=== PATIENT | female | born 1970 | race Caucasian/White ===

== ENCOUNTER 2024-05-11 09:44 | Emergency (ER) | payer MEDICAID, SELFPAY ==
[2024-05-11 09:46] VITALS: BP 104/74; PULSE 107; RESP 22; TEMP 36.6; O2SAT 100
[2024-05-11 09:51] VITALS: PULSE 112; RESP 22; O2SAT 93; BMI 28.1
--- NOTE | 2024-05-11 10:31 | EKG_ITS ---
[facility] Test Date: 2024-05-11 Pat Name: TIFFANY FREY Department: Room: - Gender: Female Straightener And Aligner: : 1970 Requested By: Harsh Robb Order Number: [id number] Reading MD: Harsh Robb Measurements Intervals [place] Rate: 101 P: 33 MT: 101 QRS: 54 QRSD: 73 T: 70 QT: 315 QTc: 408 Interpretive Statements SINUS TACHYCARDIA WITH SHORT MT INTERVAL NONSPECIFIC ST & T-WAVE ABNORMALITY ABNORMAL RHYTHM ECG Compared to ECG 03/30/2024 19:43:34 T-wave abnormality now present Sinus rhythm no longer present ST (T wave) deviation no longer present /store/S0/[id number].pdf
--- NOTE | 2024-05-11 10:34 | XR_ITS ---
Examination: AP chest single view TECHNIQUE: AP portable supine chest single view Exam date and time: May 11, 2024 1158 hours INDICATIONS: Shortness of breath today. FINDINGS: Reduced inspiration Normal heart size No lobar pneumonia or pulmonary edema IMPRESSION: No lobar pneumonia or pulmonary edema Severe thoracolumbar dextroscoliosis
--- NOTE | 2024-05-11 11:11 | EDNOTE_ITS ---
ED General RME/HPI General Chief complaint: Shortness of Breath/Dyspnea Stated complaint: SOB Time Seen by Provider: 05/11/24 11:05 Arrival date/time: 05/11/24 09:44 CC: Reported shortness of breath HPI unknown onset time patient is nonverbal secondary to compulsive order epilepsy seizure disorder scoliosis osteoporosis and contractures. With profound mental mental retardation. Report is thirdhand Interview of the intake nurse states that the patient was presented here for perceived shortness of breath as someone else in the household was recently diagnosed with pneumonia. Related Data Home Medications ?Medication ?Instructions ?Recorded ?Confirmed calcium carbonate 500 mg/5 mL (as 625 mg feeding tube BID 07/29/23 03/18/24 calcium carb 1,250 mg/5 mL) oral suspension erythromycin 2 % topical solution 1 ml topical BID 07/29/23 03/18/24 gabapentin 300 mg capsule 900 mg feeding tube BID 07/29/23 03/18/24 glycopyrrolate 2 mg tablet 2 mg feeding tube BID 07/29/23 03/18/24 levothyroxine 75 mcg tablet 75 mcg feeding tube USEASDIRECTD 07/29/23 03/18/24 metoclopramide HCl 5 mg/5 mL oral 10 mg feeding tube BID 07/29/23 03/18/24 solution multivit and minerals-ferrous 5 ml feeding tube BID 07/29/23 03/18/24 gluconate 9 mg iron/15 mL oral liquid (Multi-Jg) simethicone 80 mg chewable tablet 80 mg feeding tube TID 07/29/23 03/18/24 valproic acid (as sodium salt) 250 400 mg feeding tube BID 07/29/23 03/18/24 mg/5 mL oral solution acetaminophen 325 mg tablet 650 mg feeding tube QID PRN Pain 03/18/24 03/18/24 (Tylenol) dextromethorphan-guaifenesin 10 10 ml PO Q6H PRN Cough 03/18/24 03/18/24 mg-200 mg/5 mL oral liquid erythromycin 2 % topical solution 1 ml topical BID 03/18/24 03/18/24 famotidine 20 mg tablet 20 mg feeding tube QDAY 03/18/24 03/18/24 ipratropium 0.5 mg-albuterol 3 mg 3 ml inhalation Q4H PRN Shortness 03/18/24 03/18/24 (2.5 mg base)/3 mL nebulization Of Breath Or Wheezing soln lactulose 10 gram/15 mL oral 30 g feeding tube DAILY 03/18/24 03/18/24 solution loratadine 10 mg tablet 10 mg feeding tube QDAY 03/18/24 03/18/24 pseudoephedrine HCl 60 mg tablet 60 mg feeding tube Q6H PRN 03/18/24 03/18/24 (Sudogest) Congestion Previous Rx's ?Medication ?Instructions ?Recorded doxycycline hyclate 100 mg tablet 100 mg PO QDAY #10 tabs 03/30/24 Allergies Allergy/AdvReac Type Severity Reaction Status Date / Time bacitracin Allergy Verified 05/11/24 09:58 [From Neosporin ([id number])] cephalexin Allergy Verified 05/11/24 09:58 neomycin Allergy Verified 05/11/24 09:58 [From Neosporin ([id number])] Penicillins Allergy Verified 05/11/24 09:58 polymyxin B Allergy Verified 05/11/24 09:58 [From Neosporin ([id number])] Review of Systems Review of Systems ROS Unobtainable: unobtainable due to mental status ED Exam Narrative Physical exam: [General: Appears not in any acute distress Head normocephalic HEENT: Eyes pupils are PERRLA tracking nose: No rhinorrhea mouth pink moist membranes uvula is midline. Neck is supple no edema no LAD Chest equal chest rise nontender to palpation Respiratory: Clear to auscultation no wheezes crackles or rubs CV: Rate rhythm is regular, tachycardic, no murmurs rubs or clicks Abdomen is soft no masses positive bowel sounds all 4 quadrants Skin: Intact no petechiae rash induration ulceration or crepitus Extremities: Upper and lower contractures, passive range of motion of no active range of motion Neuro: Awake, nonverbal Course Quality Measures none Orders Category Date Time Status Continuous Pulse Oximetry NOW Care 05/11/24 10:32 Completed In and Out Catheter X1 Care 05/11/24 11:14 Active Insert IV NOW Care 05/11/24 10:32 Active EKG (ED Only) Stat Exams 05/11/24 10:31 Draft XR chest 1V portable Stat Exams 05/11/24 10:34 Completed CBC Stat Lab 05/11/24 11:03 Completed Comprehensive Metabolic Panel Stat Lab 05/11/24 11:03 Completed Urinalysis, C/S if Indicated Stat Lab 05/11/24 13:15 Completed Oxygen Delivery NEEDED RT 05/11/24 10:32 Active Vital Signs Vital signs: Vital Signs Temperature 97.9 F 05/11/24 09:46 Pulse Rate 107 H 05/11/24 09:46 Respiratory Rate 22 H 05/11/24 09:46 Blood Pressure 104/74 05/11/24 09:46 Pulse Oximetry (%) 100 05/11/24 09:46 Oxygen Delivery Method Oxy Mask 05/11/24 09:46 Oxygen Flow Rate 6 05/11/24 09:46 MDM Patient data External records reviewed:: [facility] previous records and EMS form Clinical information provided by:: patient and EMS Social determinants that could affect healthcare access:: none Patient has the following chronic illnesses:: Profound mental retardation, epilepsy history of seizures scoliosis osteoporosis contractures compulsive disorder. How is presenting disease/condition affected by chronic disease/condition?: e xacerbated by Evaluation data The following diagnostics were reviewed and interpreted by me:: lab results and radiology exam(s) Lab and/or radiology exams considered but not ordered:: EKG performed at 1210 shows ventricular rate of 101 CA interval 101 QRS of 73 QTc of [address] segment changes CBC shows leukocytosis of 14.6 no significant anemia thrombocytopenia. CMP shows no acute electrolyte imbalances renal impairment transaminitis or T. bili elevation Chest x-ray as interpreted by me read by radiology shows no significant infiltrate or effusion, there is significant dextroscoliosis Urine is negative for UTI Interpretation Summary: There is no acute finding the patient has stable vital signs at this time patient be discharged back home again Medications Medications considered but not ordered:: None Medication administrations:: None Consultations Consultation(s) initiated? (list below): No Diagnosis Differential Diagnosis ED Complaint MDM: Pneumonia UTI electrolyte imbalance Most likely diagnosis given after review of the tests above:: No acute finding Admission Indicated Admission indicated?: not indicated Explain why admission is indicated or not indicated:: Stable for follow-up Admission Request Was there a request for admission?: No Disposition Plan Disposition Plan: Discharge Discharge Attestation Discharge Attestation: The patient and all family members were given an opportunity to ask questions and understood the discharge instructions. Discharge instructions specifically effects, indications for sooner follow up or return to the emergency department, and the expected course of current diagnosis. Patient condition: Stable Medical Decision Making Differential Diagnosis Differential Diagnosis: Pneumonia UTI electrolyte imbalance Lab Data 05/11/24 11:03 05/11/24 11:03 Labs: Lab Results 05/11/24 05/11/24 Range/Units 11:03 13:15 WBC 14.8 H (3.6-11.0) Thou/mm3 RBC 4.63 (4.00-5.20) Miln/mm3 Hgb 15.9 (12.0-16.0) g/dL Hct 47.2 H (36.0-46.0) % MCV 102 H (80-100) fL MCH 34.3 (25.0-35.0) pg MCHC 33.7 (31.0-37.0) g/dl RDW Std Deviation 48.8 H (36.4-46.3) fL Plt Count 143 D (140-440) Thou/mm3 Neut % (Auto) 51 (37-80) % Lymph % (Auto) 33 (10-50) % [place] % (Auto) 16 H (0-12) % Eos % (Auto) 0 (0-10) % Baso % (Auto) 0 (0-2.5) % Neut # (Auto) 7.5 (1.8-7.7) Thou/mm3 Lymph # (Auto) 4.8 (1.0-4.8) Thou/mm3 [place] # (Auto) 2.3 H (0.0-0.8) Thou/mm3 Eos # (Auto) 0.0 (0.0-0.5) Thou/mm3 Baso # (Auto) 0.0 (0.0-0.2) Thou/mm3 Immature Gran # (Auto) 0.09 H (0.00-0.00) Thou/mm3 Absolute Nucleated RBC 0.00 (0.00-0.00) Thou/mm3 Immature Gran % 1 H (0-0) % Nucleated RBC % 0 (0) /100 WBC Sodium 136 (136-145) mMol/L Potassium 4.3 (3.4-5.1) mMol/L Chloride 98 (98-107) mMol/L Carbon Dioxide 27.4 (20.0-31.0) mMol/L Anion Gap 11 (7-16) BUN 15 (9-23) mg/dL Creatinine 0.6 (0.6-1.3) mg/dL Estim Creat Clear Calc 67.6 (>60) mL/min eGFR > 60 (60 - ) See Note BUN/Creatinine Ratio 25 H (12-20) Ratio Glucose 102 (74-106) mg/dL Calculated Osmolality 272 L (275-295) Calcium 9.6 (8.3-10.6) mg/dL Corrected Calcium 9.8 (8.5-10.1) mg/dL Total Bilirubin 0.5 (0.3-1.2) mg/dL AST 41 H (0-34) U/L ALT 24 (10-49) U/L Alkaline Phosphatase 91 (46-116) U/L Total Protein 6.6 (5.7-8.2) gm/dL Albumin 3.8 (3.5-5.0) gm/dL Globulin 2.8 (2.3-3.5) gm/dL Albumin/Globulin Ratio 1.4 (1.2-2.2) Ur Collection Type Catheter Urine Color Yellow (Lt Yel-Yel) Urine Clarity Clear (Clear/Hazy) Urine pH 6.0 (5.0-7.0) Ur Specific [place] 1.039 H (1.001-1.035) Urine Protein 1+ A (Neg - Trace) Urine Glucose (UA) Trace (Negative) Urine Ketones 2+ A (Negative) Urine Blood Negative (Negative) Urine Nitrite Negative (Negative) Urine Bilirubin Negative (Negative) Urine Urobilinogen (Auto) Negative (0.0-1.0) mg/dL Ur Leukocyte Esterase Negative (Negative) Urine RBC 3 (0-3) /hpf Urine WBC 3 (0-5) /hpf Ur Squamous Epith Cells < 1 (0-5) /hpf Urine Bacteria None (None) Hyaline Casts < 1 (0-1) /hpf Ur Culture Indicated? Not Indicated Discharge Plan Plan Patient Disposition: HOME (Self Care) Prescriptions/Referrals Prescriptions/Med Rec: No Action metoclopramide HCl 5 mg/5 mL Solution 10 mg feeding tube BID levothyroxine 75 mcg tablet 75 mcg feeding tube USEASDIRECTD Rx Instructions: GIVE ON SATURDAY, SATURDAY, SATURDAY erythromycin 2 % Solution 1 ml TOPICAL BID Rx Instructions: TO FACE valproic acid (as sodium salt) 250 mg/5 mL Solution 400 mg feeding tube BID gabapentin 300 mg capsule 900 mg feeding tube BID glycopyrrolate 2 mg tablet 2 mg feeding tube BID simethicone 80 mg Tablet,Chewable 80 mg feeding tube TID calcium carbonate 500 mg/5 mL (1,250 mg/5 mL) suspension 625 mg feeding tube BID Multi-Jg 9 mg iron/15 mL liquid 5 ml feeding tube BID famotidine 20 mg Tablet 20 mg feeding tube QDAY erythromycin 2 % Solution 1 ml TOPICAL BID loratadine 10 mg Tablet 10 mg feeding tube QDAY lactulose 10 gram/15 mL Solution 30 g feeding tube DAILY ipratropium-albuterol 0.5 mg-3 mg(2.5 mg base)/3 mL Solution For Nebulization 3 ml INHALATION Q4H PRN (Reason: Shortness Of Breath Or Wheezing) pseudoephedrine HCl [Sudogest] 60 mg Tablet 60 mg feeding tube Q6H PRN (Reason: Congestion) acetaminophen [Tylenol] 325 mg Tablet 650 mg feeding tube QID PRN (Reason: Pain) Robitussin DM Max 10-200 mg/5 mL Liquid 10 ml PO Q6H PRN (Reason: Cough) doxycycline hyclate 100 mg tablet 100 mg PO QDAY Qty: 10 0RF Referrals: Jewel Cleaning MD [Primary Care Provider] - In 1 week Problem List Clinical Impression: Shortness of breath Patient/Caregiver Discharge Instructions Other Activity Instructions:: Although the initial complaint was shortness of breath or perceived shortness of breath with a someone in the family having pneumonia the patient has no acute findings requires emergent or immediate intervention. Education Materials: Shortness of Breath Coping Print Language: Occitan Stand Alone Forms: [facility]ena Award Info., Patient Portal Info Letter PA/BLASTING MACHINE OPERATOR Supervising Physician PA/BLASTING MACHINE OPERATOR Supervising Physician: Wes Johnson ENP
[2024-05-11 11:13] LABS: Basophils % (Auto) 0 % (0-2.5); Eosinophils % (Auto) 0 % (0-10); Hematocrit 47.2 % (36.0-46.0); Hemoglobin 15.9 g/dL (12.0-16.0); Immature Granulocytes % (Auto) 1 % (0-0); Immature Granulocytes Auto 0.09 Thou/mm3 (0.00-0.00); Lymphocytes # (Auto) 4.8 Thou/mm3 (1.0-4.8); Lymphocytes % (Auto) 33 % (10-50); Mean Corpuscular HGB Conc 33.7 g/dl (31.0-37.0); Mean Corpuscular Hemoglobin 34.3 pg (25.0-35.0); Mean Corpuscular Volume 102 fL (80-100); Monocytes # (Auto) 2.3 Thou/mm3 (0.0-0.8); Monocytes % (Auto) 16 % (0-12); Neutrophils # (Auto) 7.5 Thou/mm3 (1.8-7.7); Neutrophils % (Auto) 51 % (37-80); Nucleated Red Blood Cell % 0 /100 WBC (0); Platelet Count 143 Thou/mm3 (140-440); RDW Standard Deviation 48.8 fL (36.4-46.3); Red Blood Count 4.63 Miln/mm3 (4.00-5.20); White Blood Count 14.8 Thou/mm3 (3.6-11.0)
[2024-05-11 11:40] VITALS: TEMP 37.4
[2024-05-11 11:41] LABS: Alanine Aminotransferase 24 U/L (10-49); Albumin, Serum 3.8 gm/dL (3.5-5.0); Albumin/Globulin Ratio 1.4 (1.2-2.2); Alkaline Phosphatase 91 U/L (46-116); Anion Gap 11 (7-16); Aspartate Amino Transferase 41 U/L (0-34); BUN/Creatinine Ratio 25 Ratio (12-20); Bilirubin,Total 0.5 mg/dL (0.3-1.2); Blood Urea Nitrogen 15 mg/dL (9-23); Calcium 9.6 mg/dL (8.3-10.6); Calcium (Corrected) 9.8 mg/dL (8.5-10.1); Carbon Dioxide 27.4 mMol/L (20.0-31.0); Chloride 98 mMol/L (98-107); Creatinine (Component) 0.6 mg/dL (0.6-1.3); Estimated Creatinine Clearance 67.6 mL/min (>60); Globulin 2.8 gm/dL (2.3-3.5); Glucose 102 mg/dL (74-106); Osmolality,Calculated 272 (275-295); Potassium 4.3 mMol/L (3.4-5.1); Sodium 136 mMol/L (136-145); Total Protein 6.6 gm/dL (5.7-8.2); eGFR > 60 See Note
[2024-05-11 12:21] VITALS: BP 112/71; PULSE 104; RESP 21; O2SAT 94
[2024-05-11 13:24] LABS: Collection Type, Urine Catheter
[2024-05-11 13:56] LABS: Bilirubin,Urine Negative (Negative); Blood,Urine Negative (Negative); Clarity,Urine Clear (Clear/Hazy); Color,Urine Yellow (Lt Yel-Yel); Culture Indicated,Urine Not Indicated; Glucose, Urine Trace (Negative); Hyaline Casts,Urine < 1 /hpf (0-1); Ketones,Urine 2+ (Negative); Leukocyte Esterase,Urine Negative (Negative); Nitrite,Urine Negative (Negative); Protein,Urine 1+ (Neg - Trace); RBC,Urine 3 /hpf (0-3); Specific Gravity,Urine 1.039 (1.001-1.035); Squamous Epithelial Cell,Urine < 1 /hpf (0-5); Urobilinogen,Urine Negative mg/dL (0.0-1.0); WBC,Urine 3 /hpf (0-5)
[2024-05-11 14:00] VITALS: BP 110/68; PULSE 98; RESP 20; O2SAT 96
[2024-05-11 16:00] VITALS: BP 108/69; PULSE 99; RESP 20; TEMP 36.7; O2SAT 95
--- NOTE | 2024-05-11 16:11 | PC.CC ---
Pt Deyanira Pérez is a 53 yr old female to ED for SOB. Pt a resident at [facility]. EMPLOYMENT LAW SPECIALIST CC engaged by deputy county attorney Claire to arrange transport for pt. 1523-EMPLOYMENT LAW SPECIALIST CC spoke with Kaelyn Pérez [phone], facility counselor aid. EMPLOYMENT LAW SPECIALIST CC inquired if residential facility will be able to transport pt. Per Kaelyn she will talk to health information managers to arrange for pts transport.
== END 2024-05-11 16:22 | disposition home or self-care (01) ==
PROVIDERS: Registered Nurse General Practice; Emergency Provider Emergency Medicine; PCP Family Medicine
DX: R06.02 Shortness of breath (principal); R00.0 Tachycardia, unspecified; M41.9 Scoliosis, unspecified
CPT/HCPCS: 51701; 36415; 71045; 80053; 81001; 85025; 93005; 99283

== ENCOUNTER 2024-05-13 15:04 | Observation (INO) | payer MEDICAID, SELFPAY ==
[2024-05-13 15:20] VITALS: BP 102/6; PULSE 92; RESP 18; TEMP 37.1; O2SAT 95
--- NOTE | 2024-05-13 15:31 | XR_ITS ---
Examination: CT abdomen and pelvis without contrast. Coronal 3-D reconstructions. Sagittal 2-D reconstructions. Date and time of exam:May 13, 2024 1721 hrs. Comparison December 31, 2023 Indications: Onset generalized abdominal pain today CTDI: vol (mGy): 8.09 DLP: (mGycm): 432 Technique: Axial images of the abdomen have been obtained, 3 mm slice thickness Intravenous contrast material has not been administered. Low dose protocols were performed. One or more of the following dose reduction techniques were used; automated exposure control, adjustment of the mA and/or KV according to patient size, use of iterative reconstruction technique. Findings: No focal liver or splenic lesion Multiple gallstones No pancreatic mass No renal or ureteral calculi, no hydronephrosis No pericecal inflammatory change Moderate colonic ileus No diverticulitis There is mild diffuse wall thickening of the colon Contracted urinary bladder Atrophic anteverted uterus Severe thoracolumbar dextroscoliosis Impression: Cholelithiasis, recommend hepatobiliary sonography to better assess the gallbladder wall Mild to moderate colonic ileus Mild diffuse nonspecific colitis pattern
--- NOTE | 2024-05-13 15:32 | PD.EDRME ---
Rapid Medical Screening Exam RME Arrival date/time: 05/13/24 15:04 53-year-old female with G-tube presents with caregiver who reports the patient is having leakage from her G-tube and vomiting Chief Complaint: Medical Clearance Time Seen by Provider: 05/13/24 15:26 Vital signs: Vital Signs Temperature 98.7 F 05/13/24 15:20 Pulse Rate 92 05/13/24 15:20 Respiratory Rate 18 05/13/24 15:20 Blood Pressure 102/6 L 05/13/24 15:20 Pulse Oximetry (%) 95 05/13/24 15:20 Oxygen Delivery Method Room Air 05/13/24 15:20
[2024-05-13 16:14] LABS: Basophils % (Auto) 0 % (0-2.5); Eosinophils % (Auto) 0 % (0-10); Hematocrit 43.7 % (36.0-46.0); Hemoglobin 14.7 g/dL (12.0-16.0); Immature Granulocytes % (Auto) 1 % (0-0); Immature Granulocytes Auto 0.12 Thou/mm3 (0.00-0.00); Lymphocytes # (Auto) 6.8 Thou/mm3 (1.0-4.8); Lymphocytes % (Auto) 52 % (10-50); Mean Corpuscular HGB Conc 33.6 g/dl (31.0-37.0); Mean Corpuscular Hemoglobin 33.5 pg (25.0-35.0); Mean Corpuscular Volume 100 fL (80-100); Monocytes # (Auto) 1.2 Thou/mm3 (0.0-0.8); Monocytes % (Auto) 9 % (0-12); Neutrophils # (Auto) 4.9 Thou/mm3 (1.8-7.7); Neutrophils % (Auto) 38 % (37-80); Nucleated Red Blood Cell % 0 /100 WBC (0); Platelet Count 185 Thou/mm3 (140-440); RDW Standard Deviation 46.8 fL (36.4-46.3); Red Blood Count 4.39 Miln/mm3 (4.00-5.20); White Blood Count 13.1 Thou/mm3 (3.6-11.0)
[2024-05-13 16:29] LABS: HCG,Qualitative Serum Negative
[2024-05-13 16:34] LABS: Alanine Aminotransferase 29 U/L (10-49); Albumin, Serum 3.9 gm/dL (3.5-5.0); Albumin/Globulin Ratio 1.7 (1.2-2.2); Alkaline Phosphatase 86 U/L (46-116); Anion Gap 6 (7-16); Aspartate Amino Transferase 49 U/L (0-34); BUN/Creatinine Ratio 27 Ratio (12-20); Bilirubin,Total 0.4 mg/dL (0.3-1.2); Blood Urea Nitrogen 16 mg/dL (9-23); Calcium 9.2 mg/dL (8.3-10.6); Calcium (Corrected) 9.3 mg/dL (8.5-10.1); Carbon Dioxide 33.7 mMol/L (20.0-31.0); Chloride 94 mMol/L (98-107); Creatinine (Component) 0.6 mg/dL (0.6-1.3); Globulin 2.3 gm/dL (2.3-3.5); Glucose 87 mg/dL (74-106); Lipase 34 U/L (12-53); Osmolality,Calculated 268 (275-295); Potassium 4.1 mMol/L (3.4-5.1); Sodium 134 mMol/L (136-145); Total Protein 6.2 gm/dL (5.7-8.2); eGFR > 60 See Note
[2024-05-13 17:47] LABS: Path Review Blood Smear Sent to Pathologist
[2024-05-13 18:01] VITALS: BP 108/70; PULSE 96; RESP 20; TEMP 36.9; O2SAT 95
[2024-05-13 18:41] LABS: Collection Type, Urine Clean Catch; Squamous Epithelial Cell,Urine 0 /hpf (0-5)
--- NOTE | 2024-05-13 18:46 | PD.EDADULT ---
ED General RME/HPI General Chief complaint: Abdominal Pain Stated complaint: possible Illeus, per primary Time Seen by Provider: 05/13/24 15:26 Arrival date/time: 05/13/24 15:04 Limitations: no limitations RME / HPI RME / HPI narrative: 05/13/24 15:04 53-year-old female with G-tube presents with caregiver who reports the patient is having leakage from her G-tube and vomiting. DR. TILLMAN MAIN ED EVALUATION: 53 year old female with past medical history significant for profound mental retardation, epilepsy history of seizures, scoliosis, osteoporosis, contractures, compulsive disorder, G-tube presents to the Emergency Department with complaints of abdominal pain onset 24 hours with associated vomiting. Pain is described as aching and rated mild to moderate in severity. Related Data Home Medications ?Medication ?Instructions ?Recorded ?Confirmed calcium carbonate 500 mg/5 mL (as 625 mg feeding tube BID 07/29/23 03/18/24 calcium carb 1,250 mg/5 mL) oral suspension erythromycin 2 % topical solution 1 ml topical BID 07/29/23 03/18/24 gabapentin 300 mg capsule 900 mg feeding tube BID 07/29/23 03/18/24 glycopyrrolate 2 mg tablet 2 mg feeding tube BID 07/29/23 03/18/24 levothyroxine 75 mcg tablet 75 mcg feeding tube USEASDIRECTD 07/29/23 03/18/24 metoclopramide HCl 5 mg/5 mL oral 10 mg feeding tube BID 07/29/23 03/18/24 solution multivit and minerals-ferrous 5 ml feeding tube BID 07/29/23 03/18/24 gluconate 9 mg iron/15 mL oral liquid (Multi-Jg) simethicone 80 mg chewable tablet 80 mg feeding tube TID 07/29/23 03/18/24 valproic acid (as sodium salt) 250 400 mg feeding tube BID 07/29/23 03/18/24 mg/5 mL oral solution acetaminophen 325 mg tablet 650 mg feeding tube QID PRN Pain 03/18/24 03/18/24 (Tylenol) dextromethorphan-guaifenesin 10 10 ml PO Q6H PRN Cough 03/18/24 03/18/24 mg-200 mg/5 mL oral liquid erythromycin 2 % topical solution 1 ml topical BID 03/18/24 03/18/24 famotidine 20 mg tablet 20 mg feeding tube QDAY 03/18/24 03/18/24 ipratropium 0.5 mg-albuterol 3 mg 3 ml inhalation Q4H PRN Shortness 03/18/24 03/18/24 (2.5 mg base)/3 mL nebulization Of Breath Or Wheezing soln lactulose 10 gram/15 mL oral 30 g feeding tube DAILY 03/18/24 03/18/24 solution loratadine 10 mg tablet 10 mg feeding tube QDAY 03/18/24 03/18/24 pseudoephedrine HCl 60 mg tablet 60 mg feeding tube Q6H PRN 03/18/24 03/18/24 (Sudogest) Congestion Previous Rx's ?Medication ?Instructions ?Recorded doxycycline hyclate 100 mg tablet 100 mg PO QDAY #10 tabs 03/30/24 Allergies Allergy/AdvReac Type Severity Reaction Status Date / Time bacitracin Allergy Verified 05/11/24 09:58 [From Neosporin ([id number])] cephalexin Allergy Verified 05/11/24 09:58 neomycin Allergy Verified 05/11/24 09:58 [From Neosporin ([id number])] Penicillins Allergy Verified 05/11/24 09:58 polymyxin B Allergy Verified 05/11/24 09:58 [From Neosporin ([id number])] Review of Systems Review of Systems ROS Unobtainable: unobtainable due to medical condition Past Medical History Past Medical History NEUROLOGIC: Positive Neurological Disorders, Seizures and Cerebral Palsy CARDIAC: Negative Cardiac Disorders or Congestive Heart Failure RESPIRATORY: Positive Pneumonia; Negative Chronic Obstructive Pulmonary Disease (COPD) GASTROINTESTINAL: Positive Gastrointestinal Disorders, Gall Bladder Disease and Gastroesophageal Reflux Disease GENITOURINARY: Negative Genitourinary Disorders or Renal Disease MUSCULOSKELETAL: Positive Musculoskeletal Disorders ENT: Positive Blind ENDOCRINE: Positive Endocrine Disorders and Hypothyroidism; Negative Diabetes Mellitus Type 1 or Diabetes Mellitus Type 2 HEMATOLOGIC: Negative Blood Disorders PSYCHO/SOCIAL: Negative Behavior Problems OTHER HISTORY: Positive Hospitalization and Developmental Delay; Negative Autoimmune Disease, Shingles, Blood Transfusions, Blood Transfusion Reaction, Anesthesia Reactions or Cancer Family History FAMILY HISTORY: Negative Family Psychiatric Problems, Family Respiratory Disorders, Family Cardiac Disorders, Family Gastrointestinal Problems, Family Cancer, Family Surgery or Family Anesthesia Reaction Surgical History SURGICAL: Positive Gastrostomy Social History SMOKING STATUS: Never smoker SUBSTANCE USE: does not use ALCOHOL: Never ED Exam General Limitations: Present no limitations General appearance: Present alert and in no apparent distress Head Head exam: Present atraumatic, normocephalic and normal inspection Eye Eye exam: Present normal appearance, PERRL and EOMI ENT ENT exam: Present normal exam, normal oropharynx and mucous membranes moist Neck Neck exam: Present normal inspection, full ROM and trachea midline Chest Chest inspection: Present normal inspection and symmetric chest wall rise Respiratory Respiratory exam: Present normal lung sounds bilaterally Cardiovascular Cardiovascular exam: Present regular rate, normal rhythm and normal heart sounds Abdominal Exam Abdominal exam: Present soft and normal bowel sounds Extremities Exam Extremities exam: Present normal inspection and full ROM Back Exam Back exam: Present normal inspection and full ROM Neurological Exam Neurological exam: Present alert, oriented X3 and CN II-XII intact Psychiatric Psychiatric exam: Present normal affect and normal mood Skin Skin exam: Present warm, dry, intact and normal color Course Quality Measures none Orders Category Date Time Status In and Out Catheter X1 Care 05/13/24 15:31 Completed Insert IV NOW Care 05/13/24 21:20 Active Miscellaneous Nursing Order X1 Care 05/13/24 21:[address] abdomen pelvis wo con Stat Exams 05/13/24 15:31 Completed US gall bladder Stat Exams 05/13/24 19:47 Completed CBC Stat Lab 05/13/24 15:58 Completed Comprehensive Metabolic Panel Stat Lab 05/13/24 15:58 Completed HCG,Qualitative Serum Stat Lab 05/13/24 15:58 Completed Lipase Stat Lab 05/13/24 15:58 Completed Path Review Blood Smear Stat Lab 05/13/24 15:58 Completed UA, C/S IF [Urinalysis, C/S if Indicated] Stat Lab 05/13/24 18:30 Completed Ondansetron Inj [Zofran Inj] Med 05/13/24 21:34 Discontinued 4 mg IV X1 ONE Sodium Chloride 0.9% 1000 ml [Ns] 1,000 ml Med 05/13/24 21:21 Discontinued IV 999 mls/hr Sodium Chloride 0.9% 1000 ml [Ns] 1,000 ml Med 05/13/24 21:27 Discontinued IV 999 mls/hr Vital Signs Vital signs: Vital Signs Temperature 98.7 F 05/13/24 15:20 Pulse Rate 92 05/13/24 15:20 Respiratory Rate 18 05/13/24 15:20 Blood Pressure 102/6 L 05/13/24 15:20 Pulse Oximetry (%) 95 05/13/24 15:20 Oxygen Delivery Method Room Air 05/13/24 15:20 [facility] Patient data External records reviewed:: [facility] previous records (Reviewed last ED visit dated 05/11/24, discharged with the following: Shortness of breath.) Clinical information provided by:: patient Social determinants that could affect healthcare access:: none Patient has the following chronic illnesses:: Profound mental retardation, epilepsy history of seizures, scoliosis, osteoporosis, contractures, compulsive disorder. How is presenting disease/condition affected by chronic disease/condition?: exacerbated by Evaluation data The following diagnostics were reviewed and interpreted by me:: lab results and radiology exam(s) Lab and/or radiology exams considered but not ordered:: none Interpretation Summary: Procedure(s): US gall bladder Accession Number(s): [id number] cc: Jewel Cleaning MD; Ricky Pisano MD; Becka Tillman MD~ Examination: Abdomen sonogram, Limited Date and time of exam: May 13, 2024 1933 hrs. Indications: Upper abdominal pain this week Technique: Real-time fletcher scale transabdominal sonographic images of the upper abdomen obtained. Findings: Multiple gallstones Gallbladder wall 0.2 cm no edema Common bile duct 0.5 cm no stones Pancreas obscured by bowel gas Liver normal size fatty liver Normal hepatopedal portal venous oh Patent IVC Impression: Cholelithiasis, negative for cholecystitis Dictated By: Ricky Pisano MD Procedure(s): CT abdomen pelvis wo con Accession Number(s): [id number] cc: Alexandra (PASSENGER AGENT),Harsh JACKSON; Jewel Cleaning MD; Ricky Pisano MD~ Examination: CT abdomen and pelvis without contrast. Coronal 3-D reconstructions. Sagittal 2-D reconstructions. Date and time of exam:May 13, 2024 1721 hrs. Comparison December 31, 2023 Indications: Onset generalized abdominal pain today CTDI: vol (mGy): 8.09 DLP: (mGycm): 432 Technique: Axial images of the abdomen have been obtained, 3 mm slice thickness Intravenous contrast material has not been administered. Low dose protocols were performed. One or more of the following dose reduction techniques were used; automated exposure control, adjustment of the mA and/or KV according to patient size, use of iterative reconstruction technique. Findings: No focal liver or splenic lesion Multiple gallstones No pancreatic mass No renal or ureteral calculi, no hydronephrosis No pericecal inflammatory change Moderate colonic ileus No diverticulitis There is mild diffuse wall thickening of the colon Contracted urinary bladder Atrophic anteverted uterus Severe thoracolumbar dextroscoliosis Impression: Cholelithiasis, recommend hepatobiliary sonography to better assess the gallbladder wall Mild to moderate colonic ileus Mild diffuse nonspecific colitis pattern Dictated By: Ricky Pisano MD Medications Medications considered but not ordered:: none Medication administrations:: Medication Administration History Discontinued Medications Sodium Chloride (Ns) 1,000 mls @ 999 mls/hr IV .Q1H1M ONE Stop: 05/13/24 22:21 Last Infusion: 05/13/24 22:30 Dose: Infused Documented By: Admin: 05/13/24 21:22 Dose: 999 mls/hr Documented By: CVClaudia Sodium Chloride (Ns) 1,000 mls @ 999 mls/hr IV .Q1H1M ONE Stop: 05/13/24 22:27 Last Admin: 05/13/24 22:33 Dose: Not Given Documented By: EE Non-Admin Reason: Discontinued Ondansetron HCl (Ondansetron Inj 2 Mg/Ml Inj 2 Ml) 4 mg IV X1 ONE; Protocol Stop: 05/13/24 21:35 Last Admin: 05/13/24 22:33 Dose: 4 mg Documented By: RE see above if any Consultations Consultation(s) initiated? (list below): Yes Consultation #1 (Physician, Specialty, Details): Discussed test HPI, PMHx, lab, radiology results and/or management with Dr. Coe. He states he can follow up with patient at his office as an outpatient. Time: 21:00 Diagnosis Differential Diagnosis ED Complaint MDM: vomiting, sbo, uti dehydration, electrolyte abn Most likely diagnosis given after review of the tests above:: see below Admission Indicated Admission indicated?: not indicated Explain why admission is indicated or not indicated:: Admission criteria not met. Admission Request Was there a request for admission?: No Disposition Plan Disposition Plan: Discharge Discharge Attestation Discharge Attestation: The patient and all family members were given an opportunity to ask questions and understood the discharge instructions. Discharge instructions specifically effects, indications for sooner follow up or return to the emergency department, and the expected course of current diagnosis. Patient condition: Stable Medical Decision Making MDM Narrative MDM Narrative: I, Carmen Lyons, am scribing for and in the presence of Dr. Tillman. This patient was brought in for possible dry heaving with her feeds. The emergency department the patient is been able to tolerate feeds here with Pedialyte. She has no dry heaving and otherwise does not appear to be in pain. There is no vomiting. I tried to call the callback number at [phone] to speak to the doctor. They have no idea who that number is and how I get in touch with a physician. A number and call was made to Kimberlyn the nurse and pending callback. But the patient is safe for discharge. I spoke to Dr. Coe who at this time does not feel this patient needs admission to the hospital. He will talk to her care providers tomorrow or next week if needed but at this time the patient is safe for discharge. Differential Diagnosis Differential Diagnosis: vomiting, sbo, uti dehydration, electrolyte abn Lab Data 05/13/24 15:58 05/13/24 15:58 Labs: Lab Results 05/13/24 05/13/24 Range/Units 15:58 18:30 WBC 13.1 H (3.6-11.0) Thou/mm3 RBC 4.39 (4.00-5.20) Miln/mm3 Hgb 14.7 (12.0-16.0) g/dL Hct 43.7 (36.0-46.0) % MCV 100 (80-100) fL MCH 33.5 (25.0-35.0) pg MCHC 33.6 (31.0-37.0) g/dl RDW Std Deviation 46.8 H (36.4-46.3) fL Plt Count 185 D (140-440) Thou/mm3 Neut % (Auto) 38 (37-80) % Lymph % (Auto) 52 H (10-50) % [place] % (Auto) 9 (0-12) % Eos % (Auto) 0 (0-10) % Baso % (Auto) 0 (0-2.5) % Neut # (Auto) 4.9 (1.8-7.7) Thou/mm3 Lymph # (Auto) 6.8 H (1.0-4.8) Thou/mm3 [place]lier # (Auto) 1.2 H (0.0-0.8) Thou/mm3 Eos # (Auto) 0.0 (0.0-0.5) Thou/mm3 Baso # (Auto) 0.0 (0.0-0.2) Thou/mm3 Immature Gran # (Auto) 0.12 H (0.00-0.00) Thou/mm3 Absolute Nucleated RBC 0.00 (0.00-0.00) Thou/mm3 Immature Gran % 1 H (0-0) % Nucleated RBC % 0 (0) /100 WBC Smear Path Review Sent to Pathologist Sodium 134 L (136-145) mMol/L Potassium 4.1 (3.4-5.1) mMol/L Chloride 94 L (98-107) mMol/L Carbon Dioxide 33.7 H (20.0-31.0) mMol/L Anion Gap 6 L (7-16) BUN 16 (9-23) mg/dL Creatinine 0.6 (0.6-1.3) mg/dL Estim Creat Clear Calc Not Performed. eGFR > 60 (60 - ) See Note BUN/Creatinine Ratio 27 H (12-20) Ratio Glucose 87 (74-106) mg/dL Calculated Osmolality 268 L (275-295) Calcium 9.2 (8.3-10.6) mg/dL Corrected Calcium 9.3 (8.5-10.1) mg/dL Total Bilirubin 0.4 (0.3-1.2) mg/dL AST 49 H (0-34) U/L ALT 29 (10-49) U/L Alkaline Phosphatase 86 (46-116) U/L Total Protein 6.2 (5.7-8.2) gm/dL Albumin 3.9 (3.5-5.0) gm/dL Globulin 2.3 (2.3-3.5) gm/dL Albumin/Globulin Ratio 1.7 (1.2-2.2) Lipase 34 (12-53) U/L HCG, Qual Negative Ur Collection Type Clean Catch Urine Color Yellow (Lt Yel-Yel) Urine Clarity Clear (Clear/Hazy) Urine pH 8.0 H (5.0-7.0) Ur Specific [place] 1.036 H (1.001-1.035) Urine Protein 1+ A (Neg - Trace) Urine Glucose (UA) 1+ A (Negative) Urine Ketones 2+ A (Negative) Urine Blood Negative (Negative) Urine Nitrite Negative (Negative) Urine Bilirubin Negative (Negative) Urine Urobilinogen (Auto) Negative (0.0-1.0) mg/dL Ur Leukocyte Esterase Negative (Negative) Urine RBC 1 (0-3) /hpf Urine WBC 1 (0-5) /hpf Ur Squamous Epith Cells 0 (0-5) /hpf Urine Bacteria None (None) Ur Culture Indicated? Not Indicated Discharge Plan Plan Patient Disposition: HOME (Self Care) Patient condition on transfer: Stable Prescriptions/Referrals Prescriptions/Med Rec: No Action metoclopramide HCl 5 mg/5 mL Solution 10 mg feeding tube BID levothyroxine 75 mcg tablet 75 mcg feeding tube USEASDIRECTD Rx Instructions: GIVE ON SATURDAY, SATURDAY, SATURDAY erythromycin 2 % Solution 1 ml TOPICAL BID Rx Instructions: TO FACE valproic acid (as sodium salt) 250 mg/5 mL Solution 400 mg feeding tube BID gabapentin 300 mg capsule 900 mg feeding tube BID glycopyrrolate 2 mg tablet 2 mg feeding tube BID simethicone 80 mg Tablet,Chewable 80 mg feeding tube TID calcium carbonate 500 mg/5 mL (1,250 mg/5 mL) suspension 625 mg feeding tube BID Multi-Jg 9 mg iron/15 mL liquid 5 ml feeding tube BID famotidine 20 mg Tablet 20 mg feeding tube QDAY erythromycin 2 % Solution 1 ml TOPICAL BID loratadine 10 mg Tablet 10 mg feeding tube QDAY lactulose 10 gram/15 mL Solution 30 g feeding tube DAILY ipratropium-albuterol 0.5 mg-3 mg(2.5 mg base)/3 mL Solution For Nebulization 3 ml INHALATION Q4H PRN (Reason: Shortness Of Breath Or Wheezing) pseudoephedrine HCl [Sudogest] 60 mg Tablet 60 mg feeding tube Q6H PRN (Reason: Congestion) acetaminophen [Tylenol] 325 mg Tablet 650 mg feeding tube QID PRN (Reason: Pain) Robitussin DM Max 10-200 mg/5 mL Liquid 10 ml PO Q6H PRN (Reason: Cough) doxycycline hyclate 100 mg tablet 100 mg PO QDAY Qty: 10 0RF Referrals: Jewel Cleaning MD [Primary Care Provider] - In 1 week Abbi Ojeda MD [Physician] - 05/14/24 12:08 am (You can call tomorrow Dr. Coe's office so that you can get an outpatient appointment.) Problem List Clinical Impression: Nausea Patient/Caregiver Discharge Instructions Additional Instructions: Stay hydrated Pedialyte and/or Gatorade. We spoke to Dr. Coe the surgeon who at this time does not feel the patient needs to be hospitalized and does not need her gallbladder taken out at this time. Please call his office as above so that you can get an appointment, if needed. Return to emergency department fever, vomiting, or any other concerns. Print Language: Burmese Stand Alone Forms: [employer]ena Award Info., Patient Portal Info Letter
[2024-05-13 18:53] LABS: Bilirubin,Urine Negative (Negative); Blood,Urine Negative (Negative); Clarity,Urine Clear (Clear/Hazy); Color,Urine Yellow (Lt Yel-Yel); Culture Indicated,Urine Not Indicated; Glucose, Urine 1+ (Negative); Ketones,Urine 2+ (Negative); Leukocyte Esterase,Urine Negative (Negative); Nitrite,Urine Negative (Negative); Protein,Urine 1+ (Neg - Trace); RBC,Urine 1 /hpf (0-3); Specific Gravity,Urine 1.036 (1.001-1.035); Urobilinogen,Urine Negative mg/dL (0.0-1.0); WBC,Urine 1 /hpf (0-5)
[2024-05-13 19:14] VITALS: BP 133/98; PULSE 92; RESP 22; TEMP 37.1; O2SAT 97
--- NOTE | 2024-05-13 19:47 | XR_ITS ---
Examination: Abdomen sonogram, Limited Date and time of exam: May 13, 2024 1933 hrs. Indications: Upper abdominal pain this week Technique: Real-time fletcher scale transabdominal sonographic images of the upper abdomen obtained. Findings: Multiple gallstones Gallbladder wall 0.2 cm no edema Common bile duct 0.5 cm no stones Pancreas obscured by bowel gas Liver normal size fatty liver Normal hepatopedal portal venous oh Patent IVC Impression: Cholelithiasis, negative for cholecystitis
[2024-05-13 20:00] VITALS: BP 123/74; PULSE 88; RESP 18; TEMP 37; O2SAT 98
[2024-05-13] MEDS: SODIUM CHLORIDE 0.9% 1000 ML 1,000 ML 999 ML IV (21:22)
[2024-05-13 22:00] VITALS: BP 131/80; PULSE 90; RESP 18; O2SAT 98
[2024-05-13] MEDS: ONDANSETRON INJ 2 MG/ML INJ 2 ML 4 MG IV (22:33)
[2024-05-14] VITALS (11 sets, daily range): BP systolic 108–152; BP diastolic 72–95; PULSE 81–103; RESP 15–20; TEMP 36.6–36.8; O2SAT 96–100; BMI 20.2
--- NOTE | 2024-05-14 07:12 | PC.NURSE ---
PT RESTING W/EYES CLOSED DOES NOT APPEAR TO BE IN ANY PAIN OR DISTRESS AT THIS TIME. VSS ON TELE.
--- NOTE | 2024-05-14 08:35 | PC.CC ---
ASWCesia was consulted by log chain worker Claire regarding making contact with [facility] so the patient can return home. ASW made contact with with [facility] Loco Marie who is patients worker at [facility] he reports that the home is hesitant to take the patient back as the [facility] consulting physician, Dr. Marie has to be consulted. ASW made contact with [facility], Dr. Marie who was requesting to speak to Dr. Maradiaga as there are concerns the patient could have a bowel obstruction. Dr. Marie's information was provided to Dr. Maradiaga. ASW made contact with [facility] who reports that is the plan is still to discharge the patient upon Dr. Maradiaga consulting with Dr. Marie then Kaelyn Pérez will be able to lemon picker the patient from the hospital.
--- NOTE | 2024-05-14 09:30 | EDNOTE_ITS ---
ED Abdominal Pain RME/HPI General Chief Complaint: Abdominal Pain Stated complaint: possible Illeus, per primary Time seen by provider: 05/13/24 15:26 Arrival date/time: 05/13/24 15:04 Limitations: no limitations RME / HPI RME / HPI narrative: 05/13/24 15:04 53-year-old female with G-tube presents with caregiver who reports the patient is having leakage from her G-tube and vomiting. DR. TILLMAN MAIN ED EVALUATION: 53 year old female with past medical history significant for profound mental retardation, epilepsy history of seizures, scoliosis, osteoporosis, contractures, compulsive disorder, G-tube presents to the Emergency Department with complaints of abdominal pain onset 24 hours with associated vomiting. Pain is described as aching and rated mild to moderate in severity. Related Data Home Medications ?Medication ?Instructions ?Recorded ?Confirmed calcium carbonate 500 mg/5 mL (as 625 mg feeding tube BID 07/29/23 03/18/24 calcium carb 1,250 mg/5 mL) oral suspension erythromycin 2 % topical solution 1 ml topical BID 07/29/23 03/18/24 gabapentin 300 mg capsule 900 mg feeding tube BID 07/29/23 03/18/24 glycopyrrolate 2 mg tablet 2 mg feeding tube BID 07/29/23 03/18/24 levothyroxine 75 mcg tablet 75 mcg feeding tube USEASDIRECTD 07/29/23 03/18/24 metoclopramide HCl 5 mg/5 mL oral 10 mg feeding tube BID 07/29/23 03/18/24 solution multivit and minerals-ferrous 5 ml feeding tube BID 07/29/23 03/18/24 gluconate 9 mg iron/15 mL oral liquid (Multi-Jg) simethicone 80 mg chewable tablet 80 mg feeding tube TID 07/29/23 03/18/24 valproic acid (as sodium salt) 250 400 mg feeding tube BID 07/29/23 03/18/24 mg/5 mL oral solution acetaminophen 325 mg tablet 650 mg feeding tube QID PRN Pain 03/18/24 03/18/24 (Tylenol) dextromethorphan-guaifenesin 10 10 ml PO Q6H PRN Cough 03/18/24 03/18/24 mg-200 mg/5 mL oral liquid erythromycin 2 % topical solution 1 ml topical BID 03/18/24 03/18/24 famotidine 20 mg tablet 20 mg feeding tube QDAY 03/18/24 03/18/24 ipratropium 0.5 mg-albuterol 3 mg 3 ml inhalation Q4H PRN Shortness 03/18/24 03/18/24 (2.5 mg base)/3 mL nebulization Of Breath Or Wheezing soln lactulose 10 gram/15 mL oral 30 g feeding tube DAILY 03/18/24 03/18/24 solution loratadine 10 mg tablet 10 mg feeding tube QDAY 03/18/24 03/18/24 pseudoephedrine HCl 60 mg tablet 60 mg feeding tube Q6H PRN 03/18/24 03/18/24 (Sudogest) Congestion Previous Rx's ?Medication ?Instructions ?Recorded doxycycline hyclate 100 mg tablet 100 mg PO QDAY #10 tabs 03/30/24 Allergies Allergy/AdvReac Type Severity Reaction Status Date / Time bacitracin Allergy Verified 05/11/24 09:58 [From Neosporin ([id number])] cephalexin Allergy Verified 05/11/24 09:58 neomycin Allergy Verified 05/11/24 09:58 [From Neosporin ([id number])] Penicillins Allergy Verified 05/11/24 09:58 polymyxin B Allergy Verified 05/11/24 09:58 [From Neosporin ([id number])] Review of Systems Review of Systems ROS Unobtainable: unobtainable due to medical condition Past Medical History Past Medical History NEUROLOGIC: Positive Neurological Disorders, Seizures and Cerebral Palsy RESPIRATORY: Positive Pneumonia GASTROINTESTINAL: Positive Gastrointestinal Disorders, Gall Bladder Disease and Gastroesophageal Reflux Disease MUSCULOSKELETAL: Positive Musculoskeletal Disorders ENT: Positive Blind ENDOCRINE: Positive Endocrine Disorders and Hypothyroidism OTHER HISTORY: Positive Hospitalization and Developmental Delay Family History FAMILY HISTORY: Negative Family Psychiatric Problems, Family Respiratory Disorders, Family Cardiac Disorders, Family Gastrointestinal Problems, Family Cancer, Family Surgery or Family Anesthesia Reaction Surgical History SURGICAL: Positive Gastrostomy Social History SMOKING STATUS: Never smoker SUBSTANCE USE: does not use ED Exam Narrative Physical exam: Physical Exam: General: The vital signs were reviewed. Patient is contracted nonverbal development delayed caregivers in the room answering questions Head & Scalp: Normocephalic, atraumatic. Face: Appears normal and is without lesions, deformity. Usual facies Ears: Left external pinna appears normal. Right external pinna appears normal. Eyes: The sclera is anicteric. No obvious photophobia. The Left and Right Orbit/Lid/Conjunctiva appears normal without swelling, discoloration or injection. Nose: The nose is without deformity, discharge or tenderness; Throat: Appears normal. Patient's hard to visualize the throat and startles when you turn on light or try to examine her. But evident this is her baseline per the caregiver Neck: The neck is supple and no apparent mass or adenopathy. Chest: The chest wall is normal in size and symmetry and has no chest wall tenderness or crepitus. The patient displays normal ventilator effort without retractions, accessory muscle use and has adequate air movement bilaterally with no wheezes and no rales. Cardiovascular: Regular rate and rhythm; No murmurs, rubs, or gallops; Gastrointestinal: The the abdomen has a G-tube in place. The belly is somewhat distended there is some hyperactive bowel sounds present. She appears to have discomfort when you palpate the abdomen. Genitourinary: External genitalia seem to be within normal limits. Back/Spine: Spine has no obvious pain normal to inspection Extremities/Musculoskeletal/lymphatic: The bilateral upper and lower extremities are contracted no obvious bedsores skin is clean and dry atrophy atrophic extremities. Skin: The skin is warm, dry and intact. No rashes. No petechia. No purpura. No abnormal bruising. The color is appropriate with no cyanosis. Mental status/Psychiatric: Mental status i baseline for this patient which is nonverbal give some eye contact makes squeals or noises when scared Neurological: The patient is curled up on the bed will open eyes temporarily have some movement of her extremities but nonpurposeful and with contractures. No further examination is possible. The pupils are reactive to light open General Limitations: Present no limitations General appearance: Present alert and in no apparent distress Course Quality Measures none Orders Category Date Time Status In and Out Catheter X1 Care 05/13/24 15:31 Completed Insert IV NOW Care 05/13/24 21:20 Active Miscellaneous Nursing Order X1 Care 05/13/24 21:35 Active NG / OG Tube to LIS NOW Care 05/14/24 10:[address] abdomen pelvis wo con Stat Exams 05/13/24 15:31 Completed US gall bladder Stat Exams 05/13/24 19:47 Completed XR small bowel single contrast Stat Exams 05/14/24 09:48 Completed CBC Stat Lab 05/13/24 15:58 Completed CBC Stat Lab 05/14/24 16:00 Completed CMP [Comprehensive Metabolic Panel] Stat Lab 05/14/24 13:11 Completed Comprehensive Metabolic Panel Stat Lab 05/13/24 15:58 Completed HCG,Qualitative Serum Stat Lab 05/13/24 15:58 Completed Lipase Stat Lab 05/13/24 15:58 Completed Path Review Blood Smear Stat Lab 05/13/24 15:58 Completed UA, C/S IF [Urinalysis, C/S if Indicated] Stat Lab 05/13/24 18:30 Completed Ondansetron Inj [Zofran Inj] Med 05/13/24 21:34 Discontinued 4 mg IV X1 ONE Sodium Chloride 0.9% 1000 ml [Ns] 1,000 ml Med 05/14/24 10:26 Discontinued IV 150 mls/hr Sodium Chloride 0.9% 1000 ml [Ns] 1,000 ml Med 05/13/24 21:21 Discontinued IV 999 mls/hr Sodium Chloride 0.9% 1000 ml [Ns] 1,000 ml Med 05/13/24 21:27 Discontinued IV 999 mls/hr Vital Signs Vital signs: Vital Signs Temperature 98.7 F 05/13/24 15:20 Pulse Rate 92 05/13/24 15:20 Respiratory Rate 18 05/13/24 15:20 Blood Pressure 102/6 L 05/13/24 15:20 Pulse Oximetry (%) 95 05/13/24 15:20 Oxygen Delivery Method Room Air 05/13/24 15:20 Pulse ox is 95% on room air which is adequate. Abdominal Pain MDM MDM Narrative MDM Narrative:: I was asked to see this patient by medical social worker and the charge nurse as caregivers and even Dr. Marie who knows this patient was concerned that they were sending the patient home when they were with a possible bowel obstruction. I I went into the room despite the patient being discharged started will complete new chart and I was informed by Kimberlyn Norwood who is an RN at the facility whose phone number is [phone] and states she was a charge nurse at this ER back in 2011. Ms. Norwood informing that the patient came to the ER earlier in the week was having vomiting and diarrhea and known gallstones and they discharged the patient back home. She has been having multiple episodes of vomiting back with yellow-green substance making her quite concern for a bowel obstruction. Because the patient was not doing well she was sent back for a second reevaluation which occurred yesterday . Extensive workup was done prior to my being invited to see this patient. Will evaluate those labs and a moment Mrs. Norwood informing that the G-tube again was leaking when the patient was sent back and she has had increased volumes of G-tube retention. Bowel sounds were diminished according to her evaluation they were concerned for a bowel obstruction again. Ms. Norwood the RN also reported that evidently the clinical PA who is a black lady was yelling and reported that they should get out of the ER note I asked her to make a formal report and submit that to administration of the [facility]. I completed a full physical examination reviewed the CT scan that was already done which revealed multiple dilated loops of bowel mostly colon and I spoke with the radiologist Dr. Barraza and he felt this could be a bowel obstruction certainly has an ileus and recommended a Gastrografin small bowel series. Laboratory studies done today showed a white count of 9.8 hemoglobin of 15.3 sodium 133 potassium 5.1 chloride 97 CO2 29.6 BUN 11 creatinine 0.6 AST slightly elevated 92 ALT 34 total bilirubin was normal urinalysis was done which revealed no white cells that urine cells. Chest x-ray was done which is a poor inspiratory effort and patient is unable to cooperate due to her cognitive delays but no obvious pneumonia was reported. Gallbladder ultrasound reveals gallstones without cholecystitis. Hospitalist was called and they came down saw the patient again admit the patient for intractable vomiting concerns for bowel obstruction though it looks more like it is large bowel involvement on the CT and the in the upper GI series revealed no small bowel obstruction and the contrast made to the colon within an hour. Patient data External records reviewed:: [facility] [place] previous records (I reviewed ED visit on 05/11/2024) and Jail records (long-term ) Clinical information provided by:: shipping and receiving Social determinants that could affect healthcare access:: housing (nursing home resident) Patient has the following chronic illnesses:: significant for profound mental retardation, epilepsy history of seizures, scoliosis, osteoporosis, contractures, compulsive disorder, G-tube How is presenting disease/condition affected by chronic disease/condition?: exacerbated by Evaluation data The following diagnostics were reviewed and interpreted by me:: lab results and radiology exam(s) Lab and/or radiology exams considered but not ordered:: None Interpretation Summary: Ordering Physician: Alexandra PALAFOX)Harsh NP Date of Service: 05/13/24 Procedure(s): CT abdomen pelvis wo con Accession Number(s): [id number] cc: Alexandra PALAFOX)Harsh NP; Jewel Cleaning MD; Ricky Pisano MD~ Examination: CT abdomen and pelvis without contrast. Coronal 3-D reconstructions. Sagittal 2-D reconstructions. Date and time of exam:May 13, 2024 1721 hrs. Comparison December 31, 2023 Indications: Onset generalized abdominal pain today CTDI: vol (mGy): 8.09 DLP: (mGycm): 432 Technique: Axial images of the abdomen have been obtained, 3 mm slice thickness Intravenous contrast material has not been administered. Low dose protocols were performed. One or more of the following dose reduction techniques were used; automated exposure control, adjustment of the mA and/or KV according to patient size, use of iterative reconstruction technique. Findings: No focal liver or splenic lesion Multiple gallstones No pancreatic mass No renal or ureteral calculi, no hydronephrosis No pericecal inflammatory change Moderate colonic ileus No diverticulitis There is mild diffuse wall thickening of the colon Contracted urinary bladder Atrophic anteverted uterus Severe thoracolumbar dextroscoliosis Impression: Cholelithiasis, recommend hepatobiliary sonography to better assess the gallbladder wall Mild to moderate colonic ileus Mild diffuse nonspecific colitis pattern Dictated By: Ricky Pisano MD Signed By: <Electronically signed by Ricky Pisano MD in OV> 05/13/241814 Ordering Physician: Becka Tillman MD Date of Service: 05/13/24 Procedure(s): US gall bladder Accession Number(s): [id number] cc: Jewel Cleaning MD; Ricky Pisano MD; Becka Tillman MD~ Examination: Abdomen sonogram, Limited Date and time of exam: May 13, 2024 1933 hrs. Indications: Upper abdominal pain this week Technique: Real-time fletcher scale transabdominal sonographic images of the upper abdomen obtained. Findings: Multiple gallstones Gallbladder wall 0.2 cm no edema Common bile duct 0.5 cm no stones Pancreas obscured by bowel gas Liver normal size fatty liver Normal hepatopedal portal venous oh Patent IVC Impression: Cholelithiasis, negative for cholecystitis Dictated By: Ricky Pisano MD Signed By: <Electronically signed by Ricky Pisano MD in OV> 05/13/24 2110 Medications / Prescriptions Medications or Prescriptions considered but not ordered:: None Medication administrations:: Medication Administration History Acetaminophen (Acetaminophen 325 Mg Tablet) 650 mg PO Q6H PRN PRN Reason: Mild Pain 1-3 or Fever>100.4 Stop: 06/13/24 13:44 Gabapentin (Gabapentin 300 Mg Capsule) 300 mg GT BID [facility] Stop: 06/13/24 20:59 Heparin Sodium (Porcine) (Heparin Sod Inj 5000 Unit/Ml Vial) 5,000 unit SC Q12HR [facility] Stop: 05/28/24 20:59 Levothyroxine Sodium (Levothyroxine Sodium 25 Mcg Tablet) 75 mcg PO MoWeSa@0600 [facility] Stop: 06/15/24 05:59 Levothyroxine Sodium (Levothyroxine Sodium 25 Mcg Tablet) 50 mcg PO TuThFr@0600 [facility] Stop: 06/14/24 05:59 Lorazepam (Lorazepam 0.5 Mg Tablet) 1 mg GT Q8HR PRN PRN Reason: anxiety Stop: 05/19/24 15:08 Metoclopramide HCl (Metoclopramide 5 Mg Tablet) 10 mg PO Q6H PRN PRN Reason: NAUSEA OR VOMITING Stop: 06/13/24 13:44 Pantoprazole Sodium (Pantoprazole Inj 40 Mg Vial) 40 mg IV BID [facility] Stop: 06/13/24 20:59 Valproic Acid (Valproic Acid Syrup 250 Mg/5 Ml Udc) 250 mg GT BID [facility] Stop: 06/13/24 20:59 Discontinued Medications Acetaminophen (Acetaminophen 325 Mg Tablet) 650 mg PO Q6H PRN PRN Reason: Mild Pain 1-3 or Fever>100.4 Stop: 06/13/24 13:44 Gabapentin (Gabapentin 300 Mg Capsule) 300 mg PO BID [facility] Stop: 06/13/24 20:59 Sodium Chloride (Ns) 1,000 mls @ 999 mls/hr IV .Q1H1M ONE Stop: 05/13/24 22:21 Last Infusion: 05/13/24 22:30 Dose: Infused Documented By: Admin: 05/13/24 21:22 Dose: 999 mls/hr Documented By: CVL Sodium Chloride (Ns) 1,000 mls @ 999 mls/hr IV .Q1H1M ONE Stop: 05/13/24 22:27 Last Admin: 05/13/24 22:33 Dose: Not Given Documented By: EE Non-Admin Reason: Discontinued Sodium Chloride (Ns) 1,000 mls @ 150 mls/hr IV .Q6H40M ONE Stop: 05/14/24 17:05 Last Admin: 05/14/24 13:14 Dose: 150 mls/hr Documented By: KARRI Lorazepam (Lorazepam 2 Mg/Ml Vial) 0.5 mg IVP X1 ONE Stop: 05/14/24 15:10 Ondansetron HCl (Ondansetron Inj 2 Mg/Ml Inj 2 Ml) 4 mg IV X1 ONE; Protocol Stop: 05/13/24 21:35 Last Admin: 05/13/24 22:33 Dose: 4 mg Documented By: EE Ondansetron HCl (Ondansetron Inj 2 Mg/Ml Inj 2 Ml) 4 mg IV Q6HR [facility]; Protocol Stop: 06/13/24 17:59 Valproic Acid (Valproic Acid Syrup 250 Mg/5 Ml Udc) 250 mg PO BID [facility] Stop: 06/13/24 20:59 See above Consultations Consultation(s) initiated? (list below): Yes Consultation #1 (Physician, Specialty, Details): I consulted with radiologist Dr. Pisano regarding images Time: 09:48 Consultation #2 (Physician, Specialty, Details): I spoke with patients PCP Dr. Marie. Discussed patients PMHx, HPI, ED course, exam findings, labs, and radiology results as noted above. Time: 09:55 Consultation #3 (Physician, Specialty, Details): I spoke with resident Dr. Valle working with Dr. Smith. Discussed patients PMHx, HPI, ED course, exam findings, labs, and radiology results. The hospitalist agree to accept the patient for admission. Time: 10:00 Diagnosis Differential diagnosis abdominal pain: abdominal pain, constipation, diverticulitis, gastroenteritis and small bowel obstruction Most likely diagnosis given after review of the tests above:: Nausea Admission Indicated Admission indicated?: indicated Admission Request Was there a request for admission?: Yes Admission Attestation Admission request attestation: Discussed case with [] from Hospitalist service regarding admission. Discussed patients ED course, exam findings, labs, and radiology results. The Hospitalist [agrees,declines] to accept the patient for admission. Disposition Plan Disposition Plan: Admit Discharge Plan Plan Patient Disposition: Admit Acute Care w/in Hospital Disposition Comment: Hospitalist admit Patient condition on transfer: Stable Problem List Clinical Impression: Intractable vomiting, Nausea, Developmental delay, severe, Paralytic ileus of large intestine, Gastrostomy tube dependent
--- NOTE | 2024-05-14 09:48 | XR_ITS ---
Examination: Small bowel series with 6 AP supine abdomen films Fluoroscopy 8 spot fluoroscopic films of the stomach Exam date and time: May 14, 2024 at 10:42 AM INDICATIONS: Abdominal pain and distention this week TECHNIQUE AND FINDINGS: 120 cc Gastrografin administered through the patient's feeding tube under fluoroscopic guidance Fluoroscopy 0.5 minutes radiation dose 34.24 milligray 14 x-ray images of the abdomen Minimal dilatation of jejunal and ileal loops Contrast in the colon at 1 hour IMPRESSION: Negative for small bowel obstruction
--- NOTE | 2024-05-14 10:06 | PC.CC ---
Loco Marie, [facility] worker for the patient made contact with ASW requesting a discharge plan. ASW made him aware that the plan is no longer to discharge patient and patient is being admitted. ASW informed Loco that Dr. Maradiaga had made contact with Dr. Marie to provide him with update regarding patient.
[2024-05-14] MEDS: SODIUM CHLORIDE 0.9% 1000 ML 1,000 ML 150 ML IV (13:14)
--- NOTE | 2024-05-14 13:44 | XR_ITS ---
Examination: AP chest single view Technique one AP portable semiupright chest single view Exam date and time: May 14, 2024 1404 hours Comparison May 11, 2024 INDICATIONS: Coughing congestion today. FINDINGS: Poor inspiratory effort Normal heart size No aspiration pneumonia IMPRESSION: Poor inspiratory effort chest x-ray
[2024-05-14 14:22] LABS: Alanine Aminotransferase 34 U/L (10-49); Albumin, Serum 4.1 gm/dL (3.5-5.0); Albumin/Globulin Ratio 1.6 (1.2-2.2); Alkaline Phosphatase 88 U/L (46-116); Anion Gap 6 (7-16); Aspartate Amino Transferase 92 U/L (0-34); BUN/Creatinine Ratio 18 Ratio (12-20); Bilirubin,Total 0.5 mg/dL (0.3-1.2); Blood Urea Nitrogen 11 mg/dL (9-23); Calcium 9.3 mg/dL (8.3-10.6); Calcium (Corrected) 9.3 mg/dL (8.5-10.1); Carbon Dioxide 29.6 mMol/L (20.0-31.0); Chloride 97 mMol/L (98-107); Creatinine (Component) 0.6 mg/dL (0.6-1.3); Globulin 2.5 gm/dL (2.3-3.5); Glucose 105 mg/dL (74-106); Osmolality,Calculated 265 (275-295); Potassium 5.1 mMol/L (3.4-5.1); Sodium 133 mMol/L (136-145); Total Protein 6.6 gm/dL (5.7-8.2); eGFR > 60 See Note
[2024-05-14] MEDS: LORazepam 2 MG/ML VIAL 0.5 MG IVP (15:15)
[2024-05-14 16:09] LABS: Basophils % (Auto) 0 % (0-2.5); Eosinophils % (Auto) 0 % (0-10); Hematocrit 43.5 % (36.0-46.0); Hemoglobin 15.3 g/dL (12.0-16.0); Immature Granulocytes % (Auto) 1 % (0-0); Immature Granulocytes Auto 0.09 Thou/mm3 (0.00-0.00); Lymphocytes # (Auto) 2.7 Thou/mm3 (1.0-4.8); Lymphocytes % (Auto) 28 % (10-50); Mean Corpuscular HGB Conc 35.2 g/dl (31.0-37.0); Mean Corpuscular Hemoglobin 34.5 pg (25.0-35.0); Mean Corpuscular Volume 98 fL (80-100); Monocytes # (Auto) 1.2 Thou/mm3 (0.0-0.8); Monocytes % (Auto) 12 % (0-12); Neutrophils # (Auto) 5.8 Thou/mm3 (1.8-7.7); Neutrophils % (Auto) 59 % (37-80); Nucleated Red Blood Cell % 0 /100 WBC (0); Platelet Count 149 Thou/mm3 (140-440); RDW Standard Deviation 45.2 fL (36.4-46.3); Red Blood Count 4.44 Miln/mm3 (4.00-5.20); White Blood Count 9.8 Thou/mm3 (3.6-11.0)
--- NOTE | 2024-05-14 16:35 | ESHP_ITS ---
<Statement entered by Shant Clark MD - 05/14/24 17:12> This patient is a 53-year-old female with developmental delay coming from a critical access hospital home presented with nausea vomiting and diarrhea from last 6 7 days. Patient has a G-tube placed which did not look infected but she grimaced on abdominal palpation. Will admit the patient for possible microbial infection and treat conservatively with IV fluids pain management. Her home medications were reconciled. Patient is in observation status. Electrolytes were repleted. Patient received her home medications gabapentin 300 mg GT twice daily, levothyroxine, Ativan 1 mg Q8 hourly as needed for anxiety, Reglan, Protonix and valproic acid. We will likely follow-up tomorrow morning. Dietitian was consulted for tube feedings. All labs and orders were reviewed. I saw and examined the patient, and I agree with current management stated by Dr Niecy MD,PGY1. Plan of care was discussed with the attending physician and resident physician. Disclaimer: Despite multiple revisions, due to the dictation software being used, the document bellow may not be free of grammatical errors including phonetic/typographic errors. However, this does not deter from our commitment to providing health care in the patient's best interest in mind. Dr. Amber MD, PGY 2 Documentation for date of: 05/14/24 HPI History of Present Illness History of present illness: CC: abdominal pain Patient 53-year-old female with a past medical history of cerebral palsy, nonverbal, history of seizures with scoliosis osteoporosis, contracture, cholelithiasis (not a surgical candidate), hypothyroidism, GERD, and PEG tube on Jevity. Lizbet presented to the emergency with increasing abdominal pain and regurgitation from the PEG tube. 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 Caregiver denied hemoptysis or hematemesis. Caregiver also stated increasing diarrhea with 10 loose stools happening over the last 5 days No melena or hematochezia. Caregiver also noticed wheezing on 05/11/2024. Patient did finish a course of antibiotics Z-Bola this past 05/08/2024. Caregiver noticed increased tachycardia and increasing tachypnea with episodes of emesis. Denied pyrexia or fevers. Admitted on 05/14/2024 for intractable abdominal pain. PMH: Cerberal Palsy Non verbal Seizures Cholithiaisis Hypothyroidism GERD PEG tube Home Medication: Valproic Acid 400 BID Loratadine Jevity Metoclopramide 10 mg Simethicone 80 mg TID Mulit-Jg Social History: From Nursing Home Allergies: Bacitracin Cephalexin Neomycin Peniciliins Polymyxin B Code Status: Full Code Exam Vital Signs Temp Pulse Resp BP Pulse Ox O2 Del Method O2 Flow Rate 98.2 F 95 15 130/95 H 100 Nasal Cannula 2 05/14/24 16:06 05/14/24 16:06 05/14/24 16:06 05/14/24 16:06 05/14/24 16:06 05/14/24 16:06 05/14/24 16:06 Results: Labs 05/15/24 05:22 05/15/24 06:45 Labs: Short CBC 05/14/24 Range/Units 16:00 WBC 9.8 (3.6-11.0) Thou/mm3 Hgb 15.3 (12.0-16.0) g/dL Hct 43.5 (36.0-46.0) % Plt Count 149 D (140-440) Thou/mm3 BMP 05/14/24 13:11 Sodium 133 L Potassium 5.1 D Chloride 97 L Carbon Dioxide 29.6 BUN 11 Creatinine 0.6 Glucose 105 Calcium 9.3 Liver Function 05/14/24 Range/Units 13:11 Total Bilirubin 0.5 (0.3-1.2) mg/dL AST 92 H (0-34) U/L ALT 34 (10-49) U/L Alkaline Phosphatase 88 (46-116) U/L Albumin 4.1 (3.5-5.0) gm/dL Urine 05/13/24 Range/Units 18:30 Urine Color Yellow (Lt Yel-Yel) Urine Clarity Clear (Clear/Hazy) Urine pH 8.0 H (5.0-7.0) Ur Specific [place] 1.036 H (1.001-1.035) Urine Protein 1+ A (Neg - Trace) Urine Glucose (UA) 1+ A (Negative) Quality Measures Quality Measures none Medications Home Medications and Allergies Home Medications ?Medication ?Instructions ?Recorded ?Confirmed ?Type calcium carbonate 500 mg/5 mL (as 625 mg feeding tube BID 07/29/23 03/18/24 History calcium carb 1,250 mg/5 mL) oral suspension erythromycin 2 % topical solution 1 ml topical BID 07/29/23 03/18/24 History gabapentin 300 mg capsule 900 mg feeding tube BID 07/29/23 03/18/24 History glycopyrrolate 2 mg tablet 2 mg feeding tube BID 07/29/23 03/18/24 History levothyroxine 75 mcg tablet 75 mcg feeding tube USEASDIRECTD 07/29/23 03/18/24 History metoclopramide HCl 5 mg/5 mL oral 10 mg feeding tube BID 07/29/23 03/18/24 History solution multivit and minerals-ferrous 5 ml feeding tube BID 07/29/23 03/18/24 History gluconate 9 mg iron/15 mL oral liquid (Multi-Jg) simethicone 80 mg chewable tablet 80 mg feeding tube TID 07/29/23 03/18/24 History valproic acid (as sodium salt) 250 400 mg feeding tube BID 07/29/23 03/18/24 History mg/5 mL oral solution acetaminophen 325 mg tablet 650 mg feeding tube QID PRN Pain 03/18/24 03/18/24 History (Tylenol) dextromethorphan-guaifenesin 10 10 ml PO Q6H PRN Cough 03/18/24 03/18/24 History mg-200 mg/5 mL oral liquid erythromycin 2 % topical solution 1 ml topical BID 03/18/24 03/18/24 History famotidine 20 mg tablet 20 mg feeding tube QDAY 03/18/24 03/18/24 History ipratropium 0.5 mg-albuterol 3 mg 3 ml inhalation Q4H PRN Shortness 03/18/24 03/18/24 History (2.5 mg base)/3 mL nebulization Of Breath Or Wheezing soln lactulose 10 gram/15 mL oral 30 g feeding tube DAILY 03/18/24 03/18/24 History solution loratadine 10 mg tablet 10 mg feeding tube QDAY 03/18/24 03/18/24 History pseudoephedrine HCl 60 mg tablet 60 mg feeding tube Q6H PRN 03/18/24 03/18/24 History (Sudogest) Congestion Allergies Allergy/AdvReac Type Severity Reaction Status Date / Time bacitracin Allergy Verified 05/11/24 09:58 [From Neosporin ([id number])] cephalexin Allergy Verified 05/11/24 09:58 neomycin Allergy Verified 05/11/24 09:58 [From Neosporin ([id number])] Penicillins Allergy Verified 05/11/24 09:58 polymyxin B Allergy Verified 05/11/24 09:58 [From Neosporin ([id number])] Visit Medications Acetaminophen (Acetaminophen 325 Mg Tablet) 650 mg PO Q6H PRN PRN Reason: Mild Pain 1-3 or Fever>100.4 Stop: 06/13/24 13:44 Gabapentin (Gabapentin 300 Mg Capsule) 300 mg PO BID [facility] Stop: 06/13/24 20:59 Heparin Sodium (Porcine) (Heparin Sod Inj 5000 Unit/Ml Vial) 5,000 unit SC Q12HR [facility] Stop: 05/28/24 20:59 Levothyroxine Sodium (Levothyroxine Sodium 25 Mcg Tablet) 75 mcg PO MoWeSa@0600 [facility] Stop: 06/15/24 05:59 Levothyroxine Sodium (Levothyroxine Sodium 25 Mcg Tablet) 50 mcg PO TuThFr@0600 [facility] Stop: 06/14/24 05:59 Lorazepam (Lorazepam 0.5 Mg Tablet) 1 mg GT Q8HR PRN PRN Reason: anxiety Stop: 05/19/24 15:08 Metoclopramide HCl (Metoclopramide 5 Mg Tablet) 10 mg PO Q6H PRN PRN Reason: NAUSEA OR VOMITING Stop: 06/13/24 13:44 Pantoprazole Sodium (Pantoprazole Inj 40 Mg Vial) 40 mg IV BID [facility] Stop: 06/13/24 20:59 Valproic Acid (Valproic Acid Syrup 250 Mg/5 Ml Udc) 250 mg PO BID [facility] Stop: 06/13/24 20:59 Discontinued Medications Sodium Chloride (Ns) 1,000 mls @ 999 mls/hr IV .Q1H1M ONE Stop: 05/13/24 22:21 Last Infusion: 05/13/24 22:30 Dose: Infused Sodium Chloride (Ns) 1,000 mls @ 999 mls/hr IV .Q1H1M ONE Stop: 05/13/24 22:27 Last Admin: 05/13/24 22:33 Dose: Not Given Sodium Chloride (Ns) 1,000 mls @ 150 mls/hr IV .Q6H40M ONE Stop: 05/14/24 17:05 Last Admin: 05/14/24 13:14 Dose: 150 mls/hr Lorazepam (Lorazepam 2 Mg/Ml Vial) 0.5 mg IVP X1 ONE Stop: 05/14/24 15:10 Ondansetron HCl (Ondansetron Inj 2 Mg/Ml Inj 2 Ml) 4 mg IV X1 ONE; Protocol Stop: 05/13/24 21:35 Last Admin: 05/13/24 22:33 Dose: 4 mg Ondansetron HCl (Ondansetron Inj 2 Mg/Ml Inj 2 Ml) 4 mg IV Q6HR CAMILA; Protocol Stop: 06/13/24 17:59 Assessment & Plan Plan Patient 53-year-old female with a past medical history of cerebral palsy, nonverbal, history of seizures with scoliosis osteoporosis, contracture, cholelithiasis (not a surgical candidate), hypothyroidism, GERD, and PEG tube who was admitted for intractable abdominal pain. #Abdominal Pain #Metabolic Alkalosis #PEG Tube dependent Etiology: Patient presented with abdominal pain, increasing emesis, and, new onset of diarrhea, likely secondary to colitis. Given patient's repeated presentation of colitis, including previous admission on 12/2023, irritable syndrome can not be ruled as possible source persistent inflammatory changes since on imagining and history of diarrhea. DDx; given recent use of antibiotics, C diff can not be ruled out and elevated WBC in ER vs Small bowel obstruction less likley as patient is passing gas and has had several bowel movements with worsening diarrhea. Diagnostic: Abdomen/Pelvis CT (05/13/2024): Cholelithiasis, recommend hepatobiliary sonography to better assess the gallbladder wall. Mild to moderate colonic ileus. Mild diffuse nonspecific colitis pattern US Gallbladder (05/14/2024): Cholelithiasis, negative for cholecystitis Small Bowel X-Ray (05/14/2024): Negative for small bowel obstruction Plan: -Restart Jevity, PEG tube feedings -Protonix 40 mg IV BID -Reglan PRN -C. Diff -CBC, CMP, Mg, Phosphorous -Banatrol Plus Packet -Reeferral Registered Dietitian #Leukocytosis Etiology:Likely reactive secondary to poor oral intake and emesis. DDx: infectious colitis can not be ruled out vs. aspiration pneumonia, less likely given unremarkbale Cxr Cxr (05/14/2024): Poor inspiratory effort chest x-ray Plan -CBC AM -Tylenol 650 mg PRN -C.diff stool #Cerebral Palsy #non Verbral #contracture Patient has a past medical history of cerebral pasly who is non-verbal. Plan: -Ativan 1 mg GT Q8HR PRN #Seizures Patient has a past medical history of seizures on valproic acid Plan -restart home medication of valproic acid 400 mg BID #Hypothyroidism Patient has past medical history of hypothyroidism on levothyroxine Plan -TSH -Levothyroxine 75 mcg MWS -Levothyroxine 50 T, , Saturday Health Maintenance: Disp: Pt is currently admitted to floors for further management of of abdominal pain, awaiting small series results. FEN: Jevity, PEG feedings DVT: on subQ heparin Code: Full code - The patient's plan was discussed with attending Dr. Smith and senior residents Dr. Amber Pemberton MD PGY1 Internal Medicine Attending Provider Attestation/Addendum I, Patience Smith DO, attest that I was physically present for the soto portions of the service and evaluated the patient with the resident and I reviewed and discussed the case with the resident and agree with the resident's findings and plans of care as documented above Patient is a 53-year-old female with past medical history of cerebral palsy, failure to thrive requiring PEG tube, chronically Bedbound, seizures, hypothyroid who was brought to the ED due to worsening emesis. Patient is nonverbal at baseline. History was obtained from chief nurse at bedside who stated patient was recently drainage PEG tube site. Diaper and gown appears to have some remnants of bilious output from PEG tube site. There is thickening and erythema of peg tube site likely due to irritation, but does not appear to be infected. Due to concern for possible SBO, patient underwent gastrograffin follow through which is negative for SBO. CT abdomen/ pelvis reveals mild to moderate ileus and mild nonspecific colitis. Will start patient on protonix due to concern for her acid reflux. Will observe overnight due to persistent symptoms. Reglan PRN for ileus. Patient is otherwise afebrile.
--- NOTE | 2024-05-14 17:22 | PC.DIETICIAN ---
1. Jevity 1.5 at 3 cartons/day via PEG tube and syringe. If no IV fluids, water flushes of 3oz after each feed (or per MD). Provides: 1065 kcal, 45 g prot, 540 ml free water, 711 ml total volume.
[2024-05-14] MEDS: ALBUTEROL/IPRATROPIUM (Duoneb) RT SOL 3 ML NEBU INH ×2 (18:03→22:52)
--- NOTE | 2024-05-14 18:25 | PC.NURSE ---
ativan administered by fellow rn
[2024-05-14] MEDS: PANTOPRAZOLE INJ 40 MG VIAL IV (22:26)
[2024-05-14] MEDS: HEPARIN SOD INJ 5000 UNIT/ML VIAL SC (22:28)
[2024-05-14] MEDS: GABAPENTIN 300 MG CAPSULE GT (22:29)
[2024-05-14] MEDS: VALPROIC ACID SYRUP 250 MG/5 ML UDC GT (22:43)
--- NOTE | 2024-05-14 23:00 | PC.NURSE ---
Call made to [facility] provider, updated. Will make a follow up call in am for med reconcilation.
[2024-05-15] VITALS (7 sets, daily range): BP systolic 119–132; BP diastolic 76–89; PULSE 76–94; RESP 16–18; TEMP 36.2–36.7; O2SAT 96–100
[2024-05-15] MEDS: ALBUTEROL/IPRATROPIUM (Duoneb) RT SOL 3 ML NEBU INH ×3 (02:54→11:17)
[2024-05-15] MEDS: LEVOTHYROXINE SODIUM 25 MCG TABLET 50 MCG PO (05:19)
[2024-05-15 06:09] LABS: Basophils % (Auto) 0 % (0-2.5); Eosinophils % (Auto) 0 % (0-10); Hematocrit 41.4 % (36.0-46.0); Hemoglobin 14.4 g/dL (12.0-16.0); Immature Granulocytes % (Auto) 1 % (0-0); Immature Granulocytes Auto 0.06 Thou/mm3 (0.00-0.00); Lymphocytes # (Auto) 3.7 Thou/mm3 (1.0-4.8); Lymphocytes % (Auto) 38 % (10-50); Mean Corpuscular HGB Conc 34.8 g/dl (31.0-37.0); Mean Corpuscular Hemoglobin 34.7 pg (25.0-35.0); Mean Corpuscular Volume 100 fL (80-100); Monocytes # (Auto) 1.3 Thou/mm3 (0.0-0.8); Monocytes % (Auto) 14 % (0-12); Neutrophils # (Auto) 4.6 Thou/mm3 (1.8-7.7); Neutrophils % (Auto) 48 % (37-80); Nucleated Red Blood Cell % 0 /100 WBC (0); Platelet Count 156 Thou/mm3 (140-440); RDW Standard Deviation 47.4 fL (36.4-46.3); Red Blood Count 4.15 Miln/mm3 (4.00-5.20); White Blood Count 9.7 Thou/mm3 (3.6-11.0)
[2024-05-15 07:48] LABS: Alanine Aminotransferase 36 U/L (10-49); Albumin, Serum 3.8 gm/dL (3.5-5.0); Albumin/Globulin Ratio 1.6 (1.2-2.2); Alkaline Phosphatase 90 U/L (46-116); Anion Gap 8 (7-16); Aspartate Amino Transferase 102 U/L (0-34); BUN/Creatinine Ratio 12 Ratio (12-20); Bilirubin,Total 0.5 mg/dL (0.3-1.2); Blood Urea Nitrogen 7 mg/dL (9-23); Calcium 9.1 mg/dL (8.3-10.6); Calcium (Corrected) 9.3 mg/dL (8.5-10.1); Carbon Dioxide 30.3 mMol/L (20.0-31.0); Chloride 97 mMol/L (98-107); Creatinine (Component) 0.6 mg/dL (0.6-1.3); Estimated Creatinine Clearance 67.6 mL/min (>60); Globulin 2.4 gm/dL (2.3-3.5); Glucose 116 mg/dL (74-106); Magnesium 2.3 mg/dL (1.6-2.6); Osmolality,Calculated 269 (275-295); Phosphorous 3.3 mg/dL (2.4-5.1); Potassium 4.6 mMol/L (3.4-5.1); Sodium 135 mMol/L (136-145); Thyroid Stimulating Hormone 29.41 uIU/mL (0.55-4.78); Total Protein 6.2 gm/dL (5.7-8.2); eGFR > 60 See Note
[2024-05-15 09:45] LABS: Free T4 (Free Thyroxine) 1.43 ng/dL (0.89-1.76)
[2024-05-15] MEDS: HEPARIN SOD INJ 5000 UNIT/ML VIAL SC (10:53)
[2024-05-15] MEDS: GABAPENTIN 300 MG CAPSULE GT (10:54)
[2024-05-15] MEDS: VALPROIC ACID SYRUP 250 MG/5 ML UDC GT (12:11)
--- NOTE | 2024-05-15 12:57 | PC.SS ---
SS set up transportation for patient to discharge back to [facility] with [facility], Reference # [id number].
--- NOTE | 2024-05-15 13:45 | PC.SS ---
Transportation was set up with [facility] for 1430. notified [facility] home staff. as well as patient's nurse Joe.
--- NOTE | 2024-05-15 17:00 | ESDS_ITS ---
<Statement entered by Patience Smith DO - 05/16/24 08:25> I, Patience Smith DO, attest that I was physically present for the soto portions of the service and evaluated the patient with the resident and I reviewed and discussed the case with the resident and agree with the resident's findings and plans of care as documented above Planned Discharge Date 05/15/24 DS: Providers Provider Date of admission: 05/14/24 13:13 Primary care physician: Jewel Cleaning MD Admitting Provider: Patience Smith DO Attending Provider on Admission: Patience Smith DO Consults: 05/14/24 13:50 Referral Registered Dietitian Urgent Comment: patient on Jevity at home, been having GERD 05/14/24 23:12 Referral Registered Dietitian Routine Comment: Attending Provider on DC: Gini Pemberton MD Discharging Provider: Gini Pemberton MD DS: Diagnosis Problem List Completed Was Problem List Reviewed/Reconciled?: Yes Hospital Course Hospital Course Hospital course: Patient 53-year-old female with a past medical history of cerebral palsy, nonverbal, history of seizures with scoliosis osteoporosis, contracture, cholelithiasis (not a surgical candidate), hypothyroidism, GERD, and [facility] for intractable abdominal pain on 05/14/2024. ER Course: Vitals T 98.0, HR 85, RR 15, BP 119/83 WBC (05/14/2024): WBC 9.8, Hgb 15.3, Hct 43.5 CMP 133, K 5.1, Chloride 97, HCO 29.6, glucose 105, AST 92, ALT 34 UA negative Hospital Course: Patient was re-started on all medically necessary medication. TSH was noted to be elevated on morning CMP with a TSH level of 29.41. Free T4 ordered and noted to 1.43, thus no need for additional changes to levothyroxine. Tractor Trailer Driver consulted to confirm patients nutritional needs, patient was not noted to have GERD with NG tube feeding. Small bowel study was negative any obstructions. Abdominal pain likely secondary to ileus. No pyrexia noted. Additionally, chest x-ray showed no evidence aspiration pneumonia. Instructions: -Please continue all home medication as prescribed -Stop doxcycline, until your follow up with your primary care provider -Please follow up with primary care provider within one week from discharge -If your symptoms worsen, please seek immediate medical attention and return to the emergency room -If you do not have a primary care provider, you may follow up with the [facility] at [facility] [address], [place] [address] Disposition: SNF #Abdominal Pain #Ileus #PEG tube dependent #Metabolic Alkalosis #Leukocytosis #Cerebral Pasly #Non-Verbal #contracture #Seizures #Hypothyrodism - The patient's plan was discussed with attending Dr. Smith and senior residents Tori Pemberton MD PGY1 Internal Medicine Time Spent with Patient Time attestation: Total time spent providing and/or coordinating discharge services: at least 35 minutes Exam Vital Signs Temp Pulse Resp BP Pulse Ox O2 Del Method O2 Flow Rate 97.1 F 83 16 119/76 97 Nasal Cannula 1 05/15/24 12:00 05/15/24 12:00 05/15/24 12:00 05/15/24 12:00 05/15/24 12:00 05/15/24 12:00 05/15/24 12:00 Narrative Exam General Appearance: Alert & Oriented X3, well-nourished female who is lying in bed in no acute distress HEENT: Skull symmetrical and atraumatic. Conjunctivae pin and moist. Pupils equal, round, reactive to light and accommodation (PERRL). External ear without lesion or discharge. Straight, nares patient, mucosa pink, no discharge. No thyroid nodule appreciated. No cervical lymphadenopathy. Cardio: Normal Rate and Rhythm with S1 and S2 heart sounds. No murmurs or extra heart sounds auscultated. No bruits on carotid auscultation. No peripheral edema or cyanosis. Lungs: Symmetric with good expansion. Chest and back non-tender. Breath sounds vesicular without crackles, wheezing or rhonchi Abdomen: Non-tender, Non-distended, Normal Reactive Bowel Sounds Neuro: Alert, cooperative, oriented to person, place, and time. Speech clear. CN grossly intact. Upper motor strength 5/5 and Lower motor strength 5/5. Sensation intact. Discharge Plan Problem List Was Problem List Reviewed/Reconciled?: Yes Plan Patient Disposition: Xfer Other Disposition Comment: Hospitalist admit Patient condition on transfer: Stable Care Plan Goals: -Please continue all home medication as prescribed -Stop doxcycline, until your follow up with your primary care provider -Please follow up with primary care provider within one week from discharge -If your symptoms worsen, please seek immediate medical attention and return to the emergency room -If you do not have a primary care provider, you may follow up with the [facility] at [address] [place] [address] [address], [place] [address] Prescriptions/Referrals Prescriptions/Med Rec: Continued metoclopramide HCl 5 mg/5 mL Solution 10 mg feeding tube BID levothyroxine 75 mcg tablet 75 mcg feeding tube USEASDIRECTD Rx Instructions: GIVE ON SATURDAY, SATURDAY, SATURDAY erythromycin 2 % Solution 1 ml TOPICAL BID Rx Instructions: TO FACE valproic acid (as sodium salt) 250 mg/5 mL Solution 400 mg feeding tube BID gabapentin 300 mg capsule 900 mg feeding tube BID glycopyrrolate 2 mg tablet 2 mg feeding tube BID simethicone 80 mg Tablet,Chewable 80 mg feeding tube TID calcium carbonate 500 mg/5 mL (1,250 mg/5 mL) suspension 625 mg feeding tube BID Multi-Jg 9 mg iron/15 mL liquid 5 ml feeding tube BID famotidine 20 mg Tablet 20 mg feeding tube QDAY erythromycin 2 % Solution 1 ml TOPICAL BID loratadine 10 mg Tablet 10 mg feeding tube QDAY lactulose 10 gram/15 mL Solution 30 g feeding tube DAILY ipratropium-albuterol 0.5 mg-3 mg(2.5 mg base)/3 mL Solution For Nebulization 3 ml INHALATION Q4H PRN (Reason: Shortness Of Breath Or Wheezing) pseudoephedrine HCl [Sudogest] 60 mg Tablet 60 mg feeding tube Q6H PRN (Reason: Congestion) acetaminophen [Tylenol] 325 mg Tablet 650 mg feeding tube QID PRN (Reason: Pain) dextromethorphan-guaifenesin 10-200 mg/5 mL Liquid 10 ml PO Q6H PRN (Reason: Cough) Discontinued doxycycline hyclate 100 mg tablet 100 mg PO QDAY Qty: 10 0RF Referrals: Jewel Cleaning MD [Primary Care Provider] - Patient/Caregiver Discharge Instructions Other Discharge Activity Instructions:: -Please continue all home medication as prescribed -Stop doxcycline, until your follow up with your primary care provider -Please follow up with primary care provider within one week from discharge -If your symptoms worsen, please seek immediate medical attention and return to the emergency room -If you do not have a primary care provider, you may follow up with the [facility] at [address], [place] [address] Print Language: Kinyarwanda Stand Alone Forms: Ameena Award Info., Patient Portal Info Letter Discharge Order Discharge Orders: Discharge (Routine); Ordered 05/15/24 Ordered By: Chelita Valle Quality Discharge Quality Measures VTE prophylaxis
== END 2024-05-15 14:36 | disposition other institution (70) ==
LOC: SERX 05-14 11:27 → S3NX 05-15 06:52 → SERHOLD 05-15 10:25 → S3NX 05-15 10:25
PROVIDERS: Nurse Practitioner Primary Care; Admitting Provider Internal Medicine; Emergency Provider Emergency Medicine; PCP Family Medicine; Visit Provider Internal Medicine
DX: R10.9 Unspecified abdominal pain (principal); K52.9 Noninfective gastroenteritis and colitis, unspecified; K21.9 Gastro-esophageal reflux disease without esophagitis; K56.0 Paralytic ileus; K80.20 Calculus of gallbladder without cholecystitis without obstruction; M81.0 Age-related osteoporosis without current pathological fracture; M41.9 Scoliosis, unspecified; K94.23 Gastrostomy malfunction; G80.9 Cerebral palsy, unspecified; G40.909 Epilepsy, unspecified, not intractable, without status epilepticus; F88 Other disorders of psychological development; F73 Profound intellectual disabilities; E87.3 Alkalosis; E03.9 Hypothyroidism, unspecified
CPT/HCPCS: 51701; 36415; 71045; 74176; 74250; 76705; 80053; 81001; 83690; 83735; 84100; 84439; 84443; 84703; 85025; 87040; 87081; 87493; 94640; 94664; 96361; 96372; 96374; 96375; 99285; A9270; G0378; J1643; J2060; J2405; J2470; J7030; Q9963; J1644

== ENCOUNTER 2024-07-15 09:04 | Inpatient (IN) | payer MEDICAID, SELFPAY ==
[2024-07-15] VITALS (79 sets, daily range): BP systolic 62–195; BP diastolic 30–123; PULSE 64–140; RESP 14–27; TEMP 36.6–38.9; O2SAT 88–100; BMI 18.1
--- NOTE | 2024-07-15 10:18 | XR_ITS ---
Examination: AP chest single view Technique one AP portable semiupright chest single view Exam date and time: July 15, 2024 1055 hours INDICATIONS: Shortness of breath today FINDINGS: Extensive opacity right mid and lower lung zone Opacity left base obscuring detail hemidiaphragm Mild vascular congestion The cardiac contour is obscured Gastrostomy tube IMPRESSION: Extensive bilateral pneumonia, lateral chest film follow-up would be helpful
--- NOTE | 2024-07-15 10:22 | PD.EDADULT ---
ED General RME/HPI General Chief complaint: Shortness of Breath/Dyspnea Stated complaint: SOB Time Seen by Provider: 07/15/24 09:48 Arrival date/time: 07/15/24 09:04 RME / HPI RME / HPI narrative: DR. YU MAIN ED EVALUATION: 54-year-old female, history of developmentally delayed, nonverbal, PEG tube feeding, who presents with approximately weeks worth of persistent fevers and now 1 day of worsening shortness of breath. Patient has been on her third day of Levaquin for a dark dirty urine . He has several sick contacts who have all tested positive for the flu. When started on Levaquin in the clinic she was tested for flu which was negative. Related Data Home Medications ?Medication ?Instructions ?Recorded ?Confirmed calcium carbonate 500 mg/5 mL (as 625 mg feeding tube BID 07/29/23 03/18/24 calcium carb 1,250 mg/5 mL) oral suspension erythromycin 2 % topical solution 1 ml topical BID 07/29/23 03/18/24 gabapentin 300 mg capsule 900 mg feeding tube BID 07/29/23 03/18/24 glycopyrrolate 2 mg tablet 2 mg feeding tube BID 07/29/23 03/18/24 levothyroxine 75 mcg tablet 75 mcg feeding tube USEASDIRECTD 07/29/23 03/18/24 metoclopramide HCl 5 mg/5 mL oral 10 mg feeding tube BID 07/29/23 03/18/24 solution multivit and minerals-ferrous 5 ml feeding tube BID 07/29/23 03/18/24 gluconate 9 mg iron/15 mL oral liquid (Multi-Jg) simethicone 80 mg chewable tablet 80 mg feeding tube TID 07/29/23 03/18/24 valproic acid (as sodium salt) 250 400 mg feeding tube BID 07/29/23 03/18/24 mg/5 mL oral solution acetaminophen 325 mg tablet 650 mg feeding tube QID PRN Pain 03/18/24 03/18/24 (Tylenol) dextromethorphan-guaifenesin 10 10 ml PO Q6H PRN Cough 03/18/24 03/18/24 mg-200 mg/5 mL oral liquid erythromycin 2 % topical solution 1 ml topical BID 03/18/24 03/18/24 famotidine 20 mg tablet 20 mg feeding tube QDAY 03/18/24 03/18/24 ipratropium 0.5 mg-albuterol 3 mg 3 ml inhalation Q4H PRN Shortness 03/18/24 03/18/24 (2.5 mg base)/3 mL nebulization Of Breath Or Wheezing soln lactulose 10 gram/15 mL oral 30 g feeding tube DAILY 03/18/24 03/18/24 solution loratadine 10 mg tablet 10 mg feeding tube QDAY 03/18/24 03/18/24 pseudoephedrine HCl 60 mg tablet 60 mg feeding tube Q6H PRN 03/18/24 03/18/24 (Sudogest) Congestion Allergies Allergy/AdvReac Type Severity Reaction Status Date / Time bacitracin (From Neosporin Allergy Verified 07/15/24 09:36 ([id number])) cephalexin Allergy Verified 07/15/24 09:36 neomycin (From Neosporin Allergy Verified 07/15/24 09:36 ([id number])) Penicillins Allergy Verified 07/15/24 09:36 polymyxin B (From Neosporin Allergy Verified 07/15/24 09:36 ([id number])) Review of Systems Review of Systems Systems Reviewed: All systems reviewed, normal except as documented Narrative Review of Systems: GEN: + persistent fevers, no chills, no weight loss EYES: No discharge, no visual changes, no pain HEENT: No ear pain, no congestion, no sore throat PULM: + shortness of breath, no cough, no congestion CV: No chest pain, no dyspnea on exertion, no palpitations GI: No nausea, no vomiting, no diarrhea, no pain, no constipation : + dark dirty urine MUSC/SKEL: No joint pain, no back pain SKIN: No rash PSYCH: No hallucinations, no depression HEME/LYMPH: No easy bleeding or bruising tendencies NEURO: No weakness, no headache Past Medical History Past Medical History NEUROLOGIC: Positive Neurological Disorders, Seizures and Cerebral Palsy CARDIAC: Negative Cardiac Disorders or Congestive Heart Failure RESPIRATORY: Positive Pneumonia; Negative Chronic Obstructive Pulmonary Disease (COPD) GASTROINTESTINAL: Positive Gastrointestinal Disorders, Gall Bladder Disease and Gastroesophageal Reflux Disease GENITOURINARY: Negative Genitourinary Disorders or Renal Disease MUSCULOSKELETAL: Positive Musculoskeletal Disorders and Scoliosis ENT: Positive Blind ENDOCRINE: Positive Endocrine Disorders and Hypothyroidism; Negative Diabetes Mellitus Type 1 or Diabetes Mellitus Type 2 HEMATOLOGIC: Negative Blood Disorders PSYCHO/SOCIAL: Negative Behavior Problems OTHER HISTORY: Positive Hospitalization and Developmental Delay; Negative Autoimmune Disease, Shingles, Falls, Blood Transfusions, Blood Transfusion Reaction, Anesthesia Reactions or Cancer Family History FAMILY HISTORY: Negative Family Psychiatric Problems, Family Respiratory Disorders, Family Cardiac Disorders, Family Gastrointestinal Problems, Family Cancer, Family Surgery or Family Anesthesia Reaction Surgical History SURGICAL: Positive Gastrostomy Social History SMOKING STATUS: Never smoker SUBSTANCE USE: does not use ALCOHOL: Never ED Exam Narrative Physical exam: GENERAL APPEARANCE: awake, alert, at baseline, generally well-appearing HEENT: NC, AT. MMM. EOMI, clear conjunctiva, oropharynx clear. NECK: Supple without lymphadenopathy. No stiffness or restricted ROM. HEART: Normal rate and regular rhythm, normal S1/S1, no m/r/g LUNGS: mild accessory use with expiratory wheezing. No crackles. ABDOMEN: Soft, nontender, nondistended with good bowel sounds heard. BACK: No midline C/T/L spine pain or deformity, No CVAT, no obvious deformity. EXTREMITIES: Without cyanosis, clubbing or edema. MUSCULOSKELETAL: FROM of all major joints, no chest tenderness NEUROLOGICAL: Grossly nonfocal. Alert, at baseline. Skin: Warm and dry without any rash. Course Quality Measures Current suspected stage: sepsis Possible source: pulmonary Blood cultures ordered: yes Antibiotic ordered: Yes Pertinent labs: 07/15/24 11:15 Lactic Acid 4.0 H mMol/L (0.4-2.0) Procalcitonin 6.80 H ng/ml (0.0-0.49) sepsis Orders Category Date Time Status Bedside COVID-19 Antigen Test NOW Care 07/15/24 10:24 Active Bedside Influenza A&B Antigen Test NOW Care 07/15/24 10:24 Completed In and Out Catheter X1 Care 07/15/24 10:18 Completed XR chest 1V portable Stat Exams 07/15/24 10:18 Completed Blood Culture (Lab) Stat Lab 07/15/24 11:15 Results CBC Stat Lab 07/15/24 11:15 Completed CMP [Comprehensive Metabolic Panel] Stat Lab 07/15/24 11:15 Completed Lactate (Lactic Acid) Stat Lab 07/15/24 11:15 Completed Lactic Acid, 3 HR Stat Lab 07/15/24 14:55 Completed Procalcitonin Stat Lab 07/15/24 11:15 Completed Urinalysis Stat Lab 07/15/24 11:44 Completed Urine Culture Stat Lab 07/15/24 11:44 Received ALBUTEROL RT 0.5ml [Proventil Rt 0.5ml] Med 07/15/24 10:18 Discontinued 10 mg INH X1 ONE Acetaminophen Ginger [Tylenol Ginger] Med 07/15/24 11:36 Discontinued 612 mg GT X1 ONE Meropenem Inj [Merrem Inj] 1,000 mg Med 07/15/24 11:38 Discontinued SODIUM CHLORIDE 0.9% (Popper) [NS 0.9% (Popper)] 50 ml IV X1 MethylPREDNISolone.* [SoluMEDROL Inj] Med 07/15/24 10:18 Discontinued 125 mg IVP X1 ONE Sodium Chloride 0.9% 1000 ml [Ns] 1,000 ml Med 07/15/24 10:22 Discontinued IV 999 mls/hr Sodium Chloride 0.9% 500 ml [Ns] 500 ml Med 07/15/24 11:37 Discontinued IV 999 mls/hr Sodium Chloride 0.9% 500 ml [Ns] 500 ml Med 07/15/24 14:32 Discontinued IV 999 mls/hr Sodium Chloride Rt Ginger 0.9% [NS Rt Ginger 0.9%] Med 07/15/24 10:18 Active 3 ml INH PRN PRN Vital Signs Vital signs: Vital Signs Temperature 102.1 F H 07/15/24 09:41 Respiratory Rate 26 H 07/15/24 09:41 Blood Pressure 147/87 H 07/15/24 09:41 Pulse Oximetry (%) 98 07/15/24 09:41 Oxygen Delivery Method Oxy Mask 07/15/24 09:41 Oxygen Flow Rate 6 07/15/24 09:41 [facility] Patient data External records reviewed:: [facility] previous records (Reviewed last admission discharge dated 05/15/24, patient admitted for the following: Developmental delay, severe) Clinical information provided by:: patient Social determinants that could affect healthcare access:: none Patient has the following chronic illnesses:: Developmentally delayed, nonverbal, PEG tube feeding How is presenting disease/condition affected by chronic disease/condition?: exacerbated by Evaluation data The following diagnostics were reviewed and interpreted by me:: lab results and radiology exam(s) Lab and/or radiology exams considered but not ordered:: none Interpretation Summary: Procedure(s): XR chest 1V portable Accession Number(s): [id number] cc: Brad Yu MD; Ricky Pisano MD; NO PRIMARY/FAMILY,PHYSICIAN~ Examination: AP chest single view Technique one AP portable semiupright chest single view Exam date and time: July 15, 2024 1055 hours INDICATIONS: Shortness of breath today FINDINGS: Extensive opacity right mid and lower lung zone Opacity left base obscuring detail hemidiaphragm Mild vascular congestion The cardiac contour is obscured Gastrostomy tube IMPRESSION: Extensive bilateral pneumonia, lateral chest film follow-up would be helpful Dictated By: Ricky Pisano MD Medications Medications considered but not ordered:: none Medication administrations:: Medication Administration History Albuterol/Ipratropium (Albuterol/Ipratropium (Duoneb) Rt Ginger 3 Ml Nebu) 3 ml INH Q4HRRT [facility] Stop: 08/14/24 16:14 Last Admin: 07/16/24 14:12 Dose: 3 ml Documented By: Admin: 07/16/24 10:12 Dose: 3 ml Documented By: Admin: 07/16/24 06:28 Dose: 3 ml Documented By: Admin: 07/16/24 05:44 Dose: Not Given Documented By: LISA Non-Admin Reason: [id number] shift Admin: 07/16/24 04:18 Dose: Not Given Documented By: YESENIA Non-Admin Reason: Admin: 07/16/24 04:18 Dose: Not Given Documented By: YESENIA Non-Admin Reason: Admin: 07/15/24 18:35 Dose: Not Given Documented By: YESENIA Non-Admin Reason: Held for Procedure Famotidine (Famotidine Inj 10 Mg/Ml Vial 2 Ml) 20 mg IVP QDAY [facility] Stop: 08/14/24 15:44 Last Admin: 07/16/24 08:18 Dose: 20 mg Documented By: Admin: 07/15/24 16:15 Dose: 20 mg Documented By: DB Heparin Sodium (Porcine) (Heparin Sod Inj 5000 Unit/Ml Vial) 5,000 unit SC BID [facility] Stop: 07/30/24 10:29 Last Admin: 07/16/24 10:37 Dose: 5,000 unit Documented By: KATHERINE Co-signed By: AG Hydrocortisone Sodium Succinate (Hydrocortisone Sod Succ Inj 100 Mg Vial) 50 mg IV BID [facility] Stop: 07/23/24 20:59 Meropenem 500 mg/ Sodium (Chloride) 50 mls @ 100 mls/hr IV Q8HR [facility] Stop: 07/22/24 21:59 Last Admin: 07/16/24 13:32 Dose: 100 mls/hr Documented By: Infusion: 07/16/24 08:17 Dose: Infused Documented By: Admin: 07/16/24 05:43 Dose: 100 mls/hr Documented By: Infusion: 07/15/24 22:40 Dose: Infused Documented By: Admin: 07/15/24 22:10 Dose: 100 mls/hr Documented By: LISA Vancomycin/Sodium Chloride (Vancomycin/Ns 1 Gm Ivpb) 200 mls @ 120 mls/hr IV Q12H [facility]; Protocol Stop: 07/23/24 09:59 Last Admin: 07/16/24 10:04 Dose: 120 mls/hr Documented By: KATHERINE Lactulose (Lactulose Syrup 20 Gm/30 Ml Udc) 20 gm PO DAILY [facility]; Protocol Stop: 08/15/24 10:29 Levothyroxine Sodium (Levothyroxine Inj 100 Mcg Vial) 38 mcg IV MOWESA [facility] Stop: 08/15/24 05:59 Last Admin: 07/16/24 05:41 Dose: Not Given Documented By: LISA Non-Admin Reason: Wrong Time Levothyroxine Sodium (Levothyroxine Inj 100 Mcg Vial) 25 mcg IV TUTHFR [facility] Stop: 08/15/24 05:59 Last Admin: 07/16/24 05:44 Dose: 25 mcg Documented By: LISA Magnesium Hydroxide (Milk Of Magnesia Susp 30 Ml Udc) 30 ml PO QDAY [facility]; Protocol Stop: 08/15/24 10:44 Last Admin: 07/16/24 10:43 Dose: 30 ml Documented By: KATHERINE Metoclopramide HCl (Metoclopramide Liqd 10 Mg/10 Ml Udc) 10 mg GT BID [facility] Stop: 08/15/24 20:59 Pharmacy Consult (Pharmacy Renal Dose Adjustment 1 Ea) 1 each XX QDAY [facility] Stop: 08/14/24 14:59 Last Admin: 07/16/24 08:16 Dose: Not Given Documented By: DAVID Non-Admin Reason: NOT A MED RENAL DOSE Admin: 07/15/24 18:46 Dose: Not Given Documented By: DIONNE Non-Admin Reason: pharmacy Pharmacy Consult (Vancomycin Pharmacy To Dose 1 Each Each) 1 each IV QDAY [facility] Stop: 08/14/24 14:59 Last Admin: 07/16/24 08:17 Dose: Not Given Documented By: DAVID Non-Admin Reason: NOT A MED RENAL DOSE Admin: 07/15/24 18:46 Dose: Not Given Documented By: DIONNE Non-Admin Reason: pharmacy Simethicone (Simethicone 40 Mg/0.6 Ml Oral Syringe) 80 mg PO DAILY [facility] Stop: 08/15/24 10:44 Last Admin: 07/16/24 11:09 Dose: 80 mg Documented By: ZP Sodium Chloride (Sodium Chloride Rt Ginger 0.9% 3 Ml Nebu) 3 ml INH PRN PRN PRN Reason: SOLN Stop: 08/14/24 10:17 Last Admin: 07/15/24 10:30 Dose: 3 ml Documented By: MR Valproic Acid (Valproic Acid Syrup 250 Mg/5 Ml Udc) 400 mg PO BID [facility] Stop: 08/16/24 08:59 Discontinued Medications Acetaminophen (Acetaminophen Ginger 325 Mg/10 Ml Udc) 612 mg 15 mg/kg (612 mg) GT X1 ONE Stop: 07/15/24 11:37 Last Admin: 07/15/24 12:22 Dose: 612 mg Documented By: VIRGILIO(2) Albuterol (Albuterol Rt 2.5 Mg/0.5 Ml Nebu) 10 mg INH X1 ONE Stop: 07/15/24 10:19 Last Admin: 07/15/24 10:29 Dose: 10 mg Documented By: MR Albuterol/Ipratropium (Albuterol/Ipratropium (Duoneb) Rt Ginger 3 Ml Nebu) 3 ml INH Q4H [facility] Stop: 08/14/24 15:14 Last Admin: 07/15/24 16:21 Dose: Not Given Documented By: FRANCOIS Non-Admin Reason: Cancelled by Provider Heparin Sodium (Porcine) (Heparin Sod Inj 5000 Unit/Ml Vial) 5,000 unit SC X1 ONE Stop: 07/15/24 20:14 Last Admin: 07/15/24 20:25 Dose: 5,000 unit Documented By: LISA Co-signed By: HAY Heparin Sodium (Porcine) (Heparin Sod Inj 5000 Unit/Ml Vial) 5,000 unit SC BID [facility] Stop: 07/30/24 10:29 Hydrocortisone Sodium Succinate (Hydrocortisone Sod Succ Inj 100 Mg Vial) 50 mg IV Q6HR [facility] Stop: 08/14/24 19:24 Last Admin: 07/16/24 05:43 Dose: 50 mg Documented By: Admin: 07/16/24 00:20 Dose: 50 mg Documented By: Admin: 07/15/24 20:25 Dose: 50 mg Documented By: LISA Sodium Chloride (Ns) 1,000 mls @ 999 mls/hr IV .Q1H1M ONE Stop: 07/15/24 11:22 Last Infusion: 07/15/24 12:48 Dose: Infused Documented By: VIRGILIO(2) Admin: 07/15/24 11:26 Dose: 999 mls/hr Documented By: AA(2) Sodium Chloride (Ns) 500 mls @ 999 mls/hr IV .Q31M ONE Stop: 07/15/24 12:07 Last Infusion: 07/15/24 14:05 Dose: Infused Documented By: AA(2) Admin: 07/15/24 12:22 Dose: 999 mls/hr Documented By: AA(2) Meropenem 1,000 mg/ Sodium (Chloride) 50 mls @ 100 mls/hr IV X1 ONE Stop: 07/15/24 11:39 Last Infusion: 07/15/24 12:48 Dose: Infused Documented By: AA(2) Admin: 07/15/24 12:20 Dose: 100 mls/hr Documented By: AA(2) Sodium Chloride (Ns) 500 mls @ 999 mls/hr IV .Q31M ONE Stop: 07/15/24 15:02 Last Admin: 07/15/24 14:59 Dose: Not Given Documented By: FRANCOIS Non-Admin Reason: Cancelled by Provider Norepinephrine Bitartrate (Levophed In Ns 16mg/250ml) 16 mg in 250 mls @ 1.914 mls/hr IV .Q24H PRN; Protocol PRN Reason: PER PROTOCOL Stop: 08/14/24 14:52 Last Titration: 07/15/24 20:05 Dose: 0 mcg/kg/min, 0 mls/hr Documented By: Titration: 07/15/24 20:00 Dose: 0.02 mcg/kg/min, 0.765 mls/hr Documented By: Titration: 07/15/24 19:46 Dose: 0.04 mcg/kg/min, 1.531 mls/hr Documented By: Titration: 07/15/24 19:41 Dose: 0.06 mcg/kg/min, 2.296 mls/hr Documented By: Titration: 07/15/24 19:36 Dose: 0.08 mcg/kg/min, 3.062 mls/hr Documented By: Titration: 07/15/24 19:31 Dose: 0.1 mcg/kg/min, 3.827 mls/hr Documented By: Titration: 07/15/24 19:18 Dose: 0.12 mcg/kg/min, 4.593 mls/hr Documented By: Titration: 07/15/24 19:12 Dose: 0.14 mcg/kg/min, 5.358 mls/hr Documented By: Titration: 07/15/24 18:44 Dose: 0.16 mcg/kg/min, 6.123 mls/hr Documented By: Titration: 07/15/24 18:15 Dose: 0.18 mcg/kg/min, 6.889 mls/hr Documented By: Titration: 07/15/24 18:00 Dose: 0.2 mcg/kg/min, 7.654 mls/hr Documented By: Titration: 07/15/24 17:38 Dose: 0.2 mcg/kg/min, 7.654 mls/hr Documented By: Titration: 07/15/24 17:25 Dose: 0.13 mcg/kg/min, 4.975 mls/hr Documented By: Titration: 07/15/24 17:10 Dose: 0.13 mcg/kg/min, 4.975 mls/hr Documented By: Titration: 07/15/24 17:05 Dose: 0.13 mcg/kg/min, 4.975 mls/hr Documented By: Titration: 07/15/24 17:00 Dose: 0.13 mcg/kg/min, 4.975 mls/hr Documented By: Titration: 07/15/24 16:45 Dose: 0.11 mcg/kg/min, 4.21 mls/hr Documented By: Titration: 07/15/24 16:31 Dose: 0.11 mcg/kg/min, 4.21 mls/hr Documented By: Titration: 07/15/24 16:25 Dose: 0.11 mcg/kg/min, 4.21 mls/hr Documented By: Titration: 07/15/24 16:20 Dose: 0.11 mcg/kg/min, 4.21 mls/hr Documented By: Titration: 07/15/24 16:16 Dose: 0.11 mcg/kg/min, 4.21 mls/hr Documented By: Titration: 07/15/24 16:10 Dose: 0.11 mcg/kg/min, 4.21 mls/hr Documented By: Titration: 07/15/24 16:06 Dose: 0.13 mcg/kg/min, 4.975 mls/hr Documented By: Titration: 07/15/24 15:55 Dose: 0.13 mcg/kg/min, 4.975 mls/hr Documented By: Titration: 07/15/24 15:45 Dose: 0.13 mcg/kg/min, 4.975 mls/hr Documented By: Titration: 07/15/24 15:40 Dose: 0.13 mcg/kg/min, 4.975 mls/hr Documented By: Titration: 07/15/24 15:36 Dose: 0.13 mcg/kg/min, 4.975 mls/hr Documented By: Titration: 07/15/24 15:30 Dose: 0.13 mcg/kg/min, 4.975 mls/hr Documented By: Titration: 07/15/24 15:25 Dose: 0.13 mcg/kg/min, 4.975 mls/hr Documented By: Titration: 07/15/24 15:20 Dose: 0.11 mcg/kg/min, 4.21 mls/hr Documented By: Titration: 07/15/24 15:15 Dose: 0.09 mcg/kg/min, 3.444 mls/hr Documented By: Titration: 07/15/24 15:10 Dose: 0.07 mcg/kg/min, 2.679 mls/hr Documented By: Admin: 07/15/24 15:05 Dose: 0.05 mcg/kg/min, 1.914 mls/hr Documented By: FRANCOIS Vancomycin/Sodium Chloride (Vancomycin/Ns 1 Gm Ivpb) 200 mls @ 120 mls/hr IV X1 ONE Stop: 07/15/24 16:54 Last Infusion: 07/15/24 18:44 Dose: Infused Documented By: Admin: 07/15/24 16:19 Dose: 120 mls/hr Documented By: FRANCOIS Valproic Acid 200 mg/ Sodium (Chloride) 52 mls @ 104 mls/hr IV Q6HR [facility] Stop: 08/14/24 17:59 Last Admin: 07/15/24 20:21 Dose: Not Given Documented By: LISA Non-Admin Reason: med put on hold Dexmedetomidine/Sodium Chloride (Precedex Ivpb) 200 mcg in 50 mls @ 2.041 mls/hr IV .Q24H PRN; Protocol PRN Reason: Per PROTOCOL Stop: 08/14/24 17:04 Last Titration: 07/16/24 07:30 Dose: 0 mcg/kg/hr, 0 mls/hr Documented By: Titration: 07/16/24 07:00 Dose: 0.2 mcg/kg/hr, 2.041 mls/hr Documented By: Titration: 07/16/24 06:30 Dose: 0.4 mcg/kg/hr, 4.082 mls/hr Documented By: Titration: 07/16/24 06:00 Dose: 0.6 mcg/kg/hr, 6.123 mls/hr Documented By: Titration: 07/16/24 05:00 Dose: 0.8 mcg/kg/hr, 8.165 mls/hr Documented By: Titration: 07/16/24 04:00 Dose: 1 mcg/kg/hr, 10.206 mls/hr Documented By: Admin: 07/16/24 03:45 Dose: 1.2 mcg/kg/hr, 12.247 mls/hr Documented By: LISA Co-signed By: HAY Titration: 07/16/24 03:45 Dose: Infused Documented By: LISA Co-signed By: RIKKIN Titration: 07/16/24 03:00 Dose: 1.2 mcg/kg/hr, 12.247 mls/hr Documented By: LISA Co-signed By: CMN Titration: 07/16/24 02:00 Dose: 1.2 mcg/kg/hr, 12.247 mls/hr Documented By: BB Co-signed By: CMN Titration: 07/16/24 01:00 Dose: 1.2 mcg/kg/hr, 12.247 mls/hr Documented By: BB Co-signed By: CMN Admin: 07/16/24 00:29 Dose: 1.2 mcg/kg/hr, 12.247 mls/hr Documented By: BB Co-signed By: CMN Titration: 07/16/24 00:29 Dose: Infused Documented By: BB Co-signed By: CMN Titration: 07/16/24 00:00 Dose: 1.2 mcg/kg/hr, 12.247 mls/hr Documented By: BB Co-signed By: CMN Titration: 07/15/24 23:00 Dose: 1.2 mcg/kg/hr, 12.247 mls/hr Documented By: BB Co-signed By: CMN Titration: 07/15/24 22:00 Dose: 1.2 mcg/kg/hr, 12.247 mls/hr Documented By: BB Co-signed By: CMN Titration: 07/15/24 21:00 Dose: 1.2 mcg/kg/hr, 12.247 mls/hr Documented By: BB Co-signed By: CMN Admin: 07/15/24 20:24 Dose: 1.2 mcg/kg/hr, 12.247 mls/hr Documented By: BB Co-signed By: CMN Titration: 07/15/24 20:24 Dose: Infused Documented By: BB Co-signed By: CMN Titration: 07/15/24 20:00 Dose: 1.2 mcg/kg/hr, 12.247 mls/hr Documented By: Titration: 07/15/24 19:00 Dose: 1.2 mcg/kg/hr, 12.247 mls/hr Documented By: Titration: 07/15/24 18:44 Dose: 1.2 mcg/kg/hr, 12.247 mls/hr Documented By: Titration: 07/15/24 18:10 Dose: 1.4 mcg/kg/hr, 14.288 mls/hr Documented By: Titration: 07/15/24 18:01 Dose: 1 mcg/kg/hr, 10.206 mls/hr Documented By: Titration: 07/15/24 18:00 Dose: 0.6 mcg/kg/hr, 6.123 mls/hr Documented By: Titration: 07/15/24 17:55 Dose: 0.6 mcg/kg/hr, 6.123 mls/hr Documented By: Admin: 07/15/24 17:50 Dose: 0.2 mcg/kg/hr, 2.041 mls/hr Documented By: DIONNE Co-signed By: MR(2) Lactated Ringer's (Lactated Ringers) 500 mls @ 999 mls/hr IV .Q31M ONE Stop: 07/15/24 19:28 Last Admin: 07/15/24 20:20 Dose: 999 mls/hr Documented By: LISA Lactulose (Lactulose Syrup 20 Gm/30 Ml Udc) 20 gm PO DAILY [facility]; Protocol Stop: 08/15/24 10:29 Last Admin: 07/16/24 10:38 Dose: 20 gm Documented By: ZP Lorazepam (Lorazepam 2 Mg/Ml Vial) 2 mg IVP Q10M PRN PRN Reason: Seizure Activity Methylprednisolone Sodium Succinate (Methylprednisolone Sod Succ 62.5 Mg/Ml 2ml Vial) 125 mg IVP X1 ONE Stop: 07/15/24 10:19 Last Admin: 07/15/24 11:25 Dose: 125 mg Documented By: VIRGILIO(2) see above Consultations Consultation(s) initiated? (list below): Yes Consultation #1 (Physician, Specialty, Details): Discussed test HPI, PMHx, lab, radiology results and/or management with hospitalist Dr. Benitez. Time: 12:34 Consultation #2 (Physician, Specialty, Details): Discussed test HPI, PMHx, lab, radiology results and/or management with hospital secretary. Will admit for further evaluation and management. Accepts patient for admission to ICU. Time: 14:42 Diagnosis Differential Diagnosis ED Complaint MDM: viral pneumonia, reactive airway, sepsis, influenza, UTI Most likely diagnosis given after review of the tests above:: Sepsis Pneumonia Admission Indicated Admission indicated?: indicated Explain why admission is indicated or not indicated:: Diagnoses meet admission criteria. Admission Request Was there a request for admission?: Yes Admission Attestation Admission request attestation: Discussed case with [] from Hospitalist service regarding admission. Discussed patients ED course, exam findings, labs, and radiology results. The Hospitalist [agrees,declines] to accept the patient for admission. Disposition Plan Disposition Plan: Admit Medical Decision Making Differential Diagnosis Differential Diagnosis: viral pneumonia, reactive airway, sepsis, influenza, UTI Lab Data 07/16/24 04:28 07/16/24 04:28 Labs: Lab Results 07/15/24 07/15/24 Range/Units 11:15 11:44 WBC 7.6 (3.6-11.0) Thou/mm3 RBC 4.69 (4.00-5.20) Miln/mm3 Hgb 15.7 (12.0-16.0) g/dL Hct 44.9 (36.0-46.0) % MCV 96 (80-100) fL MCH 33.5 (25.0-35.0) pg MCHC 35.0 (31.0-37.0) g/dl RDW Std Deviation 45.1 (36.4-46.3) fL Plt Count 77 L (140-440) Thou/mm3 Neut % (Auto) 62 (37-80) % Lymph % (Auto) 17 (10-50) % Menard % (Auto) 20 H (0-12) % Eos % (Auto) 0 (0-10) % Baso % (Auto) 0 (0-2.5) % Neut # (Auto) 4.8 (1.8-7.7) Thou/mm3 Lymph # (Auto) 1.3 (1.0-4.8) Thou/mm3 Menard # (Auto) 1.5 H (0.0-0.8) Thou/mm3 Eos # (Auto) 0.0 (0.0-0.5) Thou/mm3 Baso # (Auto) 0.0 (0.0-0.2) Thou/mm3 Immature Gran # (Auto) 0.06 H (0.00-0.00) Thou/mm3 Absolute Nucleated RBC 0.00 (0.00-0.00) Thou/mm3 Immature Gran % 1 H (0-0) % Nucleated RBC % 0 (0) /100 WBC Sodium 128 L (136-145) mMol/L Potassium 3.9 (3.4-5.1) mMol/L Chloride 87 L (98-107) mMol/L Carbon Dioxide 30.8 (20.0-31.0) mMol/L Anion Gap 10 (7-16) BUN 10 (9-23) mg/dL Creatinine 0.6 (0.6-1.3) mg/dL Estim Creat Clear Calc 70.7 (>60) mL/min eGFR > 60 (60 - ) See Note BUN/Creatinine Ratio 17 (12-20) Ratio Glucose 104 (74-106) mg/dL Calculated Osmolality 256 L (275-295) Lactic Acid 4.0 H (0.4-2.0) mMol/L Calcium 10.8 H (8.3-10.6) mg/dL Corrected Calcium 10.8 H (8.5-10.1) mg/dL Total Bilirubin 0.6 (0.3-1.2) mg/dL AST 147 H (0-34) U/L ALT 87 H (10-49) U/L Alkaline Phosphatase 208 H (46-116) U/L Total Protein 7.3 (5.7-8.2) gm/dL Albumin 4.0 (3.5-5.0) gm/dL Globulin 3.3 (2.3-3.5) gm/dL Albumin/Globulin Ratio 1.2 (1.2-2.2) Procalcitonin 6.80 H (0.0-0.49) ng/ml Ur Collection Type Catheter Urine Color Lt-Yellow (Lt Yel-Yel) Urine Clarity Clear (Clear/Hazy) Urine pH 7.0 (5.0-7.0) Ur Specific Sylvia 1.009 (1.001-1.035) Urine Protein Negative (Neg - Trace) Urine Glucose (UA) Negative (Negative) Urine Ketones Negative (Negative) Urine Blood Negative (Negative) Urine Nitrite Negative (Negative) Urine Bilirubin Negative (Negative) Urine Urobilinogen (Auto) Negative (0.0-1.0) mg/dL Ur Leukocyte Esterase Negative (Negative) Urine RBC < 1 (0-3) /hpf Urine WBC < 1 (0-5) /hpf Ur Squamous Epith Cells 0 (0-5) /hpf Urine Bacteria None (None) Hyaline Casts < 1 (0-1) /hpf Misc Test Result Platelets confirmed Critical Care Time Critical Care Time Critical Care Time: Yes Total Critical Care Time (min.): 30 Attestation: The high probability of sudden, clinically significant deterioration in the patient?s condition required the highest level of my preparedness to intervene urgently. The services I provided to this patient were to treat and/or prevent clinically significant deterioration. Services included the following: chart data review, reviewing nursing notes and/or old charts, documentation time, data migration consultant collaboration regarding findings and treatment options, medication orders and management, direct patient care, vital sign assessments and ordering, interpreting and reviewing diagnostic studies and lab tests. Aggregate critical care time includes only time during which I was engaged in work directly related to the patient?s care, as described above, whether at bedside or elsewhere in the Emergency Department. It did not include time spent performing other reported procedures or the services of residents, students, nurses or physician assistants. Discharge Plan Plan Patient Disposition: Admit Acute Care w/in Hospital Problem List Clinical Impression: Sepsis, Pneumonia
[2024-07-15] MEDS: ALBUTEROL RT 2.5 MG/0.5 ML NEBU 10 MG INH (10:29)
[2024-07-15] MEDS: SODIUM CHLORIDE RT SOL 0.9% 3 ML NEBU INH (10:30)
[2024-07-15] MEDS: MethylPREDNISolone SOD SUCC 62.5 MG/ML 2ML VIAL 125 MG IVP (11:25)
[2024-07-15] MEDS: SODIUM CHLORIDE 0.9% 1000 ML 1,000 ML 999 ML IV (11:26)
[2024-07-15 11:31] LABS: Basophils % (Auto) 0 % (0-2.5); Eosinophils % (Auto) 0 % (0-10); Hematocrit 44.9 % (36.0-46.0); Hemoglobin 15.7 g/dL (12.0-16.0); Immature Granulocytes % (Auto) 1 % (0-0); Immature Granulocytes Auto 0.06 Thou/mm3 (0.00-0.00); Lymphocytes # (Auto) 1.3 Thou/mm3 (1.0-4.8); Lymphocytes % (Auto) 17 % (10-50); Mean Corpuscular Hemoglobin 33.5 pg (25.0-35.0); Mean Corpuscular Volume 96 fL (80-100); Monocytes # (Auto) 1.5 Thou/mm3 (0.0-0.8); Monocytes % (Auto) 20 % (0-12); Neutrophils # (Auto) 4.8 Thou/mm3 (1.8-7.7); Neutrophils % (Auto) 62 % (37-80); Nucleated Red Blood Cell % 0 /100 WBC (0); RDW Standard Deviation 45.1 fL (36.4-46.3); Red Blood Count 4.69 Miln/mm3 (4.00-5.20); White Blood Count 7.6 Thou/mm3 (3.6-11.0)
[2024-07-15 11:36] LABS: Platelet Count 77 Thou/mm3 (140-440)
[2024-07-15 12:01] LABS: Alanine Aminotransferase 87 U/L (10-49); Albumin/Globulin Ratio 1.2 (1.2-2.2); Alkaline Phosphatase 208 U/L (46-116); Anion Gap 10 (7-16); Aspartate Amino Transferase 147 U/L (0-34); BUN/Creatinine Ratio 17 Ratio (12-20); Bilirubin,Total 0.6 mg/dL (0.3-1.2); Blood Urea Nitrogen 10 mg/dL (9-23); Calcium 10.8 mg/dL (8.3-10.6); Calcium (Corrected) 10.8 mg/dL (8.5-10.1); Carbon Dioxide 30.8 mMol/L (20.0-31.0); Chloride 87 mMol/L (98-107); Creatinine (Component) 0.6 mg/dL (0.6-1.3); Estimated Creatinine Clearance 70.7 mL/min (>60); Globulin 3.3 gm/dL (2.3-3.5); Glucose 104 mg/dL (74-106); Osmolality,Calculated 256 (275-295); Potassium 3.9 mMol/L (3.4-5.1); Sodium 128 mMol/L (136-145); Total Protein 7.3 gm/dL (5.7-8.2); eGFR > 60 See Note
[2024-07-15] MEDS: MEROPENEM INJ 1,000 MG in SODIUM CHLORIDE 0.9% (Popper) 50 ML 100 MG IV (12:20)
[2024-07-15] MEDS: SODIUM CHLORIDE 0.9% 500 ML 500 ML 999 ML IV (12:22)
[2024-07-15] MEDS: ACETAMINOPHEN SOL 325 MG/10 ML UDC 612 MG GT (12:22)
[2024-07-15 12:48] LABS: Collection Type, Urine Catheter; Squamous Epithelial Cell,Urine 0 /hpf (0-5)
[2024-07-15 12:49] LABS: Slide Review Platelets confirmed
[2024-07-15 13:05] LABS: Bilirubin,Urine Negative (Negative); Blood,Urine Negative (Negative); Clarity,Urine Clear (Clear/Hazy); Color,Urine Lt-Yellow (Lt Yel-Yel); Glucose, Urine Negative (Negative); Hyaline Casts,Urine < 1 /hpf (0-1); Ketones,Urine Negative (Negative); Leukocyte Esterase,Urine Negative (Negative); Nitrite,Urine Negative (Negative); Protein,Urine Negative (Neg - Trace); RBC,Urine < 1 /hpf (0-3); Specific Gravity,Urine 1.009 (1.001-1.035); Urobilinogen,Urine Negative mg/dL (0.0-1.0); WBC,Urine < 1 /hpf (0-5)
--- NOTE | 2024-07-15 14:20 | PC.CC ---
Patient is a 54 year-old female who presents to the hospital for SOB. Patient lives at a [facility] home named [facility]. Cesia IVY introduced self, role, and reason for visit. Patient is not alert and oriented. At bedside was long term RN Kimberlyn Norwood who provided information for this initial assessment to be completed. Kimberlyn reports that patient is a client of [facility] and Dr. Jennings makes patient's medical decision. Patient is not ambulatory and uses a special wheelchair that staff maneuver as patient does not have mobility in her hands and feet. The staff at the long term help patient complete her ADLs. Patient's primary care provider is [facility] and for prescription medication the patient uses [facility] in [place]. Upon discharge the patient plans to return home to [facility]. services tech to follow up with any discharge needs.
[2024-07-15 14:21] LABS: Reflex Lactate? Y
--- NOTE | 2024-07-15 14:52 | ECHO_ITS ---
Transthoracic Echo Report Ht (in): 59 Wt (lb): 98 Exam Location: Echo Lab Status: Emergency Operations Intelligence: Mendy Chacon Indications: Procedure Performed: BP: 148 / 88 HR: 102 Technical Quality: Very technically difficult study FINDINGS Left Ventricle The left ventricle is not well visualized. Right Ventricle The right ventricle not well visualized. Left Atrium Left atrium not well visualized. Right Atrium Right atrium is not well visualized. Atrial Septum The interatrial septum not well visualized. Aorta The aortic root and proximal ascending aorta are not well visualized. Mitral Valve The mitral valve is not well visualized. Aortic Valve The aortic valve is not well visualized. Tricuspid Valve The tricuspid valve is not well visualized. Pulmonic Valve The pulmonic valve is not well visualized. Vessels Normal inferior vena cava (IVC). Pericardium The pericardium is normal to two-dimensional and color flow Doppler interrogation. CONCLUSIONS indication: sepsis Very technically difficult study with uncooperative patient Matthew Eugene (Electronically Signed) Final Date: 16 July 2024 09:50
--- NOTE | 2024-07-15 14:54 | XR_ITS ---
Examination: CT abdomen, without intravenous contrast. CT abdomen, with intravenous contrast. Sagittal and coronal 2-D reconstructions. Time of exam:July 15, 2024 1545 hours Comparison May 13, 2024 INDICATIONS: Onset acute abdominal pain today history cholelithiasis CTDI: vol (mGy) 20.8 DLP: (mGycm) 701 Technique: Multiple 3.0 mm axial noncontrast images of the abdomen have been obtained. Multiple 3.0 mm axial images post administration 60 cc Isovue-370 intravenous contrast have been obtained. Sagittal and coronal 3-D reconstructions have been obtained. Low dose protocols were performed. One or more of the following dose reduction techniques were used; automated exposure control, adjustment of the mA and/or KV according to patient size, use of iterative reconstruction technique. Findings: Significant elevation right hemidiaphragm Subsegmental atelectasis right base No focal liver or splenic lesions Multiple gallstones, gallbladder wall appears mildly thickened No pancreatic or adrenal mass No renal or ureteral calculi, no hydronephrosis Gastrostomy tube satisfactory position Mucosa in the stomach appears thickened Abundant stool and fluid throughout the colon No bowel obstruction Normal appendix No diverticulitis IMPRESSION: Recommend hepatobiliary sonography follow-up to exclude calculus cholecystitis Gastritis pattern Abundant stool and fluid throughout the colon
[2024-07-15] MEDS: Norepinephrine/NS 16mg/250ml 16 MG/250 ML BAG 1.914 MG IV (15:05)
[2024-07-15 15:12] LABS: Lactic Acid, 3 HR 5.2 mMol/L (0.4-2.0)
--- NOTE | 2024-07-15 15:12 | ESHP_ITS ---
<Statement entered by Dana Shannon MD - 07/15/24 19:34> TOTAL CC TIME: 90 MIN I saw and evaluated the patient. I reviewed the resident?s note and agree with findings and plan as documented in the resident?s note. Upon my evaluation, this patient had a high probability of imminent or life- threatening deterioration due to septic shock, which required my direct attention, intervention, and personal management. This time is exclusive of time spent on procedures, which are documented separately if performed. pt is admitted to ICU for septic shock of unclear etiology She has hx of cognitive impairment and can not provide a hx exam is unable to identify specific source of sepsis abd is tense but confounded by abd muscles used for forced expiration rash surrounding PEG tube site - does not appear acute- small excoriations noted CT abd/pelv w/ contrast covers most of chest as well chronic right sided hemidiaphgram confounding full pulm view -there is chronic right base atelectasis no severe pneumonia Radiologist review of CT does not ID a definite source I personally reviewed the ct anad compared it to the apr 2024 ct and I am unable to identify acute changes. however, LA continues to rise unfortunately despite receiving appropriate IVFs. around 3pm IVC was wnl w/o significant variation on informal POCUS performed by myself in ED #7 later ICU resident called and stated repeat US identifies flat IVC - therefore additional IVFs ordered We will call surgery for their opinion of the CT abd/pelv Will also stop VA given this could be related to toxicity (f/thrombocytopenia/LA...) PCL is elevated more concerning for infx etiology covering w/ broad spectrum abx stress dose steroids ordered Documentation for date of: 07/15/24 HPI History of Present Illness History of present illness: Deyanira Pérez is a 54-year-old female with developmental delay, who is nonverbal, and comes from a conservators[facility] home and has a past medical history of cerebral palsy, epilepsy on valproic acid, scoliosis, cholelithiasis, hypothyroidism, GERD, and chronic PEG tube who presented to the ED on 07/15 for desaturation into the 80s at her care facility. On 07/13, patient noted to have fever 101- 102 ?F with associated dark-colored urine so she was brought to urgent care where she received Rx of Levaquin that she received on Saturday, Saturday, and Saturday. However, she continued to feel unwell and so was brought to the ED after she was noted to desaturate as noted above. In ED, initial vitals showed BP 147/87, HR 123, RR 26, temp 102.1 ?F, saturating 98% on 6 L OxyMask. BP noted to drop at 70/30 a few hours after presentation and was given a total of 1.5 L of NS and BP continued to remain low. At this point, ICU team was consulted and upon evaluation at bedside, ultrasound showed a fluid resuscitated IVC. Decision was made to admit patient to ICU and spoke to Dr. Marie who gave consent for central line, arterial line, and intubation if needed. Plan to get ABG to obtain baseline and retest RSV, COVID, flu given that patient comes from home with multiple sick contacts positive for influenza. Given allergies to penicillins and cephalexin, will start patient on meropenem and vancomycin. Will also obtain CT A/P to assess for possible/additional sources of sepsis and started on levophed. Review of Systems Review of Systems ROS Unobtainable: unobtainable due to medical condition Exam Vital Signs Temp Pulse Resp BP Pulse Ox O2 Del Method O2 Flow Rate 98.8 F 102 H 22 H 66/35 L 100 Oxy Mask 5 07/15/24 15:00 07/15/24 15:07/15/24 15:07/15/24 15:07/15/24 15:07/15/24 15:07/15/24 15:00 Narrative Exam General: alert, in moderate distress secondary to pain HEENT: NC/AT, mucous membranes moist, bilateral sclera anicteric Cardiovascular: tachycardic, regular rhythm, S1/S2 present, no murmurs appreciated Pulmonary: coarse lung sounds in upper airways, decreased lung sounds in RLL Abdominal: grimacing during bedside ultrasound, soft, non-distended, Musculoskeletal: bilateral lower extremity contractures, dorsalis pedis pulses 3+ Skin: warm and dry, intact, no rashes Results: Labs 07/16/24 04:28 07/16/24 04:28 Labs: Short CBC 07/15/24 Range/Units 11:15 WBC 7.6 (3.6-11.0) Thou/mm3 Hgb 15.7 (12.0-16.0) g/dL Hct 44.9 (36.0-46.0) % Plt Count 77 L (140-440) Thou/mm3 BMP 07/15/24 11:15 Sodium 128 L Potassium 3.9 Chloride 87 L Carbon Dioxide 30.8 BUN 10 Creatinine 0.6 Glucose 104 Calcium 10.8 H Liver Function 07/15/24 Range/Units 11:15 Total Bilirubin 0.6 (0.3-1.2) mg/dL AST 147 H (0-34) U/L ALT 87 H (10-49) U/L Alkaline Phosphatase 208 H (46-116) U/L Albumin 4.0 (3.5-5.0) gm/dL Urine 07/15/24 Range/Units 11:44 Urine Color Lt-Yellow (Lt Yel-Yel) Urine Clarity Clear (Clear/Hazy) Urine pH 7.0 (5.0-7.0) Ur Specific [place] 1.009 (1.001-1.035) Urine Protein Negative (Neg - Trace) Urine Glucose (UA) Negative (Negative) Quality Measures Quality Measures sepsis Current suspected stage: sepsis Possible source: pulmonary Blood cultures ordered: yes Antibiotic ordered: Yes Medications Home Medications and Allergies Home Medications ?Medication ?Instructions ?Recorded ?Confirmed ?Type calcium carbonate 500 mg/5 mL (as 625 mg feeding tube BID 07/29/23 03/18/24 History calcium carb 1,250 mg/5 mL) oral suspension erythromycin 2 % topical solution 1 ml topical BID 09/1703/18/24 History gabapentin 300 mg capsule 900 mg feeding tube BID 09/1703/18/24 History glycopyrrolate 2 mg tablet 2 mg feeding tube BID 07/2803/18/24 History levothyroxine 75 mcg tablet 75 mcg feeding tube USEASD IRECTD 07/29/23 03/18/24 History metoclopramide HCl 5 mg/5 mL oral 10 mg feeding tube B ID 07/29/23 03/18/24 History solution multivit and minerals-ferrous 5 ml feeding tube BID 03/18/24 History gluconate 9 mg iron/15 mL oral liquid (Multi-Jg) simethicone 80 mg chewable tablet 80 mg feeding tube T ID 07/29/23 03/18/24 History valproic acid (as sodium salt) 250 400 mg feeding tube BID 07/29/23 03/18/24 History mg/5 mL oral solution acetaminophen 325 mg tablet 650 mg feeding tube QID CT N Pain 03/18/24 03/18/24 History (Tylenol) dextromethorphan-guaifenesin 10 10 ml PO Q6H PRN Cough 03/18/24 03/18/24 History mg-200 mg/5 mL oral liquid erythromycin 2 % topical solution 1 ml topical BID 03/18/24 History famotidine 20 mg tablet 20 mg feeding tube QDAY 02/2503/18/24 History ipratropium 0.5 mg-albuterol 3 mg 3 ml inhalation Q4H PRN Shortness 03/18/24 03/18/24 History (2.5 mg base)/3 mL nebulization Of Breath Or Wheezing soln lactulose 10 gram/15 mL oral 30 g feeding tube DAILY 1 03/18/24 History solution loratadine 10 mg tablet 10 mg feeding tube QDAY 02/2503/18/24 History pseudoephedrine HCl 60 mg tablet 60 mg feeding tube Q6 H PRN 03/18/24 03/18/24 History (Sudogest) Congestion Allergies Allergy/AdvReac Type Severity Reaction Status Date / Time bacitracin (From Neosporin Allergy Verified 07/15/24 09:36 ([id number])) cephalexin Allergy Verified 07/15/24 09:36 neomycin (From Neosporin Allergy Verified 07/15/24 09:36 ([id number])) Penicillins Allergy Verified 07/15/24 09:36 polymyxin B (From Neosporin Allergy Verified 07/15/24 09:36 ([id number])) Visit Medications Norepinephrine Bitartrate (Levophed In Ns 16mg/250ml) 16 mg in 250 mls @ 1.914 mls/hr IV .Q24H PRN; Protocol PRN Reason: PER PROTOCOL Stop: 08/14/24 14:52 Pharmacy Consult (Pharmacy Renal Dose Adjustment 1 Ea) 1 each XX QDAY CAMILA Stop: 08/14/24 14:59 Pharmacy Consult (Vancomycin Pharmacy To Dose 1 Each Each) 1 each IV QDAY CAMILA Stop: 08/14/24 14:59 Sodium Chloride (Sodium Chloride Rt Ginger 0.9% 3 Ml Nebu) 3 ml INH PRN PRN PRN Reason: SOLN Stop: 08/14/24 10:17 Last Admin: 07/15/24 10:30 Dose: 3 ml Discontinued Medications Acetaminophen (Acetaminophen Ginger 325 Mg/10 Ml Udc) 612 mg 15 mg/kg (612 mg) GT X1 ONE Stop: 07/15/24 11:37 Last Admin: 07/15/24 12:22 Dose: 612 mg Albuterol (Albuterol Rt 2.5 Mg/0.5 Ml Nebu) 10 mg INH X1 ONE Stop: 07/15/24 10:19 Last Admin: 07/15/24 10:29 Dose: 10 mg Sodium Chloride (Ns) 1,000 mls @ 999 mls/hr IV .Q1H1M ONE Stop: 07/15/24 11:22 Last Infusion: 07/15/24 12:48 Dose: Infused Sodium Chloride (Ns) 500 mls @ 999 mls/hr IV .Q31M ONE Stop: 07/15/24 12:07 Last Infusion: 07/15/24 14:05 Dose: Infused Meropenem 1,000 mg/ Sodium (Chloride) 50 mls @ 100 mls/hr IV X1 ONE Stop: 07/15/24 11:39 Last Infusion: 07/15/24 12:48 Dose: Infused Sodium Chloride (Ns) 500 mls @ 999 mls/hr IV .Q31M ONE Stop: 07/15/24 15:02 Last Admin: 07/15/24 14:59 Dose: Not Given Methylprednisolone Sodium Succinate (Methylprednisolone Sod Succ 62.5 Mg/Ml 2ml Vial) 125 mg IVP X1 ONE Stop: 07/15/24 10:19 Last Admin: 07/15/24 11:25 Dose: 125 mg Assessment & Plan Plan Deyanira Pérez is a 54-year-old female with developmental delay, who is nonverbal, and [facility] and has a past medical history of cerebral palsy, epilepsy on valproic acid, scoliosis, cholelithiasis, hypothyroidism, GERD, and chronic PEG tube who presented to the ED on 07/15 and admitted to the ICU for management of distributive shock. Neurological #Epilepsy ? Valproic acid 200 mg IV every 6 hours -> HELD Cardiovascular #Shock, likely distributive secondary to pneumonia versus UTI Most likely pneumonia in setting of CXR findings suggesting bilateral pneumonia, elevated procal, and elevated lactate. UA clean but patient already received 3 days of levofloxacin. Received 1.5 L IVF in ED and bedside ultrasound showed fluid resuscitated IVC so we will hold on fluids for now. Given imaging and lab findings, unlikely due to cholangitis as CBD not dilatated and t bili wnl. No signs of pancreatitis, colitis, diverticulitis, perforation, abscesses, renal/ureteral calculi or signs of hydronephrosis seen on CT A/P. ? Levophed drip ? Hydrocortisone 50 mg IV q6hr ? Follow-up AM cortisol levels ? Meropenem (penicillin and cephalexin allergy) ? Vancomycin ? Follow-up blood culture (07/15) ? Follow-up urine culture (07/15) ? Surgery consulted, appreciate recommendations Pulmonary #Pneumonia, community-acquired versus aspiration Noted desaturation from care facility in 80s, currently saturating 99%% on 5 L oxy mask. Also comes from [facility] with known sick contacts, so will retest for RSV, COVID, and flu. CXR shows extensive bilateral pneumonia with possible atelectatic right lower lobe given sharp margins, possible aspiration. ? Meropenem and vancomycin as above ? Follow-up blood culture ? Follow-up urine culture ? Retest RSV, COVID, and flu Gastrointestinal #GERD ? Famotidine 20 mg IV daily #Transaminitis In setting of recent antibiotic use for previous UTI AST 147, ALT 87, alk phos 208 ? Continue to monitor #Chronic PEG tube Rash/erythema noted around PEG tube insertion site ? Site demarcated and follow closely Renal #Hypoosmolar hyponatremia Initial sodium of 128 and noted to have long-standing history of hyponatremia that could be secondary to PEG tube feedings ? Follow-up urine electrolytes Heme/onc #Thrombocytopenia, DIC vs drug-induced vs TTP/HUS vs ITP Platelets 77, with no previous history of low platelets. No signs of petechiae or bleeding gums. DIC on differential, will follow-up on coag panel, protein C, and AT III D-dimer noted to be elevated and will order fibrinogen levels tomorrow. Less likely TTP/HUS as t bili wnl (no signs of hemolysis) May be drug-induced (recent levofloxacin use, valproate) ? Follow-up coag panel, protein C, and ATIII ? Order fibrinogen Endocine #Hypothyroidism ? Levothyroxine 25 mcg IV T// Infectious disease #Shock, distributive secondary to sepsis ? See cardiovascular above #Pneumonia, community acquired vs aspiration ? See pulmonary above Hospital management: Disposition: septic shock requiring levophed Fluids: none Drips: levophed Diet: NPO Lines: peripheral IV GI prophylaxis: famotidine CODE STATUS: full code ----- Plan discussed with attending physician Dr. Mirtha Dahl MD PGY-1 Internal Medicine
[2024-07-15 15:44] LABS: Base Excess -2 (-3-3); HCO3 24 mEq/L (20-26); Inspired O2, VO2 Liters 5 L/min; Inspired Oxygen, FIO2 21 %; O2 Saturation 100 % (91-98); PCO2 43 mmHg (32.0-48.0); PO2 168 mmHg (83-108); pH, Arterial 7.35 (7.35-7.45)
[2024-07-15 15:46] LABS: Allen Test Performed/OK; Puncture Site Left Radial
[2024-07-15] MEDS: FAMOTIDINE INJ 10 MG/ML VIAL 2 ML 20 MG IVP (16:15)
[2024-07-15] MEDS: VANCOMYCIN/NS 1 GM IVPB 200 ML IV (16:19)
[2024-07-15 17:13] LABS: Lactate (Lactic Acid) 6.3 mMol/L (0.4-2.0)
[2024-07-15 17:21] LABS: Base Excess -3 (-3-3); HCO3 23 mEq/L (20-26); Inspired O2, VO2 Liters 3 L/min; O2 Saturation 100 % (91-98); PCO2 44 mmHg (32.0-48.0); PO2 205 mmHg (83-108); pH, Arterial 7.32 (7.35-7.45)
[2024-07-15 17:22] LABS: Allen Test Not Performed; Puncture Site Left Radial
[2024-07-15 17:31] LABS: Alanine Aminotransferase 77 U/L (10-49); Albumin, Serum 3.5 gm/dL (3.5-5.0); Albumin/Globulin Ratio 1.2 (1.2-2.2); Alkaline Phosphatase 178 U/L (46-116); Anion Gap 17 (7-16); Aspartate Amino Transferase 110 U/L (0-34); BUN/Creatinine Ratio 13 Ratio (12-20); Bilirubin,Total 0.5 mg/dL (0.3-1.2); Blood Urea Nitrogen 8 mg/dL (9-23); Calcium 8.9 mg/dL (8.3-10.6); Calcium (Corrected) 9.3 mg/dL (8.5-10.1); Carbon Dioxide 21.4 mMol/L (20.0-31.0); Chloride 94 mMol/L (98-107); Creatinine (Component) 0.6 mg/dL (0.6-1.3); Estimated Creatinine Clearance 70.7 mL/min (>60); Globulin 2.9 gm/dL (2.3-3.5); Glucose 192 mg/dL (74-106); Osmolality,Calculated 267 (275-295); Potassium 3.7 mMol/L (3.4-5.1); Sodium 132 mMol/L (136-145); Total Protein 6.4 gm/dL (5.7-8.2); eGFR > 60 See Note
[2024-07-15 17:43] LABS: Influenza A Ag Negative; Influenza B Ag Negative; Respiratory Syncytial Virus Ag Negative (Negative)
[2024-07-15] MEDS: DEXMEDETOMIDINE 200 MCG IVPB 200 MCG/50 ML BOTTLE IV (17:50)
--- NOTE | 2024-07-15 18:43 | XR_ITS ---
Examination: AP chest single view Technique one AP portable semiupright chest single view Exam date and time: July 15, 2024 1855 hrs. Comparison July 15, 2024 10:55 AM Indications: Sepsis, attempted central line placement today. Findings: No pneumothorax Apparent elevation right hemidiaphragm Mild vascular congestion Moderate osteopenia Impression: No pneumothorax Consider ultrasound right hemithorax follow-up to exclude right subpulmonic effusion
--- NOTE | 2024-07-15 18:44 | EVENTNT_ITS ---
Documentation for date of: 07/15/24 Event Note Event Note: Attempted right IJ central venous line placement via ultrasound. Patient was maxed out on precedex 1.4 mcg/kg/min gtt. Time-out was done. Lidocaine 1% was infilitrated at the site. SVC was dramatically collapsing with inspiration. Dark blood was drawn back in the syringe but quickly clotted off in the syringe. Procedure was aborted. Post-procedure CXR was performed. Procedure was attempted by Enriqueta Roblero, PGY4 vice president of business development. Indirectly supervised by ICU attending Dr. Shannon who was immediately available throughout the procedure.
[2024-07-15 19:57] LABS: Reflex Lactate? Y
[2024-07-15] MEDS: RINGERS LACTATED 500 ML 500 ML 999 ML IV (20:20)
[2024-07-15] MEDS: DEXMEDETOMIDINE 200 MCG IVPB 200 MCG/50 ML BOTTLE 12.247 MCG IV (20:24)
[2024-07-15] MEDS: HEPARIN SOD INJ 5000 UNIT/ML VIAL SC (20:25)
[2024-07-15] MEDS: HYDROCORTISONE SOD SUCC INJ 100 MG VIAL 50 MG IV (20:25)
[2024-07-15 20:27] LABS: Lactic Acid, 3 HR 4.5 mMol/L (0.4-2.0)
[2024-07-15 20:48] LABS: D-Dimer 1790 ng/mL (<600)
[2024-07-15 20:59] LABS: INR 1.1 (0.9-1.3); Prothrombin Time 11.5 Seconds (9.0-12.2)
[2024-07-15] MEDS: MEROPENEM INJ 500 MG in SODIUM CHLORIDE 0.9% (Popper) 50 ML 100 MG IV (22:10)
[2024-07-16] VITALS (68 sets, daily range): BP systolic 82–161; BP diastolic 49–108; PULSE 59–122; RESP 15–28; TEMP 35.8–37.5; O2SAT 92–100; BMI 18.1
[2024-07-16] MEDS: HYDROCORTISONE SOD SUCC INJ 100 MG VIAL 50 MG IV ×3 (00:20→20:24)
[2024-07-16] MEDS: DEXMEDETOMIDINE 200 MCG IVPB 200 MCG/50 ML BOTTLE 12.247 MCG IV ×2 (00:29→03:45)
[2024-07-16 02:22] LABS: Lactate (Lactic Acid) 2.8 mMol/L (0.4-2.0)
[2024-07-16 05:21] LABS: Reflex Lactate? Y
[2024-07-16 05:26] LABS: Basophils % (Auto) 0 % (0-2.5); Eosinophils % (Auto) 0 % (0-10); Hematocrit 44.1 % (36.0-46.0); Hemoglobin 15.3 g/dL (12.0-16.0); Immature Granulocytes % (Auto) 1 % (0-0); Immature Granulocytes Auto 0.07 Thou/mm3 (0.00-0.00); Lymphocytes # (Auto) 1.3 Thou/mm3 (1.0-4.8); Lymphocytes % (Auto) 17 % (10-50); Mean Corpuscular HGB Conc 34.7 g/dl (31.0-37.0); Mean Corpuscular Hemoglobin 33.6 pg (25.0-35.0); Mean Corpuscular Volume 97 fL (80-100); Monocytes % (Auto) 13 % (0-12); Neutrophils # (Auto) 5.3 Thou/mm3 (1.8-7.7); Neutrophils % (Auto) 69 % (37-80); Nucleated Red Blood Cell % 0 /100 WBC (0); RDW Standard Deviation 46.5 fL (36.4-46.3); Red Blood Count 4.56 Miln/mm3 (4.00-5.20); White Blood Count 7.7 Thou/mm3 (3.6-11.0)
[2024-07-16 05:38] LABS: Platelet Count 69 Thou/mm3 (140-440)
[2024-07-16 05:39] LABS: Slide Review Platelets confirmed
[2024-07-16 05:42] LABS: Fibrinogen 427 mg/dL (175-375)
[2024-07-16] MEDS: MEROPENEM INJ 500 MG in SODIUM CHLORIDE 0.9% (Popper) 50 ML 100 MG IV ×3 (05:43→21:00)
[2024-07-16] MEDS: LEVOTHYROXINE INJ 100 mCg VIAL 25 MCG IV (05:44)
[2024-07-16] MEDS: ALBUTEROL/IPRATROPIUM (Duoneb) RT SOL 3 ML NEBU INH ×5 (06:28→22:30)
[2024-07-16 06:44] LABS: T4 (Thyroxine) 9.5 mcg/dL (4.5-10.9)
[2024-07-16 06:52] LABS: Alanine Aminotransferase 68 U/L (10-49); Albumin, Serum 3.5 gm/dL (3.5-5.0); Albumin/Globulin Ratio 1.4 (1.2-2.2); Alkaline Phosphatase 163 U/L (46-116); Anion Gap 13 (7-16); Aspartate Amino Transferase 79 U/L (0-34); BUN/Creatinine Ratio 23 Ratio (12-20); Bilirubin,Total 0.4 mg/dL (0.3-1.2); Blood Urea Nitrogen 9 mg/dL (9-23); Calcium 8.4 mg/dL (8.3-10.6); Calcium (Corrected) 8.8 mg/dL (8.5-10.1); Carbon Dioxide 29.3 mMol/L (20.0-31.0); Chloride 96 mMol/L (98-107); Creatinine (Component) 0.4 mg/dL (0.6-1.3); Globulin 2.5 gm/dL (2.3-3.5); Glucose 163 mg/dL (74-106); Osmolality,Calculated 278 (275-295); Potassium 3.7 mMol/L (3.4-5.1); Procalcitonin 2.91 ng/ml (0.0-0.49); Sodium 138 mMol/L (136-145); Thyroid Stimulating Hormone 1.65 uIU/mL (0.55-4.78); eGFR > 60 See Note
--- NOTE | 2024-07-16 06:58 | XR_ITS ---
Examination: AP chest single view Technique: AP portable semiupright chest single view Exam date and time: July 16, 2024 0717 hrs. Comparison July 15, 2024 Indications: Shortness of breath today. Findings: Worsening opacity in the right lung consistent with pneumonia Enlarged cardiac contour with prominent vascular congestion Prominent osteopenia Impression: Worsening opacity in the right lung consistent with pneumonia Mild heart failure
[2024-07-16 07:10] LABS: Lactic Acid, 3 HR 2.1 mMol/L (0.4-2.0)
[2024-07-16] MEDS: FAMOTIDINE INJ 10 MG/ML VIAL 2 ML 20 MG IVP (08:18)
[2024-07-16] MEDS: VANCOMYCIN/NS 1 GM IVPB 200 ML IV ×2 (10:04→21:35)
--- NOTE | 2024-07-16 10:29 | ESPR_ITS ---
<Statement entered by Dana Shannon MD - 07/16/24 13:26> TOTAL TIME: 45MINUTES ON DIRECT MEDICAL CARE, MANAGEMENT - COORDINATION AND COUNSELING > 50% OF TOTAL TIME I saw and evaluated the patient. I reviewed the resident?s note and agree with findings and plan as documented in the resident?s note. Septic shock has improved; off of Levophed, wean hydrocortisone. 2-2 gram- positive cocci in blood cultures. We will call lab to see if they can identify staph versus strep. Continue current antibiotics. Chest x-ray worse but some of this may be related to edema versus progressive pneumonia although clinically she is certainly improved with significant improvement in work of breathing Documentation for date of: 07/16/24 Subjective Subjective Interval history: Deyanira Pérez is a 54-year-old female with developmental delay, who is nonverbal, and [facility] and has a past medical history of cerebral palsy, epilepsy on valproic acid, scoliosis, cholelithiasis, hypothyroidism, GERD, and chronic PEG tube who presented to the ED on 07/15 for desaturation into the 80s at her care facility. On 07/13, patient noted to have fever 101- 102 ?F with associated dark-colored urine so she was brought to urgent care where she received Rx of Levaquin that she received on Saturday, Saturday, and Saturday. However, she continued to feel unwell and so was brought to the ED after she was noted to desaturate as noted above. In ED, initial vitals showed BP 147/87, HR 123, RR 26, temp 102.1 ?F, saturating 98% on 6 L OxyMask. BP noted to drop at 70/30 a few hours after presentation and was given a total of 1.5 L of NS and BP continued to remain low. At this point, ICU team was consulted and upon evaluation at bedside, ultrasound showed a fluid resuscitated IVC. Decision was made to admit patient to ICU and spoke to Dr. Marie who gave consent for central line, arterial line, and intubation if needed. Plan to get ABG to obtain baseline and retest RSV, COVID, flu given that patient comes from home with multiple sick contacts positive for influenza. Given allergies to penicillins and cephalexin, will start patient on meropenem and vancomycin. Will also obtain CT A/P to assess for possible/additional sources of sepsis and started on levophed. 07/16: Seen and examined in ICU. No acute overnight events reported. Was able to turn off levophed in evening prior and precedex drip was stopped at 0730 this morning. Blood cultures came back positive 2/2 bottles for GPC and will obtain repeats today. Will taper down on steroids, start tube feeds with free water, and start bowel regimen from facility. Patient's RN from care facility, [facility]. Exam Vital Signs Temp Pulse Resp BP Pulse Ox O2 Del Method O2 Flow Rate 96.5 F L 77 19 86/58 L 99 Oxy Mask 2 07/16/24 07:00 07/16/24 10:13 07/16/24 10:13 07/16/24 10:00 07/16/24 10:13 07/15/24 17:24 07/16/24 10:13 Narrative Exam General: alert though mildly lethargic after tapering off precedex drip HEENT: NC/AT, mucous membranes moist, bilateral sclera anicteric Cardiovascular: regular rate and rhythm, S1/S2 present, no murmurs appreciated Pulmonary: coarse lung sounds in upper airways Abdominal: soft, non-distended Musculoskeletal: bilateral lower extremity contractures, dorsalis pedis pulses 3+ Skin: warm and dry, intact, no rashes Objective Labs 07/16/24 04:28 07/16/24 04:28 Labs: Laboratory Results - last 24 hr 07/15/24 07/15/24 07/15/24 11:15 11:44 14:55 WBC 7.6 RBC 4.69 Hgb 15.7 Hct 44.9 MCV 96 MCH 33.5 MCHC 35.0 RDW Std Deviation 45.1 Plt Count 77 L Neut % (Auto) 62 Lymph % (Auto) 17 [place] % (Auto) 20 H Eos % (Auto) 0 Baso % (Auto) 0 Neut # (Auto) 4.8 Lymph # (Auto) 1.3 [place] # (Auto) 1.5 H Eos # (Auto) 0.0 Baso # (Auto) 0.0 Immature Gran # (Auto) 0.06 H Absolute Nucleated RBC 0.00 Immature Gran % 1 H Nucleated RBC % 0 PT INR Fibrinogen D-Dimer Puncture Site ABG pH ABG pCO2 ABG pO2 ABG HCO3 ABG O2 Saturation ABG Base Excess Oxygen Liter Flow FiO2 Sodium 128 L Potassium 3.9 Chloride 87 L Carbon Dioxide 30.8 Anion Gap 10 BUN 10 Creatinine 0.6 Estim Creat Clear Calc 70.7 eGFR > 60 BUN/Creatinine Ratio 17 Glucose 104 Calculated Osmolality 256 L Lactic Acid 4.0 H 5.2 H* Calcium 10.8 H Corrected Calcium 10.8 H Total Bilirubin 0.6 AST 147 H ALT 87 H Alkaline Phosphatase 208 H Total Protein 7.3 Albumin 4.0 Globulin 3.3 Albumin/Globulin Ratio 1.2 Procalcitonin 6.80 H TSH Thyroxine (T4) Ur Collection Type Catheter Urine Color Lt-Yellow Urine Clarity Clear Urine pH 7.0 Ur Specific Daniels 1.009 Urine Protein Negative Urine Glucose (UA) Negative Urine Ketones Negative Urine Blood Negative Urine Nitrite Negative Urine Bilirubin Negative Urine Urobilinogen (Auto) Negative Ur Leukocyte Esterase Negative Urine RBC < 1 Urine WBC < 1 Ur Squamous Epith Cells 0 Urine Bacteria None Hyaline Casts < 1 Influenza A (Rapid) Influenza B (Rapid) RSV Rapid Misc Test Result Platelets confirmed 07/15/24 07/15/24 07/15/24 15:41 16:52 17:15 WBC RBC Hgb Hct MCV MCH MCHC RDW Std Deviation Plt Count Neut % (Auto) Lymph % (Auto) [place] % (Auto) Eos % (Auto) Baso % (Auto) Neut # (Auto) Lymph # (Auto) [place] # (Auto) Eos # (Auto) Baso # (Auto) Immature Gran # (Auto) Absolute Nucleated RBC Immature Gran % Nucleated RBC % PT INR Fibrinogen D-Dimer Puncture Site Left Radial Left Radial ABG pH 7.35 7.32 L ABG pCO2 43 44 ABG pO2 168 H 205 H D ABG HCO3 24 23 ABG O2 Saturation 100 H 100 H ABG Base Excess -2 -3 Oxygen Liter Flow 5 3 FiO2 21 Sodium 132 L Potassium 3.7 Chloride 94 L Carbon Dioxide 21.4 Anion Gap 17 H BUN 8 L Creatinine 0.6 Estim Creat Clear Calc 70.7 eGFR > 60 BUN/Creatinine Ratio 13 Glucose 192 H D Calculated Osmolality 267 L Lactic Acid 6.3 H* Calcium 8.9 D Corrected Calcium 9.3 D Total Bilirubin 0.5 AST 110 H ALT 77 H Alkaline Phosphatase 178 H D Total Protein 6.4 Albumin 3.5 D Globulin 2.9 Albumin/Globulin Ratio 1.2 Procalcitonin TSH Thyroxine (T4) Ur Collection Type Urine Color Urine Clarity Urine pH Ur Specific Daniels Urine Protein Urine Glucose (UA) Urine Ketones Urine Blood Urine Nitrite Urine Bilirubin Urine Urobilinogen (Auto) Ur Leukocyte Esterase Urine RBC Urine WBC Ur Squamous Epith Cells Urine Bacteria Hyaline Casts Influenza A (Rapid) Negative Influenza B (Rapid) Negative RSV Rapid Negative Misc Test Result 07/15/24 07/15/24 07/16/24 20:04 20:12 02:15 WBC RBC Hgb Hct MCV MCH MCHC RDW Std Deviation Plt Count Neut % (Auto) Lymph % (Auto) [place] % (Auto) Eos % (Auto) Baso % (Auto) Neut # (Auto) Lymph # (Auto) [place] # (Auto) Eos # (Auto) Baso # (Auto) Immature Gran # (Auto) Absolute Nucleated RBC Immature Gran % Nucleated RBC % PT 11.5 INR 1.1 Fibrinogen D-Dimer 1790 H Puncture Site ABG pH ABG pCO2 ABG pO2 ABG HCO3 ABG O2 Saturation ABG Base Excess Oxygen Liter Flow FiO2 Sodium Potassium Chloride Carbon Dioxide Anion Gap BUN Creatinine Estim Creat Clear Calc eGFR BUN/Creatinine Ratio Glucose Calculated Osmolality Lactic Acid 4.5 H* 2.8 H Calcium Corrected Calcium Total Bilirubin AST ALT Alkaline Phosphatase Total Protein Albumin Globulin Albumin/Globulin Ratio Procalcitonin TSH Thyroxine (T4) Ur Collection Type Urine Color Urine Clarity Urine pH Ur Specific Daniels Urine Protein Urine Glucose (UA) Urine Ketones Urine Blood Urine Nitrite Urine Bilirubin Urine Urobilinogen (Auto) Ur Leukocyte Esterase Urine RBC Urine WBC Ur Squamous Epith Cells Urine Bacteria Hyaline Casts Influenza A (Rapid) Influenza B (Rapid) RSV Rapid Misc Test Result 07/16/24 07/16/24 04:28 07:00 WBC 7.7 RBC 4.56 Hgb 15.3 Hct 44.1 MCV 97 MCH 33.6 MCHC 34.7 RDW Std Deviation 46.5 H Plt Count 69 L Neut % (Auto) 69 Lymph % (Auto) 17 [place] % (Auto) 13 H Eos % (Auto) 0 Baso % (Auto) 0 Neut # (Auto) 5.3 Lymph # (Auto) 1.3 [place] # (Auto) 1.0 H Eos # (Auto) 0.0 Baso # (Auto) 0.0 Immature Gran # (Auto) 0.07 H Absolute Nucleated RBC 0.00 Immature Gran % 1 H Nucleated RBC % 0 PT INR Fibrinogen 427 H D-Dimer Puncture Site ABG pH ABG pCO2 ABG pO2 ABG HCO3 ABG O2 Saturation ABG Base Excess Oxygen Liter Flow FiO2 Sodium 138 Potassium 3.7 Chloride 96 L Carbon Dioxide 29.3 Anion Gap 13 BUN 9 Creatinine 0.4 L Estim Creat Clear Calc 106.0 eGFR > 60 BUN/Creatinine Ratio 23 H Glucose 163 H Calculated Osmolality 278 Lactic Acid 2.1 H Calcium 8.4 Corrected Calcium 8.8 Total Bilirubin 0.4 AST 79 H ALT 68 H Alkaline Phosphatase 163 H Total Protein 6.0 Albumin 3.5 Globulin 2.5 Albumin/Globulin Ratio 1.4 Procalcitonin 2.91 H TSH 1.65 Thyroxine (T4) 9.5 Ur Collection Type Urine Color Urine Clarity Urine pH Ur Specific Daniels Urine Protein Urine Glucose (UA) Urine Ketones Urine Blood Urine Nitrite Urine Bilirubin Urine Urobilinogen (Auto) Ur Leukocyte Esterase Urine RBC Urine WBC Ur Squamous Epith Cells Urine Bacteria Hyaline Casts Influenza A (Rapid) Influenza B (Rapid) RSV Rapid Misc Test Result Platelets confirmed ABG Interpretation ABG results: 07/15/24 07/15/24 15:41 17:15 ABG pH 7.35 7.32 L ABG pCO2 43 44 ABG pO2 168 H 205 H D ABG HCO3 24 23 ABG O2 Saturation 100 H 100 H ABG Base Excess -2 -3 Quality Measures Quality Measures sepsis Current suspected stage: ruled out Possible source: pulmonary Blood cultures ordered: yes Antibiotic ordered: Yes Assessment & Plan Assessment Current Active Medications: Generic Name Dose Route Start Last Admin Trade Name Freq PRN Reason Stop Dose Admin Albuterol/Ipratropium 3 ml 07/15/24 16:15 07/16/24 10:12 Albuterol/Ipratropium (Duoneb) Rt Ginger 3 Ml Nebu INH 08/14/24 16:14 3 ml Q4HRRT CAMILA Administration Famotidine 20 mg 07/15/24 15:45 07/16/24 08:18 Famotidine Inj 10 Mg/Ml Vial 2 Ml IVP 08/14/24 15:44 20 mg QDAY CAMILA Administration Heparin Sodium (Porcine) 5,000 unit 07/16/24 10:30 Heparin Sod Inj 5000 Unit/Ml Vial 10 Ml IV 07/30/24 10:29 BID CAMILA Hydrocortisone Sodium Succinate 50 mg 07/16/24 21:00 Hydrocortisone Sod Succ Inj 100 Mg Vial IV 08/15/24 20:59 BID CAMILA Norepinephrine Bitartrate 16 mg in 250 mls @ 1.914 mls/hr 07/15/24 14:53 07/15/24 20:05 Levophed In Ns 16mg/250ml IV 08/14/24 14:52 0 mcg/kg/min .Q24H PRN 0 mls/hr PER PROTOCOL Titration Protocol 0.05 MCG/KG/MIN Meropenem 500 mg/ Sodium 50 mls @ 100 mls/hr 07/15/24 22:00 07/16/24 08:17 Chloride IV 07/22/24 21:59 Infused Q8HR CAMILA Infusion Valproic Acid 200 mg/ Sodium 52 mls @ 104 mls/hr 07/15/24 18:00 07/15/24 20:21 Chloride IV 08/14/24 17:59 Not Given Q6HR CAMILA Dexmedetomidine/Sodium Chloride 200 mcg in 50 mls @ 2.041 mls/hr 07/15/24 17:05 07/16/24 07:30 Precedex Ivpb IV 08/14/24 17:04 0 mcg/kg/hr .Q24H PRN 0 mls/hr Per PROTOCOL Titration Protocol 0.2 MCG/KG/HR Vancomycin/Sodium Chloride 200 mls @ 120 mls/hr 07/16/24 10:00 07/16/24 10:04 Vancomycin/Ns 1 Gm Ivpb IV 07/23/24 09:59 120 mls/hr Q12H CAMILA Administration Protocol Lactulose 20 gm 07/16/24 10:30 Lactulose Syrup 20 Gm/30 Ml Udc PO 08/15/24 10:29 DAILY CAMILA Protocol Levothyroxine Sodium 38 mcg 07/16/24 06:00 07/16/24 05:41 Levothyroxine Inj 100 Mcg Vial IV 08/15/24 05:59 Not Given MOWESA CAMILA Levothyroxine Sodium 25 mcg 07/16/24 06:00 07/16/24 05:44 Levothyroxine Inj 100 Mcg Vial IV 08/15/24 05:59 25 mcg TUTHFR CAMILA Administration Lorazepam 2 mg 07/15/24 19:29 Lorazepam 2 Mg/Ml Vial IVP Q10M PRN Seizure Activity Pharmacy Consult 1 each 07/15/24 15:00 07/16/24 08:16 Pharmacy Renal Dose Adjustment 1 Ea XX 08/14/24 14:59 Not Given QDAY CAMILA Pharmacy Consult 1 each 07/15/24 15:00 07/16/24 08:17 Vancomycin Pharmacy To Dose 1 Each Each IV 08/14/24 14:59 Not Given QDAY CAMILA Sodium Chloride 3 ml 07/15/24 10:18 07/15/24 10:30 Sodium Chloride Rt Ginger 0.9% 3 Ml Nebu INH 08/14/24 10:17 3 ml PRN PRN Administration SOLN Plan Deyanira Pérez is a 54-year-old female with developmental delay, who is nonverbal, and [facility] and has a past medical history of cerebral palsy, epilepsy on valproic acid, scoliosis, cholelithiasis, hypothyroidism, GERD, and chronic PEG tube who presented to the ED on 07/15 and admitted to the ICU for management of distributive shock. Neurological #Epilepsy ? Valproic acid 200 mg IV every 6 hours -> HELD; resume 07/17 Cardiovascular #Shock, likely distributive secondary to pneumonia versus UTI CXR findings suggesting bilateral pneumonia, elevated procal, and elevated lactate. UA clean but previously received 3 days of levofloxacin. Received 1.5 L IVF in ED and 500 cc LR in ICU. Given imaging and lab findings, unlikely due to cholangitis as CBD not dilatated and t bili wnl. No signs of pancreatitis, colitis, diverticulitis, perforation, abscesses, renal/ureteral calculi or signs of hydronephrosis seen on CT A/P. Echo on 07/15 was technically difficult study due to patient motion ? Hydrocortisone 50 mg IV from q6hr to BID ? AM cortisol levels pending ? Meropenem (penicillin and cephalexin allergy) and vancomycin ? Blood culture (07/15): GPC in 2/2 bottles ? Repeat blood culture (07/16): pending ? Urine culture (07/15): pending ? Surgery consulted: cholecystostomy tube in past; almost did surgery in February and decided not candidate Pulmonary #Pneumonia, community-acquired versus aspiration Noted desaturation from care facility in 80s, currently saturating 99%% on 5 L oxy mask. Also comes from [facility] with known sick contacts, so will retest for RSV and flu. ABG 07/15: pH 7.32, pCO2 44, pO2 205 CXR 07/15 shows extensive bilateral pneumonia with possible atelectatic right lower lobe given sharp margins, possible aspiration. CXR 07/16 shows worsening right lower lobe opacity ? Meropenem and vancomycin as above ? Follow-up cultures above ? Repeat RSV and flu negative Gastrointestinal #GERD: famotidine 20 mg IV daily #Transaminitis, improving In setting of recent antibiotic use for previous UTI ? Continue to monitor #Chronic PEG tube Rash/erythema noted around PEG tube insertion site ? Started tube feedings on 07/16 ? Site demarcated and follow closely ? Bowel regimen: lactulose 20 g daily, milk of magnesia 30 mL daily Renal #Hypoosmolar hyponatremia, resolved Initial Na 128 with long-standing history of hyponatremia that could be secondary to PEG tube feedings ? Follow-up urine electrolytes #Lactic acidosis, improving 4.0 -> 5.2 -> 6.3 -> 4.5 -> 2.8 -> 2.1 Received 1.5 L IVF in ED and 500 cc in ICU Heme/onc #Thrombocytopenia, sepsis vs DIC vs drug-induced Platelets 77, with no previous history of low platelets. No signs of petechiae or bleeding gums and fibrinogen elevated, thus less likely DIC. Less likely TTP/HUS as t bili wnl (no signs of hemolysis) May be drug-induced (recent levofloxacin use, valproate) or due to sepsis. ? Fibrinogen 427 H, D-dimer 1790 H ? Follow-up protein C and ATIII ? Continue to monitor #DVT prophylaxis ? Heparin SC BID Endocine #Hypothyroidism ? Levothyroxine 25 mcg IV T// Infectious disease #Shock, distributive secondary to sepsis, resolved ? See cardiovascular above #Pneumonia, community acquired vs aspiration ? See pulmonary above Blood culture (07/15): GPC in 2/2 bottles Blood culture (07/16): pending Urine culture (07/15): pending Meropenem and vancomycin (07/15-) Hospital management: Disposition: in ICU, currently off pressors and possible downgrade later today Drips: off levophed since evening of 07/15 and off precedex since 0730 on 07/16 Fluids: none Diet: tube feedings, Jevity 1.5 Lines: PIV DVT prophylaxis: heparin SC BID Valle: none CODE STATUS: full code/DNR ----- Plan discussed with attending physician Dr. Mirtha Dahl MD PGY-1 Internal Medicine
[2024-07-16] MEDS: HEPARIN SOD INJ 5000 UNIT/ML VIAL SC ×2 (10:37→20:24)
[2024-07-16] MEDS: LACTULOSE SYRUP 20 GM/30 ML UDC PO (10:38)
[2024-07-16] MEDS: Milk Of Magnesia Susp 30 ML UDC PO (10:43)
[2024-07-16] MEDS: SIMETHICONE 40 MG/0.6 ML ORAL SYRINGE 80 MG PO (11:09)
--- NOTE | 2024-07-16 11:48 | PC.DIETICIAN ---
Nutrition prescription Jevity 1.5 at 20 ml/hr via PEG tube by pump. Advance to goal rate of 32 ml/hr x 22 hrs if tolerated for 8 hrs. If no IV fluids, water flushes of 40 ml/hr (or per MD). -Hold TF for one hour before and after levothyroxine administration (if given via GT)-
--- NOTE | 2024-07-16 16:28 | PC.SS ---
CONSUMER MARKETING ANALYST conducted phone contact with [facility] staff, Apryl Pérez ; to conduct initial assessment.? Patient has been a resident of [facility] since 1992.? Patient does not possess any contact with family members.? Patient is developmentally delayed, non-verbal.? Patient utilizes a wheelchair for mobility.? Patient does not utilize home oxygen.? Patient requires assistance with completion of ADL?s.? Patient is conserved through [facility].? Dr. Marie is the patient?s surrogate medical decision maker.? Patient?s PCP is Dr. Cleaning [facility] [address] Patient utilizes [facility] for medication services.? Plan is for the patient to return to [facility] at the time of discharge.? Facility will provide transportation on behalf of the patient. ?No discharge needs identified by the patient.? No further intervention required at this time, group social worker will be available to address any further concerns.? Next of Kin: Apryl Pérez D/C Plan: [facility]
--- NOTE | 2024-07-16 18:08 | PD.SURCONS ---
HPI Consult details Consult date: 07/16/24 Reason for consultation narrative: Patient was seen in consultation because of gallstones and possibly his sepsis History of present illness: Patient was found to have sepsis and was therefore admitted to ICU with hypotension. But she has recovered with vasopressors. 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 I am Femynor with the patient because I saw her as an outpatient basis for scheduling cholecystectomy. But I postponed the surgery because she did not have any symptoms according to her caregiver Past Medical History Past Medical History NEUROLOGIC: Positive Neurological Disorders, Seizures and Cerebral Palsy CARDIAC: Negative Cardiac Disorders or Congestive Heart Failure RESPIRATORY: Positive Pneumonia; Negative Chronic Obstructive Pulmonary Disease (COPD) or Asthma GASTROINTESTINAL: Positive Gastrointestinal Disorders, Gall Bladder Disease and Gastroesophageal Reflux Disease GENITOURINARY: Negative Genitourinary Disorders or Renal Disease MUSCULOSKELETAL: Positive Musculoskeletal Disorders and Scoliosis ENT: Positive Blind ENDOCRINE: Positive Endocrine Disorders and Hypothyroidism; Negative Diabetes Mellitus Type 1 or Diabetes Mellitus Type 2 HEMATOLOGIC: Negative Blood Disorders or Sickle Cell Disease PSYCHO/SOCIAL: Negative Behavior Problems OTHER HISTORY: Positive Hospitalization and Developmental Delay; Negative Autoimmune Disease, Shingles, Falls, Blood Transfusions, Blood Transfusion Reaction, Anesthesia Reactions or Cancer Family History FAMILY HISTORY: Negative Family Psychiatric Problems, Family Respiratory Disorders, Family Cardiac Disorders, Family Gastrointestinal Problems, Family Cancer, Family Surgery or Family Anesthesia Reaction Surgical History SURGICAL: Positive Gastrostomy Social History SMOKING STATUS: Never smoker SUBSTANCE USE: does not use Meds Home Medications and Allergies Home Medications ?Medication ?Instructions ?Recorded ?Confirmed ?Type calcium carbonate 500 mg/5 mL (as 625 mg feeding tube BID 07/29/23 03/18/24 History calcium carb 1,250 mg/5 mL) oral suspension erythromycin 2 % topical solution 1 ml topical BID 07/29/23 03/18/24 History gabapentin 300 mg capsule 900 mg feeding tube BID 07/29/23 03/18/24 History glycopyrrolate 2 mg tablet 2 mg feeding tube BID 07/29/23 03/18/24 History levothyroxine 75 mcg tablet 75 mcg feeding tube USEASDIRECTD 07/29/23 03/18/24 History metoclopramide HCl 5 mg/5 mL oral 10 mg feeding tube BID 07/29/23 03/18/24 History solution multivit and minerals-ferrous 5 ml feeding tube BID 07/29/23 03/18/24 History gluconate 9 mg iron/15 mL oral liquid (Multi-Jg) simethicone 80 mg chewable tablet 80 mg feeding tube TID 07/29/23 03/18/24 History valproic acid (as sodium salt) 250 400 mg feeding tube BID 07/29/23 03/18/24 History mg/5 mL oral solution acetaminophen 325 mg tablet 650 mg feeding tube QID PRN Pain 03/18/24 03/18/24 History (Tylenol) dextromethorphan-guaifenesin 10 10 ml PO Q6H PRN Cough 03/18/24 03/18/24 History mg-200 mg/5 mL oral liquid erythromycin 2 % topical solution 1 ml topical BID 03/18/24 03/18/24 History famotidine 20 mg tablet 20 mg feeding tube QDAY 03/18/24 03/18/24 History ipratropium 0.5 mg-albuterol 3 mg 3 ml inhalation Q4H PRN Shortness 03/18/24 03/18/24 History (2.5 mg base)/3 mL nebulization Of Breath Or Wheezing soln lactulose 10 gram/15 mL oral 30 g feeding tube DAILY 03/18/24 03/18/24 History solution loratadine 10 mg tablet 10 mg feeding tube QDAY 03/18/24 03/18/24 History pseudoephedrine HCl 60 mg tablet 60 mg feeding tube Q6H PRN 03/18/24 03/18/24 History (Sudogest) Congestion Allergies Allergy/AdvReac Type Severity Reaction Status Date / Time bacitracin (From Neosporin Allergy Verified 07/15/24 09:36 ([id number])) cephalexin Allergy Verified 07/15/24 09:36 neomycin (From Neosporin Allergy Verified 07/15/24 09:36 ([id number])) Penicillins Allergy Verified 07/15/24 09:36 polymyxin B (From Neosporin Allergy Verified 07/15/24 09:36 ([id number])) Exam Vital Signs Temp Pulse Resp BP Pulse Ox O2 Del Method O2 Flow Rate 97.0 F 96 23 H 114/88 H 99 Oxy Mask 1 07/16/24 16:00 07/16/24 18:00 07/16/24 18:00 07/16/24 18:00 07/16/24 18:00 07/15/24 17:24 07/16/24 14:14 Narrative Exam Physical examination revealed severely mentally retarded white female with microcephaly and severe developmental delay. She has been admitted with multiple urinary tract infection in the past. She also was treated with calculus cholecystitis which was drained 1 year ago by the radiologist. She is on gastrostomy tube for feeding. Routine Abdominal Exam Comments: Examination his abdomen showed some midline surgical scar in the upper portion and then the gastrostomy tube at the left side. Results Results: Laboratory Laboratory Narrative: Patient's laboratory workup is within normal limits. She had mild elevation of the liver enzymes Results: Imaging Imaging narrative: Ultrasound and CT scan showed gallstones but no evidence of acute cholecystitis Assessment & Plan Additional Assessment Additional comments: Pression: Cholelithiasis, chronic Severe mental retardation Sepsis Plan Plan: I do not know the cause of her sepsis. But does not seem to be coming from cholelithiasis. Gallbladder is not showing any acute inflammation or any pericholecystic fluid collection on the CT scan. I will treat her for sepsis and then consider whether she will require cholecystectomy in future
[2024-07-16] MEDS: METOCLOPRAMIDE LIQD 10 MG/10 ML UDC GT (20:24)
[2024-07-17] VITALS (69 sets, daily range): BP systolic 85–176; BP diastolic 48–111; PULSE 88–126; RESP 10–93; TEMP 36.2–36.7; O2SAT 76–100
[2024-07-17] MEDS: ALBUTEROL/IPRATROPIUM (Duoneb) RT SOL 3 ML NEBU INH (03:00)
[2024-07-17 05:04] LABS: Basophils % (Auto) 0 % (0-2.5); Eosinophils % (Auto) 0 % (0-10); Hematocrit 42.7 % (36.0-46.0); Hemoglobin 14.4 g/dL (12.0-16.0); Immature Granulocytes % (Auto) 2 % (0-0); Immature Granulocytes Auto 0.28 Thou/mm3 (0.00-0.00); Lymphocytes % (Auto) 17 % (10-50); Mean Corpuscular HGB Conc 33.7 g/dl (31.0-37.0); Mean Corpuscular Hemoglobin 33.4 pg (25.0-35.0); Mean Corpuscular Volume 99 fL (80-100); Monocytes # (Auto) 2.3 Thou/mm3 (0.0-0.8); Monocytes % (Auto) 12 % (0-12); Neutrophils # (Auto) 12.8 Thou/mm3 (1.8-7.7); Neutrophils % (Auto) 69 % (37-80); Nucleated Red Blood Cell % 0 /100 WBC (0); Platelet Count 100 Thou/mm3 (140-440); RDW Standard Deviation 49.6 fL (36.4-46.3); Red Blood Count 4.31 Miln/mm3 (4.00-5.20); White Blood Count 18.4 Thou/mm3 (3.6-11.0)
[2024-07-17] MEDS: MEROPENEM INJ 500 MG in SODIUM CHLORIDE 0.9% (Popper) 50 ML 100 MG IV (05:35)
[2024-07-17] MEDS: LEVOTHYROXINE INJ 100 mCg VIAL 25 MCG IV (05:45)
[2024-07-17 05:55] LABS: Alanine Aminotransferase 60 U/L (10-49); Albumin, Serum 4.1 gm/dL (3.5-5.0); Albumin/Globulin Ratio 1.4 (1.2-2.2); Alkaline Phosphatase 206 U/L (46-116); Anion Gap 11 (7-16); Aspartate Amino Transferase 69 U/L (0-34); BUN/Creatinine Ratio 38 Ratio (12-20); Bilirubin,Total 0.5 mg/dL (0.3-1.2); Blood Urea Nitrogen 23 mg/dL (9-23); Calcium 9.4 mg/dL (8.3-10.6); Calcium (Corrected) 9.4 mg/dL (8.5-10.1); Chloride 96 mMol/L (98-107); Creatinine (Component) 0.6 mg/dL (0.6-1.3); Estimated Creatinine Clearance 70.7 mL/min (>60); Glucose 120 mg/dL (74-106); Osmolality,Calculated 284 (275-295); Potassium 3.2 mMol/L (3.4-5.1); Sodium 140 mMol/L (136-145); Total Protein 7.1 gm/dL (5.7-8.2); eGFR > 60 See Note
--- NOTE | 2024-07-17 06:57 | PC.RT ---
Tx is on hold at this time per doctor
[2024-07-17] MEDS: FAMOTIDINE INJ 10 MG/ML VIAL 2 ML 20 MG IVP (08:11)
[2024-07-17] MEDS: POTASSIUM CHLORIDE 10% 20 MEQ/15 ML UDC 40 MEQ GT (08:12)
[2024-07-17] MEDS: Milk Of Magnesia Susp 30 ML UDC PO (08:13)
[2024-07-17] MEDS: LACTULOSE SYRUP 20 GM/30 ML UDC PO (08:13)
[2024-07-17] MEDS: METOCLOPRAMIDE LIQD 10 MG/10 ML UDC GT ×2 (08:13→21:16)
[2024-07-17] MEDS: VALPROIC ACID SYRUP 250 MG/5 ML UDC 400 MG PO ×2 (08:13→21:58)
[2024-07-17] MEDS: SIMETHICONE 40 MG/0.6 ML ORAL SYRINGE 80 MG PO (08:14)
[2024-07-17] MEDS: HYDROCORTISONE SOD SUCC INJ 100 MG VIAL 50 MG IV (08:14)
[2024-07-17] MEDS: HEPARIN SOD INJ 5000 UNIT/ML VIAL SC ×2 (08:15→21:15)
[2024-07-17 11:10] LABS: Alanine Aminotransferase 52 U/L (10-49); Albumin, Serum 3.4 gm/dL (3.5-5.0); Albumin/Globulin Ratio 1.4 (1.2-2.2); Alkaline Phosphatase 177 U/L (46-116); Anion Gap 10 (7-16); Aspartate Amino Transferase 62 U/L (0-34); BUN/Creatinine Ratio 35 Ratio (12-20); Bilirubin,Total 0.4 mg/dL (0.3-1.2); Blood Urea Nitrogen 21 mg/dL (9-23); Calcium 8.8 mg/dL (8.3-10.6); Calcium (Corrected) 9.3 mg/dL (8.5-10.1); Carbon Dioxide 31.9 mMol/L (20.0-31.0); Chloride 100 mMol/L (98-107); Creatinine (Component) 0.6 mg/dL (0.6-1.3); Estimated Creatinine Clearance 73.1 mL/min (>60); Globulin 2.5 gm/dL (2.3-3.5); Glucose 105 mg/dL (74-106); Osmolality,Calculated 286 (275-295); Potassium 3.5 mMol/L (3.4-5.1); Sodium 142 mMol/L (136-145); Total Protein 5.9 gm/dL (5.7-8.2); eGFR > 60 See Note
[2024-07-17] MEDS: VANCOMYCIN/WATER 1250 MG IVPB 250 ML 120 MG IV ×2 (11:42→21:16)
[2024-07-17] MEDS: ACETAMINOPHEN 325 MG TABLET 650 MG PO (12:57)
--- NOTE | 2024-07-17 13:53 | PD.RESPRO ---
Documentation for date of: 07/17/24 Subjective Subjective Interval history: Deyanira Pérez is a 54-year-old female with developmental delay, who is nonverbal, and [facility] and has a past medical history of cerebral palsy, epilepsy on valproic acid, scoliosis, cholelithiasis, hypothyroidism, GERD, and chronic PEG tube who presented to the ED on 07/15 for desaturation into the 80s at her care facility. On 07/13, patient noted to have fever 101-102 ?F with associated dark-colored urine so she was brought to urgent care where she received Rx of Levaquin that she received on Saturday, Saturday, and Saturday. However, she continued to feel unwell and so was brought to the ED after she was noted to desaturate as noted above. In ED, initial vitals showed BP 147/87, HR 123, RR 26, temp 102.1 ?F, saturating 98% on 6 L OxyMask. BP noted to drop at 70/30 a few hours after presentation and was given a total of 1.5 L of NS and BP continued to remain low. At this point, ICU team was consulted and upon evaluation at bedside, ultrasound showed a fluid resuscitated IVC. Decision was made to admit patient to ICU and spoke to Dr. Marie who gave consent for central line, arterial line, and intubation if needed. Plan to get ABG to obtain baseline and retest RSV, COVID, flu given that patient comes from home with multiple sick contacts positive for influenza. Given allergies to penicillins and cephalexin, will start patient on meropenem and vancomycin. Will also obtain CT A/P to assess for possible/additional sources of sepsis and started on levophed. 07/16: Seen and examined in ICU. No acute overnight events reported. Was able to turn off levophed in evening prior and precedex drip was stopped at 0730 this morning. Blood cultures came back positive 2/2 bottles for GPC and will obtain repeats today. Will taper down on steroids, start tube feeds with free water, and start bowel regimen from facility. Patient's RN from care facility, [facility], [place]. 07/17: Patient seen and examined at bedside. Patient was started on her home meds via GT. D/t high concern for possible endocarditis from having 2 separate occasions of 2 Bcx growing GPC and initially presenting with fever, REYNA was requested by cardiology service. TTE initially was ordered, however poor images and patient's inability to cooperate lead to a poor study. REYNA was attempted in the afternoon, but was unsuccessful d/t patient's small width of esophagus. At this point, patient's current GPC bacteremia should still be treated as possible endocarditis in addition to her Right sided PNA. Recommend PICC line placement after first reported 2/2 negative blood cultures, and to continue Vancomycin for 4-6 weeks. Otherwise, patient is saturating well on 2L NC. [facility] and signout given to Team C for further management. Exam Vital Signs Temp Pulse Resp BP Pulse Ox O2 Del Method O2 Flow Rate 98.1 F 112 H 18 100/58 L 99 Oxy Mask 10 07/17/24 04:00 07/17/24 06:49 07/17/24 06:49 07/17/24 06:00 07/17/24 06:49 07/16/24 20:00 07/17/24 06:49 Narrative Exam GENERAL: Dewvelopmental delay, non verbal NEURO: KETTLE GIRL grossly intact, moves extremities although contracted HEENT: Microcephaly, Moist mucosa. Eyes open, symmetrical, & clear CARDIO: No chest pain on palpation. Heart RRR, no obvious murmurs PULM: No noted coughing/dyspnea. Lungs CTA B/L GI: Abdomen soft, nondistended, PEG tube intact, some erythema around insertion point URO/DIRECTOR OF COLLECTIONS AND ARCHIVES:: No further abnormalities noted. SKIN/MSK/EXT: Contractures in all extremities, no pedal edema Objective Labs 07/20/24 05:39 07/20/24 05:39 Labs: Laboratory Results - last 24 hr 07/17/24 07/17/24 04:27 10:31 WBC 18.4 H D RBC 4.31 Hgb 14.4 Hct 42.7 MCV 99 MCH 33.4 MCHC 33.7 RDW Std Deviation 49.6 H Plt Count 100 L D Neut % (Auto) 69 Lymph % (Auto) 17 Stanley % (Auto) 12 Eos % (Auto) 0 Baso % (Auto) 0 Neut # (Auto) 12.8 H Lymph # (Auto) 3.0 Stanley # (Auto) 2.3 H Eos # (Auto) 0.0 Baso # (Auto) 0.0 Immature Gran # (Auto) 0.28 H Absolute Nucleated RBC 0.00 Immature Gran % 2 H Nucleated RBC % 0 Sodium 140 142 Potassium 3.2 L D 3.5 Chloride 96 L 100 Carbon Dioxide 33.0 H 31.9 H Anion Gap 11 10 BUN 23 21 Creatinine 0.6 0.6 Estim Creat Clear Calc 70.7 73.1 eGFR > 60 > 60 BUN/Creatinine Ratio 38 H 35 H Glucose 120 H 105 Calculated Osmolality 284 286 Calcium 9.4 8.8 Corrected Calcium 9.4 9.3 Total Bilirubin 0.5 0.4 AST 69 H 62 H ALT 60 H 52 H Alkaline Phosphatase 206 H D 177 H D Total Protein 7.1 5.9 Albumin 4.1 D 3.4 L D Globulin 3.0 2.5 Albumin/Globulin Ratio 1.4 1.4 Vancomycin Trough 10.0 ABG Interpretation ABG results: 07/15/24 07/15/24 15:41 17:15 ABG pH 7.35 7.32 L ABG pCO2 43 44 ABG pO2 168 H 205 H D ABG HCO3 24 23 ABG O2 Saturation 100 H 100 H ABG Base Excess -2 -3 Quality Measures Quality Measures sepsis Current suspected stage: sepsis Possible source: pulmonary Blood cultures ordered: yes Antibiotic ordered: Yes Assessment & Plan Assessment Current Active Medications: Generic Name Dose Route Start Last Admin Trade Name Freq PRN Reason Stop Dose Admin Acetaminophen 650 mg 07/17/24 12:32 07/17/24 12:57 Acetaminophen 325 Mg Tablet PO 08/16/24 12:31 650 mg Q4HR PRN Administration PAIN Albuterol/Ipratropium 3 ml 07/15/24 16:15 07/17/24 03:00 Albuterol/Ipratropium (Duoneb) Rt Ginger 3 Ml Nebu INH 08/14/24 16:14 3 ml Q4HRRT CAMILA Administration Famotidine 20 mg 07/15/24 15:45 07/17/24 08:11 Famotidine Inj 10 Mg/Ml Vial 2 Ml IVP 08/14/24 15:44 20 mg QDAY CAMILA Administration Heparin Sodium (Porcine) 5,000 unit 07/16/24 10:30 07/17/24 08:15 Heparin Sod Inj 5000 Unit/Ml Vial SC 07/30/24 10:29 5,000 unit BID CAMILA Administration Hydrocortisone Sodium Succinate 50 mg 07/16/24 21:00 07/17/24 08:14 Hydrocortisone Sod Succ Inj 100 Mg Vial IV 07/23/24 20:59 50 mg BID CAMILA Administration Vancomycin HCl 250 mls @ 120 mls/hr 07/17/24 11:30 07/17/24 11:42 Vancomycin/Water 1250 Mg Ivpb IV 07/24/24 11:29 120 mls/hr BID@1000,2200 CAMILA Administration Protocol Lactulose 20 gm 07/16/24 10:38 07/17/24 08:13 Lactulose Syrup 20 Gm/30 Ml Udc PO 08/15/24 10:29 20 gm DAILY CAMILA Administration Protocol Levothyroxine Sodium 38 mcg 07/16/24 06:00 07/16/24 05:41 Levothyroxine Inj 100 Mcg Vial IV 08/15/24 05:59 Not Given MOWESA CAMILA Levothyroxine Sodium 25 mcg 07/16/24 06:00 07/17/24 05:45 Levothyroxine Inj 100 Mcg Vial IV 08/15/24 05:59 25 mcg TUTHFR CAMILA Administration Magnesium Hydroxide 30 ml 07/16/24 10:45 07/17/24 08:13 Milk Of Magnesia Susp 30 Ml Udc PO 08/15/24 10:44 30 ml QDAY CAMILA Administration Protocol Metoclopramide HCl 10 mg 07/16/24 21:00 07/17/24 08:13 Metoclopramide Liqd 10 Mg/10 Ml Udc GT 08/15/24 20:59 10 mg BID CAMILA Administration Pharmacy Consult 1 each 07/15/24 15:00 07/16/24 08:16 Pharmacy Renal Dose Adjustment 1 Ea XX 08/14/24 14:59 Not Given QDAY CAMILA Pharmacy Consult 1 each 07/15/24 15:00 07/16/24 08:17 Vancomycin Pharmacy To Dose 1 Each Each IV 08/14/24 14:59 Not Given QDAY CAMILA Simethicone 80 mg 07/16/24 10:45 07/17/24 08:14 Simethicone 40 Mg/0.6 Ml Oral Syringe PO 08/15/24 10:44 80 mg DAILY CAMILA Administration Sodium Chloride 3 ml 07/15/24 10:18 07/15/24 10:30 Sodium Chloride Rt Ginger 0.9% 3 Ml Nebu INH 08/14/24 10:17 3 ml PRN PRN Administration SOLN Valproic Acid 400 mg 07/17/24 09:00 07/17/24 08:13 Valproic Acid Syrup 250 Mg/5 Ml Udc PO 08/16/24 08:59 400 mg BID CAMILA Administration Plan Deyanira Pérez is a 54-year-old female with developmental delay, who is nonverbal, and [facility] and has a past medical history of cerebral palsy, epilepsy on valproic acid, scoliosis, cholelithiasis, hypothyroidism, GERD, and chronic PEG tube who presented to the ED on 07/15 and admitted to the ICU for management of distributive shock. Neurological #Epilepsy ? Valproic acid 400mg BID via G-tube Cardiovascular #Distributive Shock, in the setting of sepsis due to pneumonia vs GPC bacteremia CXR findings suggesting bilateral pneumonia, elevated procal, and elevated lactate. UA clean but previously received 3 days of levofloxacin. Received 1.5 L IVF in ED and 500 cc LR in ICU. Given imaging and lab findings, unlikely due to cholangitis as CBD not dilatated and t bili wnl. No signs of pancreatitis, colitis, diverticulitis, perforation, abscesses, renal/ureteral calculi or signs of hydronephrosis seen on CT A/P. Blood culture (07/15): GPC in 2/2 bottles Repeat blood culture (07/16): GPC in 1/2 bottles Urine Cx negative Echo on 07/15 was technically difficult study due to patient motion Surgery consulted: cholecystostomy tube in past; almost did surgery in February and decided not candidate and recommended to treat underlying sepsis Attempted REYNA with cardiology service, however unsuccessful ? Taper steroid dose, discontinue after receiving one more dose tomorrow ? AM cortisol levels pending - Sc'ed Meropenem 07/15-07/17 ? Continue with IV vancomycin - Treat patient as if patient had endocarditis, and will place PICC Line after first negative Bcx in 2/2 bottles - Pending finalized blood culture organisms from 07/15 & 07/16 Pulmonary #Pneumonia, community-acquired versus aspiration Noted desaturation from care facility in 80s, currently saturating 99%% on 5 L oxy mask. Also comes from [facility] with known sick contacts, so will retest for RSV and flu. ABG 07/15: pH 7.32, pCO2 44, pO2 205 CXR 07/15 shows extensive bilateral pneumonia with possible atelectatic right lower lobe given sharp margins, possible aspiration. CXR 07/16 shows worsening right lower lobe opacity Repeat RSV and Flu negative ? MAbx as above ? Follow-up cultures above Gastrointestinal #GERD: famotidine 20 mg IV daily #Transaminitis, improving In setting of recent antibiotic use for previous UTI ? Continue to monitor #Chronic PEG tube Rash/erythema noted around PEG tube insertion site ? Started tube feedings on 07/16 ? Site demarcated and follow closely ? Bowel regimen: lactulose 20 g daily, milk of magnesia 30 mL daily Renal #Hypoosmolar hyponatremia, resolved Initial Na 128 with long-standing history of hyponatremia that could be secondary to PEG tube feedings ? Follow-up urine electrolytes #Lactic acidosis, improving 4.0 -> 5.2 -> 6.3 -> 4.5 -> 2.8 -> 2.1 Received 1.5 L IVF in ED and 500 cc in ICU Heme/onc #Thrombocytopenia, sepsis vs drug-induced Platelets 77, with no previous history of low platelets. No signs of petechiae or bleeding gums and fibrinogen elevated, thus less likely DIC. Less likely TTP/HUS as t bili wnl (no signs of hemolysis) May be drug-induced (recent levofloxacin use, valproate) or due to sepsis. Fibrinogen 427 H, D-dimer 1790 H suggesting no DIC ? Follow-up protein C and ATIII ? Continue to monitor #DVT prophylaxis ? Heparin SC BID Endocine #Hypothyroidism ? Levothyroxine 25 mcg IV T// Infectious disease #Shock, distributive secondary to sepsis, resolving ? See cardiovascular above #Pneumonia, community acquired vs aspiration ? See pulmonary above Hospital management: Disposition: downgraded to med/tele for further management of sepsis due to PNA and GPC bacteremia Drips: off levophed since evening of 07/15 and off precedex since 0730 on 07/16 Diet: tube feedings, Jevity 1.5 Lines: PIV DVT prophylaxis: heparin SC BID Valle: none CODE STATUS: full code/DNR Patient's care and plan discussed with my attending, Dr. Lund. Ericka Brian, PGY-2 Attending Provider Attestation/Addendum Patient seen and examined with above resident, Ericka Brian MD. I agree with the findings, assessment, and plan of care as documented except for any differences below. Patient with resolution of sepsis though continues to have significant bacteremia, GPC's growing in both sets of cultures. Patient with normal gas exchange, able to take off of oxygen this morning during rounds. Potential sources for bacteremia continue to need to be excluded including endocarditis and epidural abscess. Will plan with cardiology for potential role of REYNA as transthoracic echo proved difficult to obtain adequate imaging to exclude presence of valvular disease, she does have possible. Risk based on Frias's criteria. There is no evidence otherwise of neurologic disease but this is difficult to discern due to the patient's baseline. Patient tolerating tube feeds. She is on appropriate prophylaxis. Will repeat blood cultures as appropriate time intervals and continue on vancomycin, will prove difficult to narrow because the patient has penicillin and cephalosporin allergies. Attempt was made by cardiology to do REYNA but given the patient's esophageal anatomy, they were unable to pass the probe. Will plan for empiric treatment of 4 to 6 weeks of antibiotics from clearance of organism. Patient otherwise stable for transfer to the medicine for ongoing care. Care provider updated by housestaff. Total critical care time: I personally spent 35 minutes for review of physiologic parameters, directing plan of care time today, and coordination of care with other subspecialists. This is exclusive of time spent teaching housestaff or performing any separate billable procedures. Patient continues to require critical care services for severe sepsis with septic shock and acute hypoxic respiratory failure with continued risk for increased morbidity and mortality.
--- NOTE | 2024-07-17 14:40 | PC.SS ---
SS update: Patient in ICU, currently off pressors and identified as possible downgrade.
[2024-07-17] MEDS: fentaNYL CIT INJ 50 mCg/ML AMP 2ML 75 MCG IV (14:50)
[2024-07-17] MEDS: BENZOCAINE 20% (Hurricaine) SPRAY 1 DOSE TOP (14:50)
[2024-07-17] MEDS: MIDAZOLAM INJ 1 MG/ML VIAL 2 ML 2 MG IV (14:51)
[2024-07-17 17:46] LABS: Potassium 4.5 mMol/L (3.4-5.1)
--- NOTE | 2024-07-17 18:04 | ESCONSULT_ITS ---
<Statement entered by Daryl Sanchez MD - 07/18/24 04:18> I have personally seen and examined the patient separately on the above date of service and discussed the plan of care with the resident. I reviewed the resident Dr. Rob Day consultation progress note and agree with the resident findings and plan in the note above and have also edited the documentation to reflect my findings and plan. A 54-year-old female from long-term [facility] [Dr. Marie-legal decision maker] with a past medical history of cerebral palsy, developmental delay, nonverbal at baseline, nonambulatory and bedbound, PEG tube feeds, hypothyroidism, history of epilepsy, scoliosis, cholelithiasis, GERD, presented to the emergency department on 07/15/2024 for hypoxia and desaturation into the 80s and patient was also found to have fever associated with dark-colored urine. Patient to the admitted to the ICU for further management of shock in the setting of possible pneumonia and bacteremia. As noted chest x-ray was concerning for bilateral pneumonia with elevated Pro-Pineda as well as elevated lactate. Patient did recently recently receive outpatient antibiotics for the possible infection but did not improve. Patient in the hospital clue blood cultures positive on 07/15/2024 showing GPC bacteremia. Patient placed on broad- spectrum IV antibiotics and an echo was ordered for ruling out any kind of endocarditis given the bacteremia and septic shock. Unfortunately patient had very poor endorse due to her body habitus and could not get any kind of recommendation of cardiology consulted for further evaluation for possible REYNA to rule out any cardiogenic component for the shock and also to rule out any kind of vegetations causing possible endocarditis. Reviewed all the labs vitals and imaging until today. Assessment and plan: 1. Severe sepsis mostly secondary to bilateral pneumonia as well as repeat bacteremia 2. GPC bacteremia 3. Bilateral pneumonia 4. Cerebral palsy 5. Developmental delay-bedbound status and nonverbal 6. Poor nutritional status post PEG tube placement many years ago 7. Epilepsy 8. Hypothyroidism 9. Scoliosis 10. Cholelithiasis 11. GERD Appropriate indication for the REYNA and given the GPC bacteremia and poor transthoracic images. Discussed with primary team attending ICU staff Dr. Lund in detail and he requested the procedure. Patient as noted above he is nonverbal and at baseline is bedbound and unable to provide any kind of consent. Did speak to the patient's legal decision maker Dr. Marie and he provided consent for the same and denied patient having any kind of a surgical perforations or previous surgeries to the esophagus and if deemed necessary to go ahead and do the procedure. He was explained the risk benefits and alternatives of performing the procedure including the risks of esophageal rupture, bleeding, GI bleed, worsening respiratory status requiring intubation. Bedside REYNA was attempted but unable to pass probe and after 3 attempts procedure was abrupted completely. Patient did receive 2.5 mg of Versed and 75 mcg of fentanyl during the procedure. Patient CT scan chest images from 2023 and patient's esophagus is only 1.2 cm and patient will probably need pediatric REYNA probe for appropriate evaluation. Because of the adequate sedation patient is not moving and were able to obtain transthoracic images and. Complete report as noted below. Suboptimal images to comment on any kind of valvular vegetations but there is no significant regurgitation present any of the valves. LV size and function appear to be normal with an EF estimated 60%. Diastolic dysfunction stage I RV size and function appeared to be normal. RVSP mildly elevated at 36 mmHg. Mild TR as well as trace to mild MR. Based on the echo if the patient continues to be bacteremic patient should at least receive the 4 to 6 weeks of IV antibiotics after consulting infectious diseases. There is a high probability of sudden, clinically significant or life threatening deterioration in the patient condition which required the highest level of physician preparedness to intervene urgently. I have personally spent 65 minutes of critical care time, exclusive of time spent on any procedures, in evaluation and management of this critically ill patient. Management of rest of the medical conditions as per primary team and other consultants. Thank you for the consult and allowing me to participate in the care of the patient. Cardiology will continue to follow. Daryl Sanchez M.D. Interventional Cardiology HPI Data of Consult Requesting Physician: John Lund MD Admitting Provider: Dana Shannon MD Attending Provider: John Lund MD Primary Care Provider: Physician No Primary/Family Consult Narrative History of present illness: Patient is in ICU and unable to provide history due to cerebral palsy and developmental delay. All of history is obtained from chart reviewing and current ICU residents Ms. Pérez is a 54 y/o female with past medical history significant for cerebral palsy, epilepsy, hypothyroidism, GERD, cholithiasis, scholiosis, developmental delay and non verbal at baseline. Pt is brought to the ED on 07/15 from her facility due to low oxygen saturation. On arrival pt was saturating in the 80's. Prior to ED visit pt was taken to urgent care facility for dark colored urine and was treatment with levaquin for 3 days. Pt's legal decision maker is Dr. Marie. In the ED Pt became hypotensive therefore required pressor supper and was admitted to the ICU for further care. Current: vitals are stable Labs- WBC 18.4, plt 100, AST 62, ALT 52, Alk Phos 177, Images: CXR: Extensive bilateral pneumonia CT Abdomen: Gastritis pattern, Abundant stool and fluid throughout the colon, Multiple gallstones, gallbladder wall appears mildly thickened, Significant elevation right hemidiaphragm, Subsegmental atelectasis right base CXR 07/05 Enlarged cardiac contour with prominent vascular congestion, Mild heart failure PMH: Cerebral palsy, epilepsy, cholithiasis, hypothyroidism, GERD, developmental delay, non verbal Home Meds: Valproic Acid, levothyroxine, loratidine Allergies include penicillin and cephalexin cc:: cc: John Lund MD Exam Vital Signs Temp Pulse Resp BP Pulse Ox O2 Del Method O2 Flow Rate 97.6 F 93 30 H 119/89 H 92 L Nasal Cannula 2 07/17/24 16:00 07/17/24 17:00 07/17/24 17:00 07/17/24 17:00 07/17/24 17:00 07/17/24 16:00 07/17/24 16:00 Narrative Exam GENERAL: Pt is awake but is not able to follow command, she is nonverbal at baseline NEURO: unable to asses due to developmental delay HEENT: Atraumatic, microcephaly. mucous membranes moist. Eyes open, symmetrical, & clear HEART: Normal Heart Sounds, tachycardic LUNGS: Clear to auscultation with no wheezing or crackles. ABDOMEN: soft, non-distended, non-tender, no guarding or rebound tenderness, PEG tube present right upper quadrant SKIN: No Rash or ecchymoses EXTREMITIES: No edema, bilateral lower extremity contractures Results Labs 07/17/24 04:27 07/17/24 17:29 Labs: Short CBC 07/17/24 Range/Units 04:27 WBC 18.4 H D (3.6-11.0) Thou/mm3 Hgb 14.4 (12.0-16.0) g/dL Hct 42.7 (36.0-46.0) % Plt Count 100 L D (140-440) Thou/mm3 BMP 07/17/24 07/17/24 07/17/24 04:27 10:31 17:29 Sodium 140 142 Potassium 3.2 L D 3.5 4.5 D Chloride 96 L 100 Carbon Dioxide 33.0 H 31.9 H BUN 23 21 Creatinine 0.6 0.6 Glucose 120 H 105 Calcium 9.4 8.8 Liver Function 07/17/24 07/17/24 Range/Units 04:27 10:31 Total Bilirubin 0.5 0.4 (0.3-1.2) mg/dL AST 69 H 62 H (0-34) U/L ALT 60 H 52 H (10-49) U/L Alkaline Phosphatase 206 H D 177 H D (46-116) U/L Albumin 4.1 D 3.4 L D (3.5-5.0) gm/dL ABG Interpretation ABG results: 07/15/24 07/15/24 15:41 17:15 ABG pH 7.35 7.32 L ABG pCO2 43 44 ABG pO2 168 H 205 H D ABG HCO3 24 23 ABG O2 Saturation 100 H 100 H ABG Base Excess -2 -3 Quality Measures Quality Measures sepsis Current suspected stage: sepsis Possible source: pulmonary Blood cultures ordered: yes Antibiotic ordered: Yes Medications Home Medications and Allergies Home Medications ?Medication ?Instructions ?Recorded ?Confirmed ?Type calcium carbonate 500 mg/5 mL (as 625 mg feeding tube BID 07/29/23 03/18/24 History calcium carb 1,250 mg/5 mL) oral suspension erythromycin 2 % topical solution 1 ml topical BID 09/1703/18/24 History gabapentin 300 mg capsule 900 mg feeding tube BID 09/1703/18/24 History glycopyrrolate 2 mg tablet 2 mg feeding tube BID 07/2803/18/24 History levothyroxine 75 mcg tablet 75 mcg feeding tube USEASD IRECTD 07/29/23 03/18/24 History metoclopramide HCl 5 mg/5 mL oral 10 mg feeding tube B ID 07/29/23 03/18/24 History solution multivit and minerals-ferrous 5 ml feeding tube BID 03/18/24 History gluconate 9 mg iron/15 mL oral liquid (Multi-Jg) simethicone 80 mg chewable tablet 80 mg feeding tube T ID 07/29/23 03/18/24 History valproic acid (as sodium salt) 250 400 mg feeding tube BID 07/29/23 03/18/24 History mg/5 mL oral solution acetaminophen 325 mg tablet 650 mg feeding tube QID MT N Pain 03/18/24 03/18/24 History (Tylenol) dextromethorphan-guaifenesin 10 10 ml PO Q6H PRN Cough 03/18/24 03/18/24 History mg-200 mg/5 mL oral liquid erythromycin 2 % topical solution 1 ml topical BID 03/18/24 History famotidine 20 mg tablet 20 mg feeding tube QDAY 02/2503/18/24 History ipratropium 0.5 mg-albuterol 3 mg 3 ml inhalation Q4H PRN Shortness 03/18/24 03/18/24 History (2.5 mg base)/3 mL nebulization Of Breath Or Wheezing soln lactulose 10 gram/15 mL oral 30 g feeding tube DAILY 1 03/18/24 History solution loratadine 10 mg tablet 10 mg feeding tube QDAY 02/2503/18/24 History pseudoephedrine HCl 60 mg tablet 60 mg feeding tube Q6 H PRN 03/18/24 03/18/24 History (Sudogest) Congestion Allergies Allergy/AdvReac Type Severity Reaction Status Date / Time bacitracin (From Neosporin Allergy Verified 07/15/24 09:36 ([id number])) cephalexin Allergy Verified 07/15/24 09:36 neomycin (From Neosporin Allergy Verified 07/15/24 09:36 ([id number])) Penicillins Allergy Verified 07/15/24 09:36 polymyxin B (From Neosporin Allergy Verified 07/15/24 09:36 ([id number])) Visit Medications Acetaminophen (Acetaminophen 325 Mg Tablet) 650 mg PO Q4HR PRN PRN Reason: PAIN Stop: 08/16/24 12:31 Last Admin: 07/17/24 12:57 Dose: 650 mg Albuterol/Ipratropium (Albuterol/Ipratropium (Duoneb) Rt Ginger 3 Ml Nebu) 3 ml INH Q4HRRT [facility] Stop: 08/14/24 16:14 Last Admin: 07/17/24 03:00 Dose: 3 ml Famotidine (Famotidine Inj 10 Mg/Ml Vial 2 Ml) 20 mg IVP QDAY [facility] Stop: 08/14/24 15:44 Last Admin: 07/17/24 08:11 Dose: 20 mg Heparin Sodium (Porcine) (Heparin Sod Inj 5000 Unit/Ml Vial) 5,000 unit SC BID [facility] Stop: 07/30/24 10:29 Last Admin: 07/17/24 08:15 Dose: 5,000 unit Hydrocortisone Sodium Succinate (Hydrocortisone Sod Succ Inj 100 Mg Vial) 50 mg IV DAILY [facility] Stop: 07/25/24 08:59 Vancomycin HCl (Vancomycin/Water 1250 Mg Ivpb) 250 mls @ 120 mls/hr IV BID@1000,2200 [facility]; Protocol Stop: 07/24/24 11:29 Last Admin: 07/17/24 11:42 Dose: 120 mls/hr Norepinephrine/Dextrose (Levophed In D5w 8mg/250ml) 8 mg in 250 mls @ 3.956 mls/hr IV .Q24H PRN; Protocol PRN Reason: PER PROTOCOL Stop: 08/16/24 14:34 Lactulose (Lactulose Syrup 20 Gm/30 Ml Udc) 20 gm PO DAILY [facility]; Protocol Stop: 08/15/24 10:29 Last Admin: 07/17/24 08:13 Dose: 20 gm Levothyroxine Sodium (Levothyroxine Inj 100 Mcg Vial) 38 mcg IV MOWESA [facility] Stop: 08/15/24 05:59 Last Admin: 07/16/24 05:41 Dose: Not Given Levothyroxine Sodium (Levothyroxine Inj 100 Mcg Vial) 25 mcg IV TUTHFR [facility] Stop: 08/15/24 05:59 Last Admin: 07/17/24 05:45 Dose: 25 mcg Magnesium Hydroxide (Milk Of Magnesia Susp 30 Ml Udc) 30 ml PO QDAY [facility]; Protocol Stop: 08/15/24 10:44 Last Admin: 07/17/24 08:13 Dose: 30 ml Metoclopramide HCl (Metoclopramide Liqd 10 Mg/10 Ml Udc) 10 mg GT BID [facility] Stop: 08/15/24 20:59 Last Admin: 07/17/24 08:13 Dose: 10 mg Pharmacy Consult (Pharmacy Renal Dose Adjustment 1 Ea) 1 each XX QDAY [facility] Stop: 08/14/24 14:59 Last Admin: 07/16/24 08:16 Dose: Not Given Pharmacy Consult (Vancomycin Pharmacy To Dose 1 Each Each) 1 each IV QDAY [facility] Stop: 08/14/24 14:59 Last Admin: 07/16/24 08:17 Dose: Not Given Simethicone (Simethicone 40 Mg/0.6 Ml Oral Syringe) 80 mg PO DAILY [facility] Stop: 08/15/24 10:44 Last Admin: 07/17/24 08:14 Dose: 80 mg Sodium Chloride (Sodium Chloride Rt Ginger 0.9% 3 Ml Nebu) 3 ml INH PRN PRN PRN Reason: SOLN Stop: 08/14/24 10:17 Last Admin: 07/15/24 10:30 Dose: 3 ml Valproic Acid (Valproic Acid Syrup 250 Mg/5 Ml Udc) 400 mg PO BID [facility] Stop: 08/16/24 08:59 Last Admin: 07/17/24 08:13 Dose: 400 mg Discontinued Medications Acetaminophen (Acetaminophen Ginger 325 Mg/10 Ml Udc) 612 mg 15 mg/kg (612 mg) GT X1 ONE Stop: 07/15/24 11:37 Last Admin: 07/15/24 12:22 Dose: 612 mg Albuterol (Albuterol Rt 2.5 Mg/0.5 Ml Nebu) 10 mg INH X1 ONE Stop: 07/15/24 10:19 Last Admin: 07/15/24 10:29 Dose: 10 mg Albuterol/Ipratropium (Albuterol/Ipratropium (Duoneb) Rt Ginger 3 Ml Nebu) 3 ml INH Q4H [facility] Stop: 08/14/24 15:14 Last Admin: 07/15/24 16:21 Dose: Not Given Benzocaine (Benzocaine 20% (Hurricaine) Silver 1 Dose) 0 dose TOP X1 ONE Stop: 07/17/24 14:30 Last Admin: 07/17/24 14:50 Dose: 1 dose Fentanyl Citrate (Fentanyl Cit Inj 50 Mcg/Ml Amp 2ml) 100 mcg IV X1 ONE Stop: 07/17/24 14:31 Fentanyl Citrate (Fentanyl Cit Inj 50 Mcg/Ml Amp 2ml) 75 mcg IV X1 ONE Stop: 07/17/24 15:33 Last Admin: 07/17/24 14:50 Dose: 75 mcg Heparin Sodium (Porcine) (Heparin Sod Inj 5000 Unit/Ml Vial) 5,000 unit SC X1 ONE Stop: 07/15/24 20:14 Last Admin: 07/15/24 20:25 Dose: 5,000 unit Heparin Sodium (Porcine) (Heparin Sod Inj 5000 Unit/Ml Vial) 5,000 unit SC BID [facility] Stop: 07/30/24 10:29 Hydrocortisone Sodium Succinate (Hydrocortisone Sod Succ Inj 100 Mg Vial) 50 mg IV Q6HR [facility] Stop: 08/14/24 19:24 Last Admin: 07/16/24 05:43 Dose: 50 mg Hydrocortisone Sodium Succinate (Hydrocortisone Sod Succ Inj 100 Mg Vial) 50 mg IV BID [facility] Stop: 07/23/24 20:59 Last Admin: 07/17/24 08:14 Dose: 50 mg Sodium Chloride (Ns) 1,000 mls @ 999 mls/hr IV .Q1H1M ONE Stop: 07/15/24 11:22 Last Infusion: 07/15/24 12:48 Dose: Infused Sodium Chloride (Ns) 500 mls @ 999 mls/hr IV .Q31M ONE Stop: 07/15/24 12:07 Last Infusion: 07/15/24 14:05 Dose: Infused Meropenem 1,000 mg/ Sodium (Chloride) 50 mls @ 100 mls/hr IV X1 ONE Stop: 07/15/24 11:39 Last Infusion: 07/15/24 12:48 Dose: Infused Sodium Chloride (Ns) 500 mls @ 999 mls/hr IV .Q31M ONE Stop: 07/15/24 15:02 Last Admin: 07/15/24 14:59 Dose: Not Given Norepinephrine Bitartrate (Levophed In Ns 16mg/250ml) 16 mg in 250 mls @ 1.914 mls/hr IV .Q24H PRN; Protocol PRN Reason: PER PROTOCOL Stop: 08/14/24 14:52 Last Titration: 07/15/24 20:05 Dose: 0 mcg/kg/min, 0 mls/hr Vancomycin/Sodium Chloride (Vancomycin/Ns 1 Gm Ivpb) 200 mls @ 120 mls/hr IV X1 ONE Stop: 07/15/24 16:54 Last Infusion: 07/15/24 18:44 Dose: Infused Meropenem 500 mg/ Sodium (Chloride) 50 mls @ 100 mls/hr IV Q8HR [facility] Stop: 07/22/24 21:59 Last Admin: 07/17/24 05:35 Dose: 100 mls/hr Valproic Acid 200 mg/ Sodium (Chloride) 52 mls @ 104 mls/hr IV Q6HR [facility] Stop: 08/14/24 17:59 Last Admin: 07/15/24 20:21 Dose: Not Given Dexmedetomidine/Sodium Chloride (Precedex Ivpb) 200 mcg in 50 mls @ 2.041 mls/hr IV .Q24H PRN; Protocol PRN Reason: Per PROTOCOL Stop: 08/14/24 17:04 Last Titration: 07/16/24 07:30 Dose: 0 mcg/kg/hr, 0 mls/hr Lactated Ringer's (Lactated Ringers) 500 mls @ 999 mls/hr IV .Q31M ONE Stop: 07/15/24 19:28 Last Admin: 07/15/24 20:20 Dose: 999 mls/hr Vancomycin/Sodium Chloride (Vancomycin/Ns 1 Gm Ivpb) 200 mls @ 120 mls/hr IV Q12H [facility]; Protocol Stop: 07/23/24 09:59 Last Admin: 07/17/24 11:47 Dose: Not Given Norepinephrine/Dextrose (Levophed In D5w 8mg/250ml) 8 mg in 250 mls @ 3.956 mls/hr IV .Q24H PRN; Protocol PRN Reason: PER PROTOCOL Stop: 08/16/24 14:35 Lactulose (Lactulose Syrup 20 Gm/30 Ml Udc) 20 gm PO DAILY [facility]; Protocol Stop: 08/15/24 10:29 Last Admin: 07/16/24 10:38 Dose: 20 gm Lorazepam (Lorazepam 2 Mg/Ml Vial) 2 mg IVP Q10M PRN PRN Reason: Seizure Activity Methylprednisolone Sodium Succinate (Methylprednisolone Sod Succ 62.5 Mg/Ml 2ml Vial) 125 mg IVP X1 ONE Stop: 07/15/24 10:19 Last Admin: 02/19/25 11:25 Dose: 125 mg Midazolam HCl (Midazolam Inj 1 Mg/Ml Vial 2 Ml) 4 mg IVP X1 ONE Stop: 07/17/24 14:46 Midazolam HCl (Midazolam Inj 1 Mg/Ml Vial 2 Ml) 2 mg IV X1 ONE Stop: 07/17/24 15:33 Last Admin: 07/17/24 14:51 Dose: 2 mg Potassium Chloride (Potassium Chloride 10% 20 Meq/15 Ml Udc) 40 meq GT X1 ONE Stop: 07/17/24 06:29 Last Admin: 07/17/24 08:12 Dose: 40 meq Potassium Chloride (Potassium Chloride 10% 20 Meq/15 Ml Udc) 20 meq GT X1 ONE Stop: 07/17/24 14:05 Assessment & Plan Plan Ms. Pérez is a 54 y/o female with past medical history significant for cerebral palsy, epilepsy, hypothyroidism, GERD, cholithiasis, scholiosis, developmental delay and non verbal at baseline. Pt is brought to the ED on 07/15 from her facility due to low oxygen saturation. Pt underwent an attempt for echo study on 07/15 and was unsucessfull due to cooperation, cardiology is consulted for REYNA -An attempt for REYNA was unsucessful due to pts anatomy and the probe was not able to progress -TTE is done and pending read #Sepsis 2/2 #bilateral pneumonia #GPC bacteremia -on admission SIRS 4/4 met: tachycardia, tachypnea, fever and leukocytosis -Pt had recent sick contacts in her assisted -CXR evident of bilateral pneumonia, worsening on right lower lobe -RSV and Influenza A negative -BC on 07/15 2/2 positive for GPC -Pt is on suplemental oxygen, antibitoics include meropenem and vancomycin #Chronic PEG tube -tube feedings are resumed #History of hypothyroidism -TSH pt is on levothyroxine #History of seizure disorder -Pt is resumed her home Valproic acid #Thrombocytopenia -no signs of active bleeding, continue to monitor #Transaminitis-improving -on admission AST 147 ALT 87 -likely secondary to sepsis, continue to monitor Assessment and plan discussed with attending physician Dr. Laura Day (PGY-1)- Internal medicine resident
--- NOTE | 2024-07-17 18:24 | PD.RESPRO ---
Documentation for date of: 07/17/24 Subjective Subjective Interval history: Patient seen at bedside. She is a 54-year-old female with a past medical history of developmental delay, who is also nonverbal, cerebral palsy, epilepsy, scoliosis, cholelithiasis, hypothyroidism, GERD with a chronic PEG tube who presents to the ED on 07/15/2024 after she was found to be desaturating into the 80s at her care facility. Blood pressure was persistently low on admission despite fluids and so the patient was admitted to the ICU on for pressor support. She was started on IV vancomycin and meropenem Blood culture returned positive for GPC bacteria in 2 bottles and meropenem was discontinued. Due to concern for endocarditis, an echocardiogram was ordered but study was incomplete as the patient was uncooperative. A REYNA was scheduled but patient's esophagus was said to be too narrow and procedure could not be done. She is currently being treated as endocarditis repeat blood cultures are pending, to continue IV vancomycin for 4 to 6 weeks from first negative blood culture. 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 Eyes open, symmetrical, & clear CARDIO: No chest pain on palpation. Heart RRR, no obvious murmurs PULM: No noted coughing/dyspnea. Lungs CTA B/L GI: Abdomen soft, nondistended, PEG tube intact, some erythema around insertion point URO/OPTICAL GLASS WET INSPECTOR:: No further abnormalities noted. SKIN/MSK/EXT: Contractures in all extremities, no pedal edema Objective Labs 07/18/24 08:43 07/18/24 13:46 Labs: Laboratory Results - last 24 hr 07/17/24 07/17/24 07/17/24 04:27 10:31 17:29 WBC 18.4 H D RBC 4.31 Hgb 14.4 Hct 42.7 MCV 99 MCH 33.4 MCHC 33.7 RDW Std Deviation 49.6 H Plt Count 100 L D Neut % (Auto) 69 Lymph % (Auto) 17 Early % (Auto) 12 Eos % (Auto) 0 Baso % (Auto) 0 Neut # (Auto) 12.8 H Lymph # (Auto) 3.0 Early # (Auto) 2.3 H Eos # (Auto) 0.0 Baso # (Auto) 0.0 Immature Gran # (Auto) 0.28 H Absolute Nucleated RBC 0.00 Immature Gran % 2 H Nucleated RBC % 0 Sodium 140 142 Potassium 3.2 L D 3.5 4.5 D Chloride 96 L 100 Carbon Dioxide 33.0 H 31.9 H Anion Gap 11 10 BUN 23 21 Creatinine 0.6 0.6 Estim Creat Clear Calc 70.7 73.1 eGFR > 60 > 60 BUN/Creatinine Ratio 38 H 35 H Glucose 120 H 105 Calculated Osmolality 284 286 Calcium 9.4 8.8 Corrected Calcium 9.4 9.3 Total Bilirubin 0.5 0.4 AST 69 H 62 H ALT 60 H 52 H Alkaline Phosphatase 206 H D 177 H D Total Protein 7.1 5.9 Albumin 4.1 D 3.4 L D Globulin 3.0 2.5 Albumin/Globulin Ratio 1.4 1.4 Vancomycin Trough 10.0 ABG Interpretation ABG results: 07/15/24 07/15/24 15:41 17:15 ABG pH 7.35 7.32 L ABG pCO2 43 44 ABG pO2 168 H 205 H D ABG HCO3 24 23 ABG O2 Saturation 100 H 100 H ABG Base Excess -2 -3 Quality Measures Quality Measures sepsis Current suspected stage: septic shock (LA >4 and/or hypotension) Sepsis reassessment completed at (date): 07/17/24 Sepsis reassessment completed at (time): 18:44 Possible source: pulmonary Blood cultures ordered: yes Antibiotic ordered: Yes Assessment & Plan Assessment Current Active Medications: Generic Name Dose Route Start Last Admin Trade Name Freq PRN Reason Stop Dose Admin Acetaminophen 650 mg 07/17/24 12:32 07/17/24 12:57 Acetaminophen 325 Mg Tablet PO 08/16/24 12:31 650 mg Q4HR PRN Administration PAIN Albuterol/Ipratropium 3 ml 07/15/24 16:15 07/17/24 03:00 Albuterol/Ipratropium (Duoneb) Rt Ginger 3 Ml Nebu INH 08/14/24 16:14 3 ml Q4HRRT CAMILA Administration Famotidine 20 mg 07/15/24 15:45 07/17/24 08:11 Famotidine Inj 10 Mg/Ml Vial 2 Ml IVP 08/14/24 15:44 20 mg QDAY CAMILA Administration Heparin Sodium (Porcine) 5,000 unit 07/16/24 10:30 07/17/24 08:15 Heparin Sod Inj 5000 Unit/Ml Vial SC 07/30/24 10:29 5,000 unit BID CAMILA Administration Hydrocortisone Sodium Succinate 50 mg 07/18/24 09:00 Hydrocortisone Sod Succ Inj 100 Mg Vial IV 07/25/24 08:59 DAILY CAMILA Vancomycin HCl 250 mls @ 120 mls/hr 07/17/24 11:30 07/17/24 11:42 Vancomycin/Water 1250 Mg Ivpb IV 07/24/24 11:29 120 mls/hr BID@1000,2200 CAMILA Administration Protocol Norepinephrine/Dextrose 8 mg in 250 mls @ 3.956 mls/hr 07/17/24 14:35 Levophed In D5w 8mg/250ml IV 08/16/24 14:34 .Q24H PRN PER PROTOCOL Protocol 0.05 MCG/KG/MIN Lactulose 20 gm 07/16/24 10:38 07/17/24 08:13 Lactulose Syrup 20 Gm/30 Ml Udc PO 08/15/24 10:29 20 gm DAILY CAMILA Administration Protocol Levothyroxine Sodium 38 mcg 07/16/24 06:00 07/16/24 05:41 Levothyroxine Inj 100 Mcg Vial IV 08/15/24 05:59 Not Given MOWESA CAMILA Levothyroxine Sodium 25 mcg 07/16/24 06:00 07/17/24 05:45 Levothyroxine Inj 100 Mcg Vial IV 08/15/24 05:59 25 mcg TUTHFR CAMILA Administration Magnesium Hydroxide 30 ml 07/16/24 10:45 07/17/24 08:13 Milk Of Magnesia Susp 30 Ml Udc PO 08/15/24 10:44 30 ml QDAY CAMILA Administration Protocol Metoclopramide HCl 10 mg 07/16/24 21:00 07/17/24 08:13 Metoclopramide Liqd 10 Mg/10 Ml Udc GT 08/15/24 20:59 10 mg BID CAMILA Administration Pharmacy Consult 1 each 07/15/24 15:00 07/16/24 08:16 Pharmacy Renal Dose Adjustment 1 Ea XX 08/14/24 14:59 Not Given QDAY CAMILA Pharmacy Consult 1 each 07/15/24 15:00 07/16/24 08:17 Vancomycin Pharmacy To Dose 1 Each Each IV 08/14/24 14:59 Not Given QDAY CAMILA Simethicone 80 mg 07/16/24 10:45 07/17/24 08:14 Simethicone 40 Mg/0.6 Ml Oral Syringe PO 08/15/24 10:44 80 mg DAILY CAMILA Administration Sodium Chloride 3 ml 07/15/24 10:18 07/15/24 10:30 Sodium Chloride Rt Ginger 0.9% 3 Ml Nebu INH 08/14/24 10:17 3 ml PRN PRN Administration SOLN Valproic Acid 400 mg 07/17/24 09:00 07/17/24 08:13 Valproic Acid Syrup 250 Mg/5 Ml Udc PO 08/16/24 08:59 400 mg BID CAMILA Administration Plan Summary: The patient is a 54-year-old female with a past medical history of developmental delay, who is also nonverbal, cerebral palsy, epilepsy, scoliosis, cholelithiasis, hypothyroidism, GERD with a chronic PEG tube who presents to the ED on 07/15/2024 after she was found to be desaturating into the 80s at her care facility. #Septic shock-resolved #Sepsis, bilateral pneumonia #GPC bacteremia Blood pressure was persistently low on admission despite fluids and so the patient was admitted to the ICU on for pressor support. CXR showed extensive bilateral pneumonia. She was started on IV vancomycin and meropenem Blood culture returned positive for GPC bacteria in 2 bottles and meropenem was discontinued. Due to concern for endocarditis, an echocardiogram was ordered but study was incomplete as the patient was uncooperative. A REYNA was scheduled but patient's esophagus was said to be too narrow and procedure could not be done. She is currently being treated as endocarditis repeat blood cultures are pending, to continue IV vancomycin for 4 to 6 weeks from first negative blood culture. Plan: -Continue IV vancomycin -Pending repeat blood cultures -Continue monitoring CBC -For PICC line insertion once blood culture negative #Transaminitis-improving Labs reviewed show elevated AST, ALT and ALP with low hemoglobin. Contributed to possible recent antibiotic use. Plan: -Continue to monitor LFTs #Thrombocytopenia Platelet count on admission 77. Fibrinogen and D-dimer elevated. Currently no signs of active bleeding Plan: -Follow-up protein C and Antithrombin -Continue to monitor platelets and for signs of bleeding #Chronic PEG tube Patient has a history of chronic PEG tube. Tube feedings were resumed on 07/16/2024. Patient is having regular bowel movements. Plan: -Continue tube feeds -Bowel regimen #History of hypothyroidism The patient has a history of hypothyroidism and is on levothyroxine 75 mcg. Currently Giving IV levothyroxine 30 mcg on and 25 on Plan: -Continue IV levothyroxine #History of seizure disorder Patient has a history of seizure disorder and has been managed on valproic acid 400 mg. No seizures on this admission. Plan: -Continue valproic acid Health maintenance: Dispo: Tele, pending repeat cultures Diet: Tube feeds GI: Pantoprazole DVT: SC Heparin Valle: None Lines: Peripheral Code: Full Case was discussed with Dr Orozco PGY-2 and attending physician, Dr Meghan Vines MD , PGY1 Disclaimer: This note was dictated by speech recognition. Minor errors in branch retail executive may be present due to voice recognition software. Patient examined and case discussed with the team including attending physician. Note reviewed, I agree with the care plan as documented. Ms. Pérez is a 54-year-old female who is nonverbal and bedbound at baseline. She has been downgraded from ICU to medical floors. Patient was in the ICU for septic shock secondary to GPC bacteremia and possible bacterial endocarditis. Cardiology was consulted for unclear findings on transthoracic echo, Dr. Sanchez attempted transesophageal echocardiogram, however esophagus was does not report the probe to pass. As per cardiology recommendation, we will continue IV vancomycin at this time. Leukocytosis is improving, patient remains afebrile. Pending final ID recommendations. Patient to be transferred to medical floors and hospitalist team to take over care. - Jatinder Orozco MD, PGY 2 Disclaimer: The document below may not be free of grammatical/phonetic/typographic errors due to use of voice recognition software. This does not dissuade from the commitment to providing health care with the patient's best interest in mind. Attending Provider Attestation/Addendum I have examined the patient, reviewed labs and imaging findings, discussed the case with the resident(s), and reviewed entered orders. I agree with the plan of care as outlined in this note. Dr. Meghan MD
[2024-07-17] MEDS: POTASSIUM CHLORIDE 10% 20 MEQ/15 ML UDC GT (18:33)
[2024-07-18] VITALS (15 sets, daily range): BP systolic 90–121; BP diastolic 55–84; PULSE 88–111; RESP 16–95; TEMP 36.2–38; O2SAT 91–98; BMI 20.8
[2024-07-18] MEDS: LEVOTHYROXINE INJ 100 mCg VIAL 38 MCG IV (05:22)
[2024-07-18] MEDS: VALPROIC ACID SYRUP 250 MG/5 ML UDC 400 MG PO ×2 (09:03→21:02)
[2024-07-18] MEDS: HYDROCORTISONE SOD SUCC INJ 100 MG VIAL 50 MG IV (09:04)
[2024-07-18] MEDS: METOCLOPRAMIDE LIQD 10 MG/10 ML UDC GT (09:04)
[2024-07-18] MEDS: HEPARIN SOD INJ 5000 UNIT/ML VIAL SC ×2 (09:04→21:01)
[2024-07-18] MEDS: Milk Of Magnesia Susp 30 ML UDC PO (09:05)
[2024-07-18] MEDS: FAMOTIDINE INJ 10 MG/ML VIAL 2 ML 20 MG IVP (09:05)
[2024-07-18] MEDS: LACTULOSE SYRUP 20 GM/30 ML UDC PO (09:05)
[2024-07-18] MEDS: SIMETHICONE 40 MG/0.6 ML ORAL SYRINGE 80 MG PO (09:06)
[2024-07-18 09:47] LABS: Basophils # (Auto) 0.1 Thou/mm3 (0.0-0.2); Basophils % (Auto) 1 % (0-2.5); Eosinophils % (Auto) 0 % (0-10); Hematocrit 37.8 % (36.0-46.0); Hemoglobin 12.9 g/dL (12.0-16.0); Immature Granulocytes % (Auto) 4 % (0-0); Immature Granulocytes Auto 0.62 Thou/mm3 (0.00-0.00); Lymphocytes # (Auto) 4.6 Thou/mm3 (1.0-4.8); Lymphocytes % (Auto) 31 % (10-50); Mean Corpuscular HGB Conc 34.1 g/dl (31.0-37.0); Mean Corpuscular Hemoglobin 33.8 pg (25.0-35.0); Mean Corpuscular Volume 99 fL (80-100); Monocytes # (Auto) 2.7 Thou/mm3 (0.0-0.8); Monocytes % (Auto) 19 % (0-12); Neutrophils # (Auto) 6.9 Thou/mm3 (1.8-7.7); Neutrophils % (Auto) 46 % (37-80); Nucleated Red Blood Cell # 0.02 Thou/mm3 (0.00-0.00); Nucleated Red Blood Cell % 0 /100 WBC (0); Platelet Count 119 Thou/mm3 (140-440); RDW Standard Deviation 50.4 fL (36.4-46.3); Red Blood Count 3.82 Miln/mm3 (4.00-5.20); White Blood Count 14.9 Thou/mm3 (3.6-11.0)
[2024-07-18 10:06] LABS: Alanine Aminotransferase 119 U/L (10-49); Albumin, Serum 3.6 gm/dL (3.5-5.0); Albumin/Globulin Ratio 1.3 (1.2-2.2); Alkaline Phosphatase 267 U/L (46-116); Anion Gap 9 (7-16); Aspartate Amino Transferase 264 U/L (0-34); BUN/Creatinine Ratio 40 Ratio (12-20); Bilirubin,Total 1.2 mg/dL (0.3-1.2); Blood Urea Nitrogen 16 mg/dL (9-23); Calcium 8.7 mg/dL (8.3-10.6); Carbon Dioxide 33.1 mMol/L (20.0-31.0); Chloride 94 mMol/L (98-107); Creatinine (Component) 0.4 mg/dL (0.6-1.3); Estimated Creatinine Clearance 112.2 mL/min (>60); Globulin 2.7 gm/dL (2.3-3.5); Glucose 95 mg/dL (74-106); Magnesium 2.1 mg/dL (1.6-2.6); Osmolality,Calculated 273 (275-295); Potassium 3.7 mMol/L (3.4-5.1); Sodium 136 mMol/L (136-145); Total Protein 6.3 gm/dL (5.7-8.2); eGFR > 60 See Note
[2024-07-18 10:15] LABS: Phosphorous < 0.3 mg/dL (2.4-5.1)
[2024-07-18] MEDS: VANCOMYCIN/WATER 1250 MG IVPB 250 ML 120 MG IV (11:24)
[2024-07-18] MEDS: LACTOBACILLUS RHAMNOSUS 1 CAP GT ×2 (11:25→21:01)
[2024-07-18] MEDS: NAPH,KPH MBDB 1 PACKET (1.5 GM) 2 PACKET GT (11:25)
--- NOTE | 2024-07-18 11:26 | ESPR_ITS ---
Documentation for date of: 07/18/24 Subjective Subjective Interval history: No acute overnight events reported. Patient is downgraded to [facility]-patient is seen and examined at bedside. Patient is nonverbal at baseline. Vitals are stable currently patient saturating on room air. Leukocytosis is downtrending and platelets count is improving to 119. phosphorus is <0.3, AST 264, ALT 119. Hepatitis panel is ordered and is pending. Cardiology was consulted for REYNA as Pt has GPC bacteremia to rule out infective endocarditis as the source since pt has no improvement. Attempts for REYNA were unsucessfull due to anatomical reasons, therefore since pt was sedated TTE was done. Exam Vital Signs Temp Pulse Resp BP Pulse Ox O2 Del Method O2 Flow Rate 97.7 F 105 H 16 114/84 94 L Room Air 2 07/18/24 08:00 07/18/24 08:21 07/18/24 08:21 07/18/24 08:00 07/18/24 08:00 07/18/24 08:00 07/18/24 04:00 Narrative Exam GENERAL: Pt is awake but is not able to follow command, she is nonverbal at baseline NEURO: unable to asses due to developmental delay HEENT: Atraumatic, microcephaly. mucous membranes moist. Eyes open, symmetrical, & clear HEART: Normal Heart Sounds, tachycardic LUNGS: Clear to auscultation with no wheezing or crackles. ABDOMEN: soft, non-distended, non-tender, no guarding or rebound tenderness, PEG tube present right upper quadrant SKIN: No Rash or ecchymoses EXTREMITIES: No edema, bilateral lower extremity contractures Objective Labs 07/18/24 08:43 07/18/24 08:43 Labs: Laboratory Results - last 24 hr 07/17/24 07/18/24 17:29 08:43 WBC 14.9 H RBC 3.82 L Hgb 12.9 Hct 37.8 MCV 99 MCH 33.8 MCHC 34.1 RDW Std Deviation 50.4 H Plt Count 119 L Neut % (Auto) 46 Lymph % (Auto) 31 Greer % (Auto) 19 H Eos % (Auto) 0 Baso % (Auto) 1 Neut # (Auto) 6.9 Lymph # (Auto) 4.6 Greer # (Auto) 2.7 H Eos # (Auto) 0.0 Baso # (Auto) 0.1 Immature Gran # (Auto) 0.62 H Absolute Nucleated RBC 0.02 H Immature Gran % 4 H Nucleated RBC % 0 Sodium 136 Potassium 4.5 D 3.7 D Chloride 94 L Carbon Dioxide 33.1 H Anion Gap 9 BUN 16 Creatinine 0.4 L Estim Creat Clear Calc 112.2 eGFR > 60 BUN/Creatinine Ratio 40 H Glucose 95 Calculated Osmolality 273 L Calcium 8.7 Corrected Calcium 9.0 Phosphorus < 0.3 L* Magnesium 2.1 Total Bilirubin 1.2 D AST 264 H ALT 119 H Alkaline Phosphatase 267 H D Total Protein 6.3 Albumin 3.6 Globulin 2.7 Albumin/Globulin Ratio 1.3 ABG Interpretation ABG results: 07/15/24 07/15/24 15:41 17:15 ABG pH 7.35 7.32 L ABG pCO2 43 44 ABG pO2 168 H 205 H D ABG HCO3 24 23 ABG O2 Saturation 100 H 100 H ABG Base Excess -2 -3 Quality Measures Quality Measures sepsis Current suspected stage: sepsis Possible source: pulmonary Blood cultures ordered: yes Antibiotic ordered: Yes Assessment & Plan Assessment Current Active Medications: Generic Name Dose Route Start Last Admin Trade Name Freq PRN Reason Stop Dose Admin Acetaminophen 650 mg 07/18/24 11:12 Acetaminophen Ginger 325 Mg/10 Ml Udc GT 08/16/24 12:31 Q4HR PRN PAIN Albuterol/Ipratropium 3 ml 07/15/24 16:15 07/17/24 03:00 Albuterol/Ipratropium (Duoneb) Rt Ginger 3 Ml Nebu INH 08/14/24 16:14 3 ml Q4HRRT CAMILA Administration Famotidine 20 mg 07/15/24 15:45 07/18/24 09:05 Famotidine Inj 10 Mg/Ml Vial 2 Ml IVP 08/14/24 15:44 20 mg QDAY CAMILA Administration Heparin Sodium (Porcine) 5,000 unit 07/16/24 10:30 07/18/24 09:04 Heparin Sod Inj 5000 Unit/Ml Vial SC 07/30/24 10:29 5,000 unit BID CAMILA Administration Vancomycin HCl 250 mls @ 120 mls/hr 07/17/24 11:30 07/17/24 21:16 Vancomycin/Water 1250 Mg Ivpb IV 07/24/24 11:29 120 mls/hr BID@1000,2200 CAMILA Administration Protocol Sodium Phosphate 30 mmol/ 510 mls @ 62.5 mls/hr 07/18/24 10:26 Sodium Chloride IV 07/18/24 18:35 X1 ONE Lactobacillus Rhamnosus 1 cap 07/18/24 11:15 Lactobacillus Rhamnosus 1 Cap GT 08/17/24 11:14 BID CAMILA Lactulose 20 gm 07/16/24 10:38 07/18/24 09:05 Lactulose Syrup 20 Gm/30 Ml Udc PO 08/15/24 10:29 20 gm DAILY CAMILA Administration Protocol Levothyroxine Sodium 38 mcg 07/16/24 06:00 07/18/24 05:22 Levothyroxine Inj 100 Mcg Vial IV 08/15/24 05:59 38 mcg MOWESA CAMILA Administration Levothyroxine Sodium 25 mcg 07/16/24 06:00 07/17/24 05:45 Levothyroxine Inj 100 Mcg Vial IV 08/15/24 05:59 25 mcg TUTHFR CAMILA Administration Magnesium Hydroxide 30 ml 07/16/24 10:45 07/18/24 09:05 Milk Of Magnesia Susp 30 Ml Udc PO 08/15/24 10:44 30 ml QDAY CAMILA Administration Protocol Mupirocin 2 gm 07/18/24 14:00 Mupirocin Oint 2% 15 Gm Tube TOP 07/25/24 13:59 TID [facility] Pharmacy Consult 1 each 07/15/24 15:00 07/17/24 18:32 Pharmacy Renal Dose Adjustment 1 Ea XX 08/14/24 14:59 Not Given QDAY [facility] Pharmacy Consult 1 each 07/15/24 15:00 07/17/24 18:32 Vancomycin Pharmacy To Dose 1 Each Each IV 08/14/24 14:59 Not Given QDAY CAMILA Simethicone 80 mg 07/16/24 10:45 07/18/24 09:06 Simethicone 40 Mg/0.6 Ml Oral Syringe PO 08/15/24 10:44 80 mg DAILY CAMILA Administration Sodium Chloride 3 ml 07/15/24 10:18 07/15/24 10:30 Sodium Chloride Rt Ginger 0.9% 3 Ml Nebu INH 08/14/24 10:17 3 ml PRN PRN Administration SOLN Valproic Acid 400 mg 07/17/24 09:00 07/18/24 09:03 Valproic Acid Syrup 250 Mg/5 Ml Udc PO 08/16/24 08:59 400 mg BID CAMILA Administration Plan Ms. Pérez is a 54 y/o female with past medical history significant for cerebral palsy, epilepsy, hypothyroidism, GERD, cholithiasis, scholiosis, developmental delay and non verbal at baseline. Pt is brought to the ED on 07/15 from her facility due to low oxygen saturation. #suspect endocarditis -Pt has repeat sepsis and went into septic shock despite adequate treatment with antibiotics. BC 2/2 are GPC positive which raises suspicion for infective endocarditis. -Pt meets 1 major criteria of 2/2 BC positive for GPC -staph and 1 minor criteria of fever which indicates possible IE -Pt underwent an attempt for echo study on 07/15 and was unsuccessful due to cooperation, cardiology is consulted for REYNA -Attempt for REYNA was unsuccessful due to pts anatomy and the probe was not able to progress therefore since pt is sedated TTE was done and results are pending #Sepsis 2/2 #bilateral pneumonia #GPC bacteremia -on admission SIRS 4/4 met: tachycardia, tachypnea, fever and leukocytosis -Pt had recent sick contacts in her prison -CXR evident of bilateral pneumonia, worsening on right lower lobe -RSV and Influenza A negative -BC on 07/15 2/2 positive for GPC -Pt is on suplemental oxygen, antibitoics include meropenem and vancomycin #Chronic PEG tube -tube feedings are resumed #hypophosphatemia -phosphate <0.3, repleated by primary team #History of hypothyroidism -TSH pt is on levothyroxine #History of seizure disorder -Pt is resumed her home Valproic acid #Thrombocytopenia -no signs of active bleeding, continue to monitor #Transaminitis -on admission AST 147 ALT 87 -Today AST 264 and ALT 119 -primary team ordered hepatitis panel Assessment and plan discussed with attending physician Dr. Galindo Day (PGY-1)- Internal medicine resident
[2024-07-18] MEDS: MUPIROCIN OINT 2% 15 GM TUBE TOP (11:30)
[2024-07-18] MEDS: ACETAMINOPHEN SOL 325 MG/10 ML UDC 650 MG GT (12:04)
[2024-07-18] MEDS: SOD PHOS ADDITIVE 30 MMOL in SODIUM CHLORIDE 0.9% 500 ML 500 ML 62.5 MMOL IV (13:33)
[2024-07-18] MEDS: ALBUTEROL/IPRATROPIUM (Duoneb) RT SOL 3 ML NEBU INH (13:55)
--- NOTE | 2024-07-18 14:34 | PD.RESPRO ---
Documentation for date of: 07/18/24 Subjective Subjective Interval history: Patient seen at bedside. No acute overnight events. Labs reviewed, WBC downtrending today at 14.9. CHEM panel shows significantly low phosphorus at 0.3. Will replete Pending final read of initial blood culture and repeat blood culture. Will continue IV vancomycin for now. Will also repeat transthoracic echocardiogram. Worsening transaminitis noted, AST and ALT morning?today. Will order acute hepatitis panel. Exam Vital Signs Temp Pulse Resp BP Pulse Ox O2 Del Method O2 Flow Rate 99.5 F 93 20 118/75 98 Room Air 2 07/18/24 12:30 07/18/24 13:56 07/18/24 13:56 07/18/24 12:30 07/18/24 13:56 07/18/24 12:30 07/18/24 04:00 Narrative Exam GENERAL: Dewvelopmental delay, non verbal NEURO: Moves extremities although contracted, otherwise unable to assess HEENT: Microcephaly, Moist mucosa. Eyes open, symmetrical, & clear CARDIO: No chest pain on palpation. Heart RRR, no obvious murmurs PULM: No noted coughing/dyspnea. 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 SKIN/MSK/EXT: Contractures in all extremities, no pedal edema Objective Labs 07/19/24 09:54 07/19/24 05:30 Labs: Laboratory Results - last 24 hr 07/17/24 07/18/24 17:29 08:43 WBC 14.9 H RBC 3.82 L Hgb 12.9 Hct 37.8 MCV 99 MCH 33.8 MCHC 34.1 RDW Std Deviation 50.4 H Plt Count 119 L Neut % (Auto) 46 Lymph % (Auto) 31 [place] % (Auto) 19 H Eos % (Auto) 0 Baso % (Auto) 1 Neut # (Auto) 6.9 Lymph # (Auto) 4.6 [place] # (Auto) 2.7 H Eos # (Auto) 0.0 Baso # (Auto) 0.1 Immature Gran # (Auto) 0.62 H Absolute Nucleated RBC 0.02 H Immature Gran % 4 H Nucleated RBC % 0 Sodium 136 Potassium 4.5 D 3.7 D Chloride 94 L Carbon Dioxide 33.1 H Anion Gap 9 BUN 16 Creatinine 0.4 L Estim Creat Clear Calc 112.2 eGFR > 60 BUN/Creatinine Ratio 40 H Glucose 95 Calculated Osmolality 273 L Calcium 8.7 Corrected Calcium 9.0 Phosphorus < 0.3 L* Magnesium 2.1 Total Bilirubin 1.2 D AST 264 H ALT 119 H Alkaline Phosphatase 267 H D Total Protein 6.3 Albumin 3.6 Globulin 2.7 Albumin/Globulin Ratio 1.3 ABG Interpretation ABG results: 07/15/24 07/15/24 15:41 17:15 ABG pH 7.35 7.32 L ABG pCO2 43 44 ABG pO2 168 H 205 H D ABG HCO3 24 23 ABG O2 Saturation 100 H 100 H ABG Base Excess -2 -3 Quality Measures Quality Measures sepsis Current suspected stage: sepsis Possible source: pulmonary Blood cultures ordered: yes Antibiotic ordered: Yes Assessment & Plan Assessment Current Active Medications: Generic Name Dose Route Start Last Admin Trade Name Freq PRN Reason Stop Dose Admin Acetaminophen 650 mg 07/18/24 11:12 07/18/24 12:04 Acetaminophen Ginger 325 Mg/10 Ml Udc GT 08/16/24 12:31 650 mg Q4HR PRN Administration PAIN Albuterol/Ipratropium 3 ml 07/18/24 13:08 Albuterol/Ipratropium (Duoneb) Rt Ginger 3 Ml Nebu INH 08/17/24 18:59 Q6HRRT PRN SOB or Wheeze Famotidine 20 mg 07/15/24 15:45 07/18/24 09:05 Famotidine Inj 10 Mg/Ml Vial 2 Ml IVP 08/14/24 15:44 20 mg QDAY CAMILA Administration Heparin Sodium (Porcine) 5,000 unit 07/16/24 10:30 07/18/24 09:04 Heparin Sod Inj 5000 Unit/Ml Vial SC 07/30/24 10:29 5,000 unit BID CAMILA Administration Vancomycin HCl 250 mls @ 120 mls/hr 07/17/24 11:30 07/18/24 11:24 Vancomycin/Water 1250 Mg Ivpb IV 07/24/24 11:29 120 mls/hr BID@1000,2200 CAMILA Administration Protocol Sodium Phosphate 30 mmol/ 510 mls @ 62.5 mls/hr 07/18/24 10:26 07/18/24 13:33 Sodium Chloride IV 07/18/24 18:35 62.5 mls/hr X1 ONE Administration Lactobacillus Rhamnosus 1 cap 07/18/24 11:15 07/18/24 11:25 Lactobacillus Rhamnosus 1 Cap GT 08/17/24 11:14 1 cap BID CAMILA Administration Lactulose 20 gm 07/16/24 10:38 07/18/24 09:05 Lactulose Syrup 20 Gm/30 Ml Udc PO 08/15/24 10:29 20 gm DAILY CAMILA Administration Protocol Levothyroxine Sodium 38 mcg 07/16/24 06:00 07/18/24 05:22 Levothyroxine Inj 100 Mcg Vial IV 08/15/24 05:59 38 mcg MOWESA CAMILA Administration Levothyroxine Sodium 25 mcg 07/16/24 06:00 07/17/24 05:45 Levothyroxine Inj 100 Mcg Vial IV 08/15/24 05:59 25 mcg TUTHFR CAMILA Administration Magnesium Hydroxide 30 ml 07/16/24 10:45 07/18/24 09:05 Milk Of Magnesia Susp 30 Ml Udc PO 08/15/24 10:44 30 ml QDAY [facility] Administration Protocol Mupirocin 2 gm 07/18/24 14:00 Mupirocin Oint 2% 15 Gm Tube TOP 07/25/24 13:59 TID [facility] Pharmacy Consult 1 each 07/15/24 15:00 07/18/24 12:06 Pharmacy Renal Dose Adjustment 1 Ea XX 08/14/24 14:59 Not Given QDAY [facility] Pharmacy Consult 1 each 07/15/24 15:00 07/18/24 12:06 Vancomycin Pharmacy To Dose 1 Each Each IV 08/14/24 14:59 Not Given QDAY [facility] Simethicone 80 mg 07/16/24 10:45 07/18/24 09:06 Simethicone 40 Mg/0.6 Ml Oral Syringe PO 08/15/24 10:44 80 mg DAILY CAMILA Administration Sodium Chloride 3 ml 07/15/24 10:18 07/15/24 10:30 Sodium Chloride Rt Ginger 0.9% 3 Ml Nebu INH 08/14/24 10:17 3 ml PRN PRN Administration SOLN Valproic Acid 400 mg 07/17/24 09:00 07/18/24 09:03 Valproic Acid Syrup 250 Mg/5 Ml Udc PO 03/23/25 08:59 400 mg BID CAMILA Administration Plan Summary: The patient is a 54-year-old female with a past medical history of developmental delay, who is also nonverbal, cerebral palsy, epilepsy, scoliosis, cholelithiasis, hypothyroidism, GERD with a chronic PEG tube who presents to the ED on 07/15/2024 after she was found to be desaturating into the 80s at her care facility. #Septic shock-resolved #Sepsis, bilateral pneumonia #GPC bacteremia Blood pressure was persistently low on admission despite fluids and so the patient was admitted to the ICU on for pressor support. CXR showed extensive bilateral pneumonia. She was started on IV vancomycin and meropenem Blood culture returned positive for GPC bacteria in 2 bottles and meropenem was discontinued. Due to concern for endocarditis, an echocardiogram was ordered but study was incomplete as the patient was uncooperative. A REYNA was scheduled but patient's esophagus was said to be too narrow and procedure could not be done. She is currently being treated as endocarditis repeat blood cultures are pending, to continue IV vancomycin for 4 to 6 weeks from first negative blood culture. 07/18/2024- Labs reviewed, WBC downtrending today at 14.9. CHEM panel shows significantly low phosphorus at 0.3. Will replete Pending final read of initial blood culture and repeat blood culture. Will continue IV vancomycin for now. Will also repeat transthoracic echocardiogram. Plan: -Continue IV vancomycin -Pending repeat blood cultures -Continue monitoring CBC -For possible PICC line insertion once blood culture negative #Electrolytes abnormality #Hypophosphatemia Phosphorus today-less than 0.3 Plan: -Replete with IV and GT phosphorus -Repeat renal panel #Transaminitis Labs reviewed show elevated AST, ALT and ALP with low hemoglobin. Contributed to possible recent antibiotic use/ shock liver Transaminitis noted, AST and ALT morning?today. Will order acute hepatitis panel. Plan: -Hepatitis panel -Continue to monitor LFTs #Thrombocytopenia- improving Platelet count on admission 77. Fibrinogen and D-dimer elevated. Currently no signs of active bleeding Platelet count today-119 Plan: -Follow-up protein C and Antithrombin -Continue to monitor platelets and for signs of bleeding #Chronic PEG tube Patient has a history of chronic PEG tube. Tube feedings were resumed on 07/16/2024. Patient is having regular bowel movements. Plan: -Continue tube feeds -Bowel regimen #History of hypothyroidism The patient has a history of hypothyroidism and is on levothyroxine 75 mcg. Currently Giving IV levothyroxine 30 mcg on and 25 on Plan: -Continue IV levothyroxine #History of seizure disorder Patient has a history of seizure disorder and has been managed on valproic acid 400 mg. No seizures on this admission. Plan: -Continue valproic acid Health maintenance: Dispo: Tele, pending repeat cultures Diet: Tube feeds GI: Pantoprazole DVT: SC Heparin Valle: None Lines: Peripheral Code: Full Case was discussed with Dr Orozco PGY-2 and attending physician, Dr Meghan Vines MD PGY-1 Disclaimer: This note was dictated by speech recognition. Minor errors in heel scourer may be present due to voice recognition software. Patient examined and case discussed with the team including attending physician. Note reviewed, I agree with the care plan as documented. Ms. Pérez is a 54-year-old female who is nonverbal and bedbound at baseline. She has been downgraded from ICU to medical floors on 07/17/2024. Patient was in the ICU for septic shock secondary to GPC bacteremia and possible bacterial endocarditis. Cardiology was consulted for unclear findings on transthoracic echo, Dr. Sanchez attempted transesophageal echocardiogram, however esophagus was does not report the probe to pass. As per cardiology recommendation, we will continue IV Vancomycin at this time. Leukocytosis is improving, patient remains afebrile. Pending final ID recommendations. - Jatinder Orozco MD, PGY 2 Disclaimer: The document below may not be free of grammatical/phonetic/typographic errors due to use of voice recognition software. This does not dissuade from the commitment to providing health care with the patient's best interest in mind. Attending Provider Attestation/Addendum I have examined the patient, reviewed labs and imaging findings, discussed the case with the resident(s), and reviewed entered orders. I agree with the plan of care as outlined in this note, with these additional summaries/recommendations: Patient seen at bedside. No acute overnight events. Patient is nonverbal and no history can be obtained at this time. Patient was downgraded from ICU for septic shock. Off pressors. Found to have pneumonia on x-ray and GPC bacteremia. Unclear source for bacteremia at this time but most likely secondary to pneumonia. ICU team attempted to rule out infective endocarditis with REYNA although was unable to complete secondary to narrow esophagus. Transthoracic echo was previously attempted although was unsuccessful as patient unable to follow instructions. We will attempt to obtain repeat transthoracic echocardiogram. And lower suspicion for endocarditis at this time. No suspicion of epidural abscess at this time. Continue IV vancomycin. Pending repeat blood cultures. Infectious disease consulted, recommendations appreciated. Severe hypophosphatemia noted on CHEM panel today and replacement given. Repeat phosphorus this afternoon. Continue home antihypertensive feeds via PEG. Continue home levothyroxine. Repeat hematology and chemistry panel in AM. Dr. Meghan MD
[2024-07-18 14:38] LABS: Albumin, Serum 3.4 gm/dL (3.5-5.0); Anion Gap 10 (7-16); BUN/Creatinine Ratio 24 Ratio (12-20); Blood Urea Nitrogen 12 mg/dL (9-23); Calcium (Corrected) 8.5 mg/dL (8.5-10.1); Carbon Dioxide 31.3 mMol/L (20.0-31.0); Chloride 93 mMol/L (98-107); Creatinine (Component) 0.5 mg/dL (0.6-1.3); Estimated Creatinine Clearance 89.8 mL/min (>60); Glucose 122 mg/dL (74-106); Osmolality,Calculated 268 (275-295); Potassium 3.9 mMol/L (3.4-5.1); Sodium 134 mMol/L (136-145); eGFR > 60 See Note
[2024-07-18 14:51] LABS: Phosphorous 0.9 mg/dL (2.4-5.1)
[2024-07-18] MEDS: MUPIROCIN OINT 2% 15 GM TUBE 2 GM TOP ×2 (15:23→21:01)
[2024-07-18 23:08] LABS: Anion Gap 15 (7-16); BUN/Creatinine Ratio 23 Ratio (12-20); Blood Urea Nitrogen 9 mg/dL (9-23); Calcium (Corrected) 7.5 mg/dL (8.5-10.1); Carbon Dioxide 34.1 mMol/L (20.0-31.0); Chloride 88 mMol/L (98-107); Creatinine (Component) 0.4 mg/dL (0.6-1.3); Estimated Creatinine Clearance 112.2 mL/min (>60); Glucose 102 mg/dL (74-106); Osmolality,Calculated 272 (275-295); Phosphorous 3.4 mg/dL (2.4-5.1); Potassium 3.1 mMol/L (3.4-5.1); Sodium 137 mMol/L (136-145); eGFR > 60 See Note
[2024-07-18 23:13] LABS: Calcium 6.7 mg/dL (8.3-10.6)
[2024-07-18 23:53] LABS: Vancomycin,Trough 14.2 mcg/mL (5.0-10.0)
[2024-07-19] VITALS (13 sets, daily range): BP systolic 109–134; BP diastolic 71–103; PULSE 84–113; RESP 18–94; TEMP 36.3–36.7; O2SAT 92–98; BMI 20.8
[2024-07-19] MEDS: VANCOMYCIN/WATER 1250 MG IVPB 250 ML 120 MG IV (00:22)
[2024-07-19] MEDS: POTASSIUM CHLORIDE 10% 20 MEQ/15 ML UDC 40 MEQ GT (00:57)
[2024-07-19] MEDS: CALCIUM CARBONATE 600 MG TABLET PO (00:57)
[2024-07-19] MEDS: POTASSIUM CHL 10 mEq IVPB 10 MEQ/100 ML BAG 100 MEQ IV (04:03)
--- NOTE | 2024-07-19 04:21 | PC.NURSE ---
Pt started to become restless and keeps on moving her hand where her IV is. Notify of the pt's behavior and said okay to hold the Potassium IV.
[2024-07-19] MEDS: MUPIROCIN OINT 2% 15 GM TUBE 2 GM TOP ×3 (05:07→21:02)
[2024-07-19 07:03] LABS: Alanine Aminotransferase 124 U/L (10-49); Albumin, Serum 3.2 gm/dL (3.5-5.0); Albumin/Globulin Ratio 1.3 (1.2-2.2); Alkaline Phosphatase 243 U/L (46-116); Anion Gap 8 (7-16); Aspartate Amino Transferase 193 U/L (0-34); BUN/Creatinine Ratio 23 Ratio (12-20); Bilirubin,Total 0.7 mg/dL (0.3-1.2); Blood Urea Nitrogen 9 mg/dL (9-23); Calcium 8.2 mg/dL (8.3-10.6); Calcium (Corrected) 8.8 mg/dL (8.5-10.1); Carbon Dioxide 34.1 mMol/L (20.0-31.0); Chloride 94 mMol/L (98-107); Creatinine (Component) 0.4 mg/dL (0.6-1.3); Estimated Creatinine Clearance 112.2 mL/min (>60); Globulin 2.4 gm/dL (2.3-3.5); Glucose 78 mg/dL (74-106); Magnesium 2.2 mg/dL (1.6-2.6); Osmolality,Calculated 269 (275-295); Phosphorous 1.9 mg/dL (2.4-5.1); Sodium 136 mMol/L (136-145); Total Protein 5.6 gm/dL (5.7-8.2); eGFR > 60 See Note
[2024-07-19] MEDS: SOD PHOS ADDITIVE 15 MMOL in SODIUM CHLORIDE 0.9% 250 ML 250 ML 62.5 MMOL IV (08:45)
[2024-07-19] MEDS: VALPROIC ACID SYRUP 250 MG/5 ML UDC 400 MG PO ×2 (09:13→21:00)
[2024-07-19] MEDS: FAMOTIDINE INJ 10 MG/ML VIAL 2 ML 20 MG IVP (09:14)
[2024-07-19] MEDS: SIMETHICONE 40 MG/0.6 ML ORAL SYRINGE 80 MG PO (09:14)
[2024-07-19] MEDS: HEPARIN SOD INJ 5000 UNIT/ML VIAL SC ×2 (09:15→21:09)
[2024-07-19] MEDS: LACTOBACILLUS RHAMNOSUS 1 CAP GT ×2 (09:15→21:00)
[2024-07-19 10:16] LABS: Basophils % (Auto) 0 % (0-2.5); Eosinophils % (Auto) 0 % (0-10); Hematocrit 35.6 % (36.0-46.0); Hemoglobin 12.1 g/dL (12.0-16.0); Immature Granulocytes % (Auto) 4 % (0-0); Lymphocytes # (Auto) 5.1 Thou/mm3 (1.0-4.8); Lymphocytes % (Auto) 25 % (10-50); Mean Corpuscular Hemoglobin 33.2 pg (25.0-35.0); Mean Corpuscular Volume 98 fL (80-100); Monocytes # (Auto) 1.6 Thou/mm3 (0.0-0.8); Monocytes % (Auto) 8 % (0-12); Neutrophils # (Auto) 12.7 Thou/mm3 (1.8-7.7); Neutrophils % (Auto) 63 % (37-80); Nucleated Red Blood Cell # 0.09 Thou/mm3 (0.00-0.00); Nucleated Red Blood Cell % 0 /100 WBC (0); Platelet Count 152 Thou/mm3 (140-440); RDW Standard Deviation 48.5 fL (36.4-46.3); Red Blood Count 3.64 Miln/mm3 (4.00-5.20); White Blood Count 20.3 Thou/mm3 (3.6-11.0)
[2024-07-19] MEDS: VANCOMYCIN/D5W 1,250 MG IVPB 250 ML 120 MG IV ×2 (10:53→22:38)
[2024-07-19] MEDS: NAPH,KPH MBDB 1 PACKET (1.5 GM) 2 PACKET GT (11:19)
[2024-07-19] MEDS: guaiFENesin SYRUP 200 MG/10 ML UDC 100 MG GT ×3 (11:20→21:02)
[2024-07-19] MEDS: LEVOFLOXACIN/D5W 750MG IVPB 750 MG/150 ML BAG 150 MG IV (12:04)
--- NOTE | 2024-07-19 12:49 | PD.RESPRO ---
Documentation for date of: 07/19/24 Subjective Subjective Interval history: Patient was seen and examined at bedside. No acute overnight events. Patient does not appear to be in distress today. Her repeat blood cultures were negative x 2. WBCs went up to 20.3. Cefepime was added to her regimen for pneumonia due to lack of improvement on vancomycin only. Pending recommendations from ID. Electrolytes were repleted. Will continue current management and monitor patient. Exam Vital Signs Temp Pulse Resp BP Pulse Ox O2 Del Method O2 Flow Rate 97.3 F 104 H 18 130/94 H 92 L Room Air 2 07/19/24 12:30 07/19/24 12:30 07/19/24 12:30 07/19/24 12:30 07/19/24 12:30 07/19/24 12:30 07/18/24 04:00 Narrative Exam GENERAL: Dewvelopmental delay, non verbal. NEURO: Moves extremities although contracted, otherwise unable to assess. HEENT: Microcephaly, Moist mucosa. Eyes open, symmetrical, & clear. CARDIO: No chest pain on palpation. Heart RRR, no obvious murmurs. PULM: No noted coughing/dyspnea. Lungs mild rhonchi B/L. GI: Abdomen soft, nondistended, PEG tube intact, some erythema around insertion point. 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 SKIN/MSK/EXT: Contractures in all extremities, no pedal edema. Objective Labs 07/20/24 05:39 07/20/24 05:39 Labs: Laboratory Results - last 24 hr 07/18/24 07/18/24 07/19/24 13:46 20:41 05:30 WBC RBC Hgb Hct MCV MCH MCHC RDW Std Deviation Plt Count Neut % (Auto) Lymph % (Auto) [place] % (Auto) Eos % (Auto) Baso % (Auto) Neut # (Auto) Lymph # (Auto) [place] # (Auto) Eos # (Auto) Baso # (Auto) Immature Gran # (Auto) Absolute Nucleated RBC Immature Gran % Nucleated RBC % Sodium 134 L 137 136 Potassium 3.9 3.1 L D 4.0 D Chloride 93 L 88 L 94 L Carbon Dioxide 31.3 H 34.1 H 34.1 H Anion Gap 10 15 8 BUN 12 9 9 Creatinine 0.5 L 0.4 L 0.4 L Estim Creat Clear Calc 89.8 112.2 112.2 eGFR > 60 > 60 > 60 BUN/Creatinine Ratio 24 H 23 H 23 H Glucose 122 H 102 78 Calculated Osmolality 268 L 272 L 269 L Calcium 8.0 L 6.7 L* 8.2 L D Corrected Calcium 8.5 7.5 L 8.8 Phosphorus 0.9 L* 3.4 1.9 L Magnesium 2.2 Total Bilirubin 0.7 D AST 193 H ALT 124 H Alkaline Phosphatase 243 H D Total Protein 5.6 L Albumin 3.4 L 3.0 L 3.2 L Globulin 2.4 Albumin/Globulin Ratio 1.3 Vancomycin Trough 14.2 H 07/19/24 09:54 WBC 20.3 H D RBC 3.64 L Hgb 12.1 Hct 35.6 L MCV 98 MCH 33.2 MCHC 34.0 RDW Std Deviation 48.5 H Plt Count 152 D Neut % (Auto) 63 Lymph % (Auto) 25 [place] % (Auto) 8 Eos % (Auto) 0 Baso % (Auto) 0 Neut # (Auto) 12.7 H Lymph # (Auto) 5.1 H [place] # (Auto) 1.6 H Eos # (Auto) 0.0 Baso # (Auto) 0.0 Immature Gran # (Auto) 0.90 H Absolute Nucleated RBC 0.09 H Immature Gran % 4 H Nucleated RBC % 0 Sodium Potassium Chloride Carbon Dioxide Anion Gap BUN Creatinine Estim Creat Clear Calc eGFR BUN/Creatinine Ratio Glucose Calculated Osmolality Calcium Corrected Calcium Phosphorus Magnesium Total Bilirubin AST ALT Alkaline Phosphatase Total Protein Albumin Globulin Albumin/Globulin Ratio Vancomycin Trough ABG Interpretation ABG results: 07/15/24 07/15/24 15:41 17:15 ABG pH 7.35 7.32 L ABG pCO2 43 44 ABG pO2 168 H 205 H D ABG HCO3 24 23 ABG O2 Saturation 100 H 100 H ABG Base Excess -2 -3 Quality Measures Quality Measures sepsis Current suspected stage: sepsis Possible source: pulmonary Blood cultures ordered: yes Antibiotic ordered: Yes Assessment & Plan Assessment Current Active Medications: Generic Name Dose Route Start Last Admin Trade Name Freq PRN Reason Stop Dose Admin Acetaminophen 650 mg 07/18/24 11:12 07/18/24 12:04 Acetaminophen Ginger 325 Mg/10 Ml Udc GT 08/16/24 12:31 650 mg Q4HR PRN Administration PAIN Albuterol/Ipratropium 3 ml 07/19/24 13:00 Albuterol/Ipratropium (Duoneb) Rt Ginger 3 Ml Nebu INH 08/18/24 12:59 Q6HRRT CAMILA Famotidine 20 mg 07/15/24 15:45 07/19/24 09:14 Famotidine Inj 10 Mg/Ml Vial 2 Ml IVP 08/14/24 15:44 20 mg QDAY CAMILA Administration Guaifenesin 100 mg 07/19/24 09:45 07/19/24 11:20 Guaifenesin Syrup 200 Mg/10 Ml Udc GT 08/18/24 09:44 100 mg TID CAMILA Administration Protocol Heparin Sodium (Porcine) 5,000 unit 07/16/24 10:30 07/19/24 09:15 Heparin Sod Inj 5000 Unit/Ml Vial SC 07/30/24 10:29 5,000 unit BID CAMILA Administration Vancomycin HCl/Dextrose 250 mls @ 120 mls/hr 07/19/24 10:00 07/19/24 10:53 Vancomycin/D5w 1,250 Mg Ivpb IV 07/26/24 09:59 120 mls/hr Q12H CAMILA Administration Levofloxacin/Dextrose 750 mg in 150 mls @ 150 mls/hr 07/19/24 10:45 07/19/24 12:04 Levaquin Ivpb IV 07/26/24 10:44 150 mls/hr QDAY CAMILA Administration Lactobacillus Rhamnosus 1 cap 07/18/24 11:15 07/19/24 09:15 Lactobacillus Rhamnosus 1 Cap GT 08/17/24 11:14 1 cap BID CAMILA Administration Levothyroxine Sodium 38 mcg 07/16/24 06:00 07/18/24 05:22 Levothyroxine Inj 100 Mcg Vial IV 08/15/24 05:59 38 mcg MOWESA CAMILA Administration Levothyroxine Sodium 25 mcg 07/16/24 06:00 07/17/24 05:45 Levothyroxine Inj 100 Mcg Vial IV 08/15/24 05:59 25 mcg TUTHFR CAMILA Administration Magnesium Hydroxide 30 ml 07/16/24 10:45 07/19/24 09:03 Milk Of Magnesia Susp 30 Ml Udc PO 08/15/24 10:44 Not Given QDAY [facility] Protocol Mupirocin 2 gm 07/18/24 14:00 07/19/24 05:07 Mupirocin Oint 2% 15 Gm Tube TOP 07/25/24 13:59 1 applicatio TID CAMILA Administration Pharmacy Consult 1 each 07/15/24 15:00 07/19/24 09:42 Pharmacy Renal Dose Adjustment 1 Ea XX 08/14/24 14:59 Not Given QDAY CAMILA Pharmacy Consult 1 each 07/19/24 09:43 Vancomycin Pharmacy To Dose 1 Each Each IV 08/18/24 09:42 QDAY PRN CONSULT Potassium Phos/Sodium Phos 2 packet 07/19/24 10:45 07/19/24 11:19 [facility] 1 Packet (1.5 Gm) GT 08/18/24 10:44 2 packet DAILY CAMILA Administration Simethicone 80 mg 07/16/24 10:45 07/19/24 09:14 Simethicone 40 Mg/0.6 Ml Oral Syringe PO 08/15/24 10:44 80 mg DAILY CAMILA Administration Sodium Chloride 3 ml 07/15/24 10:18 07/15/24 10:30 Sodium Chloride Rt Ginger 0.9% 3 Ml Nebu INH 08/14/24 10:17 3 ml PRN PRN Administration SOLN Valproic Acid 400 mg 07/17/24 09:00 07/19/24 09:13 Valproic Acid Syrup 250 Mg/5 Ml Udc PO 08/16/24 08:59 400 mg BID CAMILA Administration Plan The patient is a 54-year-old female with a past medical history of developmental delay, who is also nonverbal, cerebral palsy, epilepsy, scoliosis, cholelithiasis, hypothyroidism, GERD with a chronic PEG tube who presents to the ED on 07/15/2024 after she was found to be desaturating into the 80s at her care facility. #Septic shock-resolved. #Sepsis 2/2 bilateral pneumonia. #GPC bacteremia. Blood pressure was persistently low on admission despite fluids and so the patient was admitted to the ICU on for pressor support. CXR showed extensive bilateral pneumonia. She was started on IV vancomycin and meropenem Blood culture returned positive for GPC bacteria in 2 bottles and meropenem was discontinued. Due to concern for endocarditis, an echocardiogram was ordered but study was incomplete as the patient was uncooperative. A REYNA was scheduled but patient's esophagus was said to be too narrow and procedure could not be done. She is currently being treated as endocarditis repeat blood cultures are pending, to continue IV vancomycin for 4 to 6 weeks from first negative blood culture. 07/18/2024- Labs reviewed, WBC downtrending today at 14.9. CHEM panel shows significantly low phosphorus at 0.3. Will replete Pending final read of initial blood culture and repeat blood culture. Will continue IV vancomycin for now. Will also repeat transthoracic echocardiogram. Due to lack of improvement and worsening white cell count patient was started on cefepime for pneumonia treatment in addition to vancomycin. Plan: -Continue IV vancomycin -started on cefepime for pneumonia. -Pending repeat blood cultures -Continue monitoring CBC -For possible PICC line insertion once blood culture negative -ID consulted. #Electrolytes abnormality #Hypophosphatemia Phosphorus today-less than 0.3 Plan: -Replete with IV and GT phosphorus -Repeat renal panel #Transaminitis Labs reviewed show elevated AST, ALT and ALP with low hemoglobin. Contributed to possible recent antibiotic use/ shock liver Transaminitis noted, AST and ALT morning?today. Will order acute hepatitis panel. Plan: -Hepatitis panel -Continue to monitor LFTs #Thrombocytopenia- improving Platelet count on admission 77. Fibrinogen and D-dimer elevated. Currently no signs of active bleeding Platelet count today-119 Plan: -Follow-up protein C and Antithrombin -Continue to monitor platelets and for signs of bleeding #Chronic PEG tube Patient has a history of chronic PEG tube. Tube feedings were resumed on 07/16/2024. Patient is having regular bowel movements. Plan: -Continue tube feeds -Bowel regimen #History of hypothyroidism The patient has a history of hypothyroidism and is on levothyroxine 75 mcg. Currently Giving IV levothyroxine 30 mcg on // and 25 on Plan: -Continue IV levothyroxine #History of seizure disorder Patient has a history of seizure disorder and has been managed on valproic acid 400 mg. No seizures on this admission. Plan: -Continue valproic acid Health maintenance: Dispo: Tele, pending repeat cultures Diet: Tube feeds GI: Pantoprazole DVT: SC Heparin Valle: None Lines: Peripheral Code: Full Plan of care discussed with attending Dr. Christianson. Nirav Osorio MD, PGY 2. Disclaimer: This note was dictated by speech recognition. Minor errors in valve assembler may be present due to voice recognition software. Attending Provider Attestation/Addendum I have examined the patient, reviewed labs and imaging findings, discussed the case with the resident(s), and reviewed entered orders. I agree with the plan of care as outlined in this note, with these additional summaries/recommendations: Patient seen at bedside. No acute overnight events. Patient is nonverbal and no history can be obtained at this time. Patient was downgraded from ICU for septic shock. Off pressors. Found to have pneumonia on x-ray and staph hominis ssp hominis bacteremia. Unclear source for bacteremia, possible contamination? Infectious disease consulted, recommendations appreciated. Patient has been on IV vancomycin and now has worsening leukocytosis. We will broaden antibiotics again today and add levofloxacin to cover for CAP/aspiration pneumonia. Repeat Blood cultures on 07/17/2024 are showing no growth at 48 hours. No need for further attempts at REYNA based off speciation of blood culture results. Hypophosphatemia is improving although low again today. Replacement given and repeat level this afternoon. Continue tube feeds and free water flushes via PEG. Continue levothyroxine for history of hypothyroidism. Significant respiratory secretions present and continue breathing treatments and mucolytic. Dr. Meghan MD
[2024-07-19] MEDS: ALBUTEROL/IPRATROPIUM (Duoneb) RT SOL 3 ML NEBU INH ×2 (13:23→19:02)
--- NOTE | 2024-07-19 15:38 | PD.RESPRO ---
Documentation for date of: 07/19/24 Subjective Subjective Interval history: No overnight events. Patient seen and examined at bedside. Patient nonverbal at baseline. Patient tachycardic, heart rate 113, vitals otherwise stable, afebrile. WBCs uptrending to 20.3. Hemoglobin 12.1, so 136, potassium 4.0, magnesium 2.2. BUN 9, creatinine 0.4, EGFR greater than 60. Corrected calcium improved to 8.8, phosphorus 1.9. Hepatitis panel pending. Repeat blood cultures negative x 48 hours. Exam Vital Signs Temp Pulse Resp BP Pulse Ox O2 Del Method O2 Flow Rate 97.3 F 113 H 20 130/94 H 96 Room Air 2 07/19/24 12:30 07/19/24 13:26 07/19/24 13:07/19/24 12:30 07/19/24 13:07/19/24 12:30 07/18/24 04:00 Narrative Exam GENERAL: Pt is awake but is not able to follow command, nonverbal at baseline NEURO: unable to asses due to developmental delay HEENT: Atraumatic, microcephaly. mucous membranes moist. Eyes open, symmetrical, & clear HEART: Normal Heart Sounds, tachycardic LUNGS: Clear to auscultation with no wheezing or crackles. ABDOMEN: soft, non-distended, non-tender, no guarding or rebound tenderness, PEG tube present right upper quadrant SKIN: No Rash or ecchymoses EXTREMITIES: No edema, bilateral lower extremity contractures Objective Labs 07/19/24 09:54 07/19/24 05:30 Labs: Laboratory Results - last 24 hr 07/18/24 07/19/24 07/19/24 20:41 05:30 09:54 WBC 20.3 H D RBC 3.64 L Hgb 12.1 Hct 35.6 L MCV 98 MCH 33.2 MCHC 34.0 RDW Std Deviation 48.5 H Plt Count 152 D Neut % (Auto) 63 Lymph % (Auto) 25 [place] % (Auto) 8 Eos % (Auto) 0 Baso % (Auto) 0 Neut # (Auto) 12.7 H Lymph # (Auto) 5.1 H [place] # (Auto) 1.6 H Eos # (Auto) 0.0 Baso # (Auto) 0.0 Immature Gran # (Auto) 0.90 H Absolute Nucleated RBC 0.09 H Immature Gran % 4 H Nucleated RBC % 0 Sodium 137 136 Potassium 3.1 L D 4.0 D Chloride 88 L 94 L Carbon Dioxide 34.1 H 34.1 H Anion Gap 15 8 BUN 9 9 Creatinine 0.4 L 0.4 L Estim Creat Clear Calc 112.2 112.2 eGFR > 60 > 60 BUN/Creatinine Ratio 23 H 23 H Glucose 102 78 Calculated Osmolality 272 L 269 L Calcium 6.7 L* 8.2 L D Corrected Calcium 7.5 L 8.8 Phosphorus 3.4 1.9 L Magnesium 2.2 Total Bilirubin 0.7 D AST 193 H ALT 124 H Alkaline Phosphatase 243 H D Total Protein 5.6 L Albumin 3.0 L 3.2 L Globulin 2.4 Albumin/Globulin Ratio 1.3 Vancomycin Trough 14.2 H ABG Interpretation ABG results: 07/15/24 07/15/24 15:41 17:15 ABG pH 7.35 7.32 L ABG pCO2 43 44 ABG pO2 168 H 205 H D ABG HCO3 24 23 ABG O2 Saturation 100 H 100 H ABG Base Excess -2 -3 Quality Measures Quality Measures sepsis Current suspected stage: sepsis Possible source: pulmonary Blood cultures ordered: yes Antibiotic ordered: Yes Assessment & Plan Assessment Current Active Medications: Generic Name Dose Route Start Last Admin Trade Name Freq PRN Reason Stop Dose Admin Acetaminophen 650 mg 07/18/24 11:12 07/18/24 12:04 Acetaminophen Ginger 325 Mg/10 Ml Udc GT 08/16/24 12:31 650 mg Q4HR PRN Administration PAIN Albuterol/Ipratropium 3 ml 07/19/24 13:00 07/19/24 13:23 Albuterol/Ipratropium (Duoneb) Rt Ginger 3 Ml Nebu INH 08/18/24 12:59 3 ml Q6HRRT CAMILA Administration Famotidine 20 mg 07/15/24 15:45 07/19/24 09:14 Famotidine Inj 10 Mg/Ml Vial 2 Ml IVP 08/14/24 15:44 20 mg QDAY CAMILA Administration Guaifenesin 100 mg 07/19/24 09:45 07/19/24 14:29 Guaifenesin Syrup 200 Mg/10 Ml Udc GT 08/18/24 09:44 100 mg TID CAMILA Administration Protocol Heparin Sodium (Porcine) 5,000 unit 07/16/24 10:30 07/19/24 09:15 Heparin Sod Inj 5000 Unit/Ml Vial SC 07/30/24 10:29 5,000 unit BID CAMILA Administration Vancomycin HCl/Dextrose 250 mls @ 120 mls/hr 07/19/24 10:00 07/19/24 10:53 Vancomycin/D5w 1,250 Mg Ivpb IV 07/26/24 09:59 120 mls/hr Q12H CAMILA Administration Levofloxacin/Dextrose 750 mg in 150 mls @ 150 mls/hr 07/19/24 10:45 07/19/24 12:04 Levaquin Ivpb IV 07/26/24 10:44 150 mls/hr QDAY CAMILA Administration Lactobacillus Rhamnosus 1 cap 07/18/24 11:15 07/19/24 09:15 Lactobacillus Rhamnosus 1 Cap GT 08/17/24 11:14 1 cap BID CAMILA Administration Levothyroxine Sodium 38 mcg 07/16/24 06:00 07/18/24 05:22 Levothyroxine Inj 100 Mcg Vial IV 08/15/24 05:59 38 mcg MOWESA CAMILA Administration Levothyroxine Sodium 25 mcg 07/16/24 06:00 07/17/24 05:45 Levothyroxine Inj 100 Mcg Vial IV 08/15/24 05:59 25 mcg TUTHFR CAMILA Administration Magnesium Hydroxide 30 ml 07/16/24 10:45 07/19/24 09:03 Milk Of Magnesia Susp 30 Ml Udc PO 08/15/24 10:44 Not Given QDAY [facility] Protocol Mupirocin 2 gm 07/18/24 14:00 07/19/24 14:29 Mupirocin Oint 2% 15 Gm Tube TOP 07/25/24 13:59 1 applicatio TID CAMILA Administration Pharmacy Consult 1 each 07/15/24 15:00 07/19/24 09:42 Pharmacy Renal Dose Adjustment 1 Ea XX 08/14/24 14:59 Not Given QDAY [facility] Pharmacy Consult 1 each 07/19/24 09:43 Vancomycin Pharmacy To Dose 1 Each Each IV 08/18/24 09:42 QDAY PRN CONSULT Potassium Phos/Sodium Phos 2 packet 07/19/24 10:45 07/19/24 11:19 Naph,[facility] Mbdb 1 Packet (1.5 Gm) GT 08/18/24 10:44 2 packet DAILY CAMILA Administration Simethicone 80 mg 07/16/24 10:45 07/19/24 09:14 Simethicone 40 Mg/0.6 Ml Oral Syringe PO 08/15/24 10:44 80 mg DAILY CAMIAL Administration Sodium Chloride 3 ml 07/15/24 10:18 07/15/24 10:30 Sodium Chloride Rt Ginger 0.9% 3 Ml Nebu INH 08/14/24 10:17 3 ml PRN PRN Administration SOLN Valproic Acid 400 mg 07/17/24 09:00 07/19/24 09:13 Valproic Acid Syrup 250 Mg/5 Ml Udc PO 08/16/24 08:59 400 mg BID CAMILA Administration Plan 54 y/o F with PMHx significant for cerebral palsy, epilepsy, hypothyroidism, GERD, cholithiasis, scholiosis, developmental delay and non verbal at baseline. Pt is brought to the ED on 07/15 from her facility due to low oxygen saturation. Cardiology consulted for REYNA. #Suspect endocarditis Pt has repeat sepsis and went into septic shock despite adequate treatment with antibiotics. BC 2/2 are GPC positive which raises suspicion for infective endocarditis. Pt meets 1 major criteria of 2/2 BC positive for GPC -staph and 1 minor criteria of fever which indicates possible IE Pt underwent an attempt for echo study on 07/15 and was unsuccessful due to cooperation, cardiology is consulted for REYNA Attempt for REYNA was unsuccessful due to pts anatomy and the probe was not able to progress therefore since pt is sedated TTE was done and results are pending -Patient receiving antibiotic treatment for GPC bacteremia and sepsis as below -Follow-up echo results #Sepsis 2/2 #bilateral pneumonia #GPC bacteremia On admission SIRS 4/4 met: tachycardia, tachypnea, fever and leukocytosis. Pt had recent sick contacts in her [place] [facility] facility. CXR evident of bilateral pneumonia, worsening on right lower lobe. RSV and Influenza A negative. BC on 07/15 2/2 positive for GPC, repeat blood cultures negative x 48 hours. Patient had increasing ABCs, became tachycardic again up to 113 bpm, afebrile. -Pt is on suplemental oxygen, antibitoics include meropenem and vancomycin -Cefepime added to antibiotics due to lack of improvement #Chronic PEG tube -tube feedings are resumed -Jevity 1.5 at 32 mL/h #hypophosphatemia, improved -phosphate <0.3, repleated by primary team #History of hypothyroidism -IV levothyroxine 30 mcg on and 25 on / #History of seizure disorder -Resumed home Valproic acid #Thrombocytopenia, resolved -no signs of active bleeding, continue to monitor #Transaminitis On admission AST 147 ALT 87. Improved to AST 264 and ALT 119. -primary team ordered hepatitis panel Assessment and plan discussed with attending physician Dr. Sanchez. Terry Olivas MD PGY?1 Attending Provider Attestation/Addendum I have personally seen and examined the patient separately on the above date of service and discussed the plan of care with the resident. I reviewed the resident Dr. Terry Olivas consultation progress note and agree with the resident findings and plan in the note above and have also edited the documentation to reflect my findings and plan. Daryl Sanchez M.D. Interventional Cardiology
--- NOTE | 2024-07-19 16:14 | PC.NURSE ---
notified for about the pt. running sinus tachy HR of 112. Per going to order Mag. Will continue monitor pt.
[2024-07-19] MEDS: Magnesium Sulfate 2 GM Ivpb 2 GM/50 ML BAG IV (16:25)
[2024-07-20] VITALS (14 sets, daily range): BP systolic 102–139; BP diastolic 58–106; PULSE 83–111; RESP 16–95; TEMP 36.2–36.7; O2SAT 93–99; BMI 20.9
[2024-07-20] MEDS: ALBUTEROL/IPRATROPIUM (Duoneb) RT SOL 3 ML NEBU INH ×2 (01:25→07:06)
[2024-07-20 04:02] LABS: Hepatitis A Antibody IgM Non Reactive (Non React); Hepatitis B Core Antibody IgM Non Reactive (Non React); Hepatitis B Surface Antigen Non Reactive (Non React); Hepatitis C Antibody Non Reactive (Non React)
[2024-07-20] MEDS: LEVOTHYROXINE INJ 100 mCg VIAL 38 MCG IV (05:19)
[2024-07-20] MEDS: guaiFENesin SYRUP 200 MG/10 ML UDC 100 MG GT ×3 (05:23→21:32)
[2024-07-20] MEDS: MUPIROCIN OINT 2% 15 GM TUBE 2 GM TOP ×3 (05:23→21:50)
[2024-07-20 06:02] LABS: Basophils % (Auto) 0 % (0-2.5); Eosinophils % (Auto) 0 % (0-10); Hematocrit 34.6 % (36.0-46.0); Hemoglobin 12.4 g/dL (12.0-16.0); Immature Granulocytes % (Auto) 6 % (0-0); Immature Granulocytes Auto 0.87 Thou/mm3 (0.00-0.00); Lymphocytes # (Auto) 4.5 Thou/mm3 (1.0-4.8); Lymphocytes % (Auto) 29 % (10-50); Mean Corpuscular HGB Conc 35.8 g/dl (31.0-37.0); Mean Corpuscular Hemoglobin 34.3 pg (25.0-35.0); Mean Corpuscular Volume 96 fL (80-100); Monocytes % (Auto) 13 % (0-12); Neutrophils # (Auto) 8.2 Thou/mm3 (1.8-7.7); Neutrophils % (Auto) 52 % (37-80); Nucleated Red Blood Cell # 0.07 Thou/mm3 (0.00-0.00); Nucleated Red Blood Cell % 0 /100 WBC (0); Platelet Count 237 Thou/mm3 (140-440); RDW Standard Deviation 46.6 fL (36.4-46.3); Red Blood Count 3.62 Miln/mm3 (4.00-5.20); White Blood Count 15.6 Thou/mm3 (3.6-11.0)
[2024-07-20 06:37] LABS: Alanine Aminotransferase 153 U/L (10-49); Albumin, Serum 3.2 gm/dL (3.5-5.0); Albumin/Globulin Ratio 1.2 (1.2-2.2); Alkaline Phosphatase 275 U/L (46-116); Anion Gap 7 (7-16); Aspartate Amino Transferase 190 U/L (0-34); BUN/Creatinine Ratio 14 Ratio (12-20); Bilirubin,Total 1.1 mg/dL (0.3-1.2); Blood Urea Nitrogen 7 mg/dL (9-23); Calcium 8.7 mg/dL (8.3-10.6); Calcium (Corrected) 9.3 mg/dL (8.5-10.1); Carbon Dioxide 31.9 mMol/L (20.0-31.0); Chloride 92 mMol/L (98-107); Creatinine (Component) 0.5 mg/dL (0.6-1.3); Estimated Creatinine Clearance 89.8 mL/min (>60); Globulin 2.6 gm/dL (2.3-3.5); Glucose 106 mg/dL (74-106); Magnesium 2.4 mg/dL (1.6-2.6); Osmolality,Calculated 260 (275-295); Phosphorous 4.7 mg/dL (2.4-5.1); Potassium 3.4 mMol/L (3.4-5.1); Sodium 131 mMol/L (136-145); Total Protein 5.8 gm/dL (5.7-8.2); eGFR > 60 See Note
[2024-07-20] MEDS: SODIUM CHLORIDE 0.9% 250 ML 250 ML 999 ML IV (08:51)
[2024-07-20] MEDS: POTASSIUM CHLORIDE 10% 20 MEQ/15 ML UDC 40 MEQ GT (09:03)
[2024-07-20] MEDS: FAMOTIDINE INJ 10 MG/ML VIAL 2 ML 20 MG IVP (09:03)
[2024-07-20] MEDS: LACTOBACILLUS RHAMNOSUS 1 CAP GT ×2 (09:03→20:04)
[2024-07-20] MEDS: SIMETHICONE 40 MG/0.6 ML ORAL SYRINGE 80 MG PO (09:04)
[2024-07-20] MEDS: NAPH,KPH MBDB 1 PACKET (1.5 GM) 2 PACKET GT (09:04)
[2024-07-20] MEDS: VALPROIC ACID SYRUP 250 MG/5 ML UDC 400 MG PO ×2 (09:04→20:03)
[2024-07-20] MEDS: LEVOFLOXACIN/D5W 500 MG IVPB 500 MG/100 ML BAG 100 MG IV (09:04)
[2024-07-20] MEDS: HEPARIN SOD INJ 5000 UNIT/ML VIAL SC ×2 (09:05→20:04)
--- NOTE | 2024-07-20 09:36 | PD.RESPRO ---
Documentation for date of: 07/20/24 Subjective Subjective Interval history: No acute overnight events reported. Patient is seen and examined at bedside in [facility]. Patient is nonverbal at baseline and grimacing unable to determine whether its due to pain or discomfort, appears to be Pt's regular facial movement. Vitals are stable with BP 112/63 and mildy tachycardic which is pt's baseline. currently patient saturating above 95% on room air. Leukocytosis is downtrending to 15.6 and thrombocytopenia has resolved with platelets count of 237. phosphorus is 4.7, AST 190, ALT 153. Creatinine 0.5 Hepatitis panel is negative. Cardiology was consulted for REYNA as Pt has GPC bacteremia to rule out infective endocarditis as the source since pt had no improvement. Attempts for REYNA were unsucessfull due to anatomical reasons, therefore since pt was sedated TTE was done and TTE performed again. Exam Vital Signs Temp Pulse Resp BP Pulse Ox O2 Del Method O2 Flow Rate 97.7 F 106 H 18 112/63 99 Room Air 2 07/20/24 06:00 07/20/24 07:07 07/20/24 07:07 07/20/24 06:00 07/20/24 07:07 07/20/24 06:00 07/18/24 04:00 Narrative Exam GENERAL: Pt is awake but is not able to follow command, she is nonverbal at baseline, grimacing NEURO: unable to asses due to developmental delay HEENT: Atraumatic, microcephaly. mucous membranes moist. Eyes open, symmetrical, & clear HEART: Normal Heart Sounds, tachycardic LUNGS: Clear to auscultation with no wheezing or crackles. ABDOMEN: soft, non-distended, non-tender, no guarding or rebound tenderness, PEG tube present right upper quadrant SKIN: No Rash or ecchymoses EXTREMITIES: No edema, bilateral lower extremity contractures Objective Labs 07/20/24 05:39 07/20/24 05:39 Labs: Laboratory Results - last 24 hr 07/18/24 07/19/24 07/20/24 08:43 09:54 05:39 WBC 20.3 H D 15.6 H RBC 3.64 L 3.62 L Hgb 12.1 12.4 Hct 35.6 L 34.6 L MCV 98 96 MCH 33.2 34.3 MCHC 34.0 35.8 RDW Std Deviation 48.5 H 46.6 H Plt Count 152 D 237 D Neut % (Auto) 63 52 Lymph % (Auto) 25 29 [place] % (Auto) 8 13 H Eos % (Auto) 0 0 Baso % (Auto) 0 0 Neut # (Auto) 12.7 H 8.2 H Lymph # (Auto) 5.1 H 4.5 [place] # (Auto) 1.6 H 2.0 H Eos # (Auto) 0.0 0.0 Baso # (Auto) 0.0 0.0 Immature Gran # (Auto) 0.90 H 0.87 H Absolute Nucleated RBC 0.09 H 0.07 H Immature Gran % 4 H 6 H Nucleated RBC % 0 0 Sodium 131 L Potassium 3.4 D Chloride 92 L Carbon Dioxide 31.9 H Anion Gap 7 BUN 7 L Creatinine 0.5 L Estim Creat Clear Calc 89.8 eGFR > 60 BUN/Creatinine Ratio 14 Glucose 106 Calculated Osmolality 260 L Calcium 8.7 Corrected Calcium 9.3 Phosphorus 4.7 Magnesium 2.4 Total Bilirubin 1.1 AST 190 H ALT 153 H Alkaline Phosphatase 275 H D Total Protein 5.8 Albumin 3.2 L Globulin 2.6 Albumin/Globulin Ratio 1.2 Hepatitis A IgM Ab Non Reactive Hep Bs Antigen Non Reactive Hep B Core IgM Ab Non Reactive Hepatitis C Antibody Non Reactive ABG Interpretation ABG results: 07/15/24 07/15/24 15:41 17:15 ABG pH 7.35 7.32 L ABG pCO2 43 44 ABG pO2 168 H 205 H D ABG HCO3 24 23 ABG O2 Saturation 100 H 100 H ABG Base Excess -2 -3 Quality Measures Quality Measures sepsis Current suspected stage: sepsis Possible source: pulmonary Blood cultures ordered: yes Antibiotic ordered: Yes Assessment & Plan Assessment Current Active Medications: Generic Name Dose Route Start Last Admin Trade Name Freq PRN Reason Stop Dose Admin Acetaminophen 650 mg 07/18/24 11:12 07/18/24 12:04 Acetaminophen Ginger 325 Mg/10 Ml Udc GT 08/16/24 12:31 650 mg Q4HR PRN Administration PAIN Famotidine 20 mg 07/15/24 15:45 07/20/24 09:03 Famotidine Inj 10 Mg/Ml Vial 2 Ml IVP 08/14/24 15:44 20 mg QDAY CAMILA Administration Guaifenesin 100 mg 07/19/24 09:45 07/20/24 05:23 Guaifenesin Syrup 200 Mg/10 Ml Udc GT 08/18/24 09:44 100 mg TID CAMILA Administration Protocol Heparin Sodium (Porcine) 5,000 unit 07/16/24 10:30 07/20/24 09:05 Heparin Sod Inj 5000 Unit/Ml Vial SC 07/30/24 10:29 5,000 unit BID CAMILA Administration Vancomycin HCl/Dextrose 250 mls @ 120 mls/hr 07/19/24 10:00 07/19/24 22:38 Vancomycin/D5w 1,250 Mg Ivpb IV 07/26/24 09:59 120 mls/hr Q12H CAMILA Administration Protocol Levofloxacin/Dextrose 500 mg in 100 mls @ 100 mls/hr 07/20/24 09:00 07/20/24 09:04 Levaquin Ivpb IV 07/27/24 08:59 100 mls/hr QDAY CAMILA Administration Lactobacillus Rhamnosus 1 cap 07/18/24 11:15 07/20/24 09:03 Lactobacillus Rhamnosus 1 Cap GT 08/17/24 11:14 1 cap BID CAMILA Administration Levothyroxine Sodium 38 mcg 07/16/24 06:00 07/20/24 05:19 Levothyroxine Inj 100 Mcg Vial IV 08/15/24 05:59 38 mcg MOWESA CAMILA Administration Levothyroxine Sodium 25 mcg 07/16/24 06:00 07/17/24 05:45 Levothyroxine Inj 100 Mcg Vial IV 08/15/24 05:59 25 mcg TUTHFR CAMILA Administration Magnesium Hydroxide 30 ml 07/16/24 10:45 07/19/24 09:03 Milk Of Magnesia Susp 30 Ml Udc PO 08/15/24 10:44 Not Given QDAY [facility] Protocol Mupirocin 2 gm 07/18/24 14:00 07/20/24 05:23 Mupirocin Oint 2% 15 Gm Tube TOP 07/25/24 13:59 1 applicatio TID CAMILA Administration Pharmacy Consult 1 each 07/15/24 15:00 07/20/24 09:05 Pharmacy Renal Dose Adjustment 1 Ea XX 08/14/24 14:59 Not Given QDAY [facility] Pharmacy Consult 1 each 07/19/24 09:43 Vancomycin Pharmacy To Dose 1 Each Each IV 08/18/24 09:42 QDAY PRN CONSULT Potassium Phos/Sodium Phos 2 packet 07/19/24 10:45 07/20/24 09:04 Naph,[facility] Mbdb 1 Packet (1.5 Gm) GT 08/18/24 10:44 2 packet DAILY CAMILA Administration Simethicone 80 mg 07/16/24 10:45 07/20/24 09:04 Simethicone 40 Mg/0.6 Ml Oral Syringe PO 08/15/24 10:44 80 mg DAILY CAMILA Administration Sodium Chloride 3 ml 07/15/24 10:18 07/15/24 10:30 Sodium Chloride Rt Ginger 0.9% 3 Ml Nebu INH 08/14/24 10:17 3 ml PRN PRN Administration SOLN Valproic Acid 400 mg 07/17/24 09:00 07/20/24 09:04 Valproic Acid Syrup 250 Mg/5 Ml Udc PO 08/16/24 08:59 400 mg BID CAMILA Administration Plan Ms. Pérez is a 54 y/o female with past medical history significant for cerebral palsy, epilepsy, hypothyroidism, GERD, cholithiasis, scholiosis, developmental delay and non verbal at baseline. Pt is brought to the ED on 07/15 from her facility due to low oxygen saturation. #suspect endocarditis -Pt has repeat sepsis and went into septic shock despite adequate treatment with antibiotics. BC 2/2 are GPC positive which raises suspicion for infective endocarditis. -Pt meets 1 major criteria of 2/2 BC positive for GPC -staph and 1 minor criteria of fever which indicates possible IE -Pt underwent an attempt for echo study on 07/15 and was unsuccessful due to cooperation, cardiology is consulted for REYNA -Attempt for REYNA was unsuccessful due to pts anatomy and the probe was not able to progress therefore since pt is sedated TTE was done and results are pending #Sepsis 2/2 #bilateral pneumonia #GPC bacteremia -on admission SIRS 4/4 met: tachycardia, tachypnea, fever and leukocytosis -Pt had recent sick contacts in her skilled nursing -CXR evident of bilateral pneumonia, worsening on right lower lobe -RSV and Influenza A negative -BC on 07/15 2/2 positive for GPC, repeat BC have been negative -Pt is on suplemental oxygen, antibitoics include meropenem and vancomycin #Chronic PEG tube -tube feedings are resumed #hypophosphatemia -phosphate <0.3, repleated by primary team #History of hypothyroidism -TSH 1.65 pt is on levothyroxine #History of seizure disorder -Pt is resumed her home Valproic acid #Thrombocytopenia-resolved -no signs of active bleeding, continue to monitor #Transaminitis-imrpoving -on admission AST 147 ALT 87 -Today AST 190 and ALT 153 -Hepatitis panel negative Assessment and plan discussed with my attending physician Dr. Laura Day (PGY-1)- Internal medicine resident Attending Provider Attestation/Addendum I have personally seen and examined the patient separately on the above date of service and discussed the plan of care with the resident. I reviewed the resident Dr. Rob Day consultation progress note and agree with the resident findings and plan in the note above and have also edited the documentation to reflect my findings and plan. Daryl Sanchez M.D. Interventional Cardiology
[2024-07-20 09:51] LABS: Vancomycin,Trough 17.7 mcg/mL (5.0-10.0)
--- NOTE | 2024-07-20 10:00 | PD.RESCONSUL ---
HPI Data of Consult Consult date: 07/20/24 Requesting Physician: John Lund MD Admitting Provider: Dana Shannon MD Attending Provider: John Lund MD Primary Care Provider: Physician No Primary/Family Consult Narrative Reason for consult: Concern for Infective endocarditis History of present illness: This patient is a 54-year-old male with developmental delay, nonverbal came from [facility], history of cerebral palsy, epilepsy on valproic acid, scoliosis, cholelithiasis, hypothyroidism, GERD and chronic PEG tube presented due to desaturation in 80s at her care facility. Of note, patient was also noted to have fever spikes associated with dark-colored urine patient was given Levaquin during that time. In the ED, patient was hypertensive, tach cardiac tachypneic and febrile and saturating 98% 6 L NC. Patient received bolus of fluid due to drop of blood pressure. Patient was taken to ICU for distributive shock likely secondary to pneumonia versus UTI requiring pressor support. Patient was managed with IV vancomycin and meropenem. Blood culture showed GPC 2 out of 2 and meropenem was discontinued. Patient fulfilled 1 major criteria of 2 out of 2 GPC and 1 minor, persistent fever for concern of infective endocarditis. Echocardiogram was ordered but was limited due to patient being uncooperative and anatomical variation. Repeat blood cultures were negative x 48 hours. Cardiology has been consulted for REYNA for possible ruling out vegetations. Patient is currently on cefepime and vancomycin. 07/20/2024: Patient was seen and examined at the bedside. Patient is nonverbal at baseline vitals revealed heart rate 106 bpm, blood pressure 112/63, afebrile and saturating well on room air. Labs showed improving white count, hemoglobin stable. Chemistry panel showed borderline hypokalemia and elevated bicarb on CHEM panel. Kidney functions remained stable. Elevated transaminase. Hep panel negative. Chest x-ray from 07/16 showed worsening opacity in the right lung consistent with pneumonia and mild heart failure pattern. Initial blood cultures from 07/15 grew Staph hominis and GPC. Blood cultures from 07/16 grew Staph hominis in 1 bottle only. Recent blood cultures from 07/17 negative x 48 hours. --> Recommendations are to continue with vancomycin until endocarditis is ruled out on echocardiogram. Procalcitonin was ordered. Cefepime was discontinued. Previous blood cultures could be possible contamination as 1 out of 2 grew Staph hominis however would need echocardiogram to likely rule out endocarditis. No [place] lesions or signs of endocarditis were seen on examination. Will follow-up on Saturday for echo and procalcitonin. cc:: cc: John Lund MD Review of Systems Review of Systems Systems Reviewed: All systems reviewed, normal except as documented Past Medical History Past Medical History NEUROLOGIC: Positive Neurological Disorders, Seizures and Cerebral Palsy CARDIAC: Negative Cardiac Disorders or Congestive Heart Failure RESPIRATORY: Positive Pneumonia; Negative Chronic Obstructive Pulmonary Disease (COPD) or Asthma GASTROINTESTINAL: Positive Gastrointestinal Disorders, Gall Bladder Disease and Gastroesophageal Reflux Disease GENITOURINARY: Negative Genitourinary Disorders or Renal Disease MUSCULOSKELETAL: Positive Musculoskeletal Disorders and Scoliosis ENT: Positive Blind ENDOCRINE: Positive Endocrine Disorders and Hypothyroidism; Negative Diabetes Mellitus Type 1 or Diabetes Mellitus Type 2 HEMATOLOGIC: Negative Blood Disorders or Sickle Cell Disease PSYCHO/SOCIAL: Negative Behavior Problems OTHER HISTORY: Positive Hospitalization and Developmental Delay; Negative Autoimmune Disease, Shingles, Falls, Blood Transfusions, Blood Transfusion Reaction, Anesthesia Reactions or Cancer Family History FAMILY HISTORY: Negative Family Psychiatric Problems, Family Respiratory Disorders, Family Cardiac Disorders, Family Gastrointestinal Problems, Family Cancer, Family Surgery or Family Anesthesia Reaction Surgical History SURGICAL: Positive Gastrostomy Social History SMOKING STATUS: Never smoker SUBSTANCE USE: does not use Exam Vital Signs Temp Pulse Resp BP Pulse Ox O2 Del Method O2 Flow Rate 97.7 F 106 H 18 112/63 99 Room Air 2 07/20/24 06:00 07/20/24 07:07 07/20/24 07:07 07/20/24 06:00 07/20/24 07:07 07/20/24 06:00 07/18/24 04:00 Narrative Exam GENERAL: Dewvelopmental delay, non verbal. NEURO: Moves extremities although contracted, otherwise unable to assess. HEENT: Microcephaly, Moist mucosa. Eyes open, symmetrical, & clear. CARDIO: No chest pain on palpation. Heart RRR, no obvious murmurs. PULM: No noted coughing/dyspnea. Lungs mild rhonchi B/L. GI: Abdomen soft, nondistended, PEG tube intact, some erythema around insertion point. 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 SKIN/MSK/EXT: Contractures in all extremities, no pedal edema. Results Labs 07/22/24 05:32 07/22/24 05:32 Labs: Short CBC 07/19/24 07/20/24 Range/Units 09:54 05:39 WBC 20.3 H D 15.6 H (3.6-11.0) Thou/mm3 Hgb 12.1 12.4 (12.0-16.0) g/dL Hct 35.6 L 34.6 L (36.0-46.0) % Plt Count 152 D 237 D (140-440) Thou/mm3 BMP 07/20/24 05:39 Sodium 131 L Potassium 3.4 D Chloride 92 L Carbon Dioxide 31.9 H BUN 7 L Creatinine 0.5 L Glucose 106 Calcium 8.7 Liver Function 07/20/24 Range/Units 05:39 Total Bilirubin 1.1 (0.3-1.2) mg/dL AST 190 H (0-34) U/L ALT 153 H (10-49) U/L Alkaline Phosphatase 275 H D (46-116) U/L Albumin 3.2 L (3.5-5.0) gm/dL ABG Interpretation ABG results: 07/15/24 07/15/24 15:41 17:15 ABG pH 7.35 7.32 L ABG pCO2 43 44 ABG pO2 168 H 205 H D ABG HCO3 24 23 ABG O2 Saturation 100 H 100 H ABG Base Excess -2 -3 Quality Measures Quality Measures sepsis Current suspected stage: sepsis Possible source: pulmonary Blood cultures ordered: yes Antibiotic ordered: Yes Medications Home Medications and Allergies Home Medications ?Medication ?Instructions ?Recorded ?Confirmed ?Type calcium carbonate 500 mg/5 mL (as 625 mg feeding tube BID 07/29/23 03/18/24 History calcium carb 1,250 mg/5 mL) oral suspension erythromycin 2 % topical solution 1 ml topical BID 07/29/23 03/18/24 History gabapentin 300 mg capsule 900 mg feeding tube BID 07/29/23 03/18/24 History glycopyrrolate 2 mg tablet 2 mg feeding tube BID 07/29/23 03/18/24 History levothyroxine 75 mcg tablet 75 mcg feeding tube USEASDIRECTD 07/29/23 03/18/24 History metoclopramide HCl 5 mg/5 mL oral 10 mg feeding tube BID 07/29/23 03/18/24 History solution multivit and minerals-ferrous 5 ml feeding tube BID 07/29/23 03/18/24 History gluconate 9 mg iron/15 mL oral liquid (Multi-Jg) simethicone 80 mg chewable tablet 80 mg feeding tube TID 07/29/23 03/18/24 History valproic acid (as sodium salt) 250 400 mg feeding tube BID 07/29/23 03/18/24 History mg/5 mL oral solution acetaminophen 325 mg tablet 650 mg feeding tube QID PRN Pain 03/18/24 03/18/24 History (Tylenol) dextromethorphan-guaifenesin 10 10 ml PO Q6H PRN Cough 03/18/24 03/18/24 History mg-200 mg/5 mL oral liquid erythromycin 2 % topical solution 1 ml topical BID 03/18/24 03/18/24 History famotidine 20 mg tablet 20 mg feeding tube QDAY 03/18/24 03/18/24 History ipratropium 0.5 mg-albuterol 3 mg 3 ml inhalation Q4H PRN Shortness 03/18/24 03/18/24 History (2.5 mg base)/3 mL nebulization Of Breath Or Wheezing soln lactulose 10 gram/15 mL oral 30 g feeding tube DAILY 03/18/24 03/18/24 History solution loratadine 10 mg tablet 10 mg feeding tube QDAY 03/18/24 03/18/24 History pseudoephedrine HCl 60 mg tablet 60 mg feeding tube Q6H PRN 03/18/24 03/18/24 History (Sudogest) Congestion Allergies Allergy/AdvReac Type Severity Reaction Status Date / Time bacitracin (From Neosporin Allergy Verified 07/15/24 09:36 ([id number])) cephalexin Allergy Verified 07/15/24 09:36 neomycin (From Neosporin Allergy Verified 07/15/24 09:36 ([id number])) Penicillins Allergy Verified 07/15/24 09:36 polymyxin B (From Neosporin Allergy Verified 07/15/24 09:36 ([id number])) Visit Medications Acetaminophen (Acetaminophen Ginger 325 Mg/10 Ml Udc) 650 mg GT Q4HR PRN PRN Reason: PAIN Stop: 08/16/24 12:31 Last Admin: 07/18/24 12:04 Dose: 650 mg Famotidine (Famotidine Inj 10 Mg/Ml Vial 2 Ml) 20 mg IVP QDAY [facility] Stop: 08/14/24 15:44 Last Admin: 07/20/24 09:03 Dose: 20 mg Guaifenesin (Guaifenesin Syrup 200 Mg/10 Ml Udc) 100 mg GT TID [facility]; Protocol Stop: 08/18/24 09:44 Last Admin: 07/20/24 05:23 Dose: 100 mg Heparin Sodium (Porcine) (Heparin Sod Inj 5000 Unit/Ml Vial) 5,000 unit SC BID [facility] Stop: 07/30/24 10:29 Last Admin: 07/20/24 09:05 Dose: 5,000 unit Vancomycin HCl/Dextrose (Vancomycin/D5w 1,250 Mg Ivpb) 250 mls @ 120 mls/hr IV Q12H [facility]; Protocol Stop: 07/26/24 09:59 Last Admin: 07/19/24 22:38 Dose: 120 mls/hr Levofloxacin/Dextrose (Levaquin Ivpb) 500 mg in 100 mls @ 100 mls/hr IV QDAY [facility] Stop: 07/27/24 08:59 Last Admin: 07/20/24 09:04 Dose: 100 mls/hr Lactobacillus Rhamnosus (Lactobacillus Rhamnosus 1 Cap) 1 cap GT BID [facility] Stop: 08/17/24 11:14 Last Admin: 07/20/24 09:03 Dose: 1 cap Levothyroxine Sodium (Levothyroxine Inj 100 Mcg Vial) 38 mcg IV MOWESA [facility] Stop: 08/15/24 05:59 Last Admin: 07/20/24 05:19 Dose: 38 mcg Levothyroxine Sodium (Levothyroxine Inj 100 Mcg Vial) 25 mcg IV TUTHFR [facility] Stop: 08/15/24 05:59 Last Admin: 07/17/24 05:45 Dose: 25 mcg Magnesium Hydroxide (Milk Of Magnesia Susp 30 Ml Udc) 30 ml PO QDAY [facility]; Protocol Stop: 08/15/24 10:44 Last Admin: 07/19/24 09:03 Dose: Not Given Mupirocin (Mupirocin Oint 2% 15 Gm Tube) 2 gm TOP TID [facility] Stop: 07/25/24 13:59 Last Admin: 07/20/24 05:23 Dose: 1 applicatio Pharmacy Consult (Pharmacy Renal Dose Adjustment 1 Ea) 1 each XX QDAY [facility] Stop: 08/14/24 14:59 Last Admin: 07/20/24 09:05 Dose: Not Given Pharmacy Consult (Vancomycin Pharmacy To Dose 1 Each Each) 1 each IV QDAY PRN PRN Reason: CONSULT Stop: 08/18/24 09:42 Potassium Phos/Sodium Phos (Naph,[facility] 1 Packet (1.5 Gm)) 2 packet GT DAILY [facility] Stop: 08/18/24 10:44 Last Admin: 07/20/24 09:04 Dose: 2 packet Simethicone (Simethicone 40 Mg/0.6 Ml Oral Syringe) 80 mg PO DAILY [facility] Stop: 08/15/24 10:44 Last Admin: 07/20/24 09:04 Dose: 80 mg Sodium Chloride (Sodium Chloride Rt Ginger 0.9% 3 Ml Nebu) 3 ml INH PRN PRN PRN Reason: SOLN Stop: 08/14/24 10:17 Last Admin: 07/15/24 10:30 Dose: 3 ml Valproic Acid (Valproic Acid Syrup 250 Mg/5 Ml Udc) 400 mg PO BID [facility] Stop: 08/16/24 08:59 Last Admin: 07/20/24 09:04 Dose: 400 mg Discontinued Medications Acetaminophen (Acetaminophen Ginger 325 Mg/10 Ml Udc) 612 mg 15 mg/kg (612 mg) GT X1 ONE Stop: 07/15/24 11:37 Last Admin: 07/15/24 12:22 Dose: 612 mg Acetaminophen (Acetaminophen 325 Mg Tablet) 650 mg PO Q4HR PRN PRN Reason: PAIN Stop: 08/16/24 12:31 Last Admin: 07/17/24 12:57 Dose: 650 mg Albuterol (Albuterol Rt 2.5 Mg/0.5 Ml Nebu) 10 mg INH X1 ONE Stop: 07/15/24 10:19 Last Admin: 07/15/24 10:29 Dose: 10 mg Albuterol/Ipratropium (Albuterol/Ipratropium (Duoneb) Rt Ginger 3 Ml Nebu) 3 ml INH Q4H [facility] Stop: 08/14/24 15:14 Last Admin: 07/15/24 16:21 Dose: Not Given Albuterol/Ipratropium (Albuterol/Ipratropium (Duoneb) Rt Ginger 3 Ml Nebu) 3 ml INH Q4HRRT [facility] Stop: 08/14/24 16:14 Last Admin: 07/17/24 03:00 Dose: 3 ml Albuterol/Ipratropium (Albuterol/Ipratropium (Duoneb) Rt Ginger 3 Ml Nebu) 3 ml INH X1 ONE Stop: 07/18/24 13:09 Last Admin: 07/18/24 13:55 Dose: 3 ml Albuterol/Ipratropium (Albuterol/Ipratropium (Duoneb) Rt Ginger 3 Ml Nebu) 3 ml INH Q6HRRT PRN PRN Reason: SOB or Wheeze Stop: 08/17/24 18:59 Albuterol/Ipratropium (Albuterol/Ipratropium (Duoneb) Rt Ginger 3 Ml Nebu) 3 ml INH Q6HRRT [facility] Stop: 08/18/24 12:59 Last Admin: 07/20/24 07:06 Dose: 3 ml Benzocaine (Benzocaine 20% (Hurricaine) [place] 1 Dose) 0 dose TOP X1 ONE Stop: 07/17/24 14:30 Last Admin: 07/17/24 14:50 Dose: 1 dose Calcium Carbonate (Calcium Carbonate 600 Mg Tablet) 600 mg PO X1 ONE Stop: 07/19/24 00:26 Last Admin: 07/19/24 00:57 Dose: 600 mg Fentanyl Citrate (Fentanyl Cit Inj 50 Mcg/Ml Amp 2ml) 100 mcg IV X1 ONE Stop: 07/17/24 14:31 Last Admin: 07/17/24 18:42 Dose: Not Given Fentanyl Citrate (Fentanyl Cit Inj 50 Mcg/Ml Amp 2ml) 75 mcg IV X1 ONE Stop: 07/17/24 15:33 Last Admin: 07/17/24 14:50 Dose: 75 mcg Heparin Sodium (Porcine) (Heparin Sod Inj 5000 Unit/Ml Vial) 5,000 unit SC X1 ONE Stop: 07/15/24 20:14 Last Admin: 07/15/24 20:25 Dose: 5,000 unit Heparin Sodium (Porcine) (Heparin Sod Inj 5000 Unit/Ml Vial) 5,000 unit SC BID [facility] Stop: 07/30/24 10:29 Hydrocortisone Sodium Succinate (Hydrocortisone Sod Succ Inj 100 Mg Vial) 50 mg IV Q6HR [facility] Stop: 08/14/24 19:24 Last Admin: 07/16/24 05:43 Dose: 50 mg Hydrocortisone Sodium Succinate (Hydrocortisone Sod Succ Inj 100 Mg Vial) 50 mg IV BID [facility] Stop: 07/23/24 20:59 Last Admin: 07/17/24 08:14 Dose: 50 mg Hydrocortisone Sodium Succinate (Hydrocortisone Sod Succ Inj 100 Mg Vial) 50 mg IV DAILY [facility] Stop: 07/25/24 08:59 Last Admin: 07/18/24 09:04 Dose: 50 mg Sodium Chloride (Ns) 1,000 mls @ 999 mls/hr IV .Q1H1M ONE Stop: 07/15/24 11:22 Last Infusion: 07/15/24 12:48 Dose: Infused Sodium Chloride (Ns) 500 mls @ 999 mls/hr IV .Q31M ONE Stop: 07/15/24 12:07 Last Infusion: 07/15/24 14:05 Dose: Infused Meropenem 1,000 mg/ Sodium (Chloride) 50 mls @ 100 mls/hr IV X1 ONE Stop: 07/15/24 11:39 Last Infusion: 07/15/24 12:48 Dose: Infused Sodium Chloride (Ns) 500 mls @ 999 mls/hr IV .Q31M ONE Stop: 07/15/24 15:02 Last Admin: 07/15/24 14:59 Dose: Not Given Norepinephrine Bitartrate (Levophed In Ns 16mg/250ml) 16 mg in 250 mls @ 1.914 mls/hr IV .Q24H PRN; Protocol PRN Reason: PER PROTOCOL Stop: 08/14/24 14:52 Last Titration: 07/15/24 20:05 Dose: 0 mcg/kg/min, 0 mls/hr Vancomycin/Sodium Chloride (Vancomycin/Ns 1 Gm Ivpb) 200 mls @ 120 mls/hr IV X1 ONE Stop: 07/15/24 16:54 Last Infusion: 07/15/24 18:44 Dose: Infused Meropenem 500 mg/ Sodium (Chloride) 50 mls @ 100 mls/hr IV Q8HR [facility] Stop: 07/22/24 21:59 Last Admin: 07/17/24 05:35 Dose: 100 mls/hr Valproic Acid 200 mg/ Sodium (Chloride) 52 mls @ 104 mls/hr IV Q6HR [facility] Stop: 08/14/24 17:59 Last Admin: 02/19/25 20:21 Dose: Not Given Dexmedetomidine/Sodium Chloride (Precedex Ivpb) 200 mcg in 50 mls @ 2.041 mls/hr IV .Q24H PRN; Protocol PRN Reason: Per PROTOCOL Stop: 08/14/24 17:04 Last Titration: 07/16/24 07:30 Dose: 0 mcg/kg/hr, 0 mls/hr Lactated Ringer's (Lactated Ringers) 500 mls @ 999 mls/hr IV .Q31M ONE Stop: 07/15/24 19:28 Last Admin: 07/15/24 20:20 Dose: 999 mls/hr Vancomycin/Sodium Chloride (Vancomycin/Ns 1 Gm Ivpb) 200 mls @ 120 mls/hr IV Q12H [facility]; Protocol Stop: 07/23/24 09:59 Last Admin: 07/17/24 11:47 Dose: Not Given Vancomycin HCl (Vancomycin/Water 1250 Mg Ivpb) 250 mls @ 120 mls/hr IV BID@1000,2200 [facility]; Protocol Stop: 07/24/24 11:29 Last Admin: 07/19/24 00:22 Dose: 120 mls/hr Norepinephrine/Dextrose (Levophed In D5w 8mg/250ml) 8 mg in 250 mls @ 3.956 mls/hr IV .Q24H PRN; Protocol PRN Reason: PER PROTOCOL Stop: 08/16/24 14:34 Norepinephrine/Dextrose (Levophed In D5w 8mg/250ml) 8 mg in 250 mls @ 3.956 mls/hr IV .Q24H PRN; Protocol PRN Reason: PER PROTOCOL Stop: 08/16/24 14:35 Sodium Phosphate 30 mmol/ (Sodium Chloride) 510 mls @ 62.5 mls/hr IV X1 ONE Stop: 07/18/24 18:35 Last Admin: 07/18/24 13:33 Dose: 62.5 mls/hr Potassium Chloride (Kcl Ivpb) 10 meq in 100 mls @ 100 mls/hr IV Q1H [facility] Last Admin: 07/20/24 06:58 Dose: Not Given Sodium Phosphate 15 mmol/ (Sodium Chloride) 255 mls @ 62.5 mls/hr IV X1 ONE Stop: 07/19/24 11:57 Last Admin: 07/19/24 08:45 Dose: 62.5 mls/hr Levofloxacin/Dextrose (Levaquin Ivpb) 750 mg in 150 mls @ 150 mls/hr IV QDAY [facility] Stop: 07/26/24 10:44 Last Admin: 07/19/24 12:04 Dose: 150 mls/hr Magnesium Sulfate (Magnesium Sulfate Ivpb) 2 gm in 50 mls @ 25 mls/hr IV X1 ONE Stop: 07/19/24 18:11 Last Admin: 07/19/24 16:25 Dose: 25 mls/hr Sodium Chloride (Ns) 250 mls @ 999 mls/hr IV .Q16M ONE Stop: 07/20/24 08:10 Last Admin: 07/20/24 08:51 Dose: 999 mls/hr Lactulose (Lactulose Syrup 20 Gm/30 Ml Udc) 20 gm PO DAILY [facility]; Protocol Stop: 08/15/24 10:29 Last Admin: 07/16/24 10:38 Dose: 20 gm Lactulose (Lactulose Syrup 20 Gm/30 Ml Udc) 20 gm PO DAILY [facility]IL[facility]; Protocol Stop: 08/15/24 10:29 Last Admin: 07/18/24 09:05 Dose: 20 gm Lorazepam (Lorazepam 2 Mg/Ml Vial) 2 mg IVP Q10M PRN PRN Reason: Seizure Activity Methylprednisolone Sodium Succinate (Methylprednisolone Sod Succ 62.5 Mg/Ml 2ml Vial) 125 mg IVP X1 ONE Stop: 07/15/24 10:19 Last Admin: 07/15/24 11:25 Dose: 125 mg Metoclopramide HCl (Metoclopramide Liqd 10 Mg/10 Ml Udc) 10 mg GT BID [facility] Stop: 08/15/24 20:59 Last Admin: 07/18/24 09:04 Dose: 10 mg Midazolam HCl (Midazolam Inj 1 Mg/Ml Vial 2 Ml) 4 mg IVP X1 ONE Stop: 07/17/24 14:46 Last Admin: 07/17/24 18:42 Dose: Not Given Midazolam HCl (Midazolam Inj 1 Mg/Ml Vial 2 Ml) 2 mg IV X1 ONE Stop: 07/17/24 15:33 Last Admin: 07/17/24 14:51 Dose: 2 mg Mupirocin (Mupirocin Oint 2% 15 Gm Tube) 0 gm TOP X1 ONE Stop: 07/18/24 08:03 Last Admin: 07/18/24 11:30 Dose: 1 applicatio Pharmacy Consult (Vancomycin Pharmacy To Dose 1 Each Each) 1 each IV QDAY [facility] Stop: 08/14/24 14:59 Last Admin: 07/19/24 09:41 Dose: Not Given Potassium Chloride (Potassium Chloride 10% 20 Meq/15 Ml Udc) 40 meq GT X1 ONE Stop: 07/17/24 06:29 Last Admin: 07/17/24 08:12 Dose: 40 meq Potassium Chloride (Potassium Chloride 10% 20 Meq/15 Ml Udc) 20 meq GT X1 ONE Stop: 07/17/24 14:05 Last Admin: 07/17/24 18:33 Dose: 20 meq Potassium Chloride (Potassium Chloride 20 Meq Tabcr) 40 meq PO X1 ONE Stop: 07/19/24 00:26 Last Admin: 07/20/24 06:58 Dose: Not Given Potassium Chloride (Potassium Chloride 10% 20 Meq/15 Ml Udc) 40 meq GT X1 ONE Stop: 07/19/24 00:41 Last Admin: 07/19/24 00:57 Dose: 40 meq Potassium Chloride (Potassium Chloride 20 Meq Tabcr) 40 meq PO X1 ONE Stop: 07/19/24 03:06 Last Admin: 07/19/24 03:44 Dose: Not Given Potassium Chloride (Potassium Chloride 10% 20 Meq/15 Ml Udc) 40 meq GT X1 ONE Stop: 07/20/24 07:55 Last Admin: 07/20/24 09:03 Dose: 40 meq Potassium Phos/Sodium Phos (Naph,[facility] 1 Packet (1.5 Gm)) 2 packet GT X1 ONE Stop: 07/18/24 12:31 Potassium Phos/Sodium Phos (Naph,[facility] 1 Packet (1.5 Gm)) 2 packet GT X1 ONE Stop: 07/18/24 10:24 Last Admin: 07/18/24 11:25 Dose: 2 packet Potassium Phos/Sodium Phos (Naph,[facility] 1 Packet (1.5 Gm)) 2 packet GT X1 ONE Stop: 07/19/24 10:30 Last Admin: 07/20/24 06:58 Dose: Not Given Assessment & Plan Plan Summary: The patient is a 54-year-old female with a past medical history of developmental delay, who is also nonverbal, cerebral palsy, epilepsy, scoliosis, cholelithiasis, hypothyroidism, GERD with a chronic PEG tube who presents to the ED on 07/15/2024 after she was found to be desaturating into the 80s at her care facility. Admitted for workup of possible infective endocarditis due to GPC bacteremia likely due to pneumonia. #Septic shock-resolved. #Sepsis 2/ bilateral pneumonia. #GPC bacteremia. #? Concern for infective endocarditis On admission, blood pressure was persistently low despite fluids and so the patient was admitted to the ICU on for pressor support. CXR showed extensive bilateral pneumonia.She was started on IV vancomycin and meropenem Blood culture returned positive for GPC bacteria in 2 bottles and meropenem was discontinued. Due to concern for endocarditis, an echocardiogram was ordered but study was incomplete as the patient was uncooperative. A REYNA was scheduled but patient's esophagus was said to be too narrow and procedure could not be done. She is currently being treated as endocarditis repeat blood cultures are negative, to continue IV vancomycin for 4 to 6 weeks from first negative blood culture. Due to lack of improvement and worsening white cell count primary team started on cefepime for pneumonia treatment in addition to vancomycin. There is a chance of endocarditis therefore continue with vancomycin. Although previous blood cultures grew Staph hominis in 1 out of 2 could be possible contamination Plan: -Discontinue cefepime and continue with vancomycin, [07/19?] and will follow-up on echocardiogram -Follow-up on procalcitonin -Recent repeat blood cultures negative x 48 hours on 07/17 -PICC line placement pending -Continue monitoring CBC -Replete electrolytes as necessary Other active problems: #Leukocytosis #Electrolytes abnormality #Hypophosphatemia #Transaminitis #Thrombocytopenia- improving #Chronic PEG tube #History of hypothyroidism #History of seizure disorder Rest of the management as per primary care team. Thank you very much for consulting infectious specialist team. -- Patient was seen and discussed with ID specialist, Dr Nathanael Clark MD, PGY 2
--- NOTE | 2024-07-20 10:19 | PD.IDPROG ---
Subjective Subjective Interval history: sbe vs contamination. echo pending. tte yuli. breezy unsuccessful Exam Vital Signs Temp Pulse Resp BP Pulse Ox O2 Del Method O2 Flow Rate 97.7 F 106 H 18 112/63 99 Room Air 2 07/20/24 06:00 07/20/24 07:07 07/20/24 07:07 07/20/24 06:00 07/20/24 07:07 07/20/24 06:00 07/18/24 04:00 Narrative Exam non verbal pt. squirmy. so contamination seems more likely than be Objective - Internal Medicine Labs 07/20/24 05:39 07/20/24 05:39 Labs: Laboratory Results - last 24 hr 07/18/24 07/19/24 07/20/24 08:43 09:54 05:39 WBC 20.3 H D 15.6 H RBC 3.64 L 3.62 L Hgb 12.1 12.4 Hct 35.6 L 34.6 L MCV 98 96 MCH 33.2 34.3 MCHC 34.0 35.8 RDW Std Deviation 48.5 H 46.6 H Plt Count 152 D 237 D Neut % (Auto) 63 52 Lymph % (Auto) 25 29 [place] % (Auto) 8 13 H Eos % (Auto) 0 0 Baso % (Auto) 0 0 Neut # (Auto) 12.7 H 8.2 H Lymph # (Auto) 5.1 H 4.5 [place] # (Auto) 1.6 H 2.0 H Eos # (Auto) 0.0 0.0 Baso # (Auto) 0.0 0.0 Immature Gran # (Auto) 0.90 H 0.87 H Absolute Nucleated RBC 0.09 H 0.07 H Immature Gran % 4 H 6 H Nucleated RBC % 0 0 Sodium 131 L Potassium 3.4 D Chloride 92 L Carbon Dioxide 31.9 H Anion Gap 7 BUN 7 L Creatinine 0.5 L Estim Creat Clear Calc 89.8 eGFR > 60 BUN/Creatinine Ratio 14 Glucose 106 Calculated Osmolality 260 L Calcium 8.7 Corrected Calcium 9.3 Phosphorus 4.7 Magnesium 2.4 Total Bilirubin 1.1 AST 190 H ALT 153 H Alkaline Phosphatase 275 H D Total Protein 5.8 Albumin 3.2 L Globulin 2.6 Albumin/Globulin Ratio 1.2 Vancomycin Trough Hepatitis A IgM Ab Non Reactive Hep Bs Antigen Non Reactive Hep B Core IgM Ab Non Reactive Hepatitis C Antibody Non Reactive 07/20/24 09:12 WBC RBC Hgb Hct MCV MCH MCHC RDW Std Deviation Plt Count Neut % (Auto) Lymph % (Auto) [place] % (Auto) Eos % (Auto) Baso % (Auto) Neut # (Auto) Lymph # (Auto) [place] # (Auto) Eos # (Auto) Baso # (Auto) Immature Gran # (Auto) Absolute Nucleated RBC Immature Gran % Nucleated RBC % Sodium Potassium Chloride Carbon Dioxide Anion Gap BUN Creatinine Estim Creat Clear Calc eGFR BUN/Creatinine Ratio Glucose Calculated Osmolality Calcium Corrected Calcium Phosphorus Magnesium Total Bilirubin AST ALT Alkaline Phosphatase Total Protein Albumin Globulin Albumin/Globulin Ratio Vancomycin Trough 17.7 H Hepatitis A IgM Ab Hep Bs Antigen Hep B Core IgM Ab Hepatitis C Antibody ABG Interpretation ABG results: 07/15/24 07/15/24 15:41 17:15 ABG pH 7.35 7.32 L ABG pCO2 43 44 ABG pO2 168 H 205 H D ABG HCO3 24 23 ABG O2 Saturation 100 H 100 H ABG Base Excess -2 -3 Assessment & Plan A&P Narrative be vs contamiation. no role for cefepime if you think this is be I am ok with the repeat echo, but if neg, with no emboli, would tend to the abx significantly. Time Spent With Patient Time: Total time spent is greater than 50% in coordination of care (as documented) at patient's floor/unit and/or counseling patient:
--- NOTE | 2024-07-20 10:30 | XR_ITS ---
Examination: Abdomen sonogram, Limited Date and time of exam: July 20, 2024 1237 hrs. Indications: Elevated liver function tests on laboratory examination July 20, 2024 Technique: Real-time fletcher scale transabdominal sonographic images of the upper abdomen obtained. Findings: Multiple gallstones Gallbladder wall thickening 0.6 cm with edema Common bile duct 0.5 cm Pancreatic head 2.1 cm Liver 15.2 cm fatty infiltration no focal liver lesions Normal hepatopedal portal venous flow Patent IVC Impression: Suspicious for acute calculus cholecystitis, consider MRCP follow-up
[2024-07-20] MEDS: VANCOMYCIN/D5W 1,250 MG IVPB 250 ML 120 MG IV ×2 (10:45→21:33)
--- NOTE | 2024-07-20 12:52 | ESCONSULT_ITS ---
RE: TIFFANY FREY : 1970 DATE OF CONSULTATION: 07/20/2024 REASON FOR CONSULTATION: Endocarditis. HISTORY OF PRESENT ILLNESS: The patient is an unfortunate syndromic-appearing young lady who apparently may have come from a facility or home. We do not know which. She is on a long list of medications. Had positive blood cultures on arrival that were repeated and one of two was again positive, so there was a lot of suspicion for endocarditis, although there is no embolic disease and a transthoracic echo was apparently negative. A repeat echo is pending. The chances of her having endocarditisare low, it would be unusual. She has been in the hospital quite a bit, so we have to keep it in mind, but usually patients have multiple positive blood cultures over time. In her case, she did not have prior positive blood cultures as I recall. If she did, then she may indeed have endocarditis, but if she did not, then we may be chasing her tail. Nonetheless, that seems like a popular strategy, so chasing one's tail is a low yield. If her repeat echo is again negative, I would probably stop the antibiotics and just treat whatever you found. She is on some Pepcid IV, but I am going to switch that to p.o. It looks like there is some other topical Bactroban for different reasons I will leave that alone as its rationale is unclear to me. She looks like she is kind of agitated significantly, and there are no gnr's so I stopped her cefepime and we will leave her on the vancomycin for now, awaiting the echo. I will look forward to seeing her again on Saturday. DT: 10:45:27 TT: 11:35:00 Ref: [id number] - TID: [id number] [facility]
--- NOTE | 2024-07-20 13:36 | PD.RESPRO ---
Documentation for date of: 07/20/24 Subjective Subjective Interval history: Patient was seen and examined at the bedside. No acute overnight events. She appears to be not in distress today. Her white cell count is downtrending however LFTs remain elevated, AST 198, ALT 153. Her alk phos is also elevated, therefore we ordered ultrasound RUQ. Continue current management and monitor patient. Exam Vital Signs Temp Pulse Resp BP Pulse Ox O2 Del Method O2 Flow Rate 98.1 F 99 16 106/58 L 94 L Room Air 2 07/20/24 10:00 07/20/24 10:07/20/24 10:07/20/24 10:00 07/20/24 10:00 07/20/24 10:00 07/18/24 04:00 Narrative Exam GENERAL: Dewvelopmental delay, non verbal. NEURO: Moves extremities although contracted, otherwise unable to assess. HEENT: Microcephaly, Moist mucosa. Eyes open, symmetrical, & clear. CARDIO: No chest pain on palpation. Heart RRR, no obvious murmurs. PULM: No noted coughing/dyspnea. Clear lungs B/L. GI: Abdomen soft, nondistended, PEG tube intact, some erythema around insertion point. URO/TAKER AWAY:: No further abnormalities noted. SKIN/MSK/EXT: Contractures in all extremities, no pedal edema. Objective Labs 07/21/24 04:54 07/21/24 04:54 Labs: Laboratory Results - last 24 hr 07/18/24 07/20/24 07/20/24 08:43 05:39 09:12 WBC 15.6 H RBC 3.62 L Hgb 12.4 Hct 34.6 L MCV 96 MCH 34.3 MCHC 35.8 RDW Std Deviation 46.6 H Plt Count 237 D Neut % (Auto) 52 Lymph % (Auto) 29 [place] % (Auto) 13 H Eos % (Auto) 0 Baso % (Auto) 0 Neut # (Auto) 8.2 H Lymph # (Auto) 4.5 [place] # (Auto) 2.0 H Eos # (Auto) 0.0 Baso # (Auto) 0.0 Immature Gran # (Auto) 0.87 H Absolute Nucleated RBC 0.07 H Immature Gran % 6 H Nucleated RBC % 0 Sodium 131 L Potassium 3.4 D Chloride 92 L Carbon Dioxide 31.9 H Anion Gap 7 BUN 7 L Creatinine 0.5 L Estim Creat Clear Calc 89.8 eGFR > 60 BUN/Creatinine Ratio 14 Glucose 106 Calculated Osmolality 260 L Calcium 8.7 Corrected Calcium 9.3 Phosphorus 4.7 Magnesium 2.4 Total Bilirubin 1.1 AST 190 H ALT 153 H Alkaline Phosphatase 275 H D Total Protein 5.8 Albumin 3.2 L Globulin 2.6 Albumin/Globulin Ratio 1.2 Vancomycin Trough 17.7 H Hepatitis A IgM Ab Non Reactive Hep Bs Antigen Non Reactive Hep B Core IgM Ab Non Reactive Hepatitis C Antibody Non Reactive ABG Interpretation ABG results: 07/15/24 07/15/24 15:41 17:15 ABG pH 7.35 7.32 L ABG pCO2 43 44 ABG pO2 168 H 205 H D ABG HCO3 24 23 ABG O2 Saturation 100 H 100 H ABG Base Excess -2 -3 Quality Measures Quality Measures sepsis Current suspected stage: sepsis Possible source: pulmonary Blood cultures ordered: yes Antibiotic ordered: Yes Assessment & Plan Assessment Current Active Medications: Generic Name Dose Route Start Last Admin Trade Name Freq PRN Reason Stop Dose Admin Acetaminophen 650 mg 07/18/24 11:12 07/18/24 12:04 Acetaminophen Ginger 325 Mg/10 Ml [facility] 08/16/24 12:31 650 mg Q4HR PRN Administration PAIN Famotidine 20 mg 07/15/24 15:45 07/20/24 09:03 Famotidine Inj 10 Mg/Ml Vial 2 Ml IVP 08/14/24 15:44 20 mg QDAY CAMILA Administration Guaifenesin 100 mg 07/19/24 09:45 07/20/24 05:23 Guaifenesin Syrup 200 Mg/10 Ml [facility] GT 08/18/24 09:44 100 mg TID CAMILA Administration Protocol Heparin Sodium (Porcine) 5,000 unit 07/16/24 10:30 07/20/24 09:05 Heparin Sod Inj 5000 Unit/Ml Vial SC 07/30/24 10:29 5,000 unit BID CAMILA Administration Vancomycin HCl/Dextrose 250 mls @ 120 mls/hr 07/19/24 10:00 07/20/24 10:45 Vancomycin/D5w 1,250 Mg Ivpb IV 07/26/24 09:59 120 mls/hr Q12H CAMILA Administration Protocol Lactobacillus Rhamnosus 1 cap 07/18/24 11:15 07/20/24 09:03 Lactobacillus Rhamnosus 1 Cap GT 08/17/24 11:14 1 cap BID CAMILA Administration Levothyroxine Sodium 38 mcg 07/16/24 06:00 07/20/24 05:19 Levothyroxine Inj 100 Mcg Vial IV 08/15/24 05:59 38 mcg MOWESA CAMILA Administration Levothyroxine Sodium 25 mcg 07/16/24 06:00 07/17/24 05:45 Levothyroxine Inj 100 Mcg Vial IV 08/15/24 05:59 25 mcg TUTHFR CAMILA Administration Magnesium Hydroxide 30 ml 07/16/24 10:45 07/19/24 09:03 Milk Of Magnesia Susp 30 Ml Udc PO 08/15/24 10:44 Not Given QDAY [facility] Protocol Mupirocin 2 gm 07/18/24 14:00 07/20/24 05:23 Mupirocin Oint 2% 15 Gm Tube TOP 07/25/24 13:59 1 applicatio TID CAMILA Administration Pharmacy Consult 1 each 07/15/24 15:00 07/20/24 09:05 Pharmacy Renal Dose Adjustment 1 Ea XX 08/14/24 14:59 Not Given QDAY CAMILA Pharmacy Consult 1 each 07/19/24 09:43 Vancomycin Pharmacy To Dose 1 Each Each IV 08/18/24 09:42 QDAY PRN CONSULT Potassium Phos/Sodium Phos 2 packet 07/19/24 10:45 07/20/24 09:04 N[facility] Mbdb 1 Packet (1.5 Gm) GT 08/18/24 10:44 2 packet DAILY CAMILA Administration Simethicone 80 mg 07/16/24 10:45 07/20/24 09:04 Simethicone 40 Mg/0.6 Ml Oral Syringe PO 08/15/24 10:44 80 mg DAILY CAMILA Administration Sodium Chloride 3 ml 07/15/24 10:18 07/15/24 10:30 Sodium Chloride Rt Ginger 0.9% 3 Ml Nebu INH 08/14/24 10:17 3 ml PRN PRN Administration SOLN Valproic Acid 400 mg 07/17/24 09:00 07/20/24 09:04 Valproic Acid Syrup 250 Mg/5 Ml Udc PO 08/16/24 08:59 400 mg BID CAMILA Administration Plan The patient is a 54-year-old female with a past medical history of developmental delay, who is also nonverbal, cerebral palsy, epilepsy, scoliosis, cholelithiasis, hypothyroidism, GERD with a chronic PEG tube who presents to the ED on 07/15/2024 after she was found to be desaturating into the 80s at her care facility. #Septic shock-resolved. #Sepsis 2/2 bilateral pneumonia. #GPC bacteremia. Blood pressure was persistently low on admission despite fluids and so the patient was admitted to the ICU on for pressor support. CXR showed extensive bilateral pneumonia. She was started on IV vancomycin and meropenem Blood culture returned positive for GPC bacteria in 2 bottles and meropenem was discontinued. Due to concern for endocarditis, an echocardiogram was ordered but study was incomplete as the patient was uncooperative. A REYNA was scheduled but patient's esophagus was said to be too narrow and procedure could not be done. She is currently being treated as endocarditis repeat blood cultures are pending, to continue IV vancomycin for 4 to 6 weeks from first negative blood culture. 07/18/2024- Labs reviewed, WBC downtrending today at 14.9. CHEM panel shows significantly low phosphorus at 0.3. Will replete Pending final read of initial blood culture and repeat blood culture. Will continue IV vancomycin for now. Will also repeat transthoracic echocardiogram. Due to lack of improvement and worsening white cell count patient was started on cefepime for pneumonia treatment in addition to vancomycin, which later was changed to levofloxacin by ID. Plan: -Continue IV vancomycin. -started on cefepime 07/19 for pneumonia, ID changed to levofloxacin 07/20 - -Pending repeat blood cultures, negative preliminary. -Continue monitoring CBC. -ID consulted. #Electrolytes abnormality. #Hypophosphatemia, resolved. Phosphorus today-less than 0.3 Plan: -Replete as needed. -Repeat renal panel daily. #Transaminitis. Labs reviewed show elevated AST, ALT and ALP with low hemoglobin. Contributed to possible recent antibiotic use/ shock liver Hepatitis panel negative. Transaminitis noted, AST and ALT. Alk Phos is also elevated. Plan: -Continue to monitor LFTs -pending RUQ US. #Thrombocytopenia- improving Platelet count on admission 77. Fibrinogen and D-dimer elevated. Currently no signs of active bleeding Platelet count today-119 Plan: -Follow-up protein C and Antithrombin -Continue to monitor platelets and for signs of bleeding #Chronic PEG tube Patient has a history of chronic PEG tube. Tube feedings were resumed on 07/16/2024. Patient is having regular bowel movements. Plan: -Continue tube feeds -Bowel regimen #History of hypothyroidism The patient has a history of hypothyroidism and is on levothyroxine 75 mcg. Currently Giving IV levothyroxine 30 mcg on // and 25 on / Plan: -Continue IV levothyroxine #History of seizure disorder Patient has a history of seizure disorder and has been managed on valproic acid 400 mg. No seizures on this admission. Plan: -Continue valproic acid Health maintenance: Dispo: Tele, pending repeat cultures Diet: Tube feeds GI: Pantoprazole DVT: SC Heparin Valle: None Lines: Peripheral Code: Full Plan of care discussed with attending Dr. Christianson. Nirav Osorio MD, PGY 2. Disclaimer: This note was dictated by speech recognition. Minor errors in agronomy research manager may be present due to voice recognition software. Attending Provider Attestation/Addendum I have examined the patient, reviewed labs and imaging findings, discussed the case with the resident(s), and reviewed entered orders. I agree with the plan of care as outlined in this note, with these additional summaries/recommendations: Patient seen at bedside. No acute overnight events. Patient is nonverbal and no history can be obtained at this time. Patient was downgraded from ICU for septic shock. Off pressors. Found to have pneumonia on x-ray and staph hominis ssp hominis bacteremia. Unclear source for bacteremia, possible contamination? Infectious disease consulted, recommendations appreciated. Patient has been on IV vancomycin. Repeat Blood cultures on 07/17/2024 are showing no growth at 48 hours. Pending TTE, REYNA attempted but was unsuccessful secondary to esophageal narrowing. Hypophosphatemia resolved today. Patient has transaminitis and general surgery following. Abdominal ultrasound was suspicious for acute acalculous cholecystitis although low suspicion at this time. ALP likely related to bone etiology. T. bili within normal limits. Transaminitis most likely secondary to previous septic shock versus medication induced from steroids. AST is downtrending daily although ALT is uptrending. We will monitor for now and repeat levels in AM. Continue tube feeds and free water flushes via PEG. Continue levothyroxine for history of hypothyroidism. Significant respiratory secretions present and continue breathing treatments and mucolytic. Dr. Meghan MD
--- NOTE | 2024-07-20 13:58 | ESPR_ITS ---
Documentation for date of: 07/20/24 Subjective Subjective Brief History: Patient was found to have sepsis and was therefore admitted to ICU with hypotension. But she has recovered with vasopressors. 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 I am Femynor with the patient because I saw her as an outpatient basis for scheduling cholecystectomy. But I postponed the surgery because she did not have any symptoms according to her caregiver Narrative: The patient was seen for a follow-up. She is tolerating the tube feeding without any nausea or abdominal pain. It is difficult to evaluate her abdominal pain Exam Vital Signs Temp Pulse Resp BP Pulse Ox O2 Del Method O2 Flow Rate 98.1 F 99 16 106/58 L 94 L Room Air 2 07/20/24 10:07/20/24 10:07/20/24 10:07/20/24 10:07/20/24 10:07/20/24 10:07/18/24 04:00 Your vital signs are normal Routine Abdominal Exam Comments: Abdominal examination is benign and does not seem to have any tenderness in the right upper quadrant Results Results: Laboratory Laboratory Narrative: Patient's laboratory workup showed persistent leukocytosis and persistent liver enzyme elevation Results: Imaging Imaging narrative: Chest x-ray shows worsening pneumonia Assessment & Plan Assessment Additional comments: Impression: The cause of her liver enzyme elevation is not clear Plan Plan: I will treat the patient for pneumonia and may be get an opinion from glycerin supervisor as to why she has persistent liver enzyme elevation. It is probably not due to gallstones because there is no indication that she had a common bile duct stone. Her gallstones are not causing the present problem and she may be evaluated as an outpatient to remove the gallbladder after discharge.
[2024-07-21] VITALS (11 sets, daily range): BP systolic 122–149; BP diastolic 64–94; PULSE 91–106; RESP 16–94; TEMP 36.4–37.1; O2SAT 91–100
[2024-07-21] MEDS: guaiFENesin SYRUP 200 MG/10 ML UDC 100 MG GT ×3 (05:02→22:18)
[2024-07-21] MEDS: MUPIROCIN OINT 2% 15 GM TUBE 2 GM TOP ×3 (05:04→22:18)
[2024-07-21] MEDS: LEVOTHYROXINE INJ 100 mCg VIAL 25 MCG IV (05:09)
[2024-07-21 05:34] LABS: Basophils # (Auto) 0.1 Thou/mm3 (0.0-0.2); Basophils % (Auto) 0 % (0-2.5); Eosinophils % (Auto) 0 % (0-10); Hematocrit 34.9 % (36.0-46.0); Hemoglobin 12.1 g/dL (12.0-16.0); Immature Granulocytes % (Auto) 4 % (0-0); Immature Granulocytes Auto 0.62 Thou/mm3 (0.00-0.00); Lymphocytes # (Auto) 4.2 Thou/mm3 (1.0-4.8); Lymphocytes % (Auto) 25 % (10-50); Mean Corpuscular HGB Conc 34.7 g/dl (31.0-37.0); Mean Corpuscular Hemoglobin 33.6 pg (25.0-35.0); Mean Corpuscular Volume 97 fL (80-100); Monocytes % (Auto) 12 % (0-12); Neutrophils # (Auto) 10.2 Thou/mm3 (1.8-7.7); Neutrophils % (Auto) 60 % (37-80); Nucleated Red Blood Cell # 0.02 Thou/mm3 (0.00-0.00); Nucleated Red Blood Cell % 0 /100 WBC (0); Platelet Count 329 Thou/mm3 (140-440); RDW Standard Deviation 47.8 fL (36.4-46.3); White Blood Count 16.9 Thou/mm3 (3.6-11.0)
[2024-07-21 06:30] LABS: Antithrombin III, Activity 60 % normal (80-135); Antithrombin III, Antigen 66 % normal (80-120); Protein C Activity* 50 % normal (70-180)
[2024-07-21 07:21] LABS: Alanine Aminotransferase 104 U/L (10-49); Albumin, Serum 3.5 gm/dL (3.5-5.0); Albumin/Globulin Ratio 1.3 (1.2-2.2); Alkaline Phosphatase 223 U/L (46-116); Anion Gap 7 (7-16); Aspartate Amino Transferase 72 U/L (0-34); BUN/Creatinine Ratio 15 Ratio (12-20); Bilirubin,Total 0.7 mg/dL (0.3-1.2); Blood Urea Nitrogen 9 mg/dL (9-23); Calcium 9.3 mg/dL (8.3-10.6); Calcium (Corrected) 9.7 mg/dL (8.5-10.1); Carbon Dioxide 32.4 mMol/L (20.0-31.0); Chloride 94 mMol/L (98-107); Creatinine (Component) 0.6 mg/dL (0.6-1.3); Estimated Creatinine Clearance 74.8 mL/min (>60); Globulin 2.7 gm/dL (2.3-3.5); Glucose 114 mg/dL (74-106); Osmolality,Calculated 266 (275-295); Procalcitonin 0.57 ng/ml (0.0-0.49); Sodium 133 mMol/L (136-145); Total Protein 6.2 gm/dL (5.7-8.2); eGFR > 60 See Note
--- NOTE | 2024-07-21 08:49 | ESPR_ITS ---
Documentation for date of: 07/21/24 Subjective Subjective Interval history: No acute overnight events reported. Patient is seen and examined at bedside in [facility]. Patient is nonverbal at baseline. Pt is resting comfortably, saturating on room air. Vitals include BP 149/64, pt is not on any antihypertensive meds. currently patient saturating above 95% on room air. WBC is 16.9 and thrombocytopenia has resolved with platelets count of 329. Transiminitis is improving. BUN 9, Creatinine 0.6 and GFR >60 pt is currently on tube feeds and maintenance fluids. Hepatitis panel is negative. REYNA is negative. Surgery is consulted and per recommendations Pt would need GI work up and outpatient cholesystecomy. Cardiology will now sign off, continue management as per hospitalist team Exam Vital Signs Temp Pulse Resp BP Pulse Ox O2 Del Method O2 Flow Rate 98.8 F 93 21 H 149/64 H 100 Room Air 2 07/21/24 07:38 07/21/24 07:38 07/21/24 07:38 07/21/24 07:38 07/21/24 07:38 07/21/24 07:38 07/20/24 14:00 Narrative Exam GENERAL: Pt is awake but is not able to follow command, she is nonverbal at baseline, grimacing NEURO: unable to asses due to developmental delay HEENT: Atraumatic, microcephaly. mucous membranes moist. Eyes open, symmetrical, & clear HEART: Normal Heart Sounds, tachycardic LUNGS: Clear to auscultation with no wheezing or crackles. ABDOMEN: soft, non-distended, non-tender, no guarding or rebound tenderness, PEG tube present right upper quadrant SKIN: No Rash or ecchymoses EXTREMITIES: No edema, bilateral lower extremity contractures Objective Labs 07/22/24 05:32 07/22/24 05:32 Labs: Laboratory Results - last 24 hr 07/15/24 07/20/24 07/21/24 20:12 09:12 04:54 WBC 16.9 H RBC 3.60 L Hgb 12.1 Hct 34.9 L MCV 97 MCH 33.6 MCHC 34.7 RDW Std Deviation 47.8 H Plt Count 329 D Neut % (Auto) 60 Lymph % (Auto) 25 [place] % (Auto) 12 Eos % (Auto) 0 Baso % (Auto) 0 Neut # (Auto) 10.2 H Lymph # (Auto) 4.2 [place] # (Auto) 2.0 H Eos # (Auto) 0.0 Baso # (Auto) 0.1 Immature Gran # (Auto) 0.62 H Absolute Nucleated RBC 0.02 H Immature Gran % 4 H Nucleated RBC % 0 Protein C Activity 50 L Antithrombin III Ag 66 L Antithrombin III Activ 60 L Sodium 133 L Potassium 4.0 D Chloride 94 L Carbon Dioxide 32.4 H Anion Gap 7 BUN 9 Creatinine 0.6 Estim Creat Clear Calc 74.8 eGFR > 60 BUN/Creatinine Ratio 15 Glucose 114 H Calculated Osmolality 266 L Calcium 9.3 Corrected Calcium 9.7 Total Bilirubin 0.7 AST 72 H ALT 104 H Alkaline Phosphatase 223 H D Total Protein 6.2 Albumin 3.5 Globulin 2.7 Albumin/Globulin Ratio 1.3 Procalcitonin 0.57 H Vancomycin Trough 17.7 H ABG Interpretation ABG results: 07/15/24 07/15/24 15:41 17:15 ABG pH 7.35 7.32 L ABG pCO2 43 44 ABG pO2 168 H 205 H D ABG HCO3 24 23 ABG O2 Saturation 100 H 100 H ABG Base Excess -2 -3 Quality Measures Quality Measures sepsis Current suspected stage: sepsis Possible source: pulmonary Blood cultures ordered: yes Antibiotic ordered: Yes Assessment & Plan Assessment Current Active Medications: Generic Name Dose Route Start Last Admin Trade Name Freq PRN Reason Stop Dose Admin Acetaminophen 650 mg 07/18/24 11:12 07/18/24 12:04 Acetaminophen Ginger 325 Mg/10 Ml [facility] 08/16/24 12:31 650 mg Q4HR PRN Administration PAIN Famotidine 20 mg 07/15/24 15:45 07/20/24 09:03 Famotidine Inj 10 Mg/Ml Vial 2 Ml IVP 08/14/24 15:44 20 mg QDAY CAMILA Administration Guaifenesin 100 mg 07/19/24 09:45 07/21/24 05:02 Guaifenesin Syrup 200 Mg/10 Ml [facility] GT 08/18/24 09:44 100 mg TID CAMILA Administration Protocol Heparin Sodium (Porcine) 5,000 unit 07/16/24 10:30 07/20/24 20:04 Heparin Sod Inj 5000 Unit/Ml Vial SC 07/30/24 10:29 5,000 unit BID CAMILA Administration Vancomycin HCl/Dextrose 250 mls @ 120 mls/hr 07/19/24 10:00 07/20/24 21:33 Vancomycin/D5w 1,250 Mg Ivpb IV 07/26/24 09:59 120 mls/hr Q12H CAMILA Administration Protocol Lactobacillus Rhamnosus 1 cap 07/18/24 11:15 07/20/24 20:04 Lactobacillus Rhamnosus 1 Cap GT 08/17/24 11:14 1 cap BID CAMILA Administration Levothyroxine Sodium 38 mcg 07/16/24 06:00 07/20/24 05:19 Levothyroxine Inj 100 Mcg Vial IV 08/15/24 05:59 38 mcg MOWESA CAMILA Administration Levothyroxine Sodium 25 mcg 07/16/24 06:00 07/21/24 05:09 Levothyroxine Inj 100 Mcg Vial IV 08/15/24 05:59 25 mcg TUTHFR CAMILA Administration Magnesium Hydroxide 30 ml 07/16/24 10:45 07/19/24 09:03 Milk Of Magnesia Susp 30 Ml Udc PO 08/15/24 10:44 Not Given QDAY [facility] Protocol Mupirocin 2 gm 07/18/24 14:00 07/21/24 05:04 Mupirocin Oint 2% 15 Gm Tube TOP 07/25/24 13:59 1 applicatio TID CAMILA Administration Pharmacy Consult 1 each 07/15/24 15:00 07/20/24 09:05 Pharmacy Renal Dose Adjustment 1 Ea XX 08/14/24 14:59 Not Given QDAY CAMILA Pharmacy Consult 1 each 07/19/24 09:43 Vancomycin Pharmacy To Dose 1 Each Each IV 08/18/24 09:42 QDAY PRN CONSULT Potassium Phos/Sodium Phos 2 packet 07/19/24 10:45 07/20/24 09:04 Naph,[facility]db 1 Packet (1.5 Gm) GT 08/18/24 10:44 2 packet DAILY CAMILA Administration Simethicone 80 mg 07/16/24 10:45 07/20/24 09:04 Simethicone 40 Mg/0.6 Ml Oral Syringe PO 08/15/24 10:44 80 mg DAILY CAMILA Administration Sodium Chloride 3 ml 07/15/24 10:18 07/15/24 10:30 Sodium Chloride Rt Ginger 0.9% 3 Ml Nebu INH 08/14/24 10:17 3 ml PRN PRN Administration SOLN Valproic Acid 400 mg 07/17/24 09:00 07/20/24 20:03 Valproic Acid Syrup 250 Mg/5 Ml Udc PO 08/16/24 08:59 400 mg BID CAMILA Administration Plan Ms. Pérez is a 54 y/o female with past medical history significant for cerebral palsy, epilepsy, hypothyroidism, GERD, cholithiasis, scholiosis, developmental delay and non verbal at baseline. Pt is brought to the ED on 07/15 from her facility due to low oxygen saturation. #suspect infective endocarditis - ruled out -Pt has repeat sepsis and went into septic shock despite adequate treatment with antibiotics. BC 2/2 are GPC positive which raises suspicion for infective endocarditis. -Pt meets 1 major criteria of 2/2 BC positive for GPC -staph and 1 minor criteria of fever which indicates possible IE -Pt underwent an attempt for echo study on 07/15 and was unsuccessful due to cooperation, cardiology is consulted for REYNA -Attempt for REYNA was unsuccessful due to pts anatomy and the probe was not able to progress therefore since pt is sedated TTE was done TTE done on 07/17/24 with the following results Suboptimal images to comment on any kind of valvular vegetations but there is no significant regurgitation present any of the valves. LV size and function appear to be normal with an EF estimated 60%.diastolic dysfunction stage I RV size and function appear to be normal. RVSP mildly elevated at 36 mmHg. Mild TR as well as trace to mild MR. -Infective endocarditis ruled out #Sepsis 2/2 #bilateral pneumonia #GPC bacteremia -on admission SIRS 4/4 met: tachycardia, tachypnea, fever and leukocytosis -Pt had recent sick contacts in her custodial -CXR evident of bilateral pneumonia, worsening on right lower lobe -RSV and Influenza A negative -BC on 07/15 2/2 positive for GPC, repeat BC have been negative -Pt is on suplemental oxygen, antibitoics include meropenem and vancomycin #Chronic PEG tube -tube feedings are resumed #hypophosphatemia -phosphate <0.3, repleated by primary team #History of hypothyroidism -TSH 1.65 pt is on levothyroxine #History of seizure disorder -Pt is resumed her home Valproic acid #Thrombocytopenia-resolved -no signs of active bleeding, continue to monitor #Transaminitis-imrpoving -on admission AST 147 ALT 87 -Today AST 190 and ALT 153 -Hepatitis panel negative Assessment and plan discussed with my attending physician Dr. Sanchez. Dr. Day (PGY-1)- Internal medicine resident Cardiology will sign off. Please call us for any questions or concerns Attending Provider Attestation/Addendum I have personally seen and examined the patient separately on the above date of service and discussed the plan of care with the resident. I reviewed the resident Dr. Rob Day consultation progress note and agree with the resident findings and plan in the note above and have also edited the documentation to reflect my findings and plan. Daryl Sanchez M.D. Interventional Cardiology
[2024-07-21] MEDS: SIMETHICONE 40 MG/0.6 ML ORAL SYRINGE 80 MG PO (09:32)
[2024-07-21] MEDS: VALPROIC ACID SYRUP 250 MG/5 ML UDC 400 MG PO ×2 (09:32→21:03)
[2024-07-21] MEDS: LACTOBACILLUS RHAMNOSUS 1 CAP GT ×2 (09:33→21:02)
[2024-07-21] MEDS: FAMOTIDINE INJ 10 MG/ML VIAL 2 ML 20 MG IVP (09:33)
[2024-07-21] MEDS: NAPH,KPH MBDB 1 PACKET (1.5 GM) 2 PACKET GT (09:33)
[2024-07-21] MEDS: HEPARIN SOD INJ 5000 UNIT/ML VIAL SC ×2 (09:34→21:13)
[2024-07-21] MEDS: VANCOMYCIN/D5W 1,250 MG IVPB 250 ML 120 MG IV (10:03)
--- NOTE | 2024-07-21 14:50 | ESPR_ITS ---
<Statement entered by Nirav Osorio MD - 07/21/24 20:06> Senior Resident Attestation: I supervised/discussed management plan with internal carver physician Dr. Vines, and was involved in the care of this patient. I personally saw and examined the patient and discussed the assessment and plan with the entire medicine team, including my attending. I agree with the assessment and plan as documented. Patient's care was discussed with attending physician, Dr. Christianson. Nirav Osorio MD PGY-2. Documentation for date of: 07/21/24 Subjective Subjective Interval history: Patient seen at bedside. No acute overnight events. Repeat blood cultures have been negative. Patient is still on vancomycin. Evaluated by ID, recommends to repeat the echocardiogram and if negative, can transition to p.o. medications. In the interim, we will continue IV vancomycin and tube feeds. Exam Vital Signs Temp Pulse Resp BP Pulse Ox O2 Del Method O2 Flow Rate 98.1 F 93 16 122/67 95 Room Air 2 07/21/24 12:00 07/21/24 12:00 07/21/24 12:00 07/21/24 12:00 07/21/24 12:00 07/21/24 07:38 07/20/24 14:00 Narrative Exam GENERAL: Dewvelopmental delay, non verbal. NEURO: Moves extremities although contracted, otherwise unable to assess. HEENT: Microcephaly, Moist mucosa. Eyes open, symmetrical, & clear. CARDIO: No chest pain on palpation. Heart RRR, no obvious murmurs. PULM: No noted coughing/dyspnea. Clear lungs B/L. GI: Abdomen soft, nondistended, PEG tube intact, some erythema around insertion point- improving URO/TRADE MARKER:: No further abnormalities noted. SKIN/MSK/EXT: Contractures in all extremities, no pedal edema. Objective Labs 07/21/24 04:54 07/21/24 04:54 Labs: Laboratory Results - last 24 hr 07/15/24 07/21/24 20:12 04:54 WBC 16.9 H RBC 3.60 L Hgb 12.1 Hct 34.9 L MCV 97 MCH 33.6 MCHC 34.7 RDW Std Deviation 47.8 H Plt Count 329 D Neut % (Auto) 60 Lymph % (Auto) 25 [place] % (Auto) 12 Eos % (Auto) 0 Baso % (Auto) 0 Neut # (Auto) 10.2 H Lymph # (Auto) 4.2 [place] # (Auto) 2.0 H Eos # (Auto) 0.0 Baso # (Auto) 0.1 Immature Gran # (Auto) 0.62 H Absolute Nucleated RBC 0.02 H Immature Gran % 4 H Nucleated RBC % 0 Protein C Activity 50 L Antithrombin III Ag 66 L Antithrombin III Activ 60 L Sodium 133 L Potassium 4.0 D Chloride 94 L Carbon Dioxide 32.4 H Anion Gap 7 BUN 9 Creatinine 0.6 Estim Creat Clear Calc 74.8 eGFR > 60 BUN/Creatinine Ratio 15 Glucose 114 H Calculated Osmolality 266 L Calcium 9.3 Corrected Calcium 9.7 Total Bilirubin 0.7 AST 72 H ALT 104 H Alkaline Phosphatase 223 H D Total Protein 6.2 Albumin 3.5 Globulin 2.7 Albumin/Globulin Ratio 1.3 Procalcitonin 0.57 H ABG Interpretation ABG results: 07/15/24 07/15/24 15:41 17:15 ABG pH 7.35 7.32 L ABG pCO2 43 44 ABG pO2 168 H 205 H D ABG HCO3 24 23 ABG O2 Saturation 100 H 100 H ABG Base Excess -2 -3 Quality Measures Quality Measures sepsis Current suspected stage: sepsis Possible source: pulmonary Blood cultures ordered: yes Antibiotic ordered: Yes Assessment & Plan Assessment Current Active Medications: Generic Name Dose Route Start Last Admin Trade Name Freq PRN Reason Stop Dose Admin Acetaminophen 650 mg 07/18/24 11:12 07/18/24 12:04 Acetaminophen Ginger 325 Mg/10 Ml [facility] 08/16/24 12:31 650 mg Q4HR PRN Administration PAIN Famotidine 20 mg 07/15/24 15:45 07/21/24 09:33 Famotidine Inj 10 Mg/Ml Vial 2 Ml IVP 08/14/24 15:44 20 mg QDAY CAMILA Administration Guaifenesin 100 mg 07/19/24 09:45 07/21/24 13:10 Guaifenesin Syrup 200 Mg/10 Ml Udc GT 08/18/24 09:44 100 mg TID CAMILA Administration Protocol Heparin Sodium (Porcine) 5,000 unit 07/16/24 10:30 07/21/24 09:34 Heparin Sod Inj 5000 Unit/Ml Vial SC 07/30/24 10:29 5,000 unit BID CAMILA Administration Vancomycin HCl/Dextrose 250 mls @ 120 mls/hr 07/19/24 10:00 07/21/24 10:03 Vancomycin/D5w 1,250 Mg Ivpb IV 07/26/24 09:59 120 mls/hr Q12H CAMILA Administration Protocol Lactobacillus Rhamnosus 1 cap 07/18/24 11:15 07/21/24 09:33 Lactobacillus Rhamnosus 1 Cap GT 08/17/24 11:14 1 cap BID CAMILA Administration Levothyroxine Sodium 38 mcg 07/16/24 06:00 07/20/24 05:19 Levothyroxine Inj 100 Mcg Vial IV 08/15/24 05:59 38 mcg MOWESA CAMILA Administration Levothyroxine Sodium 25 mcg 07/16/24 06:00 07/21/24 05:09 Levothyroxine Inj 100 Mcg Vial IV 08/15/24 05:59 25 mcg TUTHFR CAMILA Administration Magnesium Hydroxide 30 ml 07/16/24 10:45 07/19/24 09:03 Milk Of Magnesia Susp 30 Ml Udc PO 08/15/24 10:44 Not Given QDAY [facility] Protocol Mupirocin 2 gm 07/18/24 14:00 07/21/24 13:09 Mupirocin Oint 2% 15 Gm Tube TOP 07/25/24 13:59 1 applicatio TID CAMILA Administration Pharmacy Consult 1 each 07/15/24 15:00 07/21/24 09:53 Pharmacy Renal Dose Adjustment 1 Ea XX 08/14/24 14:59 Not Given QDAY CAMILA Pharmacy Consult 1 each 07/19/24 09:43 Vancomycin Pharmacy To Dose 1 Each Each IV 08/18/24 09:42 QDAY PRN CONSULT Potassium Phos/Sodium Phos 2 packet 07/19/24 10:45 07/21/24 09:33 [facility] 1 Packet (1.5 Gm) GT 08/18/24 10:44 2 packet DAILY CAMILA Administration Simethicone 80 mg 07/16/24 10:45 07/21/24 09:32 Simethicone 40 Mg/0.6 Ml Oral Syringe PO 08/15/24 10:44 80 mg DAILY CAMILA Administration Sodium Chloride 3 ml 07/15/24 10:18 07/15/24 10:30 Sodium Chloride Rt Ginger 0.9% 3 Ml Nebu INH 08/14/24 10:17 3 ml PRN PRN Administration SOLN Valproic Acid 400 mg 07/17/24 09:00 07/21/24 09:32 Valproic Acid Syrup 250 Mg/5 Ml Udc PO 08/16/24 08:59 400 mg BID CAMILA Administration Plan Summary: The patient is a 54-year-old female with a past medical history of developmental delay, who is also nonverbal, cerebral palsy, epilepsy, scoliosis, cholelithiasis, hypothyroidism, GERD with a chronic PEG tube who presents to the ED on 07/15/2024 after she was found to be desaturating into the 80s at her care facility. #Septic shock-resolved #Sepsis, bilateral pneumonia #GPC bacteremia Blood pressure was persistently low on admission despite fluids and so the patient was admitted to the ICU on for pressor support. CXR showed extensive bilateral pneumonia. She was started on IV vancomycin and meropenem Blood culture returned positive for GPC bacteria in 2 bottles and meropenem was discontinued. Due to concern for endocarditis, an echocardiogram was ordered but study was incomplete as the patient was uncooperative. A REYNA was scheduled but patient's esophagus was said to be too narrow and procedure could not be done. She is currently being treated as endocarditis repeat blood cultures are pending, to continue IV vancomycin for 4 to 6 weeks from first negative blood culture. 07/21/2024- Repeat blood cultures have been negative. Patient is still on vancomycin. Evaluated by ID, recommends to repeat the echocardiogram and if negative, can transition to p.o. medications. In the interim, we will continue IV vancomycin.. Plan: -Continue IV vancomycin -Continue monitoring CBC #Electrolytes abnormality-resolved #Hypophosphatemia-resolved Phosphorus today- 4.7 Plan: -Monitor renal panel #Transaminitis-improving Labs reviewed show elevated AST, ALT and ALP with low hemoglobin. Contributed to possible recent antibiotic use/ shock liver Transaminitis noted, AST and ALT morning?today. Will order acute hepatitis panel. 07/21/2024-evaluated by general surgeon, no indication for cholecystectomy at this time. Transaminitis improving Plan: -Continue to monitor LFTs #Thrombocytopenia-resolved Platelet count on admission 77. Fibrinogen and D-dimer elevated. Currently no signs of active bleeding Platelet count today-329 Protein C-50, Antithrombin-66, Antithrombin III activator-60 Plan: -Continue to monitor platelets and for signs of bleeding #Chronic PEG tube Patient has a history of chronic PEG tube. Tube feedings were resumed on 07/16/2024. Patient is having regular bowel movements. Plan: -Continue tube feeds -Bowel regimen #History of hypothyroidism The patient has a history of hypothyroidism and is on levothyroxine 75 mcg. Currently Giving IV levothyroxine 30 mcg on and 25 on Plan: -Continue IV levothyroxine #History of seizure disorder Patient has a history of seizure disorder and has been managed on valproic acid 400 mg. No seizures on this admission. Plan: -Continue valproic acid Health maintenance: Dispo: Med[employer] Diet: Tube feeds GI: Pantoprazole DVT: SC Heparin Valle: None Lines: Peripheral Code: Full Case was discussed with Dr Osorio PGY-2 and attending physician, Dr Meghan Vines MD PGY-1 Disclaimer: This note was dictated by speech recognition. Minor errors in coroner's juror may be present due to voice recognition software. Attending Provider Attestation/Addendum I have examined the patient, reviewed labs and imaging findings, discussed the case with the resident(s), and reviewed entered orders. I agree with the plan of care as outlined in this note, with these additional summaries/recommendations: Patient seen at bedside. No acute overnight events. Patient is nonverbal and no history can be obtained at this time. Patient was downgraded from ICU for septic shock. Off pressors. Found to have pneumonia on x-ray and staph hominis ssp hominis bacteremia. Unclear source for bacteremia, possible contamination? Infectious disease consulted, recommendations appreciated. Patient has been on IV vancomycin. Repeat Blood cultures on 07/17/2024 are showing no growth at 48 hours. Pending TTE, REYNA attempted but was unsuccessful secondary to esophageal narrowing. Low suspicion for infective endocarditis at this time given patient's rapid improvement. Patient is conserved and discussed PICC line placement with conservatorship. They recommend avoiding PICC line if possible and I have a low suspicion that patient would tolerate PICC line placement without general anesthesia. We will follow-up with infectious disease to see if continuing IV vancomycin while hospitalized and then transitioning to oral antibiotics to complete treatment course is a reasonable option. Hypophosphatemia resolved today. Patient has transaminitis and general surgery following. Abdominal ultrasound was suspicious for acute acalculous cholecystitis although low suspicion at this time. ALP likely related to bone etiology. T. bili within normal limits. Transaminitis most likely secondary to previous septic shock versus medication induced from steroids. Nonetheless LFTs are now downtrending and we will monitor for now. Continue tube feeds and free water flushes via PEG. Continue levothyroxine for history of hypothyroidism. Significant respiratory secretions present and continue breathing treatments and mucolytic. Dr. Meghan MD
--- NOTE | 2024-07-21 15:56 | PC.SS ---
rounding note: Patient needs to repeat the echo and if negative then can transition to p.o. meds. If positive, may need i.v. antibiotics at [facility] or SNF. SS left [facility]ssg for their nurse at [facility] .
[2024-07-21 22:36] LABS: Vancomycin,Trough 20.5 mcg/mL (5.0-10.0)
[2024-07-22] VITALS (8 sets, daily range): BP systolic 123–146; BP diastolic 87–92; PULSE 88–108; RESP 16–94; TEMP 36.2–37.5; O2SAT 90–94; BMI 21.0
[2024-07-22] MEDS: MUPIROCIN OINT 2% 15 GM TUBE 2 GM TOP (05:50)
[2024-07-22] MEDS: guaiFENesin SYRUP 200 MG/10 ML UDC 100 MG GT (05:54)
[2024-07-22 05:57] LABS: Basophils % (Auto) 0 % (0-2.5); Eosinophils % (Auto) 0 % (0-10); Hematocrit 36.7 % (36.0-46.0); Hemoglobin 12.7 g/dL (12.0-16.0); Immature Granulocytes % (Auto) 2 % (0-0); Immature Granulocytes Auto 0.28 Thou/mm3 (0.00-0.00); Lymphocytes # (Auto) 3.4 Thou/mm3 (1.0-4.8); Lymphocytes % (Auto) 21 % (10-50); Mean Corpuscular HGB Conc 34.6 g/dl (31.0-37.0); Mean Corpuscular Hemoglobin 34.1 pg (25.0-35.0); Mean Corpuscular Volume 99 fL (80-100); Monocytes # (Auto) 1.8 Thou/mm3 (0.0-0.8); Monocytes % (Auto) 11 % (0-12); Neutrophils % (Auto) 67 % (37-80); Nucleated Red Blood Cell % 0 /100 WBC (0); Platelet Count 397 Thou/mm3 (140-440); RDW Standard Deviation 49.1 fL (36.4-46.3); Red Blood Count 3.72 Miln/mm3 (4.00-5.20); White Blood Count 16.5 Thou/mm3 (3.6-11.0)
[2024-07-22] MEDS: LEVOTHYROXINE INJ 100 mCg VIAL 38 MCG IV (06:01)
[2024-07-22 06:36] LABS: Alanine Aminotransferase 88 U/L (10-49); Albumin, Serum 3.7 gm/dL (3.5-5.0); Albumin/Globulin Ratio 1.2 (1.2-2.2); Alkaline Phosphatase 254 U/L (46-116); Anion Gap 9 (7-16); Aspartate Amino Transferase 61 U/L (0-34); BUN/Creatinine Ratio 17 Ratio (12-20); Bilirubin,Total 0.9 mg/dL (0.3-1.2); Blood Urea Nitrogen 10 mg/dL (9-23); Calcium (Corrected) 10.2 mg/dL (8.5-10.1); Carbon Dioxide 31.2 mMol/L (20.0-31.0); Chloride 93 mMol/L (98-107); Creatinine (Component) 0.6 mg/dL (0.6-1.3); Estimated Creatinine Clearance 74.8 mL/min (>60); Globulin 3.2 gm/dL (2.3-3.5); Glucose 96 mg/dL (74-106); Magnesium 2.2 mg/dL (1.6-2.6); Osmolality,Calculated 265 (275-295); Phosphorous 4.4 mg/dL (2.4-5.1); Potassium 4.1 mMol/L (3.4-5.1); Sodium 133 mMol/L (136-145); Total Protein 6.9 gm/dL (5.7-8.2); eGFR > 60 See Note
[2024-07-22] MEDS: VALPROIC ACID SYRUP 250 MG/5 ML UDC 400 MG PO (08:18)
[2024-07-22] MEDS: FAMOTIDINE INJ 10 MG/ML VIAL 2 ML 20 MG IVP (08:19)
[2024-07-22] MEDS: LACTOBACILLUS RHAMNOSUS 1 CAP GT (08:19)
[2024-07-22] MEDS: NAPH,KPH MBDB 1 PACKET (1.5 GM) 2 PACKET GT (08:19)
[2024-07-22] MEDS: SIMETHICONE 40 MG/0.6 ML ORAL SYRINGE 80 MG PO (08:20)
[2024-07-22] MEDS: HEPARIN SOD INJ 5000 UNIT/ML VIAL SC (08:20)
[2024-07-22] MEDS: VANCOMYCIN/NS 1 GM IVPB 200 ML IV (10:42)
--- NOTE | 2024-07-22 12:54 | PC.SS ---
Follow up note: SS spoke to physician team and patient has d/c orders. Patient will return to [facility] with p.o. meds. SS updated facility. Facility requested gurney transport be arranged. SS set up gurney through [facility] with a reference# [id number] for a tentative poultry picker for 4p.m.
--- NOTE | 2024-07-22 13:39 | PD.IDPROG ---
Subjective Subjective Interval history: breezy neg. I was advised that this pt was in 351 but pt is in 370 and still on vanco. will stop that per prior plan if you think pt has александр, then get surgery involved, but pathogen not likely coag neg Exam Vital Signs Temp Pulse Resp BP Pulse Ox O2 Del Method O2 Flow Rate 97.2 F 95 18 141/92 H 94 L Room Air 2 07/22/24 12:00 07/22/24 12:00 07/22/24 12:00 07/22/24 12:00 07/22/24 12:00 07/22/24 12:00 07/20/24 14:00 Narrative Exam limited visit. Objective - Internal Medicine Labs 07/22/24 05:32 07/22/24 05:32 Labs: Laboratory Results - last 24 hr 07/21/24 07/22/24 21:13 05:32 WBC 16.5 H RBC 3.72 L Hgb 12.7 Hct 36.7 MCV 99 MCH 34.1 MCHC 34.6 RDW Std Deviation 49.1 H Plt Count 397 D Neut % (Auto) 67 Lymph % (Auto) 21 [place] % (Auto) 11 Eos % (Auto) 0 Baso % (Auto) 0 Neut # (Auto) 11.0 H Lymph # (Auto) 3.4 [place] # (Auto) 1.8 H Eos # (Auto) 0.0 Baso # (Auto) 0.0 Immature Gran # (Auto) 0.28 H Absolute Nucleated RBC 0.00 Immature Gran % 2 H Nucleated RBC % 0 Sodium 133 L Potassium 4.1 Chloride 93 L Carbon Dioxide 31.2 H Anion Gap 9 BUN 10 Creatinine 0.6 Estim Creat Clear Calc 74.8 eGFR > 60 BUN/Creatinine Ratio 17 Glucose 96 Calculated Osmolality 265 L Calcium 10.0 Corrected Calcium 10.2 H Phosphorus 4.4 Magnesium 2.2 Total Bilirubin 0.9 AST 61 H ALT 88 H Alkaline Phosphatase 254 H D Total Protein 6.9 Albumin 3.7 Globulin 3.2 Albumin/Globulin Ratio 1.2 Vancomycin Trough 20.5 H* ABG Interpretation ABG results: 07/15/24 07/15/24 15:41 17:15 ABG pH 7.35 7.32 L ABG pCO2 43 44 ABG pO2 168 H 205 H D ABG HCO3 24 23 ABG O2 Saturation 100 H 100 H ABG Base Excess -2 -3 Assessment & Plan A&P Narrative be vs contamiation. no role for cefepime if you think this is be abd us raises concern for александр but no fever noted.since admit role of bactroban per others if breezy neg and with no emboli, will stop abx. with no fever александр is a surgical disease in most settings but exam has been benign. so your call there. will see again prn Time Spent With Patient Time: Total time spent is greater than 50% in coordination of care (as documented) at patient's floor/unit and/or counseling patient:
--- NOTE | 2024-07-22 16:17 | ESDS_ITS ---
Planned Discharge Date 07/22/24 DS: Providers Provider Date of admission: 07/15/24 14:51 Primary care physician: Physician No Primary/Family Admitting Provider: Dana Shannon MD Attending Provider on Admission: Keyur Lawrence DO Consults: 07/15/24 20:15 Consult to General Surgery Routine Comment: Gallbladder, Thick stomach mucosa Consulting Provider: Abbi Ojeda 07/16/24 15:16 Consult to Infectious Diseases Routine Comment: Consulting Provider: Víctor Huffman 07/17/24 14:20 Consult to Cardiology Routine Comment: GPC bacteremia 06/28, r/o endocarditis Consulting Provider: Daryl Sanchez Attending Provider on DC: Keyur Lawrence DO Discharging Provider: Winston Vines MD DS: Diagnosis Problem List Completed Was Problem List Reviewed/Reconciled?: Yes Hospital Course Hospital Course Hospital course: The patient is a 54-year-old female with developmental delay with a past medical history of cerebral palsy, epilepsy, hypothyroidism and a chronic PEG tube who presented to the ED on 07/15/2024 from conservative treatment home with fever. In the ED, the patient was febrile, hypoxic and hypotensive. Initial labs were significant for leukocytosis and elevated lactic acid and Pro-Pineda. Chest x-ray shows some findings suggestive of bilateral pneumonia. Patient received IV fluids in the ED per sepsis protocol however blood pressure continued to remain low and she was admitted to the ICU for management of septic shock with pressor requirements. Patient was put on pressors and blood cultures were taken, she was started on IV vancomycin and meropenem based on penicillin and cephalexin allergy. Blood cultures returned positive for GPC bacteremia and a TTE was planned to rule out infective endocarditis. Initial TTE was unsuccessful as well as REYNA as the patient's esophagus was too narrow for the procedure to be done. Meropenem was discontinued and the patient was continued on IV vancomycin and on 07/17/2024 downgraded back to the floors. ID was consulted and a repeat echocardiogram rule out endocarditis. Hospital course was complicated with transaminitis, acute hepatitis panel was negative and this was attributed to possible septic shock. Surgery was consulted, patient is not a candidate for cholecystectomy. Today, the patient is clinically and hemodynamically stable and has been cleared for discharge. She will continue on doxycycline 100 mg twice daily for 10 more days. Recommendations to follow-up with PCP within 1 week of discharge. #Septic shock-resolved #Sepsis secondary to pneumonia #GPC bacteremia #History of hypothyroidism #Chronic PEG tube #History of seizure disorder Discharge instructions: Follow up with PCP within 1 week of discharge Continue doxycycline twice daily for 10 more days Continue other medications Return to the ED if symptoms worsen Case was discussed with Dr Osorio PGY-2 and attending physician, Dr Howard Vines MD PGY-1 Disclaimer: This note was dictated by speech recognition. Minor errors in powerhouse laborer may be present due to voice recognition software. Status at Discharge Overall status at discharge: patient is back to baseline Time Spent with Patient Time attestation: Total time spent providing and/or coordinating discharge services:45minutes Time spent: Greater than 30 minutes Exam Vital Signs Temp Pulse Resp BP Pulse Ox O2 Del Method O2 Flow Rate 97.2 F 95 18 141/92 H 94 L Room Air 2 07/22/24 12:00 07/22/24 12:00 07/22/24 12:00 07/22/24 12:00 07/22/24 12:00 07/22/24 12:00 07/20/24 14:00 Discharge Plan Plan Patient Disposition: Xfer Other Patient condition on transfer: Stable Care Plan Goals: Follow up with PCP within 1 week of discharge Continue doxycycline twice daily for 10 more days Continue other medications Return to the ED if symptoms worsen Prescriptions/Referrals Prescriptions/Med Rec: New doxycycline hyclate 100 mg capsule 100 mg PO BID 10 Days Qty: 20 0RF Continued metoclopramide HCl 5 mg/5 mL Solution 10 mg feeding tube BID levothyroxine 75 mcg tablet 75 mcg feeding tube USEASDIRECTD Rx Instructions: GIVE ON SATURDAY, SATURDAY, SATURDAY erythromycin 2 % Solution 1 ml TOPICAL BID Rx Instructions: TO FACE valproic acid (as sodium salt) 250 mg/5 mL Solution 400 mg feeding tube BID gabapentin 300 mg capsule 900 mg feeding tube BID glycopyrrolate 2 mg tablet 2 mg feeding tube BID simethicone 80 mg Tablet,Chewable 80 mg feeding tube TID calcium carbonate 500 mg/5 mL (1,250 mg/5 mL) suspension 625 mg feeding tube BID Multi-Jg 9 mg iron/15 mL liquid 5 ml feeding tube BID famotidine 20 mg Tablet 20 mg feeding tube QDAY erythromycin 2 % Solution 1 ml TOPICAL BID loratadine 10 mg Tablet 10 mg feeding tube QDAY lactulose 10 gram/15 mL Solution 30 g feeding tube DAILY ipratropium-albuterol 0.5 mg-3 mg(2.5 mg base)/3 mL Solution For Nebulization 3 ml INHALATION Q4H PRN (Reason: Shortness Of Breath Or Wheezing) pseudoephedrine HCl [Sudogest] 60 mg Tablet 60 mg feeding tube Q6H PRN (Reason: Congestion) acetaminophen [Tylenol] 325 mg Tablet 650 mg feeding tube QID PRN (Reason: Pain) dextromethorphan-guaifenesin 10-200 mg/5 mL Liquid 10 ml PO Q6H PRN (Reason: Cough) Referrals: No Primary/Family,Physician [Primary Care Provider] - Patient/Caregiver Discharge Instructions Other Discharge Activity Instructions:: Follow up with PCP within 1 week of discharge Continue doxycycline twice daily for 10 more days Continue other medications Return to the ED if symptoms worsen Print Language: Danish Stand Alone Forms: Ameena Award Info., Patient Portal Info Letter Discharge Order Discharge Orders: Discharge (Routine); Ordered 07/22/24 Ordered By: Winston Vines Quality Discharge Quality Measures VTE prophylaxis Attestestation MD Attestation I have discussed and was present for the essential components of the discharge history, physical examination, diagnosis, and discharge treatment plan with the resident. I agree with the patient's discharge care as documented by the resident and amended herein by me. Seth Lawrence, . The patient understood all discharge instructions, all questions were answered satisfactorily. The patient was instructed to return to the Emergency Department is symptoms worsened or persisted. Although this document has been carefully reviewed, there may still be some phonetic and other typographical errors. These errors are purely grammatical due to imperfections in the software program and should not be construed in any way to compromise the substance of the patient's medical care during this visit.
== END 2024-07-22 16:26 | disposition other institution (70) | DRG 720 ==
LOC: SERX 09:58 → SERHOLD 15:16 → S2SX 17:32 → S3SX 07-17 20:30
PROVIDERS: Student in an Organized Health Care Education/Training Program; Admitting Provider Internal Medicine; Emergency Provider Emergency Medicine; Visit Provider Student in an Organized Health Care Education/Training Program
DX: A41.1 Sepsis due to other specified staphylococcus (principal); J15.29 Pneumonia due to other staphylococcus; G40.909 Epilepsy, unspecified, not intractable, without status epilepticus; E03.9 Hypothyroidism, unspecified; K21.9 Gastro-esophageal reflux disease without esophagitis; R65.21 Severe sepsis with septic shock; R74.01 Elevation of levels of liver transaminase levels; E87.1 Hypo-osmolality and hyponatremia; G80.9 Cerebral palsy, unspecified; M41.9 Scoliosis, unspecified; K80.70 Calculus of gallbladder and bile duct without cholecystitis without obstruction; R21 Rash and other nonspecific skin eruption; D69.59 Other secondary thrombocytopenia; E83.39 Other disorders of phosphorus metabolism; Z88.1 Allergy status to other antibiotic agents; Z88.0 Allergy status to penicillin; Z66 Do not resuscitate; Z53.9 Procedure and treatment not carried out, unspecified reason; Z74.01 Bed confinement status; Z87.440 Personal history of urinary (tract) infections; Z79.899 Other long term (current) drug therapy; Z11.52 Encounter for screening for COVID-19; Z20.828 Contact with and (suspected) exposure to other viral communicable diseases
CPT/HCPCS: 36415; 36600; 71045; 74170; 76705; 80053; 80069; 80074; 80164; 80202; 81001; 82533; 82803; 83605; 83735; 84100; 84132; 84145; 84436; 84443; 85025; 85300; 85301; 85303; 85379; 85384; 85610; 87040; 87077; 87081; 87086; 87186; 87400; 87502; 87634; 87811; 93225; 93306; 93312; 94640; 94644; 94664; 96361; 96365; 96366; 96367; 96375; 99285; A4649; A9270; J1643; J1720; J1956; J2185; J2250; J2919; J3010; J3370; J3372; J3475; J3480; J3490; J7030; J7040; J7050; J7120; Q9967

== ENCOUNTER 2024-07-24 10:35 | Emergency (ER) | payer MEDICAID, SELFPAY ==
[2024-07-24] VITALS (8 sets, daily range): BP systolic 101–141; BP diastolic 66–89; PULSE 83–99; RESP 15–22; TEMP 36.1–36.7; O2SAT 96–99; BMI 36.6
--- NOTE | 2024-07-24 | XR_ITS ---
MRI abdomen, without contrast. MRCP Date and time of exam: July 16, 2024 1703 hrs. Indications: Elevated transaminase on laboratory examination today Technique: Multiple axial and coronal images of the abdomen have been obtained with the Siemens 1.5T MRI scanner. Images obtained included T1 weighted transverse images, T2-weighted transverse images, T2-weighted transverse images fat-suppressed, T2 weighted haste fat suppressed transverse images, T1 weighted images, in and out of phase images, T2-weighted coronal images, breath hold, T2 weighted haze coronal images as well as T2 weighted coronal thick slab images, MRCP. Findings: No focal liver lesions Multiple gallstones Gallbladder wall does not appear thickened or edematous Enlarged common hepatic and common bile duct 6 mm with multiple 2 to 3 mm stones in the distal common bile duct coronal image 14 No pancreatic edema Gastrostomy tube in the stomach No ascites No hydronephrosis Impression: Cholelithiasis, negative for cholecystitis Multiple small stones in the distal common bile duct
--- NOTE | 2024-07-24 11:02 | EDNOTE_ITS ---
ED Abdominal Pain RME/HPI General Chief Complaint: Abdominal Pain Stated complaint: GI ISSUES Time seen by provider: 07/24/24 10:53 Arrival date/time: 07/24/24 10:35 RME / HPI RME / HPI narrative: 54 year old female with history of developmental delay, cerebral palsy, nonverbal, epilepsy, hypothyroidism, GERD, and chronic PEG tube presents to the ED BIBA from [facility] for PEG tube evaluation. Per medics, staff [facility] reported the G-tube is leaking and not functioning well. No other complaints reported. No further history is obtainable from patient. Related Data Home Medications ?Medication ?Instructions ?Recorded ?Confirmed calcium carbonate 500 mg/5 mL (as 625 mg feeding tube BID 07/29/23 03/18/24 calcium carb 1,250 mg/5 mL) oral suspension erythromycin 2 % topical solution 1 ml topical BID 09/1703/18/24 gabapentin 300 mg capsule 900 mg feeding tube BID 09/1703/18/24 glycopyrrolate 2 mg tablet 2 mg feeding tube BID 07/2803/18/24 levothyroxine 75 mcg tablet 75 mcg feeding tube USEASD IRECTD 07/29/23 03/18/24 metoclopramide HCl 5 mg/5 mL oral 10 mg feeding tube B ID 07/29/23 03/18/24 solution multivit and minerals-ferrous 5 ml feeding tube BID 03/18/24 gluconate 9 mg iron/15 mL oral liquid (Multi-Jg) simethicone 80 mg chewable tablet 80 mg feeding tube T ID 07/29/23 03/18/24 valproic acid (as sodium salt) 250 400 mg feeding tube BID 07/29/23 03/18/24 mg/5 mL oral solution acetaminophen 325 mg tablet 650 mg feeding tube QID [place] N Pain 03/18/24 03/18/24 (Tylenol) dextromethorphan-guaifenesin 10 10 ml PO Q6H PRN Cough 03/18/24 03/18/24 mg-200 mg/5 mL oral liquid erythromycin 2 % topical solution 1 ml topical BID 03/18/24 famotidine 20 mg tablet 20 mg feeding tube QDAY 02/2503/18/24 ipratropium 0.5 mg-albuterol 3 mg 3 ml inhalation Q4H PRN Shortness 03/18/24 03/18/24 (2.5 mg base)/3 mL nebulization Of Breath Or Wheezing soln lactulose 10 gram/15 mL oral 30 g feeding tube DAILY 1 03/18/24 solution loratadine 10 mg tablet 10 mg feeding tube QDAY 02/2503/18/24 pseudoephedrine HCl 60 mg tablet 60 mg feeding tube Q6 H PRN 03/18/24 03/18/24 (Sudogest) Congestion Previous Rx's ?Medication ?Instructions ?Recorded doxycycline hyclate 100 mg capsule 100 mg PO BID 10 da ys #20 caps 07/22/24 Allergies Allergy/AdvReac Type Severity Reaction Status Date / Time bacitracin (From Neosporin Allergy Verified 07/15/24 09:36 ([id number])) cephalexin Allergy Verified 07/15/24 09:36 neomycin (From Neosporin Allergy Verified 07/15/24 09:36 ([id number])) Penicillins Allergy Verified 07/15/24 09:36 polymyxin B (From Neosporin Allergy Verified 07/15/24 09:36 ([id number])) Review of Systems Review of Systems ROS Unobtainable: unobtainable due to medical condition Past Medical History Past Medical History NEUROLOGIC: Positive Neurological Disorders, Seizures and Cerebral Palsy RESPIRATORY: Positive Pneumonia GASTROINTESTINAL: Positive Gastrointestinal Disorders, Gall Bladder Disease and Gastroesophageal Reflux Disease MUSCULOSKELETAL: Positive Musculoskeletal Disorders and Scoliosis ENT: Positive Blind ENDOCRINE: Positive Endocrine Disorders and Hypothyroidism OTHER HISTORY: Positive Hospitalization and Developmental Delay Family History FAMILY HISTORY: Negative Family Psychiatric Problems, Family Respiratory Disorders, Family Cardiac Disorders, Family Gastrointestinal Problems, Family Cancer, Family Surgery or Family Anesthesia Reaction Surgical History SURGICAL: Positive Gastrostomy Social History SMOKING STATUS: Never smoker SUBSTANCE USE: does not use ED Exam Narrative Physical exam: Patient is nonverbal contracted small stature Physical Exam: General: The vital signs were reviewed. Patient arrives with a blood pressure 120/79 a pulse of 99 she is engages with eye contact the patient is non-toxic, in no apparent distress and appears healthy with a patent airway, no respiratory distress and has no apparent circulatory problems. Head & Scalp: Normocephalic, atraumatic. Face: Appears normal and is without lesions, deformity. Ears: Left external pinna appears normal. Right external pinna appears normal. Eyes: The sclera is anicteric. No obvious photophobia. The Left and Right Orbit/Lid/Conjunctiva appears normal without swelling, discoloration or injection. Nose: The nose is without deformity, discharge or tenderness; Throat: Appears normal. The mucous membranes are pink and moist without exudates, redness or mass seen. The tongue appears normal. Neck: The neck is supple and no apparent mass or adenopathy. Chest: The chest wall is normal in size and symmetry and has no chest wall tenderness or crepitus. The patient displays normal ventilator effort without retractions, accessory muscle use and has adequate air movement bilaterally with no wheezes and no rales. Cardiovascular: Regular rate and rhythm; No murmurs, rubs, or gallops; Gastrointestinal: The abdomen appears normal. Other than has a G-tube in place. The G-tube has some purulent drainage around the tube site some minimal surrounding erythema. The G-tube was tested on arrival as there were concerns about his functionality and it easily flushes and pulls back. Also there seems to be some discomfort with increased abdominal pressures and maybe there is even some retching going on as it is hard to communicate with the patient. No obvious hernias or mass. The abdomen flat and soft otherwise is soft and benign, non-distended, with no pain, no guarding and no rebound tenderness. Bowel sounds are present and normal sounding. No CVA tenderness. Genitourinary: Back/Spine: Normal inspection Extremities/Musculoskeletal/lymphatic: The bilateral upper and lower extremities are warm. Short stature contracted There is no evidence of arterial insufficiency. There is no evidence of venous insufficiency/edema. The patient spontaneously moves bilateral upper and lower extremities with no pain and no limitation of movement. There is no apparent, injury or trauma. Skin: The skin is warm, dry and intact. No rashes. No petechia. No purpura. No abnormal bruising. The color is appropriate with no cyanosis. Mental status/Psychiatric: Mental status is baseline for this cerebral palsy patient with no verbal Neurological: The patient is awake, alert, gives eye contact no further neuroexam can be done. Course Quality Measures none Orders Category Date Time Status IV [Insert IV] NOW Care 07/24/24 12:38 Active In and Out Catheter X1 Care 07/24/24 12:39 Completed MRI Screening NOW Care 07/24/24 14:05 Active MR MRCP Stat Exams 07/24/24 Completed XR chest 1V portable Stat Exams 07/24/24 12:49 Completed CBC Stat Lab 07/24/24 12:05 Completed Comprehensive Metabolic Panel Stat Lab 07/24/24 13:00 Completed Lipase Stat Lab 07/24/24 13:00 Completed Troponin I Stat Lab 07/24/24 13:00 Completed Urinalysis Stat Lab 07/24/24 12:12 Completed Urinalysis, C/S if Indicated Stat Lab 07/24/24 12:12 Completed LORazepam [Ativan Inj] Med 07/24/24 14:05 Discontinued 0.5 mg IVP X1 ONE Sodium Chloride 0.9% 1000 ml [Ns] 1,000 ml Med 07/24/24 11:15 Active IV 150 mls/hr Vital Signs Vital signs: Vital Signs Temperature 97.0 F 07/24/24 11:08 Pulse Rate 99 07/24/24 11:08 Respiratory Rate 18 07/24/24 11:08 Blood Pressure 121/79 07/24/24 11:08 Pulse Oximetry (%) 99 07/24/24 11:08 Oxygen Delivery Method Room Air 07/24/24 11:08 Pulse ox is 99% on room air which is adequate. Abdominal Pain MDM MDM Narrative MDM Narrative:: ILo am scribing for and in the presence of Dr. Maradiaga. Patient a 54-year-old development delayed cerebral palsy at adult who was sent [facility] by [facility] because the patient is having is feeds squirt around the tube and leak out associated with episodes of nausea vomiting retching or pain is actually difficult to describe what is actually happening but there is usually associated some discomfort in this nonverbal patient per the nursing staff. They have sent the patient here multiple times concerned about this and Amanda the nurse at the facility states they have received multiple different diagnosis and they really do not know why the food is leaking around the tube. On arrival there is some food and purulent drainage coming from around the tube and some leaked around when the patient appeared to be coughing or gagging. Actually tested to in the ambulance bay with a Ba syringe and it is easy to push 60 cc of sterile water and it comes back very easily. And when the patient's increase in her abdominal pressure you can see the stomach contents work back from the GT tube. I spoke with the [facility] person Amanda at great length and tried understand what they are observing over there and this is summarized above. Patient was evaluated by Dr. Coe in the past who was in the department and I discussed this with him and the records reveal the patient has an abnormal gallbladder with gallstones and concerns for cholelithiasis and cholecystitis. Medical workup today shows a white count of 15.4 thousand hemoglobin of 12 sodium 130 potassium 4.4 chloride 98 CO2 34 BUN 17 creatinine 0.7 note there is a slight bump in the bilirubin and transaminases lipase is 135. Clinically the patient evidently looks the same as always but is having these episodes and I am wondering if this patient actually has a sicker gallbladder that can be determined from the previous imaging and/or has choledocholithiasis and/or symptomatic cholelithiasis with retching causing this the feeding material to squirt around the tube. I do not know that she would hold still for an MRCP but this might be beneficial in this patient. MRCP was completed and the patient has multiple choledocholithiasis or stones in the common bile duct there is also cholelithiasis which was already known. Patient need to be transferred for ERCP which those services are not present at this facility. Care of this patient needs to the oncoming doctor at 1800 hrs. Patient data External records reviewed:: [facility] previous records (I reviewed admission from 05/14/2024 through 07/22/2024), EMS form and [facility] records (I reviewed pmhx and medications from [facility] ) Clinical information provided by:: EMS Social determinants that could affect healthcare access:: housing ([facility]iary resident ) Patient has the following chronic illnesses:: developmental delay, cerebral palsy, nonverbal, epilepsy, hypothyroidism, GERD, and chronic PEG tube How is presenting disease/condition affected by chronic disease/condition?: exacerbated by Evaluation data The following diagnostics were reviewed and interpreted by me:: lab results and radiology exam(s) Lab and/or radiology exams considered but not ordered:: None Interpretation Summary: Ordering Physician: Abbi Ojeda MD Date of Service: 07/24/24 Procedure(s): XR chest 1V portable Accession Number(s): [id number] cc: Jewel Cleaning MD; Ricky Pisano MD; Abbi Ojeda MD~ Examination: AP chest single view Technique one AP portable semiupright chest single view Exam date and time: July 24, 2024 1309 hrs. Comparison July 16, 2024 Indications: Shortness of breath today. Findings: Poor inspiratory effort Mild to moderate elevation right hemidiaphragm No significant cardiac enlargement No lobar pneumonia Impression: Poor inspiratory effort chest x-ray Dictated By: Ricky Pisano MD Signed By: <Electronically signed by Ricky Pisano MD in OV> 07/24/24 1325 ====== Ordering Physician: Joe Maradiaga MD Date of Service: 07/24/24 Procedure(s): MR MRCP Accession Number(s): [id number] cc: Jewel Cleaning MD; Joe Maradiaga MD; Ricky Pisano MD~ MRI abdomen, without contrast. MRCP Date and time of exam: July 16, 2024 1703 hrs. Indications: Elevated transaminase on laboratory examination today Technique: Multiple axial and coronal images of the abdomen have been obtained with the Siemens 1.5T MRI scanner. Images obtained included T1 weighted transverse images, T2-weighted transverse images, T2-weighted transverse images fat-suppressed, T2 weighted haste fat suppressed transverse images, T1 weighted images, in and out of phase images, T2-weighted coronal images, breath hold, T2 weighted haze coronal images as well as T2 weighted coronal thick slab images, MRCP. Findings: No focal liver lesions Multiple gallstones Gallbladder wall does not appear thickened or edematous Enlarged common hepatic and common bile duct 6 mm with multiple 2 to 3 mm stones in the distal common bile duct coronal image 14 No pancreatic edema Gastrostomy tube in the stomach No ascites No hydronephrosis Impression: Cholelithiasis, negative for cholecystitis Multiple small stones in the distal common bile duct Dictated By: Ricky Pisano MD Signed By: <Electronically signed by Ricky Pisano MD in OV> 07/24/24 1725 Medications / Prescriptions Medications or Prescriptions considered but not ordered:: None Medication administrations:: Medication Administration History Sodium Chloride (Ns) 1,000 mls @ 150 mls/hr IV .[id number] CAMILA Stop: 08/23/24 11:14 Last Admin: 07/24/24 12:50 Dose: 150 mls/hr Documented By: DO Discontinued Medications Lorazepam (Lorazepam 2 Mg/Ml Vial) 0.5 mg IVP X1 ONE Stop: 07/24/24 14:06 Last Admin: 07/24/24 16:42 Dose: 0.5 mg Documented By: DO See above Consultations Consultation(s) initiated? (list below): Yes Consultation #1 (Physician, Specialty, Details): I spoke with emergency dispatcher [facility] as noted above. Time: 10:55 Diagnosis Differential diagnosis abdominal pain: abdominal pain, diverticulitis, small bowel obstruction and other (Cholelithiasis ) Most likely diagnosis given after review of the tests above:: Cholelithiasis Leukocytosis Developmental delay Abdominal pain Elevated transaminase level Elevated bilirubin Gastrostomy tube in place Admission Indicated Admission indicated?: not indicated Explain why admission is indicated or not indicated:: Txfer for ERCP Admission Request Was there a request for admission?: No Disposition Plan Disposition Plan: Transfer Discharge Plan Plan Patient Disposition: Xfer Acute Care Fac Prescriptions/Referrals Prescriptions/Med Rec: No Action metoclopramide HCl 5 mg/5 mL Solution 10 mg feeding tube BID levothyroxine 75 mcg tablet 75 mcg feeding tube USEASDIRECTD Rx Instructions: GIVE ON SATURDAY, SATURDAY, SATURDAY erythromycin 2 % Solution 1 ml TOPICAL BID Rx Instructions: TO FACE valproic acid (as sodium salt) 250 mg/5 mL Solution 400 mg feeding tube BID gabapentin 300 mg capsule 900 mg feeding tube BID glycopyrrolate 2 mg tablet 2 mg feeding tube BID simethicone 80 mg Tablet,Chewable 80 mg feeding tube TID calcium carbonate 500 mg/5 mL (1,250 mg/5 mL) suspension 625 mg feeding tube BID Multi-Jg 9 mg iron/15 mL liquid 5 ml feeding tube BID famotidine 20 mg Tablet 20 mg feeding tube QDAY erythromycin 2 % Solution 1 ml TOPICAL BID loratadine 10 mg Tablet 10 mg feeding tube QDAY lactulose 10 gram/15 mL Solution 30 g feeding tube DAILY ipratropium-albuterol 0.5 mg-3 mg(2.5 mg base)/3 mL Solution For Nebulization 3 ml INHALATION Q4H PRN (Reason: Shortness Of Breath Or Wheezing) pseudoephedrine HCl [Sudogest] 60 mg Tablet 60 mg feeding tube Q6H PRN (Reason: Congestion) acetaminophen [Tylenol] 325 mg Tablet 650 mg feeding tube QID PRN (Reason: Pain) dextromethorphan-guaifenesin 10-200 mg/5 mL Liquid 10 ml PO Q6H PRN (Reason: Cough) doxycycline hyclate 100 mg capsule 100 mg PO BID 10 Days Qty: 20 0RF Referrals: Jewel Cleaning MD [Primary Care Provider] - In 1 week Problem List Clinical Impression: Leukocytosis, Developmental delay, severe, Abdominal pain, Elevated transaminase level, Elevated bilirubin, Gastrostomy tube in place, Choledocholithiasis, Cholelithiasis Patient/Caregiver Discharge Instructions Print Language: Belarusian Stand Alone Forms: [employer]meena Award Info., Patient Portal Info Letter
[2024-07-24 12:20] LABS: Basophils % (Auto) 0 % (0-2.5); Eosinophils % (Auto) 0 % (0-10); Hematocrit 35.2 % (36.0-46.0); Immature Granulocytes % (Auto) 1 % (0-0); Immature Granulocytes Auto 0.14 Thou/mm3 (0.00-0.00); Lymphocytes % (Auto) 20 % (10-50); Mean Corpuscular HGB Conc 34.1 g/dl (31.0-37.0); Mean Corpuscular Hemoglobin 33.9 pg (25.0-35.0); Mean Corpuscular Volume 99 fL (80-100); Monocytes # (Auto) 1.6 Thou/mm3 (0.0-0.8); Monocytes % (Auto) 10 % (0-12); Neutrophils # (Auto) 10.6 Thou/mm3 (1.8-7.7); Neutrophils % (Auto) 69 % (37-80); Nucleated Red Blood Cell % 0 /100 WBC (0); Platelet Count 361 Thou/mm3 (140-440); RDW Standard Deviation 51.1 fL (36.4-46.3); Red Blood Count 3.54 Miln/mm3 (4.00-5.20); White Blood Count 15.4 Thou/mm3 (3.6-11.0)
[2024-07-24 12:29] LABS: Collection Type, Urine Catheter; Squamous Epithelial Cell,Urine 0 /hpf (0-5)
[2024-07-24 12:44] LABS: Bilirubin,Urine Negative (Negative); Blood,Urine Negative (Negative); Clarity,Urine Clear (Clear/Hazy); Color,Urine Yellow (Lt Yel-Yel); Culture Indicated,Urine Not Indicated; Glucose, Urine Negative (Negative); Ketones,Urine Negative (Negative); Leukocyte Esterase,Urine Negative (Negative); Nitrite,Urine Negative (Negative); PH,Urine 6.5 (5.0-7.0); Protein,Urine Negative (Neg - Trace); RBC,Urine 1 /hpf (0-3); Specific Gravity,Urine 1.013 (1.001-1.035); Urobilinogen,Urine Negative mg/dL (0.0-1.0); WBC,Urine 2 /hpf (0-5)
--- NOTE | 2024-07-24 12:49 | XR_ITS ---
Examination: AP chest single view Technique one AP portable semiupright chest single view Exam date and time: July 24, 2024 1309 hrs. Comparison July 16, 2024 Indications: Shortness of breath today. Findings: Poor inspiratory effort Mild to moderate elevation right hemidiaphragm No significant cardiac enlargement No lobar pneumonia Impression: Poor inspiratory effort chest x-ray
[2024-07-24] MEDS: SODIUM CHLORIDE 0.9% 1000 ML 1,000 ML 150 ML IV ×2 (12:50→20:01)
[2024-07-24 13:38] LABS: Alanine Aminotransferase 68 U/L (10-49); Albumin, Serum 3.8 gm/dL (3.5-5.0); Albumin/Globulin Ratio 1.3 (1.2-2.2); Alkaline Phosphatase 345 U/L (46-116); Anion Gap 6 (7-16); Aspartate Amino Transferase 78 U/L (0-34); BUN/Creatinine Ratio 24 Ratio (12-20); Bilirubin,Total 1.3 mg/dL (0.3-1.2); Blood Urea Nitrogen 17 mg/dL (9-23); Calcium 9.7 mg/dL (8.3-10.6); Calcium (Corrected) 9.9 mg/dL (8.5-10.1); Carbon Dioxide 33.9 mMol/L (20.0-31.0); Chloride 98 mMol/L (98-107); Creatinine (Component) 0.7 mg/dL (0.6-1.3); Estimated Creatinine Clearance 66.7 mL/min (>60); Glucose 97 mg/dL (74-106); Lipase 135 U/L (12-53); Osmolality,Calculated 277 (275-295); Potassium 4.4 mMol/L (3.4-5.1); Sodium 138 mMol/L (136-145); Total Protein 6.8 gm/dL (5.7-8.2); Troponin I < 0.002 ng/mL (0.0-0.045); eGFR > 60 See Note
--- NOTE | 2024-07-24 14:54 | PC.NURSE ---
SPOKE WITH HERNANDEZ ORDONEZ PT'S CARE PROVIDER. MRI SCREENING FORM DONE
[2024-07-24] MEDS: LORazepam 2 MG/ML VIAL 0.5 MG IVP (16:42)
--- NOTE | 2024-07-24 17:39 | PC.CC ---
Addendum entered by Michael Randhawa RN 07/24/24 19:44: 1935 transfer packet is complete with CD inside, only pending pt signature.Transfer packet given to charge nurse and number to call for report is on tracker. ED to setup the transport. Addendum entered by Michael Randhawa RN 07/24/24 19:16: 1909 received call from Beatriz at [facility] that pt is accepted at [facility] for ED to ED transfer. Accepted by Dr. Warren. Call report at [phone]. Addendum entered by Michael Randhawa RN 07/24/24 19:03: 1900 received call from Dalia at [facility] wants to speak with Dr. Edie Treviño. Conference call connected. Addendum entered by Michael Randhawa RN 07/24/24 17:58: 1756 called [facility], spoke to Yanick and initiated the transfer. Yanick stated she will review and call me back. Original Note: 1738 clinicals sent to [facility]. [address] Maradiaga that pt needs to be transferred for multiple small stones in the distal common bile duct needs ERCP.
--- NOTE | 2024-07-24 18:52 | PD.EDADDENDU ---
Emergency Room Addendum Addendum Narrative: 1800 Care assumed from Joe Iglesias MD. Past medical, surgical, social and family history reviewed. Vitals and home medications reviewed. Results and treatment plan discussed. I will assume the care of the patient at this time and will follow the patient, pending ERCP. Please refer to the emergency department record for history and examination from initial visit including the following: MRCP was completed and the patient has multiple choledocholithiasis or stones in the common bile duct there is also cholelithiasis which was already known. Patient need to be transferred for ERCP which those services are not present at this facility. 190 Dr. Warren made aware of the patient?s HPI, PMHx, lab and/or radiology results. Treatment plan was discussed. Accepts patient for transfer. MD Attestation MD Attestation Scribe Attestation: I, Tanmay Murphy, am scribing for and in the presence of Dr. Tillman. Provider Notation: Although this document has been carefully reviewed, there may still be some phonetic and other typographical errors. These errors are purely grammatical due to imperfections in the software program and should not be construed in any way to compromise the substance of the patient's medical care during this visit.
--- NOTE | 2024-07-24 20:28 | PC.NURSE ---
MYSELF AND REGINO SPOKE WITH ALONDRA ZHANG TO GET CONSENT FOR TRANSFER FOR PATIENT, ALSO CALLED [facility] AND LET [place] KNOW SHE WILL BE TRANSFERRED TO [facility]
== END 2024-07-24 20:53 | disposition short-term general hospital (02) ==
PROVIDERS: Emergency Medicine; Emergency Provider Emergency Medicine; PCP Family Medicine
DX: K80.70 Calculus of gallbladder and bile duct without cholecystitis without obstruction (principal); K94.23 Gastrostomy malfunction; D72.829 Elevated white blood cell count, unspecified; R74.01 Elevation of levels of liver transaminase levels; K21.9 Gastro-esophageal reflux disease without esophagitis; G80.9 Cerebral palsy, unspecified; G40.909 Epilepsy, unspecified, not intractable, without status epilepticus; E03.9 Hypothyroidism, unspecified; Y83.3 Surgical operation with formation of external stoma as the cause of abnormal reaction of the patient, or of later complication, without mention of misadventure at the time of the procedure; Y73.2 Prosthetic and other implants, materials and accessory gastroenterology and urology devices associated with adverse incidents; Y92.099 Unspecified place in other non-institutional residence as the place of occurrence of the external cause
CPT/HCPCS: 51701; 36415; 71045; 80053; 81001; 83690; 84484; 85025; 96361; 96374; 99285; J1956; J2060; J7030; S8037; 74181

== ENCOUNTER 2025-03-14 08:45 | Inpatient (IN) | payer MEDICAID, SELFPAY ==
[2025-03-14] VITALS (7 sets, daily range): BP systolic 140–161; BP diastolic 85–103; PULSE 108–126; RESP 16–27; TEMP 36.3–38.3; O2SAT 91–99
--- NOTE | 2025-03-14 08:52 | XR_ITS ---
EXAMINATION: AP chest single view TECHNIQUE: Portable sitting AP chest single view Date and time: March 14, 2025, 0917 hours, comparison July 24, 2024 INDICATIONS: Chest pain today. FINDINGS: Moderate elevation right hemidiaphragm Reduced inspiratory effort Minor prominence left ventricle. Mild vascular congestion. No lobar pneumonia or pulmonary edema IMPRESSION: Poor inspiratory effort chest x-ray
--- NOTE | 2025-03-14 08:52 | EKG_ITS ---
[facility] Test Date: 2025-03-14 Pat Name: TIFFANY FREY Department: Room: - Gender: Female Pharmaceutical Representative: : 1970 Requested By: Jalyn Taylor Order Number: [id number] Reading MD: Jalyn Taylor Measurements Intervals [place] Rate: 117 P: 58 [place]: 112 QRS: 55 QRSD: 80 T: 99 QT: 210 QTc: 293 Interpretive Statements SINUS TACHYCARDIA WITH SHORT [place] INTERVAL NONSPECIFIC ST & T-WAVE ABNORMALITY ABNORMAL RHYTHM ECG Compared to ECG 05/11/2024 12:10:16 No significant changes /store/S0/[id number]
--- NOTE | 2025-03-14 08:57 | PD.EDAMS ---
Altered Mental Status RME/HPI General Chief Complaint: Altered Mental Status Stated Complaint: ALTERED Time Seen by Provider: 03/14/25 08:51 Arrival date/time: 03/14/25 08:45 RME / HPI RME / HPI narrative: DR. RYAN MAIN ED EVALUATION: 54-year-old female with history of developmental delay, cerebral palsy, nonverbal baseline, epilepsy, hypothyroidism, GERD, and chronic PEG tube was BIBA after [facility] consultant noted that she was not acting like herself during a shower earlier today. Per EMS, patient appeared more confused than baseline, and her last known normal is unknown. No reported vomiting, seizure activity, or recent illness. EMS vitals en route: BP 162/143, HR 120, SpO? 91% on room air, patient noted to feel warm to touch. Related Data Home Medications ?Medication ?Instructions ?Recorded ?Confirmed calcium carbonate 500 mg/5 mL (as 625 mg feeding tube BID 07/29/23 03/18/24 calcium carb 1,250 mg/5 mL) oral suspension erythromycin 2 % topical solution 1 ml topical BID 07/29/23 03/18/24 gabapentin 300 mg capsule 900 mg feeding tube BID 07/29/23 03/18/24 glycopyrrolate 2 mg tablet 2 mg feeding tube BID 07/29/23 03/18/24 levothyroxine 75 mcg tablet 75 mcg feeding tube USEASDIRECTD 07/29/23 03/18/24 metoclopramide HCl 5 mg/5 mL oral 10 mg feeding tube BID 07/29/23 03/18/24 solution multivit and minerals-ferrous 5 ml feeding tube BID 07/29/23 03/18/24 gluconate 9 mg iron/15 mL oral liquid (Multi-Jg) simethicone 80 mg chewable tablet 80 mg feeding tube TID 07/29/23 03/18/24 valproic acid (as sodium salt) 250 400 mg feeding tube BID 07/29/23 03/18/24 mg/5 mL oral solution acetaminophen 325 mg tablet 650 mg feeding tube QID PRN Pain 03/18/24 03/18/24 (Tylenol) dextromethorphan-guaifenesin 10 10 ml PO Q6H PRN Cough 03/18/24 03/18/24 mg-200 mg/5 mL oral liquid erythromycin 2 % topical solution 1 ml topical BID 03/18/24 03/18/24 famotidine 20 mg tablet 20 mg feeding tube QDAY 03/18/24 03/18/24 ipratropium 0.5 mg-albuterol 3 mg 3 ml inhalation Q4H PRN Shortness 03/18/24 03/18/24 (2.5 mg base)/3 mL nebulization Of Breath Or Wheezing soln lactulose 10 gram/15 mL oral 30 g feeding tube DAILY 03/18/24 03/18/24 solution loratadine 10 mg tablet 10 mg feeding tube QDAY 03/18/24 03/18/24 pseudoephedrine HCl 60 mg tablet 60 mg feeding tube Q6H PRN 03/18/24 03/18/24 (Sudogest) Congestion Allergies Allergy/AdvReac Type Severity Reaction Status Date / Time bacitracin (From Neosporin Allergy Unknown Verified 03/14/25 08:53 ([id number])) cephalexin Allergy Unknown Verified 03/14/25 08:53 neomycin (From Neosporin Allergy Unknown Verified 03/14/25 08:53 ([id number])) Penicillins Allergy Unknown Verified 03/14/25 08:53 polymyxin B (From Neosporin Allergy Unknown Verified 03/14/25 08:53 ([id number])) Review of Systems Review of Systems Systems Reviewed: All systems reviewed, normal except as documented Past Medical History Past Medical History NEUROLOGIC: Positive Neurological Disorders, Seizures and Cerebral Palsy RESPIRATORY: Positive Pneumonia GASTROINTESTINAL: Positive Gastrointestinal Disorders, Gall Bladder Disease and Gastroesophageal Reflux Disease MUSCULOSKELETAL: Positive Musculoskeletal Disorders and Scoliosis ENT: Positive Blind ENDOCRINE: Positive Endocrine Disorders and Hypothyroidism OTHER HISTORY: Positive Hospitalization and Developmental Delay Family History FAMILY HISTORY: Negative Family Psychiatric Problems, Family Respiratory Disorders, Family Cardiac Disorders, Family Gastrointestinal Problems, Family Cancer, Family Surgery or Family Anesthesia Reaction Surgical History SURGICAL: Positive Gastrostomy Social History SMOKING STATUS: Never smoker SUBSTANCE USE: does not use ALCOHOL: Never ED Exam Narrative Physical exam: GENERAL APPEARANCE: Nonverbal female, appears chronically ill with muscle wasting and contractures, not in acute distress VITALS: All vitals were reviewed and the pulse ox is 99% on room air, which is normal according to my interpretation. HEENT: Normocephalic, atraumatic; pupils equal, round, reactive to light; EOMI; mucous membranes pink, moist; oropharynx clear NECK: Supple LUNGS: CTABL; no wheezes, no rales, no rhonchi HEART: Regular rate, regular rhythm; normal S1, S2; no murmurs ABDOMEN: non distended; normal BS; soft, no tenderness, no guarding, no rebound; no masses, no organomegaly, no hernia BACK: no CVA tenderness EXTREMITIES: atraumatic; no edema; contractures NEUROLOGIC: nonverbal; limited exam SKIN: warm, dry, normal color; no rashes Course Course Course Narrative: 1206: Calling lab to inquire about CBC. Still not resulted. Quality Measures none Orders Category Date Time Status Bedside COVID-19 Antigen Test NOW Care 03/14/25 08:51 Active Bedside Influenza A&B Antigen Test NOW Care 03/14/25 08:51 Active Cut Off Operator Scorer NOW Care 03/14/25 08:52 Active EKG (ED ONLY) *Do not use* NOW Care 03/14/25 08:52 Completed EKG (ED ONLY) *Do not use* NOW Care 03/14/25 08:52 Completed In and Out Catheter X1 Care 03/14/25 09:[address] chest abdomen pelvis w con SEPSIS PROTOCOL Stat Exams 03/14/25 13:01 Completed EKG (ED Only) Stat Exams 03/14/25 08:52 Draft EKG (ED Only) Stat Exams 03/14/25 08:52 Ordered XR chest 1V portable Stat Exams 03/14/25 08:52 Completed Blood Culture (Lab) Stat Lab 03/14/25 09:30 Received CBC Stat Lab 03/14/25 09:30 Completed Comprehensive Metabolic Panel Stat Lab 03/14/25 09:30 Completed Influenza A & B Rapid Panel Stat Lab 03/14/25 09:24 Completed Lactate (Lactic Acid) Stat Lab 03/14/25 09:30 Completed Lactic Acid, 3 HR Stat Lab 03/14/25 12:56 Completed Lipase Stat Lab 03/14/25 09:30 Completed MRSA Nasal Screen Routine Lab 03/14/25 14:55 Ordered Magnesium Stat Lab 03/14/25 09:30 Completed Procalcitonin Stat Lab 03/14/25 09:30 Completed Sputum Culture and Gram Stain Stat Lab 03/14/25 14:58 Ordered Urinalysis Stat Lab 03/14/25 09:55 Completed Urine Culture Stat Lab 03/14/25 09:55 Received Levofloxacin/D5w 500 mg Ivpb [Levaquin Ivpb] Med 03/14/25 12:20 Discontinued 500 mg in 100 ml IV X1 Sodium Chloride 0.9% 1000 ml [Ns] 1,000 ml Med 03/14/25 09:08 Discontinued IV 999 mls/hr Sodium Chloride Rt Ginger 10% [NS Rt Ginger 10%] Med 03/14/25 14:58 Discontinued 5 ml INH X1 ONE Sputum Induction PRN RT 03/14/25 15:00 Ordered Vital Signs Vital signs: Vital Signs Temperature 100.9 F H 03/14/25 08:53 Pulse Rate 119 H 03/14/25 08:53 Respiratory Rate 22 H 03/14/25 08:53 Blood Pressure 142/88 H 03/14/25 08:53 Pulse Oximetry (%) 98 03/14/25 08:53 Oxygen Delivery Method Nasal Cannula 03/14/25 08:53 Oxygen Flow Rate 2 03/14/25 08:53 Altered Mental Status MDM Narrative MDM Narrative:: I, Carmen Lyons, mahendra scribing for and in the presence of Dr. Ryan. Patient data External records reviewed:: [facility] previous records and EMS form Clinical information provided by:: EMS Social determinants that could affect healthcare access:: none Patient has the following chronic illnesses:: developmental delay, cerebral palsy, nonverbal baseline, epilepsy, hypothyroidism, GERD, and chronic PEG tube How is presenting disease/condition affected by chronic disease/condition?: exacerbated by Evaluation data The following diagnostics were reviewed and interpreted by me:: lab results, radiology exam(s) and EKG tracing(s) (My interpretation: EKG performed at 0856 hours, sinus tachycardia, rate 117, no acute ischemic changes) Lab and/or radiology exams considered but not ordered:: none Interpretation Summary: Procedure(s): XR chest 1V portable Accession Number(s): [id number] cc: Jewel Cleaning MD; Ricky Pisano MD; Jalyn Ryan MD~ EXAMINATION: AP chest single view TECHNIQUE: Portable sitting AP chest single view Date and time: March 14, 2025, 0917 hours, comparison July 24, 2024 INDICATIONS: Chest pain today. FINDINGS: Moderate elevation right hemidiaphragm Reduced inspiratory effort Minor prominence left ventricle. Mild vascular congestion. No lobar pneumonia or pulmonary edema IMPRESSION: Poor inspiratory effort chest x-ray Dictated By: Ricky Pisano MD Procedure(s): CT chest abd pel w SEPSIS PRO Accession Number(s): [id number] cc: Jewel Cleaning MD; Ricky Pisano MD; Jalyn Ryan MD~ Examination: CT chest with intravenous contrast CT abdomen with intravenous contrast. CT pelvis with intravenous contrast 2-D sagittal and coronal reconstructions Exam date and time: March 14, 2025, 1310 hours INDICATIONS: Sepsis alert, sepsis fever infection, unknown origin today CTDI:vol (mGy) 11.4 DLP: (mGycm) 644 Technique: Multiple axial sections of the thorax have been obtained. Sections have been obtained, 3 mm slice thickness. Mediastinal and lung density settings have been obtained. Intravenous contrast administered, 60 cc Isovue-370. 2-D sagittal, coronal images obtained. Low dose protocols were performed. One or more of the following dose reduction techniques were used; automated exposure control, adjustment of the mA and/or KV according to patient size, use of iterative reconstruction technique. Findings: No thoracic aortic aneurysmal dilatation No pulmonary artery filling defects No paratracheal or tracheobronchial or bronchopulmonary adenopathy. Right upper lobe pneumonia Prominent elevation right hemidiaphragm Mild fluid subcapsular to the liver Liver is irregular in contour Multiple gallstones Gallbladder wall appears thickened Spleen is not enlarged No pancreatic mass No hydronephrosis Aorta normal size Abundant air and stool throughout the colon Normal-appearing appendix axial image 167 No abdominal or pelvic abscess Atrophic uterus Urinary bladder intact No diverticulitis Significant osteopenia with severe thoracolumbar dextroscoliosis IMPRESSION: Right upper lobe pneumonia Cholelithiasis, recommend gallbladder sonography follow-up to exclude acute cholecystitis No abdominal or pelvic abscess Abundant air and stool throughout the colon. Dictated By: Ricky Pisano MD Medications / Prescriptions Medications or Prescriptions considered but not ordered:: none Medication administrations:: Medication Administration History Acetaminophen (Acetaminophen 325 Mg Tablet) 650 mg NG Q6H PRN PRN Reason: Fever >100.4 and Pain 1-3 Stop: 04/13/25 15:41 Famotidine (Famotidine 20 Mg Tablet) 20 mg GT QDAY [facility] Stop: 04/13/25 15:59 Heparin Sodium (Porcine) (Heparin Sod Inj 5000 Unit/Ml Vial) 5,000 unit SC Q12HR [facility] Stop: 03/28/25 20:59 Metronidazole (Flagyl 500 Mg Iv) 500 mg in 100 mls @ 200 mls/hr IV Q8HR [facility] Stop: 03/21/25 15:59 Last Admin: 03/14/25 17:05 Dose: 200 mls/hr Documented By: EF Levofloxacin/Dextrose (Levaquin Ivpb) 750 mg in 150 mls @ 100 mls/hr IV QDAY [facility] Stop: 03/22/25 08:59 Vancomycin/Sodium Chloride (Vancomycin/Ns 1 Gm Ivpb) 200 mls @ 120 mls/hr IV X1 ONE Stop: 03/14/25 18:09 Labetalol HCl (Labetalol Inj 5 Mg/Ml Vial 20 Ml) 10 mg IVP Q6HR PRN PRN Reason: Hypertension Stop: 04/13/25 16:46 Levothyroxine Sodium (Levothyroxine Sodium 25 Mcg Tablet) 75 mcg GT MoWeSa@0600 [facility] Stop: 04/14/25 05:59 Levothyroxine Sodium (Levothyroxine Sodium 25 Mcg Tablet) 50 mcg GT TuThFr@0600 [facility] Stop: 04/15/25 05:59 Nystatin (Nystatin Pwd 15 Gm Btl) 0 gm TOP BID [facility] Stop: 04/13/25 20:59 Ondansetron HCl (Ondansetron Inj 2 Mg/Ml Inj 2 Ml) 4 mg IVP Q6H PRN; Protocol PRN Reason: NAUSEA OR VOMITING Stop: 04/13/25 15:41 Pharmacy Consult (Vancomycin Pharmacy To Dose 1 Each Each) 1 each IV QDAY PRN PRN Reason: PROTOCOL Stop: 04/14/25 08:59 Sennosides (Senna Tablet) 1 tab GT QDAY [facility]; Protocol Stop: 04/13/25 15:59 Simethicone (Simethicone 80 Mg Chew) 80 mg GT QID PRN PRN Reason: GAS Stop: 04/13/25 16:14 Valproic Acid (Valproic Acid Syrup 250 Mg/5 Ml Udc) 250 mg GT BID [facility] Stop: 04/13/25 20:59 Discontinued Medications Sodium Chloride (Ns) 1,000 mls @ 999 mls/hr IV .Q1H1M ONE Stop: 03/14/25 10:08 Last Infusion: 03/14/25 10:20 Dose: Infused Documented By: Admin: 03/14/25 09:19 Dose: 999 mls/hr Documented By: EF Levofloxacin/Dextrose (Levaquin Ivpb) 500 mg in 100 mls @ 100 mls/hr IV X1 ONE Stop: 03/14/25 13:19 Last Infusion: 03/14/25 13:32 Dose: Infused Documented By: Admin: 03/14/25 12:32 Dose: 100 mls/hr Documented By: EF Sodium Chloride (Ns) 500 mls @ 999 mls/hr IV .Q31M ONE Stop: 03/14/25 17:19 Last Admin: 03/14/25 17:05 Dose: 999 mls/hr Documented By: EF Pharmacy Consult (Vancomycin Pharmacy To Dose 1 Each Each) 1 each IV QDAY PRN PRN Reason: PROTOCOL Stop: 04/13/25 15:59 Sodium Chloride (Sodium Chloride Rt 10% 15 Ml Nebu) 5 ml INH X1 ONE Stop: 03/14/25 14:59 Last Admin: 03/14/25 16:13 Dose: 5 ml Documented By: NIKHIL see above if any Consultations Consultation(s) initiated? (list below): Yes Consultation #1 (Physician, Specialty, Details): Discussed test HPI, PMHx, lab, radiology results and/or management with hospitalist. Will admit for further evaluation and management. Accepts patient for admission. Diagnosis Differential diagnosis altered mental status: other (Sepsis, aspiration pneumonia, and metabolic encephalopathy.) Most likely diagnosis given after review of the tests above:: Pneumonia Admission Indicated Admission indicated?: indicated Admission Request Was there a request for admission?: Yes Admission Attestation Admission request attestation: Discussed case with [] from Hospitalist service regarding admission. Discussed patients ED course, exam findings, labs, and radiology results. The Hospitalist [agrees,declines] to accept the patient for admission. Disposition Plan Disposition Plan: Admit Discharge Plan Plan Patient Disposition: Admit Acute Care w/in Hospital Problem List Clinical Impression: Pneumonia
--- NOTE | 2025-03-14 09:00 | PC.NURSE ---
redness noted on patients bilateral hip area
[2025-03-14] MEDS: SODIUM CHLORIDE 0.9% 1000 ML 1,000 ML 999 ML IV (09:19)
[2025-03-14 09:53] LABS: Lactate (Lactic Acid) 3.5 mMol/L (0.4-2.0)
[2025-03-14 10:03] LABS: Collection Type, Urine Catheter; Squamous Epithelial Cell,Urine 0 /hpf (0-5)
[2025-03-14 10:08] LABS: Influenza A Ag Negative; Influenza B Ag Negative
[2025-03-14 10:24] LABS: Alanine Aminotransferase 11 U/L (10-49); Albumin, Serum 5.2 gm/dL (3.5-5.0); Albumin/Globulin Ratio 1.7 (1.2-2.2); Alkaline Phosphatase 71 U/L (46-116); Anion Gap 13 (7-16); Aspartate Amino Transferase 21 U/L (0-34); BUN/Creatinine Ratio 7 Ratio (12-20); Bilirubin,Total 0.7 mg/dL (0.3-1.2); Blood Urea Nitrogen < 5 mg/dL (9-23); Calcium 10.2 mg/dL (8.3-10.6); Calcium (Corrected) 10.2 mg/dL (8.5-10.1); Carbon Dioxide 26.9 mMol/L (20.0-31.0); Chloride 91 mMol/L (98-107); Creatinine (Component) 0.7 mg/dL (0.6-1.3); Globulin 3.0 gm/dL (2.3-3.5); Glucose 117 mg/dL (74-106); Lipase 30 U/L (12-53); Magnesium 2.2 mg/dL (1.6-2.6); Osmolality,Calculated 260 (275-295); Potassium 3.8 mMol/L (3.4-5.1); Procalcitonin 0.07 ng/ml (0.0-0.49); Sodium 131 mMol/L (136-145); Total Protein 8.2 gm/dL (5.7-8.2); eGFR > 60 See Note
[2025-03-14 10:28] LABS: Basophils # (Auto) 0.0 Thou/mm3 (0.0-0.2); Basophils % (Auto) 0 % (0-2.5); Eosinophils # (Auto) 0.0 Thou/mm3 (0.0-0.5); Eosinophils % (Auto) 0 % (0-10); Hematocrit 49.6 % (36.0-46.0); Hemoglobin 16.7 g/dL (12.0-16.0); Immature Granulocytes Auto 0.14 Thou/mm3 (0.00-0.00); Lymphocytes # (Auto) 2.0 Thou/mm3 (1.0-4.8); Lymphocytes % (Auto) 8 % (10-50); Mean Corpuscular HGB Conc 33.7 g/dl (31.0-37.0); Mean Corpuscular Hemoglobin 32.0 pg (25.0-35.0); Mean Corpuscular Volume 95 fL (80-100); Monocytes # (Auto) 4.3 Thou/mm3 (0.0-0.8); Monocytes % (Auto) 18 % (0-12); Neutrophils # (Auto) 17.0 Thou/mm3 (1.8-7.7); Neutrophils % (Auto) 73 % (37-80); Nucleated Red Blood Cell # 0.00 Thou/mm3 (0.00-0.00); Nucleated Red Blood Cell % 0 /100 WBC (0); RDW Standard Deviation 42.2 fL (36.4-46.3); Red Blood Count 5.22 Miln/mm3 (4.00-5.20); White Blood Count 23.4 Thou/mm3 (3.6-11.0)
[2025-03-14 10:37] LABS: Bilirubin,Urine Negative (Negative); Blood,Urine 2+ (Negative); Clarity,Urine Clear (Clear/Hazy); Color,Urine Lt-Yellow (Lt Yel-Yel); Glucose, Urine 2+ (Negative); Ketones,Urine Trace (Negative); Leukocyte Esterase,Urine Negative (Negative); Nitrite,Urine Negative (Negative); PH,Urine 8.0 (5.0-7.0); Protein,Urine Trace (Neg - Trace); RBC,Urine 14 /hpf (0-3); Specific Gravity,Urine 1.012 (1.001-1.035); Urobilinogen,Urine Negative mg/dL (0.0-1.0); WBC,Urine < 1 /hpf (0-5)
[2025-03-14 12:11] LABS: Platelet Count 65 Thou/mm3 (140-440)
[2025-03-14 12:12] LABS: Slide Review Platelets confirmed
[2025-03-14] MEDS: LEVOFLOXACIN/D5W 500 MG IVPB 500 MG/100 ML BAG 100 MG IV (12:32)
[2025-03-14 12:46] LABS: Reflex Lactate? Y
--- NOTE | 2025-03-14 13:01 | XR_ITS ---
Examination: CT chest with intravenous contrast CT abdomen with intravenous contrast. CT pelvis with intravenous contrast 2-D sagittal and coronal reconstructions Exam date and time: March 14, 2025, 1310 hours INDICATIONS: Sepsis alert, sepsis fever infection, unknown origin today CTDI:vol (mGy) 11.4 DLP: (mGycm) 644 Technique: Multiple axial sections of the thorax have been obtained. Sections have been obtained, 3 mm slice thickness. Mediastinal and lung density settings have been obtained. Intravenous contrast administered, 60 cc Isovue-370. 2-D sagittal, coronal images obtained. Low dose protocols were performed. One or more of the following dose reduction techniques were used; automated exposure control, adjustment of the mA and/or KV according to patient size, use of iterative reconstruction technique. Findings: No thoracic aortic aneurysmal dilatation No pulmonary artery filling defects No paratracheal or tracheobronchial or bronchopulmonary adenopathy. Right upper lobe pneumonia Prominent elevation right hemidiaphragm Mild fluid subcapsular to the liver Liver is irregular in contour Multiple gallstones Gallbladder wall appears thickened Spleen is not enlarged No pancreatic mass No hydronephrosis Aorta normal size Abundant air and stool throughout the colon Normal-appearing appendix axial image 167 No abdominal or pelvic abscess Atrophic uterus Urinary bladder intact No diverticulitis Significant osteopenia with severe thoracolumbar dextroscoliosis IMPRESSION: Right upper lobe pneumonia Cholelithiasis, recommend gallbladder sonography follow-up to exclude acute cholecystitis No abdominal or pelvic abscess Abundant air and stool throughout the colon.
[2025-03-14 13:02] LABS: Lactic Acid, 3 HR 1.8 mMol/L (0.4-2.0)
--- NOTE | 2025-03-14 14:31 | PC.CC ---
Patient is a 54 year-old female who presents to the hospital for AMS. RADIO RECORDERCesia made [id number] contact with patient introduced self, role, and reason for visit to caregiver who was at bedside Amanda from [facility]. Patient is not alert and oriented. Amanda the caregiver with [facility] reports the patient is [facility] and her medical decision maker is Dr. Mckeon. If he needs to be reach the RN Kimberlyn Norwood know how to make contact with him. Patient is bedridden and is not ambulatory, she requires max assist with all ADLs. Patient is not on oxygen at home and is not a dialysis patient. Her primary provider is Jewel Cleaning and her pharmacy of choice is [facility] who delivers her prescription medications. Upon discharge patient can return back to [facility]. career services director to follow up with any discharge needs.
--- NOTE | 2025-03-14 14:48 | PD.RESHP ---
Documentation for date of: 03/14/25 Exam Vital Signs Temp Pulse Resp BP Pulse Ox O2 Del Method O2 Flow Rate 99.8 F 108 H 19 161/99 H 99 Room Air 2 03/14/25 11:27 03/14/25 11:27 03/14/25 11:27 03/14/25 11:27 03/14/25 11:27 03/14/25 11:27 03/14/25 08:53 Results: Labs 03/14/25 09:30 03/14/25 09:30 Labs: Short CBC 03/14/25 Range/Units 09:30 WBC 23.4 H (3.6-11.0) Thou/mm3 Hgb 16.7 H (12.0-16.0) g/dL Hct 49.6 H (36.0-46.0) % Plt Count 65 L (140-440) Thou/mm3 BMP 03/14/25 09:30 Sodium 131 L Potassium 3.8 Chloride 91 L Carbon Dioxide 26.9 BUN < 5 L Creatinine 0.7 Glucose 117 H Calcium 10.2 Liver Function 03/14/25 Range/Units 09:30 Total Bilirubin 0.7 (0.3-1.2) mg/dL AST 21 (0-34) U/L ALT 11 (10-49) U/L Alkaline Phosphatase 71 (46-116) U/L Albumin 5.2 H (3.5-5.0) gm/dL Urine 03/14/25 Range/Units 09:55 Urine Color Lt-Yellow (Lt Yel-Yel) Urine Clarity Clear (Clear/Hazy) Urine pH 8.0 H (5.0-7.0) Ur Specific [place] 1.012 (1.001-1.035) Urine Protein Trace (Neg - Trace) Urine Glucose (UA) 2+ A (Negative) Quality Measures Quality Measures none Medications Home Medications and Allergies Home Medications ?Medication ?Instructions ?Recorded ?Confirmed ?Type calcium carbonate 500 mg/5 mL (as 625 mg feeding tube BID 07/29/23 03/18/24 History calcium carb 1,250 mg/5 mL) oral suspension erythromycin 2 % topical solution 1 ml topical BID 07/29/23 03/18/24 History gabapentin 300 mg capsule 900 mg feeding tube BID 07/29/23 03/18/24 History glycopyrrolate 2 mg tablet 2 mg feeding tube BID 07/29/23 03/18/24 History levothyroxine 75 mcg tablet 75 mcg feeding tube USEASDIRECTD 07/29/23 03/18/24 History metoclopramide HCl 5 mg/5 mL oral 10 mg feeding tube BID 07/29/23 03/18/24 History solution multivit and minerals-ferrous 5 ml feeding tube BID 07/29/23 03/18/24 History gluconate 9 mg iron/15 mL oral liquid (Multi-Jg) simethicone 80 mg chewable tablet 80 mg feeding tube TID 07/29/23 03/18/24 History valproic acid (as sodium salt) 250 400 mg feeding tube BID 07/29/23 03/18/24 History mg/5 mL oral solution acetaminophen 325 mg tablet 650 mg feeding tube QID PRN Pain 03/18/24 03/18/24 History (Tylenol) dextromethorphan-guaifenesin 10 10 ml PO Q6H PRN Cough 03/18/24 03/18/24 History mg-200 mg/5 mL oral liquid erythromycin 2 % topical solution 1 ml topical BID 03/18/24 03/18/24 History famotidine 20 mg tablet 20 mg feeding tube QDAY 03/18/24 03/18/24 History ipratropium 0.5 mg-albuterol 3 mg 3 ml inhalation Q4H PRN Shortness 03/18/24 03/18/24 History (2.5 mg base)/3 mL nebulization Of Breath Or Wheezing soln lactulose 10 gram/15 mL oral 30 g feeding tube DAILY 03/18/24 03/18/24 History solution loratadine 10 mg tablet 10 mg feeding tube QDAY 03/18/24 03/18/24 History pseudoephedrine HCl 60 mg tablet 60 mg feeding tube Q6H PRN 03/18/24 03/18/24 History (Sudogest) Congestion Allergies Allergy/AdvReac Type Severity Reaction Status Date / Time bacitracin (From Neosporin Allergy Unknown Verified 03/14/25 08:53 ([id number])) cephalexin Allergy Unknown Verified 03/14/25 08:53 neomycin (From Neosporin Allergy Unknown Verified 03/14/25 08:53 ([id number])) Penicillins Allergy Unknown Verified 03/14/25 08:53 polymyxin B (From Neosporin Allergy Unknown Verified 03/14/25 08:53 ([id number])) Visit Medications Discontinued Medications Sodium Chloride (Ns) 1,000 mls @ 999 mls/hr IV .Q1H1M ONE Stop: 03/14/25 10:08 Last Infusion: 03/14/25 10:20 Dose: Infused Levofloxacin/Dextrose (Levaquin Ivpb) 500 mg in 100 mls @ 100 mls/hr IV X1 ONE Stop: 03/14/25 13:19 Last Admin: 03/14/25 12:32 Dose: 100 mls/hr
[2025-03-14] MEDS: SODIUM CHLORIDE RT 10% 15 ML NEBU 5 ML INH (16:13)
--- NOTE | 2025-03-14 16:18 | PD.RESHP ---
Documentation for date of: 03/14/25 Patient is a 54-year-old female with a past medical history of cerebral palsy, developmental delay, history of seizures on valproic acid, hypothyroidism, scoliosis, cholelithiasis, history of GERD and on PEG tube feeding who present with changes in behavior per intermediate but not altered as patient at baseline has developmental delay and nonverbal. Patient was tachycardia, tachypnea, and pyrexia noted. Patient meeting SIRs criteria. Chest/Abdomen/Pelvis noted with right upper lobe pneumonia. Concern for aspiration pneumonia given location of pneumonia and history of developmental delay. Cholelithiasis once again noted on CT abdomen, patient is under a conservator and no surgical intervention is planned as of now. Blood cultures and urine cultures ordered. IV antibiotic started on Vancomycin, Flagly, and Levofloxacin on 03/14/2025. Pending MRSA screen. Continue to monitor lactic acidosis. Resume home medication, including Levothyroxine and valporic acid for seizure activity. PEG tube feeding resumed. Consult exceptional student education aide. Senior Resident Attestation: I have discussed the case with supervising physician and biomedical engineering internship physician involved in the care of patient. I personally saw and examined patient and discussed the assessment and plan with the entire medical team, including attending. I agree with assessment and plan as documented above. - The patient's plan was discussed with attending Dr. Meghan Pemberton MD PGY2 Internal Medicine HPI History of Present Illness History of present illness: Deyanira Pérez is a 54-year-old female with a PMH of cerebral palsy, epilepsy on valproic acid, developmental delay (nonverbal at baseline), scoliosis, cholelithiasis, hypothyroidism, GERD, and chronic PEG tube who was BIBA to the ED on 03/14/25 after her information technology professor noted that she was not acting like herself during a shower earlier today. Per EMS, patient appeared more confused than baseline, and her last known normal is unknown. No reported vomiting, seizure activity, or recent illness. In the ED, vitals showed: BP 142/88 HR 119 RR 22 Temp 100.9 SpO2 98% on 2 L NC CBC showed WBC 23.4, Hgb 16.7, and plt# 65. CMP showed sodium 131, chloride 91, calculated osmolality 260, lactic acid 3.5, corrected calcium 10.2, lipase WNL, and procalcitonin WNL. UA showed basic pH 8.0, 2+ glucose, 2+ blood, and 14 uRBCs. Serology studies negative for influenza A/B. Imagin/19 CXR showed poor inspiratory effort but was negative for lobar pneumonia or pulmonary edema 03/14 EKG showed sinus tachycardia with HR 117, short MI interval 112, nonspecific ST and T-wave abnormality, and normal QTc 293 03/14 CT CAP showed right upper lobe pneumonia, cholelithiasis, and abundant air and stool throughout the colon In the ED, patient was given 1 L NS bolus and IV levofloxacin 500 mg x 1. Patient was admitted for the work-up and management of acute encephalopathy in the setting of possible sepsis likely 2/2 aspiration pneumonia. Review of Systems Review of Systems ROS Unobtainable: unobtainable due to mental status and unobtainable due to medical condition Exam Vital Signs Temp Pulse Resp BP Pulse Ox O2 Del Method O2 Flow Rate 99.8 F 108 H 19 161/99 H 99 Room Air 2 03/14/25 11:27 03/14/25 11:27 03/14/25 11:27 03/14/25 11:27 03/14/25 11:27 03/14/25 11:27 03/14/25 08:53 Narrative Exam General: A/O x0 (nonverbal at baseline), seemingly sleeping and in no acute distress. Head: Normocephalic, atraumatic. Eyes: Anicteric, vision grossly intact. Mouth/Throat: Oral mucosa moist. No obvious lesions in oropharynx. Cardiovascular: Tachycardic rate and normal rhythm, no murmur, no JVD or carotid bruits. +S1/S2. Respiratory: Expiratory rhonchi and some inspiratory wheezing noted on auscultation of bilateral lung elise. No crackles or rales appreciated. No accessory muscle use. Gastrointestinal: PEG tube in place at LUQ. Soft, nontender, non-distended, no palpable masses. No guarding or rebound tenderness. Peristalsis present. Extremities: Muscular atrophy of BLE. Mottling observed of right elbow and bilateral feet. Bilateral clubfoot deformity. No edema, no cyanosis, no clubbing. Pedal pulses palpable bilaterally. Skin: Erythema and scaling of intertriginous folds of abdomen and groin. Results: Labs 03/15/25 12:20 03/15/25 06:18 Labs: Short CBC 03/14/25 Range/Units 09:30 WBC 23.4 H (3.6-11.0) Thou/mm3 Hgb 16.7 H (12.0-16.0) g/dL Hct 49.6 H (36.0-46.0) % Plt Count 65 L (140-440) Thou/mm3 BMP 03/14/25 09:30 Sodium 131 L Potassium 3.8 Chloride 91 L Carbon Dioxide 26.9 BUN < 5 L Creatinine 0.7 Glucose 117 H Calcium 10.2 Liver Function 03/14/25 Range/Units 09:30 Total Bilirubin 0.7 (0.3-1.2) mg/dL AST 21 (0-34) U/L ALT 11 (10-49) U/L Alkaline Phosphatase 71 (46-116) U/L Albumin 5.2 H (3.5-5.0) gm/dL Urine 03/14/25 Range/Units 09:55 Urine Color Lt-Yellow (Lt Yel-Yel) Urine Clarity Clear (Clear/Hazy) Urine pH 8.0 H (5.0-7.0) Ur Specific [place] 1.012 (1.001-1.035) Urine Protein Trace (Neg - Trace) Urine Glucose (UA) 2+ A (Negative) Quality Measures Quality Measures none Medications Home Medications and Allergies Home Medications ?Medication ?Instructions ?Recorded ?Confirmed ?Type calcium carbonate 500 mg/5 mL (as 625 mg feeding tube BID 07/29/23 03/14/25 History calcium carb 1,250 mg/5 mL) oral suspension gabapentin 300 mg capsule 900 mg feeding tube BID 07/29/23 03/14/25 History glycopyrrolate 2 mg tablet 2 mg feeding tube BID 07/29/23 03/14/25 History levothyroxine 75 mcg tablet 75 mcg feeding tube USEASDIRECTD 07/29/23 03/14/25 History multivit and minerals-ferrous 5 ml feeding tube BID 07/29/23 03/14/25 History gluconate 9 mg iron/15 mL oral liquid (Multi-Jg) simethicone 80 mg chewable tablet 80 mg feeding tube TID 07/29/23 03/14/25 History valproic acid (as sodium salt) 250 400 mg feeding tube BID 07/29/23 03/14/25 History mg/5 mL oral solution acetaminophen 325 mg tablet 650 mg feeding tube QID PRN Pain 03/18/24 03/14/25 History (Tylenol) famotidine 20 mg tablet 20 mg feeding tube QDAY 03/18/24 03/14/25 History loratadine 10 mg tablet 10 mg feeding tube QDAY 03/18/24 03/14/25 History bisacodyl 10 mg rectal suppository 10 mg MI QDAY PRN constipation 03/14/25 03/14/25 History clindamycin phosphate 1 % topical 1 applic topical BID 03/14/25 03/14/25 History gel polyethylene glycol 3350 17 17 g feeding tube QDAY 03/14/25 03/14/25 History gram/dose oral powder (ClearLax) Allergies Allergy/AdvReac Type Severity Reaction Status Date / Time bacitracin (From Neosporin Allergy Unknown Verified 03/14/25 08:53 ([id number])) cephalexin Allergy Unknown Verified 03/14/25 08:53 neomycin (From Neosporin Allergy Unknown Verified 03/14/25 08:53 ([id number])) Penicillins Allergy Unknown Verified 03/14/25 08:53 polymyxin B (From Neosporin Allergy Unknown Verified 03/14/25 08:53 ([id number])) Visit Medications Acetaminophen (Acetaminophen 325 Mg Tablet) 650 mg NG Q6H PRN PRN Reason: Fever >100.4 and Pain 1-3 Stop: 04/13/25 15:41 Famotidine (Famotidine 20 Mg Tablet) 20 mg GT QDAY CAMILA Stop: 04/13/25 15:59 Heparin Sodium (Porcine) (Heparin Sod Inj 5000 Unit/Ml Vial) 5,000 unit SC Q12HR CAMILA Stop: 03/28/25 20:59 Metronidazole (Flagyl 500 Mg Iv) 500 mg in 100 mls @ 200 mls/hr IV Q8HR CAMILA Stop: 03/21/25 15:59 Levofloxacin/Dextrose (Levaquin Ivpb) 750 mg in 150 mls @ 100 mls/hr IV QDAY CAMILA Stop: 03/22/25 08:59 Vancomycin/Sodium Chloride (Vancomycin/Ns 1 Gm Ivpb) 200 mls @ 120 mls/hr IV X1 ONE Stop: 03/14/25 18:09 Levothyroxine Sodium (Levothyroxine Sodium 25 Mcg Tablet) 75 mcg GT MoWeSa@0600 CAMILA Stop: 04/14/25 05:59 Levothyroxine Sodium (Levothyroxine Sodium 25 Mcg Tablet) 50 mcg GT TuThFr@0600 CAMILA Stop: 04/15/25 05:59 Nystatin (Nystatin Pwd 15 Gm Btl) 0 gm TOP BID CAMILA Stop: 04/13/25 20:59 Ondansetron HCl (Ondansetron Inj 2 Mg/Ml Inj 2 Ml) 4 mg IVP Q6H PRN; Protocol PRN Reason: NAUSEA OR VOMITING Stop: 04/13/25 15:41 Pharmacy Consult (Vancomycin Pharmacy To Dose 1 Each Each) 1 each IV QDAY PRN PRN Reason: PROTOCOL Stop: 04/13/25 15:59 Sennosides (Senna Tablet) 1 tab GT QDAY CAMILA; Protocol Stop: 04/13/25 15:59 Simethicone (Simethicone 80 Mg Chew) 80 mg GT QID PRN PRN Reason: GAS Stop: 04/13/25 16:14 Valproic Acid (Valproic Acid Syrup 250 Mg/5 Ml Udc) 250 mg GT BID CAMILA Stop: 04/13/25 20:59 Discontinued Medications Sodium Chloride (Ns) 1,000 mls @ 999 mls/hr IV .Q1H1M ONE Stop: 03/14/25 10:08 Last Infusion: 03/14/25 10:20 Dose: Infused Levofloxacin/Dextrose (Levaquin Ivpb) 500 mg in 100 mls @ 100 mls/hr IV X1 ONE Stop: 03/14/25 13:19 Last Infusion: 03/14/25 13:32 Dose: Infused Sodium Chloride (Sodium Chloride Rt 10% 15 Ml Nebu) 5 ml INH X1 ONE Stop: 03/14/25 14:59 Last Admin: 03/14/25 16:13 Dose: 5 ml Assessment & Plan Plan Deyanira ClaudiaYadira Pérez is a 54-year-old female with a PMH of cerebral palsy, epilepsy on valproic acid, developmental delay (nonverbal at baseline), scoliosis, cholelithiasis, hypothyroidism, GERD, and chronic PEG tube who was BIBA to the ED on 03/14/25 after her information technology professor noted that she was not acting like herself during a shower earlier today. Patient was admitted for the work-up and management of acute encephalopathy in the setting of possible sepsis likely 2/2 aspiration pneumonia. #Acute encephalopathy likely secondary to pneumonia #PMH of epilepsy on valproic acid Patient presented with reported confusion not present at baseline PMH of cerebral palsy, epilepsy on valproic acid, developmental delay (nonverbal at baseline) DDx: 2/2 acute infection (sepsis or pneumonia), seizure-induced post-ictal state Dx: -Ordered EEG awake and drowsy, results pending Rx: -Restarted home medication: GT valproic acid syrup 250 mg BID -Seizure precautions -Aspiration precautions -HOB elevation 30 degrees -Surveillance monitoring (miscellaneous nursing order) #Sepsis rule out, given altered mental status #likely 2/2 aspiration pneumonia #Leukocytosis Patient meets 4/4 SIRS criteria by the following: Temperature above 100.4 or below 98.6 (100.9), HR>90 (119), RR>20 or PaCO2<32 (RR 22), WBC above 12 or below 4 (23.4) + source of infection (aspiration pneumonia) Evidence for source of infection is finding of right upper lobe pneumonia on 03/14 CT CAP qSOFA rating predicting high-risk mortality if 2 or more of the following criteria met: SBP 100 or less (not met), RR 22 or more (met), GCS less than 15 (met) On physical exam, mottling observed of right elbow and bilateral feet In the context of fluid resuscitation, patient is s/p 1 L of IV fluid Of note, patient is reported to be allergic to penicillins and cephalexin s/p administration of IV levofloxacin 500 mg x 1 in the ED Dx: -Ordered sputum culture and gram stain, results pending -Ordered BCx, results pending -Ordered MRSA nares, results pending -Ordered bedside Influenza A&B, negative Rx: -10-ypj-dwchtz of IV Levaquin 750 mg qD [03/14--] -45-iwk-yatfxo of IV Flagyl 500 mg q8HR [03/14--] -IV vancomycin dosed by pharmacy [03/14--] and vancomycin trough AM DRAW tomorrow #Lactic acidosis (resolved) Admission LA 3.5, then down-trended to 1.8 on same day Possibly 2/2 hypoperfusion from sepsis or seizure activity Rx: -Continue to monitor #Hypothyroidism Per prior documentation, patient has a history of hypothyroidism and takes levothyroxine at home Dx: -Ordered TSH, results pending -Ordered Free T4, results pending Rx: -Restarted home medication: GT levothyroxine dosed by pharmacy #Intertriginous dermatitis On physical exam, patient was noted to have erythema and scaling of intertriginous folds of the abdomen and groin Rx: -Topical nystatin BID #Chronic PEG tube Rx: -Consulted registered dietitian -resume home feeding based on home schedule Hospital Management: Disposition: admitted to [facility] for the work-up and management of acute encephalopathy in the setting of possible sepsis likely 2/2 aspiration pneumonia Diet: NPO (registered dietitian consulted) GI Prophylaxis: GT Pepcid 20 mg qD Bowel Prophylaxis: GT Senna 1 tablet qD DVT Prophylaxis: SC Heparin 5K q12HR CODE STATUS: Full Code I have examined the patient and conferred with my attending, Dr. Christianson, and my senior resident, Dr. Pemberton, regarding them. Sai Mora DO PGY-1 Internal Medicine Attending Provider Attestation/Addendum I have examined the patient, reviewed labs and imaging findings, discussed the case with the resident(s), and reviewed entered orders. I agree with the plan of care as outlined in this note, with these additional summaries/recommendations: After examination of the patient and review of the clinical data, I feel that this patient needs admission to the hospital for further treatment and evaluation. Patient is a 54-year-old female with a medical history of epilepsy on antiepileptics, developmental delay, cerebral palsy, hypothyroidism, GERD, and chronic PEG presents to [facility] emergency department on 03/14/2025 with chief complaint of aspiration. Patient diagnosed with aspiration pneumonia and sepsis. Evidence of endorgan damage with encephalopathy. Patient receiving IV fluids and IV antibiotics. Follow-up culture results. Consult dietary for tube feeds which we will hold for now. Continue fluids for lactic acidosis most likely type A. Hold home antihypertensives for now. Continue home levothyroxine. Please see residents note for additional details and management. Dr. Meghan MD
[2025-03-14] MEDS: metroNIDAZOLE/NS 500 MG IVPB 500 MG/100 ML BAG 200 MG IV ×2 (17:05→21:46)
[2025-03-14] MEDS: SODIUM CHLORIDE 0.9% 500 ML 500 ML 999 ML IV (17:05)
[2025-03-14] MEDS: FAMOTIDINE 20 MG TABLET GT (18:03)
[2025-03-14] MEDS: VANCOMYCIN/NS 1 GM IVPB 200 ML IV (20:18)
[2025-03-14] MEDS: VALPROIC ACID SYRUP 250 MG/5 ML UDC GT (21:40)
[2025-03-14] MEDS: NYSTATIN PWD 15 GM BTL TOP (21:41)
[2025-03-14] MEDS: HEPARIN SOD INJ 5000 UNIT/ML VIAL SC (21:41)
--- NOTE | 2025-03-14 23:48 | RESP.EEG ---
EEG completed and ready for review
[2025-03-15] VITALS (10 sets, daily range): BP systolic 110–145; BP diastolic 62–112; PULSE 60–148; RESP 20–32; TEMP 36.1–38.1; O2SAT 92–96; BMI 30.8
[2025-03-15] MEDS: ACETAMINOPHEN 325 MG TABLET 650 MG NG ×2 (01:28→20:34)
[2025-03-15] MEDS: metroNIDAZOLE/NS 500 MG IVPB 500 MG/100 ML BAG 200 MG IV ×3 (05:36→21:02)
[2025-03-15] MEDS: LEVOTHYROXINE SODIUM 25 MCG TABLET 75 MCG GT (05:36)
--- NOTE | 2025-03-15 06:27 | PC.NURSE ---
Dr. Vanessa notified regarding patient elevated heart rate in 120s (120-125) during the night with other vital signs WNL as well as HR now down in the 110s. No new orders.
[2025-03-15 07:42] LABS: Alanine Aminotransferase 9 U/L (10-49); Albumin, Serum 3.5 gm/dL (3.5-5.0); Albumin/Globulin Ratio 1.6 (1.2-2.2); Alkaline Phosphatase 54 U/L (46-116); Anion Gap 12 (7-16); Aspartate Amino Transferase 32 U/L (0-34); BUN/Creatinine Ratio 12 Ratio (12-20); Bilirubin,Total 0.5 mg/dL (0.3-1.2); Blood Urea Nitrogen 6 mg/dL (9-23); Calcium 8.4 mg/dL (8.3-10.6); Calcium (Corrected) 8.8 mg/dL (8.5-10.1); Carbon Dioxide 24.2 mMol/L (20.0-31.0); Cardiac Risk Estimate 2.1 RATIO (3.7-5.6); Chloride 98 mMol/L (98-107); Cholesterol 108 mg/dL (132-200); Creatinine (Component) 0.5 mg/dL (0.6-1.3); Globulin 2.2 gm/dL (2.3-3.5); Glucose 136 mg/dL (74-106); HDL Cholesterol 52 mg/dL (40-60); LDL Cholesterol,Calculated 42 mg/dL (0-130); Magnesium 1.7 mg/dL (1.6-2.6); Osmolality,Calculated 267 (275-295); Phosphorous 1.9 mg/dL (2.4-5.1); Potassium 3.9 mMol/L (3.4-5.1); Sodium 134 mMol/L (136-145); Thyroid Stimulating Hormone 3.66 uIU/mL (0.55-4.78); Total Protein 5.7 gm/dL (5.7-8.2); Triglycerides 72 mg/dL (30-150); Vancomycin,Trough 5.3 mcg/mL (5.0-10.0); eGFR > 60 See Note
[2025-03-15 08:50] LABS: Basophils # (Auto) 0.1 Thou/mm3 (0.0-0.2); Basophils % (Auto) 0 % (0-2.5); Eosinophils # (Auto) 0.0 Thou/mm3 (0.0-0.5); Eosinophils % (Auto) 0 % (0-10); Hematocrit 40.9 % (36.0-46.0); Hemoglobin 13.9 g/dL (12.0-16.0); Immature Granulocytes Auto 0.21 Thou/mm3 (0.00-0.00); Lymphocytes # (Auto) 1.9 Thou/mm3 (1.0-4.8); Lymphocytes % (Auto) 7 % (10-50); Mean Corpuscular HGB Conc 34.0 g/dl (31.0-37.0); Mean Corpuscular Hemoglobin 32.8 pg (25.0-35.0); Mean Corpuscular Volume 97 fL (80-100); Monocytes # (Auto) 5.6 Thou/mm3 (0.0-0.8); Monocytes % (Auto) 20 % (0-12); Neutrophils # (Auto) 20.7 Thou/mm3 (1.8-7.7); Neutrophils % (Auto) 73 % (37-80); Nucleated Red Blood Cell # 0.00 Thou/mm3 (0.00-0.00); Nucleated Red Blood Cell % 0 /100 WBC (0); Platelet Count 176 Thou/mm3 (140-440); RDW Standard Deviation 45.1 fL (36.4-46.3); Red Blood Count 4.24 Miln/mm3 (4.00-5.20); White Blood Count 28.4 Thou/mm3 (3.6-11.0)
[2025-03-15] MEDS: LEVOFLOXACIN/D5W 750MG IVPB 750 MG/150 ML BAG 100 MG IV (09:51)
[2025-03-15] MEDS: FAMOTIDINE 20 MG TABLET GT (09:51)
[2025-03-15] MEDS: HEPARIN SOD INJ 5000 UNIT/ML VIAL SC ×2 (09:51→20:34)
[2025-03-15] MEDS: VALPROIC ACID SYRUP 250 MG/5 ML UDC GT (10:44)
[2025-03-15] MEDS: NYSTATIN PWD 15 GM BTL TOP ×2 (10:45→20:36)
--- NOTE | 2025-03-15 10:52 | PC.DIETICIAN ---
Dietitian recommendation: Switch intermittent feeds over 60 min to continuous per protocol: Jevity 1.5 at 20 ml/hr via PEG tube by pump. Advance to goal rate of 32 ml/hr x 22 hrs if tolerated for 8 hrs. If no IV fluids, water flushes of 40 ml/hr (or per MD). -Hold TF for one hour before and after levothyroxine administration (if given via GT). Provides 704ml total vol, 1056kcal, 45g protein.
[2025-03-15] MEDS: VANCOMYCIN/NS 750 MG IVPB 750 MG/150 ML BAG 120 MG IV ×2 (11:35→22:28)
--- NOTE | 2025-03-15 11:59 | EKG_ITS ---
[facility] Test Date: 2025-03-15 Pat Name: TIFFANY FREY [facility] Gender: Female [employer] Supervisor: CIRA : 1970 Requested By: Brad Wilson Order Number: [id number] Reading MD: Brad Wilson Measurements Intervals [place] Rate: 128 P: 62 WI: 111 QRS: 40 QRSD: 71 T: 0 QT: 274 QTc: 400 Interpretive Statements SINUS TACHYCARDIA WITH SHORT WI INTERVAL NONSPECIFIC ST & T-WAVE ABNORMALITY ABNORMAL RHYTHM ECG Compared to ECG 03/14/2025 08:56:52 No significant changes /store/S0/[id number].pdf
--- NOTE | 2025-03-15 12:01 | XR_ITS ---
Examination: Abdomen AP single view Technique: AP portable supine abdomen, single view Exam date and time: March 15, 2025, 1225 hours INDICATIONS: Abdominal pain today. FINDINGS: Severe thoracolumbar dextroscoliosis Moderate air and stool in the colon No obstruction No free air IMPRESSION: Nonobstructive bowel gas pattern
--- NOTE | 2025-03-15 12:02 | XR_ITS ---
EXAMINATION: AP chest single view TECHNIQUE: AP semierect portable chest single view Date and time: March 15, 2015, 1209 hours INDICATIONS: Shortness of breath this week chest pain FINDINGS: Opacity both lung bases suspicious for pneumonia Mild prominence left ventricle with vascular congestion Prominent osteopenia IMPRESSION: Bilateral pneumonia
[2025-03-15] MEDS: MORPHINE SULF INJ 4 MG/ML VIAL 2 MG IVP (12:08)
[2025-03-15] MEDS: ALBUTEROL/IPRATROPIUM (Duoneb) RT SOL 3 ML NEBU INH (12:20)
[2025-03-15] MEDS: FUROSEMIDE INJ 10 MG/ML VIAL 2 ML 20 MG IVP (12:28)
[2025-03-15 12:36] LABS: Base Excess 1 (-3-3); HCO3 24 mEq/L (20-26); Inspired Oxygen, FIO2 21 %; O2 Saturation 99 % (91-98); PCO2 30 mmHg (32.0-48.0); PO2 183 mmHg (83-108); pH, Arterial 7.50 (7.35-7.45)
[2025-03-15 12:37] LABS: Inspired O2, VO2 Liters 5 L/min
[2025-03-15 12:45] LABS: Allen Test Performed/OK; Puncture Site Left Radial
[2025-03-15 12:55] LABS: Basophils # (Auto) 0.1 Thou/mm3 (0.0-0.2); Basophils % (Auto) 0 % (0-2.5); Eosinophils # (Auto) 0.0 Thou/mm3 (0.0-0.5); Eosinophils % (Auto) 0 % (0-10); Hematocrit 42.5 % (36.0-46.0); Hemoglobin 13.9 g/dL (12.0-16.0); Immature Granulocytes Auto 0.19 Thou/mm3 (0.00-0.00); Lymphocytes # (Auto) 1.9 Thou/mm3 (1.0-4.8); Lymphocytes % (Auto) 7 % (10-50); Mean Corpuscular HGB Conc 32.7 g/dl (31.0-37.0); Mean Corpuscular Hemoglobin 31.4 pg (25.0-35.0); Mean Corpuscular Volume 96 fL (80-100); Monocytes # (Auto) 4.5 Thou/mm3 (0.0-0.8); Monocytes % (Auto) 16 % (0-12); Neutrophils # (Auto) 22.0 Thou/mm3 (1.8-7.7); Neutrophils % (Auto) 77 % (37-80); Nucleated Red Blood Cell # 0.00 Thou/mm3 (0.00-0.00); Nucleated Red Blood Cell % 0 /100 WBC (0); Platelet Count 211 Thou/mm3 (140-440); RDW Standard Deviation 44.7 fL (36.4-46.3); Red Blood Count 4.43 Miln/mm3 (4.00-5.20); White Blood Count 28.5 Thou/mm3 (3.6-11.0)
--- NOTE | 2025-03-15 12:56 | PD.RESEVENT ---
Documentation for date of: 03/15/25 Event Note Event Note: Event Note: 03/15/2025: Rapid response called sometime around 11:56 for acute onset of tachycardia (HR 150s) and new-onset SOB/dyspnea. Patient seen and assessed in hospital bed. Patient alert, non-verbal, given development delay, but in acute distress with concern for airway and breathing compromise (however patient seemed to be saturating well @ 95% on 4 L Oxygen Mask). Tachypenic. Peripheral pulses 3+. No mottling noted. On physical exam, patient was noted to have audible wheezing and tachypnea with some new abdominal distention (last BM was yesterday night but was very small per nurses). Circulation was intact and patient's BP was noted to be on the hypertensive side in the 140s/90s. As a result of the above, the decision was made to give DuoNeb breathing treatment x 1 and IV morphine 2 g x 1. Stat CMP, procalcitonin, EKG, CXR, KUB, and bladder scan were also ordered at this time. Will continue to monitor for any acute changes. STOP all Tube feedings. Sai Mora, Internal Medicine, PGY-1 - The patient's plan was discussed with attending Dr. Christianson. Gini Pemberton MD PGY2 Internal Medicine
[2025-03-15 13:22] LABS: Alanine Aminotransferase 8 U/L (10-49); Albumin, Serum 4.2 gm/dL (3.5-5.0); Albumin/Globulin Ratio 1.6 (1.2-2.2); Alkaline Phosphatase 59 U/L (46-116); Anion Gap 11 (7-16); Aspartate Amino Transferase 21 U/L (0-34); BUN/Creatinine Ratio 12 Ratio (12-20); Bilirubin,Total 0.7 mg/dL (0.3-1.2); Blood Urea Nitrogen 6 mg/dL (9-23); Calcium 9.4 mg/dL (8.3-10.6); Calcium (Corrected) 9.4 mg/dL (8.5-10.1); Carbon Dioxide 23.3 mMol/L (20.0-31.0); Chloride 97 mMol/L (98-107); Creatine Kinase 151 U/L (34-171); Creatinine (Component) 0.5 mg/dL (0.6-1.3); Estimated Creatinine Clearance 80.2 mL/min (>60); Globulin 2.6 gm/dL (2.3-3.5); Glucose 155 mg/dL (74-106); LDH (Lactate Dehydrogenase) 182 U/L (120-246); Osmolality,Calculated 263 (275-295); Potassium 3.6 mMol/L (3.4-5.1); Procalcitonin 0.20 ng/ml (0.0-0.49); Sodium 131 mMol/L (136-145); Total Protein 6.8 gm/dL (5.7-8.2); eGFR > 60 See Note
--- NOTE | 2025-03-15 13:22 | PD.RESPRO ---
Documentation for date of: 03/15/25 No overnight events. General concern for aspiration pneumonia, continue IV antibiotics with levofloxacin, Vanco and Flagyl started on 03/14/2025. Blood cultures pending. MRSA screen pending. Urine culture pending. Continue hypothyroidism medication, TSH on this admission 3.66. Rapid response, encouraged at noon. Patient noted to be tachycardic and tachypneic. Abdomen increased distention. Tube feeding stopped. Consider resuming tomorrow. KUB noted for nonobstructive gas pattern. Simethicone on board as home medication. Consider Fleet enema night if no improvement. Senior Resident Attestation: I have discussed the case with supervising physician and corporate strategy intern physician involved in the care of patient. I personally saw and examined patient and discussed the assessment and plan with the entire medical team, including attending. I agree with assessment and plan as documented below. - The patient's plan was discussed with attending Dr. Meghan Pemberton MD PGY2 Internal Medicine Subjective Subjective Interval history: No overnight events. Patient was examined at bedside; they appear A&Ox0 (nonverbal at baseline) and in NAD. Vitals/labs today significant for RR 22, SpO2 94% on room air, WBC 23.4 -> 28.4, Hgb 16.7 -> 13.9, plt# 55 -> 176, phosphorus 1.9, magnesium 1.7, TSH 3.66, and vancomycin trough WNL. Physical exam notable for continued inspiratory wheezing and expiratory rhonchi but was otherwise benign and unchanged. However, a rapid response was called sometime around 11:56 for acute onset of tachycardia (HR 150s) and new-onset SOB/dyspnea. At the time, patient was noted to be in acute distress but saturating well at 95% on 4 L Oxygen Mask. On physical exam, patient was noted to have audible wheezing and tachypnea with some new abdominal distention (last BM was yesterday night but was very small per nurses). Circulation was intact and patient's BP was noted to be on the hypertensive side in the 140s/90s. As a result of the above, the decision was made to give DuoNeb breathing treatment x 1 and IV morphine 2 g x 1 and tube feedings were stopped at this time. Stat CMP, procalcitonin, EKG, CXR, KUB, and bladder scan were also ordered at this time. In terms of plan, due to general concern for aspiration pneumonia, continue IV antibiotics with levofloxacin, Vanco and Flagyl started on 03/14/2025. Blood cultures pending. MRSA screen pending. Urine culture pending Exam Vital Signs Temp Pulse Resp BP Pulse Ox O2 Del Method O2 Flow Rate 98.9 F 143 H 32 H 139/112 H 96 Room Air 6 03/15/25 12:00 03/15/25 12:28 03/15/25 12:20 03/15/25 12:28 03/15/25 12:20 03/15/25 12:00 03/15/25 12:20 Narrative Exam General: A/O x0 (nonverbal at baseline), sleeping but opened eyes during interview and in no acute distress. Head: Normocephalic, atraumatic. Eyes: Anicteric, vision grossly intact. Mouth/Throat: Oral mucosa moist. No obvious lesions in oropharynx. Cardiovascular: Tachycardic rate and normal rhythm, no murmur, no JVD or carotid bruits. +S1/S2. Respiratory: Expiratory rhonchi and some inspiratory wheezing noted on auscultation of bilateral lung elise. No crackles or rales appreciated. No accessory muscle use. Gastrointestinal: PEG tube in place at LUQ. Soft, nontender, non-distended, no palpable masses. No guarding or rebound tenderness. Peristalsis present. Extremities: Muscular atrophy of BLE. Mottling observed of right elbow and bilateral feet. Bilateral clubfoot deformity. No edema, no cyanosis, no clubbing. Pedal pulses palpable bilaterally. Skin: Erythema and scaling of intertriginous folds of abdomen and groin. Objective Labs 03/16/25 04:42 03/16/25 04:42 Labs: Laboratory Results - last 24 hr 03/15/25 03/15/25 03/15/25 06:18 08:15 12:20 WBC 28.4 H D 28.5 H RBC 4.24 4.43 Hgb 13.9 D 13.9 Hct 40.9 42.5 MCV 97 96 MCH 32.8 31.4 MCHC 34.0 32.7 RDW Std Deviation 45.1 44.7 Plt Count 176 D 211 D Neut % (Auto) 73 77 Lymph % (Auto) 7 L 7 L [place] % (Auto) 20 H 16 H Eos % (Auto) 0 0 Baso % (Auto) 0 0 Neut # (Auto) 20.7 H 22.0 H Lymph # (Auto) 1.9 1.9 [place] # (Auto) 5.6 H 4.5 H Eos # (Auto) 0.0 0.0 Baso # (Auto) 0.1 0.1 Immature Gran # (Auto) 0.21 H 0.19 H Absolute Nucleated RBC 0.00 0.00 Immature Gran % 1 H 1 H Nucleated RBC % 0 0 Puncture Site Left Radial ABG pH 7.50 H ABG pCO2 30 L ABG pO2 183 H ABG HCO3 24 ABG O2 Saturation 99 H ABG Base Excess 1 Oxygen Liter Flow 5 FiO2 21 Sodium 134 L Potassium 3.9 Chloride 98 Carbon Dioxide 24.2 Anion Gap 12 BUN 6 L Creatinine 0.5 L Estim Creat Clear Calc Not Performed. eGFR > 60 BUN/Creatinine Ratio 12 Glucose 136 H Calculated Osmolality 267 L Calcium 8.4 D Corrected Calcium 8.8 Phosphorus 1.9 L Magnesium 1.7 Total Bilirubin 0.5 AST 32 ALT 9 L Alkaline Phosphatase 54 D Total Protein 5.7 Albumin 3.5 D Globulin 2.2 L Albumin/Globulin Ratio 1.6 Triglycerides 72 Cholesterol 108 L LDL Cholesterol, Calc 42 HDL Cholesterol 52 Cholesterol/HDL Ratio 2.1 L TSH 3.66 Vancomycin Trough 5.3 ABG Interpretation ABG results: 03/15/25 12:20 ABG pH 7.50 H ABG pCO2 30 L ABG pO2 183 H ABG HCO3 24 ABG O2 Saturation 99 H ABG Base Excess 1 Quality Measures Quality Measures none Assessment & Plan Assessment Current Active Medications: Generic Name Dose Route Start Last Admin Trade Name Freq PRN Reason Stop Dose Admin Acetaminophen 650 mg 03/14/25 15:42 03/15/25 01:28 Acetaminophen 325 Mg Tablet NG 04/13/25 15:41 650 mg Q6H PRN Administration Fever >100.4 and Pain 1-3 Famotidine 20 mg 03/14/25 16:00 03/15/25 09:51 Famotidine 20 Mg Tablet GT 04/13/25 15:59 20 mg QDAY CAMILA Administration Heparin Sodium (Porcine) 5,000 unit 03/14/25 21:00 03/15/25 09:51 Heparin Sod Inj 5000 Unit/Ml Vial SC 03/28/25 20:59 5,000 unit Q12HR CAMILA Administration Metronidazole 500 mg in 100 mls @ 200 mls/hr 03/14/25 16:00 03/15/25 05:36 Flagyl 500 Mg Iv IV 03/21/25 15:59 200 mls/hr Q8HR CAMILA Administration Levofloxacin/Dextrose 750 mg in 150 mls @ 100 mls/hr 03/15/25 09:00 03/15/25 09:51 Levaquin Ivpb IV 03/22/25 08:59 100 mls/hr QDAY CAMILA Administration Vancomycin/Sodium Chloride 750 mg in 150 mls @ 120 mls/hr 03/15/25 11:00 03/15/25 11:35 Vancomycin/Ns 750 Mg Ivpb IV 03/22/25 10:59 120 mls/hr BID@1000,2200 CAMILA Administration Valproic Acid 250 mg/ Sodium 52.5 mls @ 50 mls/hr 03/15/25 18:00 Chloride IV 04/14/25 17:59 Q6HR CAMILA Labetalol HCl 10 mg 03/14/25 16:47 Labetalol Inj 5 Mg/Ml Vial 20 Ml IVP 04/13/25 16:46 Q6HR PRN Hypertension Levothyroxine Sodium 75 mcg 03/15/25 06:00 03/15/25 05:36 Levothyroxine Sodium 25 Mcg Tablet GT 04/14/25 05:59 75 mcg [id number] CAMILA Administration Levothyroxine Sodium 50 mcg 03/16/25 06:00 Levothyroxine Sodium 25 Mcg Tablet GT 04/15/25 05:59 [email or web address] CAMILA Nystatin 0 gm 03/14/25 21:00 03/15/25 10:45 Nystatin Pwd 15 Gm Btl TOP 04/13/25 20:59 15 applicatio BID CAMILA Administration Ondansetron HCl 4 mg 03/14/25 15:42 Ondansetron Inj 2 Mg/Ml Inj 2 Ml IVP 04/13/25 15:41 Q6H PRN NAUSEA OR VOMITING Protocol Pharmacy Consult 1 each 03/15/25 09:00 Vancomycin Pharmacy To Dose 1 Each Each IV 04/14/25 08:59 QDAY PRN PROTOCOL Sennosides 1 tab 03/14/25 16:00 03/15/25 09:51 Senna Tablet GT 04/13/25 15:59 1 tab QDAY CAMILA Administration Protocol Simethicone 80 mg 03/14/25 16:15 Simethicone 80 Mg Chew GT 04/13/25 16:14 QID PRN GAS Plan Deyanira Pérez is a 54-year-old female with a PMH of cerebral palsy, epilepsy on valproic acid, developmental delay (nonverbal at baseline), scoliosis, cholelithiasis, hypothyroidism, GERD, and chronic PEG tube who was BIBA to the ED on 03/14/25 after 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 Patient was admitted for the work-up and management of acute encephalopathy in the setting of possible sepsis likely 2/2 aspiration pneumonia. #Acute encephalopathy likely secondary to pneumonia #PMH of epilepsy on valproic acid Patient presented with reported confusion not present at baseline PMH of cerebral palsy, epilepsy on valproic acid, developmental delay (nonverbal at baseline) DDx: 2/2 acute infection (sepsis or pneumonia), seizure-induced post-ictal state Dx: -Ordered EEG awake and drowsy, results pending Rx: -Restarted home medication: GT valproic acid syrup 250 mg BID -Seizure precautions -Aspiration precautions -HOB elevation 30 degrees -Surveillance monitoring (miscellaneous nursing order) #Sepsis rule out, given altered mental status #likely 2/2 aspiration pneumonia #Leukocytosis Patient meets 4/4 SIRS criteria by the following: Temperature above 100.4 or below 98.6 (100.9), HR>90 (119), RR>20 or PaCO2<32 (RR 22), WBC above 12 or below 4 (23.4) + source of infection (aspiration pneumonia) Evidence for source of infection is finding of right upper lobe pneumonia on 03/14 CT CAP qSOFA rating predicting high-risk mortality if 2 or more of the following criteria met: SBP 100 or less (not met), RR 22 or more (met), GCS less than 15 (met) On physical exam, mottling observed of right elbow and bilateral feet In the context of fluid resuscitation, patient is s/p 1 L of IV fluid Of note, patient is reported to be allergic to penicillins and cephalexin s/p administration of IV levofloxacin 500 mg x 1 in the ED Dx: -Ordered sputum culture and gram stain, results pending -Ordered BCx, results pending -Ordered MRSA nares, results pending -Ordered bedside Influenza A&B, negative Rx: -[id number] of IV Levaquin 750 mg qD [03/14--] -[id number] of IV Flagyl 500 mg q8HR [03/14--] -IV vancomycin dosed by pharmacy [03/14--] #Abdominal distention On 03/15, RR was called and patient was noted to have more distention of the abdomen Dx: -KUB ordered in response showed nonobstructive gas pattern Rx: -Held feeding today due to RR, consider continuing tomorrow based on home schedule -Simethicone on board as home medication -Consider fleet enema if no improvement #Lactic acidosis (resolved) Admission LA 3.5, then down-trended to 1.8 on same day Possibly 2/2 hypoperfusion from sepsis or seizure activity Rx: -Continue to monitor #Hypothyroidism Per prior documentation, patient has a history of hypothyroidism and takes levothyroxine at home Dx: -Ordered TSH, results pending -Ordered Free T4, results pending Rx: -Continue home medication: GT levothyroxine dosed by pharmacy #Intertriginous dermatitis On physical exam, patient was noted to have erythema and scaling of intertriginous folds of the abdomen and groin Rx: -Topical nystatin BID #Chronic PEG tube Rx: -Consulted registered dietitian -Held feeding today due to RR, consider continuing tomorrow based on home schedule Hospital Management: Disposition: admitted to [facility] for the work-up and management of acute encephalopathy in the setting of possible sepsis likely 2/2 aspiration pneumonia Diet: NPO (registered dietitian consulted) GI Prophylaxis: GT Pepcid 20 mg qD Bowel Prophylaxis: GT Senna 1 tablet qD DVT Prophylaxis: SC Heparin 5K q12HR CODE STATUS: Full Code I have examined the patient and conferred with my attending, Dr. Christianson, and my senior resident, Dr. Pemberton, regarding them. Sai Mora, DO PGY-1 Internal Medicine Attending Provider Attestation/Addendum I have examined the patient, reviewed labs and imaging findings, discussed the case with the resident(s), and reviewed entered orders. I agree with the plan of care as outlined in this note. Dr. Meghan MD
--- NOTE | 2025-03-15 13:45 | PC.SS ---
SS follow up note; Patient had a rapid. Patient will discharge back to [facility] when medically cleared.
[2025-03-15] MEDS: NAPH,KPH MBDB 1 PACKET (1.5 GM) PO (16:24)
[2025-03-15] MEDS: VALPROATE SOD INJ 250 MG in SODIUM CHLORIDE 0.9% 50 ML 50 MG IV (18:13)
--- NOTE | 2025-03-15 20:01 | PC.NURSE ---
Dr. Rodarte notified regarding patient need for home PRN meds to help patient have a bowel movement and that day MD had ordered a enema for this evening but this RN was not comforable administering the enema as patient has elevated HR and they had to rapid response patient earlier in the day. Dr. Rodarte agreed not to give enema now and will look at her chart to order meds.
[2025-03-16] VITALS (8 sets, daily range): BP systolic 106–154; BP diastolic 56–95; PULSE 97–170; RESP 18–95; TEMP 36–37.6; O2SAT 95–98
[2025-03-16] MEDS: VALPROATE SOD INJ 250 MG in SODIUM CHLORIDE 0.9% 50 ML 50 MG IV ×4 (00:19→17:42)
[2025-03-16] MEDS: ACETAMINOPHEN 325 MG TABLET 650 MG NG ×2 (03:56→13:32)
[2025-03-16 05:38] LABS: Basophils # (Auto) 0.1 Thou/mm3 (0.0-0.2); Basophils % (Auto) 0 % (0-2.5); Eosinophils # (Auto) 0.0 Thou/mm3 (0.0-0.5); Eosinophils % (Auto) 0 % (0-10); Hematocrit 39.2 % (36.0-46.0); Hemoglobin 13.0 g/dL (12.0-16.0); Immature Granulocytes Auto 0.11 Thou/mm3 (0.00-0.00); Lymphocytes # (Auto) 2.6 Thou/mm3 (1.0-4.8); Lymphocytes % (Auto) 12 % (10-50); Mean Corpuscular HGB Conc 33.2 g/dl (31.0-37.0); Mean Corpuscular Hemoglobin 31.7 pg (25.0-35.0); Mean Corpuscular Volume 96 fL (80-100); Monocytes # (Auto) 4.2 Thou/mm3 (0.0-0.8); Monocytes % (Auto) 19 % (0-12); Neutrophils # (Auto) 15.3 Thou/mm3 (1.8-7.7); Neutrophils % (Auto) 69 % (37-80); Nucleated Red Blood Cell # 0.00 Thou/mm3 (0.00-0.00); Nucleated Red Blood Cell % 0 /100 WBC (0); Platelet Count 183 Thou/mm3 (140-440); RDW Standard Deviation 44.3 fL (36.4-46.3); Red Blood Count 4.10 Miln/mm3 (4.00-5.20); White Blood Count 22.3 Thou/mm3 (3.6-11.0)
[2025-03-16] MEDS: metroNIDAZOLE/NS 500 MG IVPB 500 MG/100 ML BAG 200 MG IV ×3 (05:50→23:05)
[2025-03-16] MEDS: LEVOTHYROXINE SODIUM 25 MCG TABLET 50 MCG GT (05:51)
[2025-03-16 06:34] LABS: Alanine Aminotransferase 8 U/L (10-49); Albumin, Serum 3.9 gm/dL (3.5-5.0); Albumin/Globulin Ratio 1.6 (1.2-2.2); Alkaline Phosphatase 62 U/L (46-116); Anion Gap 9 (7-16); Aspartate Amino Transferase 27 U/L (0-34); BUN/Creatinine Ratio 16 Ratio (12-20); Bilirubin,Total 0.5 mg/dL (0.3-1.2); Blood Urea Nitrogen 8 mg/dL (9-23); Calcium 9.3 mg/dL (8.3-10.6); Calcium (Corrected) 9.4 mg/dL (8.5-10.1); Carbon Dioxide 28.9 mMol/L (20.0-31.0); Chloride 97 mMol/L (98-107); Creatinine (Component) 0.5 mg/dL (0.6-1.3); Estimated Creatinine Clearance 80.2 mL/min (>60); Globulin 2.5 gm/dL (2.3-3.5); Glucose 101 mg/dL (74-106); Osmolality,Calculated 268 (275-295); Phosphorous 2.3 mg/dL (2.4-5.1); Potassium 3.8 mMol/L (3.4-5.1); Sodium 135 mMol/L (136-145); Total Protein 6.4 gm/dL (5.7-8.2); eGFR > 60 See Note
--- NOTE | 2025-03-16 08:02 | CHAP ---
Rapid response call. Prayed for patient and staff from the corridor.
--- NOTE | 2025-03-16 08:06 | XR_ITS ---
Examination: Abdomen AP single view Technique: AP portable supine abdomen, single view Exam date and time: March 16, 2025, 0816 hours INDICATIONS: Abdominal pain today FINDINGS: Moderate air and stool throughout the colon No obstruction Gastrostomy tube overlies the body of the stomach No free air Severe thoracolumbar dextroscoliosis IMPRESSION: Moderate air and stool throughout the colon
[2025-03-16] MEDS: LACTULOSE SYRUP 20 GM/30 ML UDC GT ×3 (08:30→23:05)
[2025-03-16] MEDS: KETOROLAC INJ 30 MG/ML VIAL 15 MG IVP ×2 (08:30→18:16)
[2025-03-16] MEDS: HEPARIN SOD INJ 5000 UNIT/ML VIAL SC ×2 (08:31→23:06)
[2025-03-16] MEDS: FAMOTIDINE 20 MG TABLET GT (08:31)
[2025-03-16] MEDS: NYSTATIN PWD 15 GM BTL TOP ×2 (08:32→23:25)
[2025-03-16] MEDS: LEVOFLOXACIN/D5W 750MG IVPB 750 MG/150 ML BAG 100 MG IV (08:32)
[2025-03-16] MEDS: MAGNESIUM CITRATE 300 ML BTL GT (10:27)
[2025-03-16 10:30] LABS: Vancomycin,Trough 5.4 mcg/mL (5.0-10.0)
[2025-03-16] MEDS: VANCOMYCIN/NS 750 MG IVPB 750 MG/150 ML BAG 120 MG IV (11:16)
--- NOTE | 2025-03-16 14:26 | ESPR_ITS ---
<Statement entered by Robert Lilly MD - 03/17/25 05:40> I saw and examined patient personally and supervised PGY 1 resident, Dr. Mora with formulating a management plan. I agree with the documentation with the exceptions as listed below. Patient is on levofloxacin and metronidazole for aspiration pneumonia. MRSA screen was negative and vancomycin IV was discontinued. Patient had 2 rapid responses today for agitation. KUB showed moderate stool in the colon. Patient was given magnesium citrate via NG tube and scheduled on lactulose for bowel regimen. Lactate was elevated at [address] abdomen pelvis was ordered to further evaluate. Plan of care discussed with Attending Dr. Howard Lilly MD PGY 2 Disclaimer: This note was dictated by speech recognition. Minor errors in job trainer may be present due to voice recognition software. Documentation for date of: 03/16/25 Subjective Subjective Interval history: No overnight events. Rapid response called sometime around 08:00 due to concern for increased agitation and distress. Patient was seen and assessed in hospital bed; they were awake with airway/breathing/circulation intact but with tachycardic HR in the 130s and tachypneic RR of 26. On physical exam, patient was noted to be somewhat red in the face with some abdominal distention. At the time, patient was given magnesium citrate x 1 and IV Toradol 15 mg x 1, started on PO lactulose 20 mg TID, and a KUB was ordered (showed moderate air and stool throughout the colon). A second rapid response occurred at around 18:20 for similar concerns and presentation but with tachycardia in the 170s. On exam, patient was noted to have abdominal guarding (patient did not have any BM between 1st and 2nd rapid). As a result, the following orders were placed: 500 cc LR bolus, lactate, fleet enema, and CTAP. There is a possibility that patient may require a manual disimpaction if she continues to be unable to have a BM. Morning labs today significant for BP 154/95, HR 114, RR 21, WBC 28.5 -> 22.3, and phosphorus 2.3. In terms of plan, due to general concern for aspiration pneumonia, continue IV antibiotics with levofloxacin, Vanco and Flagyl started on 03/14/2025. Exam Vital Signs Temp Pulse Resp BP Pulse Ox O2 Del Method O2 Flow Rate 97.1 F 118 H 22 H 130/75 97 Oxy Mask 3 03/16/25 12:00 03/16/25 12:00 03/16/25 12:00 03/16/25 12:00 03/16/25 12:00 03/16/25 12:00 03/16/25 12:00 Narrative Exam General: A/O x0 (nonverbal at baseline), sleeping but opened eyes during interview and in no acute distress. Head: Normocephalic, atraumatic. Eyes: Anicteric, vision grossly intact. Mouth/Throat: Oral mucosa moist. No obvious lesions in oropharynx. Cardiovascular: Tachycardic rate and normal rhythm, no murmur, no JVD or carotid bruits. +S1/S2. Respiratory: Expiratory rhonchi and some inspiratory wheezing noted on auscultation of bilateral lung elise. No crackles or rales appreciated. No accessory muscle use. Gastrointestinal: New abdominal distention (later there was guarding present during 2nd rapid response). PEG tube in place at LUQ. No palpable masses or rebound tenderness. Extremities: Muscular atrophy of BLE. Mottling observed of right elbow and bilateral feet. Bilateral clubfoot deformity. No edema, no cyanosis, no clubbing. Pedal pulses palpable bilaterally. Skin: Erythema and scaling of intertriginous folds of abdomen and groin. Objective Labs 03/16/25 04:42 03/16/25 04:42 Labs: Laboratory Results - last 24 hr 03/16/25 03/16/25 04:42 10:00 WBC 22.3 H D RBC 4.10 Hgb 13.0 Hct 39.2 MCV 96 MCH 31.7 MCHC 33.2 RDW Std Deviation 44.3 Plt Count 183 Neut % (Auto) 69 Lymph % (Auto) 12 [place] % (Auto) 19 H Eos % (Auto) 0 Baso % (Auto) 0 Neut # (Auto) 15.3 H Lymph # (Auto) 2.6 [place] # (Auto) 4.2 H Eos # (Auto) 0.0 Baso # (Auto) 0.1 Immature Gran # (Auto) 0.11 H Absolute Nucleated RBC 0.00 Immature Gran % 1 H Nucleated RBC % 0 Sodium 135 L Potassium 3.8 Chloride 97 L Carbon Dioxide 28.9 Anion Gap 9 BUN 8 L Creatinine 0.5 L Estim Creat Clear Calc 80.2 eGFR > 60 BUN/Creatinine Ratio 16 Glucose 101 D Calculated Osmolality 268 L Calcium 9.3 Corrected Calcium 9.4 Phosphorus 2.3 L Total Bilirubin 0.5 AST 27 ALT 8 L Alkaline Phosphatase 62 Total Protein 6.4 Albumin 3.9 Globulin 2.5 Albumin/Globulin Ratio 1.6 Vancomycin Trough 5.4 ABG Interpretation ABG results: 03/15/25 12:20 ABG pH 7.50 H ABG pCO2 30 L ABG pO2 183 H ABG HCO3 24 ABG O2 Saturation 99 H ABG Base Excess 1 Quality Measures Quality Measures none Assessment & Plan Assessment Current Active Medications: Generic Name Dose Route Start Last Admin Trade Name Freq PRN Reason Stop Dose Admin Acetaminophen 650 mg 03/14/25 15:42 03/16/25 13:32 Acetaminophen 325 Mg Tablet NG 04/13/25 15:41 650 mg Q6H PRN Administration Fever >100.4 and Pain 1-3 Bisacodyl 10 mg 03/15/25 20:03 03/16/25 03:58 Bisacodyl 10 Mg Supp OH 04/14/25 20:02 10 mg QDAY PRN Administration CONSTIPATION Protocol Famotidine 20 mg 03/14/25 16:00 03/16/25 08:31 Famotidine 20 Mg Tablet GT 04/13/25 15:59 20 mg QDAY CAMILA Administration Heparin Sodium (Porcine) 5,000 unit 03/14/25 21:00 03/16/25 08:31 Heparin Sod Inj 5000 Unit/Ml Vial SC 03/28/25 20:59 5,000 unit Q12HR CAMILA Administration Metronidazole 500 mg in 100 mls @ 200 mls/hr 03/14/25 16:00 03/16/25 05:50 Flagyl 500 Mg Iv IV 03/21/25 15:59 200 mls/hr Q8HR CAMILA Administration Levofloxacin/Dextrose 750 mg in 150 mls @ 100 mls/hr 03/15/25 09:00 03/16/25 08:32 Levaquin Ivpb IV 03/22/25 08:59 100 mls/hr QDAY CAMILA Administration Valproic Acid 250 mg/ Sodium 52.5 mls @ 50 mls/hr 03/15/25 18:00 03/16/25 13:32 Chloride IV 04/14/25 17:59 50 mls/hr Q6HR CAMILA Administration Labetalol HCl 10 mg 03/14/25 16:47 Labetalol Inj 5 Mg/Ml Vial 20 Ml IVP 04/13/25 16:46 Q6HR PRN Hypertension Lactulose 20 gm 03/16/25 08:15 03/16/25 13:34 Lactulose Syrup 20 Gm/30 Ml Udc GT 04/15/25 08:14 20 gm TID CAMILA Administration Protocol Levothyroxine Sodium 75 mcg 03/15/25 06:00 03/15/25 05:36 Levothyroxine Sodium 25 Mcg Tablet GT 04/14/25 05:59 75 mcg [id number] CAMILA Administration Levothyroxine Sodium 50 mcg 03/16/25 06:00 03/16/25 05:51 Levothyroxine Sodium 25 Mcg Tablet GT 04/15/25 05:59 50 mcg [id number] CAMILA Administration Nystatin 0 gm 03/14/25 21:00 03/16/25 08:32 Nystatin Pwd 15 Gm Btl TOP 04/13/25 20:59 15 applicatio BID CAMILA Administration Ondansetron HCl 4 mg 03/14/25 15:42 Ondansetron Inj 2 Mg/Ml Inj 2 Ml IVP 04/13/25 15:41 Q6H PRN NAUSEA OR VOMITING Protocol Sennosides 1 tab 03/14/25 16:00 03/16/25 08:31 Senna Tablet GT 04/13/25 15:59 1 tab QDAY CAMILA Administration Protocol Simethicone 80 mg 03/14/25 16:15 Simethicone 80 Mg Chew GT 04/13/25 16:14 QID PRN GAS Plan Deyaniramicky Pérez is a 54-year-old female with a PMH of cerebral palsy, epilepsy on valproic acid, developmental delay (nonverbal at baseline), scoliosis, cholelithiasis, hypothyroidism, GERD, and chronic PEG tube who was BIBA to the ED on 03/14/25 after 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 Patient was admitted for the work-up and management of acute encephalopathy in the setting of possible sepsis likely 2/2 aspiration pneumonia. #Acute encephalopathy likely secondary to pneumonia #PMH of epilepsy on valproic acid Patient presented with reported confusion not present at baseline PMH of cerebral palsy, epilepsy on valproic acid, developmental delay (nonverbal at baseline) DDx: 2/2 acute infection (sepsis or pneumonia), seizure-induced post-ictal state Dx: -Ordered EEG awake and drowsy, results pending Rx: -Continue home medication: GT valproic acid syrup 250 mg BID -Seizure precautions -Aspiration precautions -HOB elevation 30 degrees -Surveillance monitoring (miscellaneous nursing order) #Sepsis rule out, given altered mental status #likely 2/2 aspiration pneumonia #Leukocytosis Patient meets 4/4 SIRS criteria by the following: Temperature above 100.4 or below 98.6 (100.9), HR>90 (119), RR>20 or PaCO2<32 (RR 22), WBC above 12 or below 4 (23.4) + source of infection (aspiration pneumonia) Evidence for source of infection is finding of right upper lobe pneumonia on 03/14 CT CAP qSOFA rating predicting high-risk mortality if 2 or more of the following criteria met: SBP 100 or less (not met), RR 22 or more (met), GCS less than 15 (met) On physical exam, mottling observed of right elbow and bilateral feet In the context of fluid resuscitation, patient is s/p 1 L of IV fluid Of note, patient is reported to be allergic to penicillins and cephalexin s/p administration of IV levofloxacin 500 mg x 1 in the ED Dx: -Ordered sputum culture and gram stain, results pending -Ordered BCx, NG24HR -Ordered MRSA nares, negative -Ordered bedside Influenza A&B, negative Rx: -88-[id number]-nhwfye of IV Levaquin 750 mg qD [03/14--] -09-lqp-welsho of IV Flagyl 500 mg q8HR [03/14--] -Discontinued IV vancomycin dosed by pharmacy [03/14-03/16] #Abdominal distention On 03/15, RR was called and patient was noted to have more distention of the abdomen On 03/16, 2 RRs were called and in the latter RR patient was noted to have abdominal guarding and distention without any significant BM's being made Dx: -03/15 KUB showed nonobstructive gas pattern -03/16 KUB showed moderate air and stool throughout the colon -Ordered 03/16 CTAP, results pending -Ordered 03/16 lactate, results pending Rx: -Ordered magnesium citrate x 1 -Ordered fleet enema x 1 -Started PO lactulose 20 mg TID -Scheduled GT simethicone 80 mg TID -IV Toradol 15 mg q6HR prn for moderate pain 4-6 #Lactic acidosis (resolved) Admission LA 3.5, then down-trended to 1.8 on same day Possibly 2/2 hypoperfusion from sepsis or seizure activity Rx: -Continue to monitor #Hypothyroidism Per prior documentation, patient has a history of hypothyroidism and takes levothyroxine at home Dx: -Ordered TSH, WNL 3.66 -Ordered Free T4, results pending Rx: -Continue home medication: GT levothyroxine dosed by pharmacy #Intertriginous dermatitis On physical exam, patient was noted to have erythema and scaling of intertriginous folds of the abdomen and groin Rx: -Topical nystatin BID #Chronic PEG tube Rx: -Consulted registered dietitian -Tube feed held Hospital Management: Disposition: admitted to [facility] for the work-up and management of acute encephalopathy in the setting of possible sepsis likely 2/2 aspiration pneumonia Diet: NPO (registered dietitian consulted) GI Prophylaxis: GT Pepcid 20 mg qD Bowel Prophylaxis: GT Senna 1 tablet qD DVT Prophylaxis: SC Heparin 5K q12HR CODE STATUS: Full Code I have examined the patient and conferred with my attending, Dr. Lawrence, and my senior resident, Dr. Lilly, regarding them. Sai Mora DO PGY-1 Internal Medicine Attending Provider Attestation/Addendum I have discussed and was present for the essential components of the history, physical examination, diagnosis, and treatment plan with the resident. I agree with the patient's care as documented by the resident and amended herein by me. Seth Lawrence DO. Although this document has been carefully reviewed, there may still be some phonetic and other typographical errors. These errors are purely grammatical due to imperfections in the software program and should not be construed in any way to compromise the substance of the patient's medical care during this visit. Patient seen and evaluated this AM. No acute events overnight, in the morning, several rapid response were called in the patient due to tachycardia. When we examined the patient she appeared to be in pain, likely from her abdomen, she seemed to grimace and demonstrate guarding with any palpation to her abdomen however most notably in the lower quadrants. She did improve with pain medications to include IV Tylenol and Toradol. Labs today demonstrate a downtrending WBC slightly to 22, the rest of her labs are unremarkable. We did perform a KUB which demonstrated moderate air and stool throughout the colon, she was given lactulose and mag citrate in the morning to help clear the bowels however it seemed her pain just kept continuing in the afternoon, there was a another rapid response called in the evening, at that time I got a lactate which was elevated to 4.2, unclear etiology at this time I did get a CT abdomen and pelvis which is currently pending, will continue IV antibiotics which is Levaquin 750 mg IV daily for suspected aspiration pneumonia and Flagyl, I also gave her a fluid bolus this evening 500 mL of LR. Will continue to monitor closely, night team made aware of her situation, no seizure activity noted however unclear etiology of her lactate and abdominal pain at this time hence we will follow-up with imaging.
--- NOTE | 2025-03-16 15:06 | PC.SS ---
Rounding: on IV ABX, DC plan pena home
[2025-03-16] MEDS: ACETAMINOPHEN IVPB 1,000 MG/100 ML VIAL 250 MG IV (16:25)
--- NOTE | 2025-03-16 18:20 | XR_ITS ---
Examination: CT abdomen with intravenous contrast CT pelvis with intravenous contrast 2-D coronal reconstructions 2-D sagittal reconstructions Date and time of exam: March 16, 2025, 2125 hours, comparison July 15, 2024 INDICATIONS: Severe abdominal pain today. CTDI: vol (mGy) 9.14 DLP: (mGycm) 510 Technique: Multiple axial sections of the abdomen and pelvis have been obtained. 64 slice high-resolution scanner used. 3 mm axial sections have been obtained, post intravenous injection 60 cc [id number] 2-D sagittal, coronal reconstructions obtained. Low dose protocols were performed. One or more of the following dose reduction techniques were used; automated exposure control, adjustment of the mA and/or KV according to patient size, use of iterative reconstruction technique. Findings: Significant mucosal thickening in the stomach and duodenum No focal liver lesions Gallstones Gallbladder wall appears thickened and edematous Spleen is not enlarged No pancreatic mass No renal or ureteral calculi Fluid distended colon Fluid distended small bowel loops No pericecal inflammatory change Atrophic uterus Urinary bladder intact Severe thoracolumbar dextroscoliosis IMPRESSION: Gastritis, active peptic disease duodenum Recommend hepatobiliary sonography to confirm acute calculus cholecystitis Colonic ileus, small bowel ileus No renal or ureteral calculi
[2025-03-16 18:52] LABS: Lactate (Lactic Acid) 4.2 mMol/L (0.4-2.0)
--- NOTE | 2025-03-16 19:32 | PD.RESEVENT ---
Documentation for date of: 03/16/25 Event Note Event Note: Event Note: 03/16/2025: Rapid response called sometime around 08:00 due to concern for increased agitation and distress. Patient was seen and assessed in hospital bed; they were awake with airway/breathing/circulation intact but with tachycardic HR in the 130s and tachypneic RR of 26. On physical exam, patient was noted to be somewhat red in the face with some abdominal distention. At the time, patient was given magnesium citrate x 1 and IV Toradol 15 mg x 1, started on PO lactulose 20 mg TID, and a KUB was ordered (showed moderate air and stool throughout the colon).Will continue to monitor for any acute changes. Sai Mora, DO Internal Medicine, PGY-1
--- NOTE | 2025-03-16 19:36 | PD.RESEVENT ---
Documentation for date of: 03/16/25 Event Note Event Note: Event Note: 03/16/2025: Rapid response called sometime around 18:20 due to concern for increased agitation and distress. Patient was seen and assessed in hospital bed; they were awake with airway/breathing/circulation intact but with tachycardic HR in the 170s and tachypneic RR of 25. On exam, patient was noted to once again have a flushed appearance as well as abdominal guarding (patient did not have any BM between 1st and 2nd rapid today). As a result, the following orders were placed: 500 cc LR bolus, IV Toradol, lactate (came back elevated at 4.6), fleet enema, and CTAP. Will continue to monitor for any acute changes. Sai Mora, DO Internal Medicine, PGY-1
[2025-03-16] MEDS: RINGERS LACTATED 500 ML 500 ML 999 ML IV (19:59)
--- NOTE | 2025-03-16 21:42 | PC.NURSE ---
Dr. Rodarte notified regarding patient recent CT with contrast and inquiry to give IVFs since patient NPO. New orders received.
[2025-03-16 21:46] LABS: Reflex Lactate? Y
[2025-03-16] MEDS: SODIUM CHLORIDE 0.9% 500 ML 500 ML 80 ML IV (22:18)
[2025-03-16 22:54] LABS: Lactic Acid, 3 HR 1.5 mMol/L (0.4-2.0)
[2025-03-16] MEDS: SIMETHICONE 80 MG CHEW GT (23:05)
[2025-03-17] VITALS: BP 124/75; PULSE 90; PULSE 95; RESP 16; TEMP 35.9; O2SAT 98
[2025-03-17] MEDS: VALPROATE SOD INJ 250 MG in SODIUM CHLORIDE 0.9% 50 ML 50 MG IV ×5 (00:52→23:13)
--- NOTE | 2025-03-17 01:21 | XR_ITS ---
Examination: Abdomen sonogram, Limited Date and time of exam: March 17, 2025, 0315 hours INDICATIONS: Abdominal pain this week, thickened and edematous gallbladder wall on CT abdomen March 16, 2025 Technique: Real-time fletcher scale transabdominal sonographic images of the upper abdomen obtained. Findings: Cholelithiasis, gallbladder wall 0.6 cm Common bile duct enlarged 0.7 cm although no definite stones Pancreas obscured by bowel gas Liver 20.4 cm fatty infiltration Normal hepatopetal portal venous flow Patent IVC IMPRESSION: Cholelithiasis, thickened gallbladder wall and enlarged common bile duct Consider MRCP follow-up to confirm cholecystitis and exclude stones in the common bile duct
--- NOTE | 2025-03-17 01:27 | PC.NURSE ---
Dr. Rodarte notified regarding CT results ready for them to view and that patient had a bowel movment. He stated he would take a look into it.
[2025-03-17 04:00] VITALS: BP 128/81; PULSE 84; PULSE 95; RESP 19; TEMP 36.1; O2SAT 99
[2025-03-17] MEDS: SIMETHICONE 80 MG CHEW GT ×3 (04:59→21:22)
[2025-03-17] MEDS: metroNIDAZOLE/NS 500 MG IVPB 500 MG/100 ML BAG 200 MG IV ×3 (04:59→21:22)
[2025-03-17] MEDS: LEVOTHYROXINE SODIUM 25 MCG TABLET 75 MCG GT (04:59)
[2025-03-17] MEDS: LACTULOSE SYRUP 20 GM/30 ML UDC GT (04:59)
[2025-03-17 05:56] LABS: Basophils # (Auto) 0.0 Thou/mm3 (0.0-0.2); Basophils % (Auto) 0 % (0-2.5); Eosinophils # (Auto) 0.0 Thou/mm3 (0.0-0.5); Eosinophils % (Auto) 0 % (0-10); Hematocrit 36.7 % (36.0-46.0); Hemoglobin 11.8 g/dL (12.0-16.0); Immature Granulocytes Auto 0.03 Thou/mm3 (0.00-0.00); Lymphocytes # (Auto) 3.1 Thou/mm3 (1.0-4.8); Lymphocytes % (Auto) 27 % (10-50); Mean Corpuscular HGB Conc 32.2 g/dl (31.0-37.0); Mean Corpuscular Hemoglobin 31.5 pg (25.0-35.0); Mean Corpuscular Volume 98 fL (80-100); Monocytes # (Auto) 1.8 Thou/mm3 (0.0-0.8); Monocytes % (Auto) 16 % (0-12); Neutrophils # (Auto) 6.7 Thou/mm3 (1.8-7.7); Neutrophils % (Auto) 57 % (37-80); Nucleated Red Blood Cell # 0.00 Thou/mm3 (0.00-0.00); Nucleated Red Blood Cell % 0 /100 WBC (0); Platelet Count 169 Thou/mm3 (140-440); RDW Standard Deviation 45.2 fL (36.4-46.3); Red Blood Count 3.75 Miln/mm3 (4.00-5.20); White Blood Count 11.7 Thou/mm3 (3.6-11.0)
[2025-03-17 06:30] LABS: Alanine Aminotransferase 10 U/L (10-49); Albumin, Serum 3.7 gm/dL (3.5-5.0); Albumin/Globulin Ratio 1.9 (1.2-2.2); Alkaline Phosphatase 52 U/L (46-116); Anion Gap 10 (7-16); Aspartate Amino Transferase 26 U/L (0-34); BUN/Creatinine Ratio 13 Ratio (12-20); Bilirubin,Total 0.3 mg/dL (0.3-1.2); Blood Urea Nitrogen 8 mg/dL (9-23); Calcium 8.4 mg/dL (8.3-10.6); Calcium (Corrected) 8.6 mg/dL (8.5-10.1); Carbon Dioxide 29.8 mMol/L (20.0-31.0); Chloride 102 mMol/L (98-107); Creatinine (Component) 0.6 mg/dL (0.6-1.3); Estimated Creatinine Clearance 66.8 mL/min (>60); Globulin 2.0 gm/dL (2.3-3.5); Glucose 86 mg/dL (74-106); Osmolality,Calculated 280 (275-295); Phosphorous 2.6 mg/dL (2.4-5.1); Sodium 142 mMol/L (136-145); Total Protein 5.7 gm/dL (5.7-8.2); eGFR > 60 See Note
[2025-03-17 06:33] LABS: Potassium 2.7 mMol/L (3.4-5.1)
[2025-03-17] MEDS: POTASSIUM CHL 10 mEq IVPB 10 MEQ/100 ML BAG 100 MEQ IV ×4 (07:30→11:05)
[2025-03-17 08:00] VITALS: BP 123/82; PULSE 88; RESP 24; TEMP 36.2; O2SAT 97
[2025-03-17] MEDS: HEPARIN SOD INJ 5000 UNIT/ML VIAL SC ×2 (09:32→21:21)
[2025-03-17] MEDS: FAMOTIDINE 20 MG TABLET GT (09:33)
[2025-03-17] MEDS: LEVOFLOXACIN/D5W 750MG IVPB 750 MG/150 ML BAG 100 MG IV (09:33)
[2025-03-17] MEDS: KETOROLAC INJ 30 MG/ML VIAL 15 MG IVP (10:14)
[2025-03-17] MEDS: NYSTATIN PWD 15 GM BTL TOP ×2 (11:07→21:22)
[2025-03-17 11:30] VITALS: BMI 30.8
[2025-03-17 12:00] VITALS: BP 168/98; PULSE 111; RESP 24; TEMP 36.2; O2SAT 99
--- NOTE | 2025-03-17 12:03 | PC.SS ---
Update: Patient is currently on IV ABX. Patient will discharge home within 1-2 days.
[2025-03-17 12:40] LABS: Albumin, Serum 3.8 gm/dL (3.5-5.0); Anion Gap 7 (7-16); BUN/Creatinine Ratio 14 Ratio (12-20); Blood Urea Nitrogen 7 mg/dL (9-23); Calcium 8.3 mg/dL (8.3-10.6); Calcium (Corrected) 8.5 mg/dL (8.5-10.1); Carbon Dioxide 29.9 mMol/L (20.0-31.0); Chloride 102 mMol/L (98-107); Creatinine (Component) 0.5 mg/dL (0.6-1.3); Estimated Creatinine Clearance 80.2 mL/min (>60); Glucose 91 mg/dL (74-106); Osmolality,Calculated 275 (275-295); Phosphorous 2.3 mg/dL (2.4-5.1); Potassium 4.1 mMol/L (3.4-5.1); Sodium 139 mMol/L (136-145); eGFR > 60 See Note
--- NOTE | 2025-03-17 14:57 | ESPR_ITS ---
<Statement entered by Robert Lilly MD - 03/17/25 16:15> I saw and examined patient personally and supervised PGY 1 resident, Dr. Mora with formulating a management plan. I agree with the documentation with the exceptions as listed below. Patient is developmentally delayed and was admitted for aspiration pneumonia. She currently continues to be on levofloxacin and metronidazole. She had 3+ bowel movements overnight after being scheduled on lactulose. This morning her abdominal distention appears worse therefore lactulose was held as this can cause bloating. Her lactic acid initially was elevated at 4 overnight but downtrended to 1.8. Abdomen/pelvis CT showed cholelithiasis with mildly thickened gallbladder wall. MRCP currently pending. We will continue to keep tube feeds on hold pending MRCP results. Plan of care discussed with Attending Dr. Howard Lilly MD PGY 2 Disclaimer: This note was dictated by speech recognition. Minor errors in resistor tester may be present due to voice recognition software. Documentation for date of: 03/17/25 Subjective Subjective Interval history: No overnight events. Patient was examined at bedside; they appear A&Ox0 (nonverbal at baseline) and in NAD. Vitals/labs today significant for WBC 22.3 - > 11.7, Hgb 13.0 -> 11.8, and potassium 3.8 -> 2.7 (increased to 4.1 after being given a total of 80 mg of KCl). Physical exam notable for continued abdominal distention and RUQ tenderness but was otherwise benign and unremarkable. Patient was able to have a large bowel movement after yesterday's fleet enema was ordered. Lactate yesterday (03/16) returned elevated at 4.2 and CTAP showed gastritis and active peptic disease of the duodenum, colonic ileus, small bowel ileus, and suspicion for acute calculous cholecystitis. Plan Updates: -Ordered MRCP to r/o acute calculous cholecystitis and stones in the common bile duct -Resumed tube feeds -Resumed home Reglan for increased gut motility and better toleration of tube feeds Exam Vital Signs Temp Pulse Resp BP Pulse Ox O2 Del Method O2 Flow Rate 97.2 F 111 H 24 H 168/98 H 99 Oxy Mask 3 03/17/25 12:00 03/17/25 12:00 03/17/25 12:00 03/17/25 12:00 03/17/25 12:00 03/17/25 12:00 03/17/25 12:00 Narrative Exam General: A/O x0 (nonverbal at baseline) and in no acute distress. Head: Normocephalic, atraumatic. Eyes: Anicteric, vision grossly intact. Mouth/Throat: Oral mucosa moist. No obvious lesions in oropharynx. Cardiovascular: Tachycardic rate and normal rhythm, no murmur, no JVD or carotid bruits. +S1/S2. Respiratory: Expiratory rhonchi and some inspiratory wheezing noted on auscultation of bilateral lung elise. No crackles or rales appreciated. No accessory muscle use. Gastrointestinal: Abdominal distention and tenderness to palpation, particularly at the RUQ. PEG tube in place at LUQ. No palpable masses or rebound tenderness. Extremities: Muscular atrophy of BLE. Bilateral clubfoot deformity. No edema, no cyanosis, no clubbing. Pedal pulses palpable bilaterally. Skin: Erythema and scaling of intertriginous folds of abdomen and groin. Objective Labs 03/17/25 04:52 03/17/25 12:06 Labs: Laboratory Results - last 24 hr 03/16/25 03/16/25 03/17/25 18:30 22:25 04:52 WBC 11.7 H D RBC 3.75 L Hgb 11.8 L Hct 36.7 MCV 98 MCH 31.5 MCHC 32.2 RDW Std Deviation 45.2 Plt Count 169 Neut % (Auto) 57 Lymph % (Auto) 27 [place] % (Auto) 16 H Eos % (Auto) 0 Baso % (Auto) 0 Neut # (Auto) 6.7 Lymph # (Auto) 3.1 [place] # (Auto) 1.8 H Eos # (Auto) 0.0 Baso # (Auto) 0.0 Immature Gran # (Auto) 0.03 H Absolute Nucleated RBC 0.00 Immature Gran % 0 Nucleated RBC % 0 Sodium 142 Potassium 2.7 L* D Chloride 102 Carbon Dioxide 29.8 Anion Gap 10 BUN 8 L Creatinine 0.6 Estim Creat Clear Calc 66.8 eGFR > 60 BUN/Creatinine Ratio 13 Glucose 86 Calculated Osmolality 280 Lactic Acid 4.2 H* 1.5 Calcium 8.4 Corrected Calcium 8.6 Phosphorus 2.6 Total Bilirubin 0.3 AST 26 ALT 10 Alkaline Phosphatase 52 Total Protein 5.7 Albumin 3.7 Globulin 2.0 L Albumin/Globulin Ratio 1.9 03/17/25 12:06 WBC RBC Hgb Hct MCV MCH MCHC RDW Std Deviation Plt Count Neut % (Auto) Lymph % (Auto) [place] % (Auto) Eos % (Auto) Baso % (Auto) Neut # (Auto) Lymph # (Auto) [place] # (Auto) Eos # (Auto) Baso # (Auto) Immature Gran # (Auto) Absolute Nucleated RBC Immature Gran % Nucleated RBC % Sodium 139 Potassium 4.1 D Chloride 102 Carbon Dioxide 29.9 Anion Gap 7 BUN 7 L Creatinine 0.5 L Estim Creat Clear Calc 80.2 eGFR > 60 BUN/Creatinine Ratio 14 Glucose 91 Calculated Osmolality 275 Lactic Acid Calcium 8.3 Corrected Calcium 8.5 Phosphorus 2.3 L Total Bilirubin AST ALT Alkaline Phosphatase Total Protein Albumin 3.8 Globulin Albumin/Globulin Ratio ABG Interpretation ABG results: 03/15/25 12:20 ABG pH 7.50 H ABG pCO2 30 L ABG pO2 183 H ABG HCO3 24 ABG O2 Saturation 99 H ABG Base Excess 1 Quality Measures Quality Measures none Assessment & Plan Assessment Current Active Medications: Generic Name Dose Route Start Last Admin Trade Name Freq PRN Reason Stop Dose Admin Acetaminophen 650 mg 03/14/25 15:42 03/16/25 13:32 Acetaminophen 325 Mg Tablet NG 04/13/25 15:41 650 mg Q6H PRN Administration Fever >100.4 and Pain 1-3 Bisacodyl 10 mg 03/15/25 20:03 03/16/25 03:58 Bisacodyl 10 Mg Supp IA 04/14/25 20:02 10 mg QDAY PRN Administration CONSTIPATION Protocol Famotidine 20 mg 03/14/25 16:00 03/17/25 09:33 Famotidine 20 Mg Tablet GT 04/13/25 15:59 20 mg QDAY CAMILA Administration Heparin Sodium (Porcine) 5,000 unit 03/14/25 21:00 03/17/25 09:32 Heparin Sod Inj 5000 Unit/Ml Vial SC 03/28/25 20:59 5,000 unit Q12HR CAMILA Administration Metronidazole 500 mg in 100 mls @ 200 mls/hr 03/14/25 16:00 03/17/25 14:00 Flagyl 500 Mg Iv IV 03/21/25 15:59 200 mls/hr Q8HR CAMILA Administration Levofloxacin/Dextrose 750 mg in 150 mls @ 100 mls/hr 03/15/25 09:00 03/17/25 09:33 Levaquin Ivpb IV 03/22/25 08:59 100 mls/hr QDAY CAMILA Administration Valproic Acid 250 mg/ Sodium 52.5 mls @ 50 mls/hr 03/15/25 18:00 03/17/25 12:03 Chloride IV 04/14/25 17:59 50 mls/hr Q6HR CAMILA Administration Ketorolac Tromethamine 15 mg 03/16/25 19:08 03/17/25 10:14 Ketorolac Inj 30 Mg/Ml Vial IVP 03/21/25 14:48 15 mg Q6HR PRN Administration Pain 4-6 Labetalol HCl 10 mg 03/14/25 16:47 Labetalol Inj 5 Mg/Ml Vial 20 Ml IVP 04/13/25 16:46 Q6HR PRN Hypertension Lactulose 20 gm 03/16/25 08:15 03/17/25 04:59 Lactulose Syrup 20 Gm/30 Ml Udc GT 04/15/25 08:14 20 gm On Hold: 03/17/25 10:53 TID CAMILA Administration Protocol Levothyroxine Sodium 75 mcg 03/15/25 06:00 03/17/25 04:59 Levothyroxine Sodium 25 Mcg Tablet GT 04/14/25 05:59 75 mcg [id number] CAMILA Administration Levothyroxine Sodium 50 mcg 03/16/25 06:00 03/16/25 05:51 Levothyroxine Sodium 25 Mcg Tablet GT 04/15/25 05:59 50 mcg [id number] CAMILA Administration Nystatin 0 gm 03/14/25 21:00 03/17/25 11:07 Nystatin Pwd 15 Gm Btl TOP 04/13/25 20:59 1 applicatio BID CAMILA Administration Ondansetron HCl 4 mg 03/14/25 15:42 Ondansetron Inj 2 Mg/Ml Inj 2 Ml IVP 04/13/25 15:41 Q6H PRN NAUSEA OR VOMITING Protocol Sennosides 1 tab 03/14/25 16:00 03/17/25 09:33 Senna Tablet GT 04/13/25 15:59 1 tab QDAY CAMILA Administration Protocol Simethicone 80 mg 03/16/25 22:00 03/17/25 14:00 Simethicone 80 Mg Chew GT 04/15/25 21:59 80 mg TID CAMILA Administration Plan Deyanira Pérez is a 54-year-old female with a PMH of cerebral palsy, epilepsy on valproic acid, developmental delay (nonverbal at baseline), scoliosis, cholelithiasis, hypothyroidism, GERD, and chronic PEG tube who was BIBA to the ED on 03/14/25 after her accountant budget noted that she was not acting like herself during a shower earlier today. Patient was admitted for the work-up and management of acute encephalopathy in the setting of possible sepsis likely 2/2 aspiration pneumonia. #Acute encephalopathy likely secondary to pneumonia or acute cholecystitis #PMH of epilepsy on valproic acid Patient presented with reported confusion not present at baseline PMH of cerebral palsy, epilepsy on valproic acid, developmental delay (nonverbal at baseline) DDx: 2/2 acute infection (sepsis or pneumonia or acute cholecystitis), seizure- induced post-ictal state Dx: -Ordered EEG awake and drowsy, results pending Rx: -Continue home medication: GT valproic acid syrup 250 mg BID -Seizure precautions -Aspiration precautions -HOB elevation 30 degrees -Surveillance monitoring (miscellaneous nursing order) #Sepsis rule out, given altered mental status #likely 2/2 aspiration pneumonia #Leukocytosis Patient meets 4/4 SIRS criteria by the following: Temperature above 100.4 or below 98.6 (100.9), HR>90 (119), RR>20 or PaCO2<32 (RR 22), WBC above 12 or below 4 (23.4) + source of infection (aspiration pneumonia) Evidence for source of infection is finding of right upper lobe pneumonia on 03/14 CT CAP qSOFA rating predicting high-risk mortality if 2 or more of the following criteria met: SBP 100 or less (not met), RR 22 or more (met), GCS less than 15 (met) On physical exam, mottling observed of right elbow and bilateral feet In the context of fluid resuscitation, patient is s/p 1 L of IV fluid Of note, patient is reported to be allergic to penicillins and cephalexin s/p administration of IV levofloxacin 500 mg x 1 in the ED s/p IV vancomycin [03/14-03/16] Dx: -Ordered BCx, [id number] -Ordered MRSA nares, negative -Ordered bedside Influenza A&B, negative Rx: -[id number] of IV Levaquin 750 mg qD [03/14--] -[id number] of IV Flagyl 500 mg q8HR [03/14--] #Abdominal distention #c/f acute calculous cholecystitis and/or possible acute cholangitis 2/2 cholelithiasis On 03/15, RR was called and patient was noted to have more distention of the abdomen On 03/16, 2 RRs were called and in the latter RR patient was noted to have abdominal guarding and distention without any significant BM's being made On 03/17, patient was finally able to have a large BM after fleet enema administration Dx: -03/15 KUB showed nonobstructive gas pattern -03/16 KUB showed moderate air and stool throughout the colon -Ordered 03/16 CTAP, showed gastritis and active peptic disease of the duodenum, colonic ileus, small bowel ileus, and suspicion for acute calculous cholecystitis -Ordered 03/16 lactate, came back elevated at 4.2 (later down-trended back to 1.5) -Ordered MRCP to r/o acute calculous cholecystitis and stones in the common bile duct Rx: -Continue PO lactulose 20 mg TID -Continue GT simethicone 80 mg TID -IV Toradol 15 mg q6HR prn for moderate pain 4-6 #Lactic acidosis (resolved) Admission LA 3.5, then down-trended to 1.8 on same day On 03/16, lactate ordered after 2nd rapid response was elevated at 4.2 but then down-trended to 1.5 Possibly 2/2 hypoperfusion from sepsis or seizure activity Rx: -Continue to monitor #Hypothyroidism Per prior documentation, patient has a history of hypothyroidism and takes levothyroxine at home Dx: -Ordered TSH, WNL 3.66 -Ordered Free T4, results pending Rx: -Continue home medication: GT levothyroxine dosed by pharmacy #Intertriginous dermatitis On physical exam, patient was noted to have erythema and scaling of intertriginous folds of the abdomen and groin Rx: -Topical nystatin BID #Chronic PEG tube Rx: -Resumed tube feeds -Resumed home Reglan for increased gut motility and better toleration of tube feeds -Consulted registered dietitian Hospital Management: Disposition: admitted to [facility] for the work-up and management of acute encephalopathy in the setting of possible sepsis likely 2/2 aspiration pneumonia (and now concern for acute cholecystitis or cholangitis) Diet: NPO (registered dietitian consulted) GI Prophylaxis: GT Pepcid 20 mg qD Bowel Prophylaxis: GT Senna 1 tablet qD DVT Prophylaxis: SC Heparin 5K q12HR CODE STATUS: Full Code I have examined the patient and conferred with my attending, Dr. Lawrence, and my senior resident, Dr. Lilly, regarding them. Sai Mora DO PGY-1 Internal Medicine Attending Provider Attestation/Addendum I have discussed and was present for the essential components of the history, physical examination, diagnosis, and treatment plan with the resident. I agree with the patient's care as documented by the resident and amended herein by me. Seth Lawrence DO. Although this document has been carefully reviewed, there may still be some phonetic and other typographical errors. These errors are purely grammatical due to imperfections in the software program and should not be construed in any way to compromise the substance of the patient's medical care during this visit. Patient seen and evaluated this AM. Patient seems much improved this morning, vital signs stable, patient afebrile,, heart rate improved today to 90, patient appears more comfortable, she also was afebrile overnight. Significant labs including downtrending WBC 11.7, hemoglobin stable 11.8, renal function normal, phosphorus low at 2.3. I did perform an abdominal CT scan last night due to what we thought was abdominal pain with palpation, demonstrated gastritis, active peptic ulcer disease, also recommended abdominal ultrasound for possible acute calculous cholecystitis which was obtained demonstrating a thickened gallbladder wall and enlarged common bile duct. MRCP has been ordered and is pending. CTAP also demonstrated colonic ileus and small bowel ileus. Considering the patient's fever which has subsided and abdominal pain, I am now concerned about possible cholangitis. The patient is on broad-spectrum antibiotics for aspiration pneumonia, levofloxacin and Flagyl which will also cover for the possible cholecystitis, we will see what the MRCP shows and obtain possible GI and surgical consultations. Will continue to monitor closely, will hold feeds today, replete electrolytes as needed. Blood and urine cultures NGTD. Will continue to monitor closely.
[2025-03-17 15:53] VITALS: BP 133/82; PULSE 90; RESP 22; TEMP 36.2; O2SAT 99
[2025-03-17] MEDS: ACETAMINOPHEN 325 MG TABLET 650 MG NG (16:08)
[2025-03-17 20:00] VITALS: BP 149/79; PULSE 98; RESP 20; TEMP 36.4; O2SAT 95
[2025-03-17] MEDS: METOCLOPRAMIDE INJ 5 MG/ML VIAL 2 ML 10 MG IVP (21:21)
[2025-03-17 22:25] LABS: Vancomycin,Trough < 3.0 mcg/mL (5.0-10.0)
--- NOTE | 2025-03-17 22:48 | PC.NURSE ---
MRI screening is not done, ordered today at 8am. Pt's caregiver not at bedside at this time.
--- NOTE | 2025-03-17 23:43 | PC.RT ---
SPUTUM COLLECTED AND TAKEN TO LAB.
[2025-03-18] VITALS (7 sets, daily range): BP systolic 118–135; BP diastolic 62–85; PULSE 70–100; RESP 17–20; TEMP 36.1–36.4; O2SAT 95–100
--- NOTE | 2025-03-18 | XR_ITS ---
MRI abdomen, without contrast. MRCP Date and time of exam: March 18, 2025, 1037 hours INDICATIONS: Abdominal pain this week, abdomen sonogram March 17, 2025 thickened gallbladder wall and large common bile duct Technique: Multiple axial and coronal images of the abdomen have been obtained with the Siemens 1.5T MRI scanner. Images obtained included T1 weighted transverse images, T2-weighted transverse images, T2-weighted transverse images fat-suppressed, T2 weighted haste fat suppressed transverse images, T1 weighted images, in and out of phase images, T2-weighted coronal images, breath hold, T2 weighted haze coronal images as well as T2 weighted coronal thick slab images, MRCP. Findings: Gastrostomy tube in the stomach No intrahepatic biliary tract dilatation Gallstones Gallbladder wall appears mildly thickened and edematous Common bile duct 4.5 mm Coronal image 14 suspicious for 2 mm common hepatic duct stone No ascites No hydronephrosis Aorta normal size No pancreatic edema IMPRESSION: Cholelithiasis Suspicious for cholecystitis Coronal image 14 suspicious for 2 mm common hepatic duct stone, consider ERCP follow-up
[2025-03-18] MEDS: SIMETHICONE 80 MG CHEW GT ×3 (05:02→21:14)
[2025-03-18] MEDS: metroNIDAZOLE/NS 500 MG IVPB 500 MG/100 ML BAG 200 MG IV ×3 (05:02→21:14)
[2025-03-18] MEDS: LEVOTHYROXINE SODIUM 25 MCG TABLET 50 MCG GT (05:03)
[2025-03-18 05:44] LABS: Basophils # (Auto) 0.0 Thou/mm3 (0.0-0.2); Basophils % (Auto) 0 % (0-2.5); Eosinophils # (Auto) 0.0 Thou/mm3 (0.0-0.5); Eosinophils % (Auto) 0 % (0-10); Hematocrit 36.2 % (36.0-46.0); Hemoglobin 11.8 g/dL (12.0-16.0); Immature Granulocytes Auto 0.04 Thou/mm3 (0.00-0.00); Lymphocytes # (Auto) 3.2 Thou/mm3 (1.0-4.8); Lymphocytes % (Auto) 33 % (10-50); Mean Corpuscular HGB Conc 32.6 g/dl (31.0-37.0); Mean Corpuscular Hemoglobin 31.4 pg (25.0-35.0); Mean Corpuscular Volume 96 fL (80-100); Monocytes # (Auto) 1.5 Thou/mm3 (0.0-0.8); Monocytes % (Auto) 16 % (0-12); Neutrophils # (Auto) 4.9 Thou/mm3 (1.8-7.7); Neutrophils % (Auto) 51 % (37-80); Nucleated Red Blood Cell # 0.00 Thou/mm3 (0.00-0.00); Nucleated Red Blood Cell % 0 /100 WBC (0); Platelet Count 189 Thou/mm3 (140-440); RDW Standard Deviation 43.8 fL (36.4-46.3); Red Blood Count 3.76 Miln/mm3 (4.00-5.20); White Blood Count 9.7 Thou/mm3 (3.6-11.0)
[2025-03-18] MEDS: VALPROATE SOD INJ 250 MG in SODIUM CHLORIDE 0.9% 50 ML 50 MG IV ×3 (05:57→17:32)
[2025-03-18 06:26] LABS: Alanine Aminotransferase 12 U/L (10-49); Albumin, Serum 3.7 gm/dL (3.5-5.0); Albumin/Globulin Ratio 1.8 (1.2-2.2); Alkaline Phosphatase 50 U/L (46-116); Anion Gap 10 (7-16); Aspartate Amino Transferase 23 U/L (0-34); BUN/Creatinine Ratio 16 Ratio (12-20); Bilirubin,Total 0.4 mg/dL (0.3-1.2); Blood Urea Nitrogen 8 mg/dL (9-23); Calcium 8.6 mg/dL (8.3-10.6); Calcium (Corrected) 8.8 mg/dL (8.5-10.1); Carbon Dioxide 32.2 mMol/L (20.0-31.0); Chloride 96 mMol/L (98-107); Creatinine (Component) 0.5 mg/dL (0.6-1.3); Estimated Creatinine Clearance 80.2 mL/min (>60); Globulin 2.1 gm/dL (2.3-3.5); Glucose 91 mg/dL (74-106); Osmolality,Calculated 273 (275-295); Phosphorous 3.3 mg/dL (2.4-5.1); Potassium 3.4 mMol/L (3.4-5.1); Sodium 138 mMol/L (136-145); Total Protein 5.8 gm/dL (5.7-8.2); eGFR > 60 See Note
[2025-03-18] MEDS: METOCLOPRAMIDE INJ 5 MG/ML VIAL 2 ML 10 MG IVP ×2 (08:27→21:13)
[2025-03-18] MEDS: LEVOFLOXACIN/D5W 750MG IVPB 750 MG/150 ML BAG 100 MG IV (08:27)
[2025-03-18] MEDS: NYSTATIN PWD 15 GM BTL TOP ×2 (08:28→21:14)
[2025-03-18] MEDS: HEPARIN SOD INJ 5000 UNIT/ML VIAL SC ×2 (08:28→21:15)
[2025-03-18] MEDS: LORazepam 2 MG/ML VIAL 1 MG IVP (10:21)
--- NOTE | 2025-03-18 14:56 | ESPR_ITS ---
<Statement entered by Robert Lilly MD - 03/18/25 20:51> I saw and examined patient personally and supervised PGY 1 resident, Dr. Vargas with formulating a management plan. I agree with the documentation with the exceptions as listed below. Patient was admitted for aspiration pneumonia and on treatment with metronidazole. She also CT abdomen pelvis which showed cholelithiasis. She underwent MRCP today which showed suspicion for 2 mm stone in the hepatic duct. Contacted patient's conservator, Dr. Marie and updated him on these findings. He said that he will be okay to obtain a GI consult for possible ERCP. Contacted painting manager, Dr. Shea who said that he is not on-call until next week. Consulted painting manager, Dr. Chacko for hepatic duct stone. Tube feeds continue to be on hold, will likely restart tomorrow. Plan of care discussed with Attending Dr. Howard Lilly MD PGY 2 Disclaimer: This note was dictated by speech recognition. Minor errors in access director may be present due to voice recognition software. Documentation for date of: 03/18/25 Subjective Subjective Interval history: Interval history: No overnight events. Patient was examined at bedside; A&Ox0 (nonverbal at baseline) and in NAD. O2 96% at 3L and HR 84. Labs reviewed WBC normalized, Hbg 11.8, BMP unremarkable except for bicarb 32.2. Physical exam benign, abdominal exam was soft and nontender. Patient having bowel movements. Plan Updates: -MRCP showed cholelithiasis, possible cholecystitis recommend ERCP f/u -Dr. Chacko will f/u -Still NPO -Resumed home Reglan for increased gut motility and better toleration of tube feeds Exam Vital Signs Temp Pulse Resp BP Pulse Ox O2 Del Method O2 Flow Rate 97.0 F 84 17 123/69 100 Oxy Mask 3 03/18/25 11:53 03/18/25 11:53 03/18/25 11:53 03/18/25 11:53 03/18/25 11:53 03/18/25 11:53 03/18/25 11:53 Narrative Exam General: A/O x0 (nonverbal at baseline) and in no acute distress. Head: Normocephalic, atraumatic. Eyes: Anicteric, vision grossly intact. Mouth/Throat: Oral mucosa moist. No obvious lesions in oropharynx. Cardiovascular: Tachycardic rate and normal rhythm, no murmur, no JVD or carotid bruits. +S1/S2. Respiratory: Expiratory rhonchi and some inspiratory wheezing noted on auscultation of bilateral lung elise. No crackles or rales appreciated. No accessory muscle use. Gastrointestinal: Soft, nontender, slightly distended. PEG tube in place at LUQ. No palpable masses or rebound tenderness. Extremities: Muscular atrophy of BLE. Bilateral clubfoot deformity. No edema, no cyanosis, no clubbing. Pedal pulses palpable bilaterally. Skin: Erythema and scaling of intertriginous folds of abdomen and groin. Objective Labs 03/20/25 04:52 03/20/25 04:52 Labs: Laboratory Results - last 24 hr 03/17/25 03/18/25 21:38 05:23 WBC 9.7 RBC 3.76 L Hgb 11.8 L Hct 36.2 MCV 96 MCH 31.4 MCHC 32.6 RDW Std Deviation 43.8 Plt Count 189 Neut % (Auto) 51 Lymph % (Auto) 33 [place] % (Auto) 16 H Eos % (Auto) 0 Baso % (Auto) 0 Neut # (Auto) 4.9 Lymph # (Auto) 3.2 [place] # (Auto) 1.5 H Eos # (Auto) 0.0 Baso # (Auto) 0.0 Immature Gran # (Auto) 0.04 H Absolute Nucleated RBC 0.00 Immature Gran % 0 Nucleated RBC % 0 Sodium 138 Potassium 3.4 D Chloride 96 L Carbon Dioxide 32.2 H Anion Gap 10 BUN 8 L Creatinine 0.5 L Estim Creat Clear Calc 80.2 eGFR > 60 BUN/Creatinine Ratio 16 Glucose 91 Calculated Osmolality 273 L Calcium 8.6 Corrected Calcium 8.8 Phosphorus 3.3 Total Bilirubin 0.4 AST 23 ALT 12 Alkaline Phosphatase 50 Total Protein 5.8 Albumin 3.7 Globulin 2.1 L Albumin/Globulin Ratio 1.8 Vancomycin Trough < 3.0 L ABG Interpretation ABG results: 03/15/25 12:20 ABG pH 7.50 H ABG pCO2 30 L ABG pO2 183 H ABG HCO3 24 ABG O2 Saturation 99 H ABG Base Excess 1 Quality Measures Quality Measures none Assessment & Plan Assessment Current Active Medications: Generic Name Dose Route Start Last Admin Trade Name Freq PRN Reason Stop Dose Admin Acetaminophen 650 mg 03/14/25 15:42 03/17/25 16:08 Acetaminophen 325 Mg Tablet NG 04/13/25 15:41 650 mg Q6H PRN Administration Fever >100.4 and Pain 1-3 Bisacodyl 10 mg 03/15/25 20:03 03/16/25 03:58 Bisacodyl 10 Mg Supp OR 04/14/25 20:02 10 mg QDAY PRN Administration CONSTIPATION Protocol Heparin Sodium (Porcine) 5,000 unit 03/14/25 21:00 03/18/25 08:28 Heparin Sod Inj 5000 Unit/Ml Vial SC 03/28/25 20:59 5,000 unit Q12HR CAMILA Administration Metronidazole 500 mg in 100 mls @ 200 mls/hr 03/14/25 16:00 03/18/25 13:40 Flagyl 500 Mg Iv IV 03/21/25 15:59 200 mls/hr Q8HR CAMILA Administration Levofloxacin/Dextrose 750 mg in 150 mls @ 100 mls/hr 03/15/25 09:00 03/18/25 08:27 Levaquin Ivpb IV 03/22/25 08:59 100 mls/hr QDAY CAMILA Administration Valproic Acid 250 mg/ Sodium 52.5 mls @ 50 mls/hr 03/15/25 18:00 03/18/25 11:34 Chloride IV 04/14/25 17:59 50 mls/hr Q6HR CAMILA Administration Ketorolac Tromethamine 15 mg 03/16/25 19:08 03/17/25 10:14 Ketorolac Inj 30 Mg/Ml Vial IVP 03/21/25 14:48 15 mg Q6HR PRN Administration Pain 4-6 Labetalol HCl 10 mg 03/14/25 16:47 Labetalol Inj 5 Mg/Ml Vial 20 Ml IVP 04/13/25 16:46 Q6HR PRN Hypertension Lactulose 20 gm 03/16/25 08:15 03/17/25 04:59 Lactulose Syrup 20 Gm/30 Ml Udc GT 04/15/25 08:14 20 gm On Hold: 03/17/25 10:53 TID CAMILA Administration Protocol Levothyroxine Sodium 75 mcg 03/15/25 06:00 03/17/25 04:59 Levothyroxine Sodium 25 Mcg Tablet GT 04/14/25 05:59 75 mcg [id number]@0600 CAMILA Administration Levothyroxine Sodium 50 mcg 03/16/25 06:00 03/18/25 05:03 Levothyroxine Sodium 25 Mcg Tablet GT 04/15/25 05:59 50 mcg [id number]@0600 CAMILA Administration Lorazepam 1 mg 03/18/25 08:10 03/18/25 10:21 Lorazepam 2 Mg/Ml Vial IVP 03/23/25 08:09 1 mg X1 PRN Administration AGITATION Metoclopramide HCl 10 mg 03/17/25 21:00 03/18/25 08:27 Metoclopramide Inj 5 Mg/Ml Vial 2 Ml IVP 04/16/25 20:59 10 mg BID CAMILA Administration Protocol Nystatin 0 gm 03/14/25 21:00 03/18/25 08:28 Nystatin Pwd 15 Gm Btl TOP 04/13/25 20:59 1 applicatio BID CAMILA Administration Ondansetron HCl 4 mg 03/14/25 15:42 Ondansetron Inj 2 Mg/Ml Inj 2 Ml IVP 04/13/25 15:41 Q6H PRN NAUSEA OR VOMITING Protocol Pantoprazole Sodium 40 mg 03/17/25 16:30 03/18/25 08:27 Pantoprazole Inj 40 Mg Vial IVP 04/16/25 16:29 40 mg QDAY CAMILA Administration Sennosides 1 tab 03/14/25 16:00 03/18/25 08:28 Senna Tablet GT 04/13/25 15:59 1 tab QDAY CAMILA Administration Protocol Simethicone 80 mg 03/16/25 22:00 03/18/25 13:40 Simethicone 80 Mg Chew GT 04/15/25 21:59 80 mg TID CAMILA Administration Plan Deyanira Pérez is a 54-year-old female with a PMH of cerebral palsy, epilepsy on valproic acid, developmental delay (nonverbal at baseline), scoliosis, cholelithiasis, hypothyroidism, GERD, and chronic PEG tube who was BIBA to the ED on 03/14/25 after her data solutions architect noted that she was not acting like herself during a shower earlier today. Patient was admitted for the work-up and management of acute encephalopathy in the setting of possible sepsis likely 2/2 aspiration pneumonia. Plan: MRCP showed dilated hepatic duct with stone, reached out to Dr. Chacko about possible ERCP. Dr. Chacko will follow-up. #Acute encephalopathy likely secondary to pneumonia or acute cholecystitis #PMH of epilepsy on valproic acid Patient presented with reported confusion not present at baseline PMH of cerebral palsy, epilepsy on valproic acid, developmental delay (nonverbal at baseline) DDx: 2/2 acute infection (sepsis or pneumonia or acute cholecystitis), seizure- induced post-ictal state Dx: -Ordered EEG awake and drowsy, results pending Rx: -Continue home medication: GT valproic acid syrup 250 mg BID -Seizure precautions -Aspiration precautions -HOB elevation 30 degrees -Surveillance monitoring (miscellaneous nursing order) #Sepsis rule out, given altered mental status #likely 2/2 aspiration pneumonia #Leukocytosis Patient meets 4/4 SIRS criteria by the following: Temperature above 100.4 or below 98.6 (100.9), HR>90 (119), RR>20 or PaCO2<32 (RR 22), WBC above 12 or below 4 (23.4) + source of infection (aspiration pneumonia) Evidence for source of infection is finding of right upper lobe pneumonia on 03/14 CT CAP qSOFA rating predicting high-risk mortality if 2 or more of the following criteria met: SBP 100 or less (not met), RR 22 or more (met), GCS less than 15 (met) On physical exam, mottling observed of right elbow and bilateral feet In the context of fluid resuscitation, patient is s/p 1 L of IV fluid Of note, patient is reported to be allergic to penicillins and cephalexin s/p administration of IV levofloxacin 500 mg x 1 in the ED s/p IV vancomycin [03/14-03/16] Dx: -Ordered BCx, [id number] -Ordered MRSA nares, negative -Ordered bedside Influenza A&B, negative Rx: -[id number] of IV Levaquin 750 mg qD [03/14--] -[id number] of IV Flagyl 500 mg q8HR [03/14--] #Abdominal distention #c/f acute calculous cholecystitis and/or possible acute cholangitis 2/2 cholelithiasis On 03/15, RR was called and patient was noted to have more distention of the abdomen On 03/16, 2 RRs were called and in the latter RR patient was noted to have abdominal guarding and distention without any significant BM's being made On 03/17, patient was finally able to have a large BM after fleet enema administration Dx: -03/15 KUB showed nonobstructive gas pattern -03/16 KUB showed moderate air and stool throughout the colon -Ordered 03/16 CTAP, showed gastritis and active peptic disease of the duodenum, colonic ileus, small bowel ileus, and suspicion for acute calculous cholecystitis -Ordered 03/16 lactate, came back elevated at 4.2 (later down-trended back to 1.5) -MRCP showed dilated hepatic duct with stone, reached out to Dr. Chacko about possible ERCP. Rx: -Continue PO lactulose 20 mg TID -Continue GT simethicone 80 mg TID -IV Toradol 15 mg q6HR prn for moderate pain 4-6 #Lactic acidosis (resolved) Admission LA 3.5, then down-trended to 1.8 on same day On 03/16, lactate ordered after 2nd rapid response was elevated at 4.2 but then down-trended to 1.5 Possibly 2/2 hypoperfusion from sepsis or seizure activity Rx: -Continue to monitor #Hypothyroidism Per prior documentation, patient has a history of hypothyroidism and takes levothyroxine at home Dx: -Ordered TSH, WNL 3.66 -Ordered Free T4, results pending Rx: -Continue home medication: GT levothyroxine dosed by pharmacy #Intertriginous dermatitis On physical exam, patient was noted to have erythema and scaling of intertriginous folds of the abdomen and groin Rx: -Topical nystatin BID #Chronic PEG tube Rx: -Resumed tube feeds -Resumed home Reglan for increased gut motility and better toleration of tube feeds -Consulted registered dietitian Hospital Management: Disposition: admitted to [facility] for the work-up and management of acute encephalopathy in the setting of possible sepsis likely 2/2 aspiration pneumonia (and now concern for acute cholecystitis or cholangitis) Diet: NPO (registered dietitian consulted) GI Prophylaxis: GT Pepcid 20 mg qD Bowel Prophylaxis: GT Senna 1 tablet qD DVT Prophylaxis: SC Heparin 5K q12HR CODE STATUS: Full Code I have examined the patient and conferred with my attending, Dr. Lawrence, and my senior resident, Dr. Lilly, regarding them. Dominic Vargas DO PGY-1, Anesthesiology Attending Provider Attestation/Addendum I have discussed and was present for the essential components of the history, physical examination, diagnosis, and treatment plan with the resident. I agree with the patient's care as documented by the resident and amended herein by me. Seth Lawrence DO. Although this document has been carefully reviewed, there may still be some phonetic and other typographical errors. These errors are purely grammatical due to imperfections in the software program and should not be construed in any way to compromise the substance of the patient's medical care during this visit.
--- NOTE | 2025-03-18 21:14 | PD.IMCONS ---
HPI Data of Consult Requesting Physician: Keyur Lawrence DO Primary Care Provider: Jewel Cleaning MD Consult Narrative Reason for consult: Abnormal MRCP, 2 mm CHD stone, normal LFTs History of present illness: 54 years old female evaluated at request of the internal medicine team for an abnormal MRCP showing a 2 mm stone in the common hepatic duct within normal CBD and normal LFTs with a total bilirubin 0.4 AST ALT 23 and 12 and alk phos of 50 Patient has been admitted with pneumonia Patient has a history of developmental delay cerebral palsy baseline nonverbal epilepsy hypothyroidism and status post PEG placement CT scan of the abdomen pelvis has shown mucosal thickening of the stomach and duodenum cholelithiasis gallbladder wall thickened and fluid-filled small intestine and colon Abdominal ultrasound showed cholelithiasis CBD 7 mm fatty liver and the size is 20.4 cm cc:: cc: Keyur Lawrence DO Review of Systems Review of Systems ROS Unobtainable: unobtainable due to medical condition Past Medical History Surgical History OTHER SURGICAL HX: As in the history of present illness Meds Home Medications and Allergies Home Medications ?Medication ?Instructions ?Recorded ?Confirmed ?Type calcium carbonate 500 mg/5 mL (as 625 mg feeding tube BID 07/29/23 03/14/25 History calcium carb 1,250 mg/5 mL) oral suspension gabapentin 300 mg capsule 900 mg feeding tube BID 07/29/23 03/14/25 History glycopyrrolate 2 mg tablet 2 mg feeding tube BID 07/29/23 03/14/25 History levothyroxine 75 mcg tablet 75 mcg feeding tube USEASDIRECTD 07/29/23 03/14/25 History multivit and minerals-ferrous 5 ml feeding tube BID 07/29/23 03/14/25 History gluconate 9 mg iron/15 mL oral liquid (Multi-Jg) simethicone 80 mg chewable tablet 80 mg feeding tube TID 07/29/23 03/14/25 History valproic acid (as sodium salt) 250 400 mg feeding tube BID 07/29/23 03/14/25 History mg/5 mL oral solution acetaminophen 325 mg tablet 650 mg feeding tube QID PRN Pain 03/18/24 03/14/25 History (Tylenol) famotidine 20 mg tablet 20 mg feeding tube QDAY 03/18/24 03/14/25 History loratadine 10 mg tablet 10 mg feeding tube QDAY 03/18/24 03/14/25 History bisacodyl 10 mg rectal suppository 10 mg IN QDAY PRN constipation 03/14/25 03/14/25 History clindamycin phosphate 1 % topical 1 applic topical BID 03/14/25 03/14/25 History gel polyethylene glycol 3350 17 17 g feeding tube QDAY 03/14/25 03/14/25 History gram/dose oral powder (ClearLax) metoclopramide HCl 10 mg tablet 10 mg feeding tube BID gerd 03/17/25 03/17/25 History Allergies Allergy/AdvReac Type Severity Reaction Status Date / Time bacitracin (From Neosporin Allergy Unknown Verified 03/14/25 08:53 ([id number])) cephalexin Allergy Unknown Verified 03/14/25 08:53 neomycin (From Neosporin Allergy Unknown Verified 03/14/25 08:53 ([id number])) Penicillins Allergy Unknown Verified 03/14/25 08:53 polymyxin B (From Neosporin Allergy Unknown Verified 03/14/25 08:53 ([id number])) Exam Vital Signs Temp Pulse Resp BP Pulse Ox O2 Del Method O2 Flow Rate 97.2 F 98 20 127/83 99 Oxy Mask 2 03/18/25 20:00 03/18/25 20:00 03/18/25 20:00 03/18/25 20:00 03/18/25 20:00 03/18/25 20:00 03/18/25 20:00 Constitutional Comments: Chronically ill-appearing Routine Respiratory Exam Comments: Scattered rhonchi Routine Abdominal Exam Comments: Soft nontender Results Labs 03/18/25 05:23 03/18/25 05:23 Labs: Short CBC 03/18/25 Range/Units 05:23 WBC 9.7 (3.6-11.0) Thou/mm3 Hgb 11.8 L (12.0-16.0) g/dL Hct 36.2 (36.0-46.0) % Plt Count 189 (140-440) Thou/mm3 BMP 03/18/25 05:23 Sodium 138 Potassium 3.4 D Chloride 96 L Carbon Dioxide 32.2 H BUN 8 L Creatinine 0.5 L Glucose 91 Calcium 8.6 Liver Function 03/18/25 Range/Units 05:23 Total Bilirubin 0.4 (0.3-1.2) mg/dL AST 23 (0-34) U/L ALT 12 (10-49) U/L Alkaline Phosphatase 50 (46-116) U/L Albumin 3.7 (3.5-5.0) gm/dL ABG Interpretation ABG results: 03/15/25 12:20 ABG pH 7.50 H ABG pCO2 30 L ABG pO2 183 H ABG HCO3 24 ABG O2 Saturation 99 H ABG Base Excess 1 Assessment and Plan Additional Assessment & Plan Additional Plan: # Abnormal MRCP showing a 2 mm stone in the common hepatic duct without major dilatation and normal LFTs and asymptomatic patient No further intervention necessary No need for an ERCP # Asymptomatic cholelithiasis # Fatty liver with hepatomegaly Recommend dietary consultation for the residential people where he stays to get the patient on a low-fat diet Get a lipid panel and appropriately manage the lipid profile with aggressive management Other medical problems include Pneumonia Epilepsy Developmentally challenged and delayed Baseline nonverbal Hypothyroidism Status post PEG placement Thank you very much for the opportunity to participate in care of this patient
[2025-03-19] VITALS (10 sets, daily range): BP systolic 106–156; BP diastolic 61–86; PULSE 76–106; RESP 18–20; TEMP 36.2–36.6; O2SAT 95–99; BMI 30.8
[2025-03-19] MEDS: VALPROATE SOD INJ 250 MG in SODIUM CHLORIDE 0.9% 50 ML 50 MG IV ×4 (00:58→17:00)
[2025-03-19] MEDS: SIMETHICONE 80 MG CHEW GT ×3 (05:25→21:02)
[2025-03-19] MEDS: LEVOTHYROXINE SODIUM 25 MCG TABLET 50 MCG GT (05:25)
[2025-03-19] MEDS: metroNIDAZOLE/NS 500 MG IVPB 500 MG/100 ML BAG 200 MG IV ×3 (05:25→21:02)
[2025-03-19] MEDS: ACETAMINOPHEN 325 MG TABLET 650 MG NG (05:31)
[2025-03-19 06:18] LABS: Basophils # (Auto) 0.0 Thou/mm3 (0.0-0.2); Basophils % (Auto) 0 % (0-2.5); Eosinophils # (Auto) 0.0 Thou/mm3 (0.0-0.5); Eosinophils % (Auto) 0 % (0-10); Hematocrit 37.3 % (36.0-46.0); Hemoglobin 12.2 g/dL (12.0-16.0); Immature Granulocytes Auto 0.08 Thou/mm3 (0.00-0.00); Lymphocytes # (Auto) 2.2 Thou/mm3 (1.0-4.8); Lymphocytes % (Auto) 20 % (10-50); Mean Corpuscular HGB Conc 32.7 g/dl (31.0-37.0); Mean Corpuscular Hemoglobin 31.1 pg (25.0-35.0); Mean Corpuscular Volume 95 fL (80-100); Monocytes # (Auto) 2.0 Thou/mm3 (0.0-0.8); Monocytes % (Auto) 18 % (0-12); Neutrophils # (Auto) 6.8 Thou/mm3 (1.8-7.7); Neutrophils % (Auto) 61 % (37-80); Nucleated Red Blood Cell # 0.00 Thou/mm3 (0.00-0.00); Nucleated Red Blood Cell % 0 /100 WBC (0); Platelet Count 216 Thou/mm3 (140-440); RDW Standard Deviation 42.8 fL (36.4-46.3); Red Blood Count 3.92 Miln/mm3 (4.00-5.20); White Blood Count 11.1 Thou/mm3 (3.6-11.0)
[2025-03-19 06:37] LABS: Alanine Aminotransferase 11 U/L (10-49); Albumin, Serum 3.9 gm/dL (3.5-5.0); Albumin/Globulin Ratio 1.6 (1.2-2.2); Alkaline Phosphatase 57 U/L (46-116); Anion Gap 11 (7-16); Aspartate Amino Transferase 24 U/L (0-34); BUN/Creatinine Ratio 13 Ratio (12-20); Bilirubin,Total 0.3 mg/dL (0.3-1.2); Blood Urea Nitrogen 8 mg/dL (9-23); Calcium 9.1 mg/dL (8.3-10.6); Calcium (Corrected) 9.2 mg/dL (8.5-10.1); Carbon Dioxide 31.7 mMol/L (20.0-31.0); Chloride 94 mMol/L (98-107); Creatinine (Component) 0.6 mg/dL (0.6-1.3); Estimated Creatinine Clearance 66.8 mL/min (>60); Globulin 2.5 gm/dL (2.3-3.5); Glucose 80 mg/dL (74-106); Osmolality,Calculated 271 (275-295); Potassium 3.4 mMol/L (3.4-5.1); Sodium 137 mMol/L (136-145); Total Protein 6.4 gm/dL (5.7-8.2); eGFR > 60 See Note
[2025-03-19] MEDS: POTASSIUM CHLORIDE 10% 20 MEQ/15 ML UDC 40 MEQ GT (08:50)
[2025-03-19] MEDS: METOCLOPRAMIDE INJ 5 MG/ML VIAL 2 ML 10 MG IVP ×2 (08:51→21:02)
[2025-03-19] MEDS: HEPARIN SOD INJ 5000 UNIT/ML VIAL SC ×2 (08:51→21:04)
[2025-03-19] MEDS: LEVOFLOXACIN/D5W 750MG IVPB 750 MG/150 ML BAG 100 MG IV (08:51)
[2025-03-19] MEDS: NYSTATIN PWD 15 GM BTL TOP ×2 (08:52→21:03)
--- NOTE | 2025-03-19 13:09 | ESPR_ITS ---
<Statement entered by Robert Lilly MD - 03/19/25 15:39> I saw and examined patient personally and supervised PGY 1 resident, Dr. Mora with formulating a management plan. I agree with the documentation with the exceptions as listed below. Patient was initially admitted for aspiration pneumonia and treated with levofloxacin and metronidazole IV to complete a total of a 7-day course on 03/20. MRCP showed 2 mm nonobstructing stone in the common hepatic duct. Gastroenterology, Dr. Chacko was consulted and recommended no emergent need for ERCP as stone is nonobstructing, LFTs within normal limits and patient is asymptomatic. We appreciate recommendations. Patient was started on ursodiol 300 mg GT daily for gallstones. We will again contact her conservator, Dr. Marie today with regards to his plan for definitive management of her gallstones. Plan of care discussed with Attending Dr. Howard Lilly MD PGY 2 Disclaimer: This note was dictated by speech recognition. Minor errors in front office agent may be present due to voice recognition software. Documentation for date of: 03/19/25 Subjective Subjective Interval history: The patient was admitted due to aspiration pneumonia and received IV antibiotics?levofloxacin and metronidazole?to complete a 7-day treatment course, which concluded on March 20. Imaging via MRCP revealed a 2 mm stone in the common hepatic duct that was not causing obstruction. Dr. Chacko from Gastroenterology was consulted and advised that ERCP was not urgently required, given the absence of symptoms, normal liver function tests, and the nonobstructive nature of the stone. Patient has been started on ursodiol 300 mg via GT once daily to address gallstones. We plan to follow up again today with her conservator, Dr. Marie, to discuss their recommendations for long-term management of the gallstone condition. Exam Vital Signs Temp Pulse Resp BP Pulse Ox O2 Del Method O2 Flow Rate 97.2 F 91 20 127/78 97 Oxy Mask 2 03/19/25 12:00 03/19/25 12:00 03/19/25 12:00 03/19/25 12:00 03/19/25 12:00 03/19/25 12:00 03/19/25 12:00 Narrative Exam General: A/O x0 (nonverbal at baseline) and in no acute distress. Head: Normocephalic, atraumatic. Eyes: Anicteric, vision grossly intact. Mouth/Throat: Oral mucosa moist. No obvious lesions in oropharynx. Cardiovascular: Tachycardic rate and normal rhythm, no murmur, no JVD or carotid bruits. +S1/S2. Respiratory: Expiratory rhonchi and some inspiratory wheezing noted on auscultation of bilateral lung elise. No crackles or rales appreciated. No accessory muscle use. Gastrointestinal: Soft, nontender, slightly distended. PEG tube in place at LUQ. No palpable masses or rebound tenderness. Extremities: Muscular atrophy of BLE. Bilateral clubfoot deformity. No edema, no cyanosis, no clubbing. Pedal pulses palpable bilaterally. Skin: Erythema and scaling of intertriginous folds of abdomen and groin. Objective Labs 03/20/25 04:52 03/20/25 04:52 Labs: Laboratory Results - last 24 hr 03/19/25 04:50 WBC 11.1 H RBC 3.92 L Hgb 12.2 Hct 37.3 MCV 95 MCH 31.1 MCHC 32.7 RDW Std Deviation 42.8 Plt Count 216 Neut % (Auto) 61 Lymph % (Auto) 20 [place] % (Auto) 18 H Eos % (Auto) 0 Baso % (Auto) 0 Neut # (Auto) 6.8 Lymph # (Auto) 2.2 [place] # (Auto) 2.0 H Eos # (Auto) 0.0 Baso # (Auto) 0.0 Immature Gran # (Auto) 0.08 H Absolute Nucleated RBC 0.00 Immature Gran % 1 H Nucleated RBC % 0 Sodium 137 Potassium 3.4 Chloride 94 L Carbon Dioxide 31.7 H Anion Gap 11 BUN 8 L Creatinine 0.6 Estim Creat Clear Calc 66.8 eGFR > 60 BUN/Creatinine Ratio 13 Glucose 80 Calculated Osmolality 271 L Calcium 9.1 Corrected Calcium 9.2 Total Bilirubin 0.3 AST 24 ALT 11 Alkaline Phosphatase 57 Total Protein 6.4 Albumin 3.9 Globulin 2.5 Albumin/Globulin Ratio 1.6 ABG Interpretation ABG results: 03/15/25 12:20 ABG pH 7.50 H ABG pCO2 30 L ABG pO2 183 H ABG HCO3 24 ABG O2 Saturation 99 H ABG Base Excess 1 Quality Measures Quality Measures none Assessment & Plan Assessment Current Active Medications: Generic Name Dose Route Start Last Admin Trade Name Freq PRN Reason Stop Dose Admin Acetaminophen 650 mg 03/14/25 15:42 03/19/25 05:31 Acetaminophen 325 Mg Tablet NG 04/13/25 15:41 650 mg Q6H PRN Administration Fever >100.4 and Pain 1-3 Bisacodyl 10 mg 03/15/25 20:03 03/16/25 03:58 Bisacodyl 10 Mg Supp CO 04/14/25 20:02 10 mg QDAY PRN Administration CONSTIPATION Protocol Heparin Sodium (Porcine) 5,000 unit 03/14/25 21:00 03/19/25 08:51 Heparin Sod Inj 5000 Unit/Ml Vial SC 03/28/25 20:59 5,000 unit Q12HR CAMILA Administration Metronidazole 500 mg in 100 mls @ 200 mls/hr 03/14/25 16:00 03/19/25 05:25 Flagyl 500 Mg Iv IV 03/21/25 15:59 200 mls/hr Q8HR CAMILA Administration Levofloxacin/Dextrose 750 mg in 150 mls @ 100 mls/hr 03/15/25 09:00 03/19/25 08:51 Levaquin Ivpb IV 03/22/25 08:59 100 mls/hr QDAY CAMILA Administration Valproic Acid 250 mg/ Sodium 52.5 mls @ 50 mls/hr 03/15/25 18:00 03/19/25 11:49 Chloride IV 04/14/25 17:59 50 mls/hr Q6HR CAMILA Administration Ketorolac Tromethamine 15 mg 03/16/25 19:08 03/17/25 10:14 Ketorolac Inj 30 Mg/Ml Vial IVP 03/21/25 14:48 15 mg Q6HR PRN Administration Pain 4-6 Labetalol HCl 10 mg 03/14/25 16:47 Labetalol Inj 5 Mg/Ml Vial 20 Ml IVP 04/13/25 16:46 Q6HR PRN Hypertension Lactulose 20 gm 03/16/25 08:15 03/17/25 04:59 Lactulose Syrup 20 Gm/30 Ml Udc GT 04/15/25 08:14 20 gm On Hold: 03/17/25 10:53 TID CAMILA Administration Protocol Levothyroxine Sodium 75 mcg 03/15/25 06:00 03/17/25 04:59 Levothyroxine Sodium 25 Mcg Tablet GT 04/14/25 05:59 75 mcg [id number] CAMILA Administration Levothyroxine Sodium 50 mcg 03/16/25 06:00 03/19/25 05:25 Levothyroxine Sodium 25 Mcg Tablet GT 04/15/25 05:59 50 mcg [id number] CAMILA Administration Lorazepam 1 mg 03/18/25 08:10 03/18/25 10:21 Lorazepam 2 Mg/Ml Vial IVP 03/23/25 08:09 1 mg X1 PRN Administration AGITATION Metoclopramide HCl 10 mg 03/17/25 21:00 03/19/25 08:51 Metoclopramide Inj 5 Mg/Ml Vial 2 Ml IVP 04/16/25 20:59 10 mg BID CAMILA Administration Protocol Nystatin 0 gm 03/14/25 21:00 03/19/25 08:52 Nystatin Pwd 15 Gm Btl TOP 04/13/25 20:59 1 applicatio BID CAMILA Administration Ondansetron HCl 4 mg 03/14/25 15:42 Ondansetron Inj 2 Mg/Ml Inj 2 Ml IVP 04/13/25 15:41 Q6H PRN NAUSEA OR VOMITING Protocol Pantoprazole Sodium 40 mg 03/17/25 16:30 03/19/25 08:50 Pantoprazole Inj 40 Mg Vial IVP 04/16/25 16:29 40 mg QDAY CAMILA Administration Sennosides 1 tab 03/14/25 16:00 03/19/25 08:51 Senna Tablet GT 04/13/25 15:59 1 tab QDAY CAMILA Administration Protocol Simethicone 80 mg 03/16/25 22:00 03/19/25 05:25 Simethicone 80 Mg Chew GT 04/15/25 21:59 80 mg TID CAMILA Administration Ursodiol 300 mg 03/19/25 09:00 03/19/25 08:51 Ursodiol 300 Mg Capsule GT 04/18/25 08:59 300 mg QDAY CAMILA Administration Plan Deyaniramicky Pérez is a 54-year-old female with a PMH of cerebral palsy, epilepsy on valproic acid, developmental delay (nonverbal at baseline), scoliosis, cholelithiasis, hypothyroidism, GERD, and chronic PEG tube who was BIBA to the ED on 03/14/25 after 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 Patient was admitted for the work-up and management of acute encephalopathy in the setting of possible sepsis likely 2/2 aspiration pneumonia. #Abdominal distention #c/f acute calculous cholecystitis and/or possible acute cholangitis 2/2 cholelithiasis On 03/15, RR was called and patient was noted to have more distention of the abdomen On 03/16, 2 RRs were called and in the latter RR patient was noted to have abdominal guarding and distention without any significant BM's being made On 03/17, patient was finally able to have a large BM after fleet enema administration Dx: -03/15 KUB showed nonobstructive gas pattern -03/16 KUB showed moderate air and stool throughout the colon -Ordered 03/16 CTAP, showed gastritis and active peptic disease of the duodenum, colonic ileus, small bowel ileus, and suspicion for acute calculous cholecystitis -Ordered 03/16 lactate, came back elevated at 4.2 (later down-trended back to 1.5) -MRCP showed dilated hepatic duct with 2 mm non-obstructing stone, Dr. Chacko has been consulted regarding possible ERCP and he has recommended that ERCP is not currently indicated at this time Rx: -Started GT ursodiol 300 mg daily -Follow-up with patient's conservator, Dr. Marie, to discuss his recommendations for long-term management of her gallstones -Continue PO lactulose 20 mg TID -Continue GT simethicone 80 mg TID -IV Toradol 15 mg q6HR prn for moderate pain 4-6 #Acute encephalopathy likely secondary to pneumonia or acute cholecystitis #PMH of epilepsy on valproic acid Patient presented with reported confusion not present at baseline PMH of cerebral palsy, epilepsy on valproic acid, developmental delay (nonverbal at baseline) DDx: 2/2 acute infection (sepsis or pneumonia or acute cholecystitis), seizure- induced post-ictal state Dx: -Ordered EEG awake and drowsy, results pending Rx: -Continue home medication: GT valproic acid syrup 250 mg BID -Seizure precautions -Aspiration precautions -HOB elevation 30 degrees -Surveillance monitoring (miscellaneous nursing order) #Sepsis rule out, given altered mental status #likely 2/2 aspiration pneumonia #Leukocytosis Patient meets 4/4 SIRS criteria by the following: Temperature above 100.4 or below 98.6 (100.9), HR>90 (119), RR>20 or PaCO2<32 (RR 22), WBC above 12 or below 4 (23.4) + source of infection (aspiration pneumonia) Evidence for source of infection is finding of right upper lobe pneumonia on 03/14 CT CAP qSOFA rating predicting high-risk mortality if 2 or more of the following criteria met: SBP 100 or less (not met), RR 22 or more (met), GCS less than 15 (met) On physical exam, mottling observed of right elbow and bilateral feet In the context of fluid resuscitation, patient is s/p 1 L of IV fluid Of note, patient is reported to be allergic to penicillins and cephalexin s/p administration of IV levofloxacin 500 mg x 1 in the ED s/p IV vancomycin [03/14-03/16] Dx: -Ordered BCx, [id number] -Ordered MRSA nares, negative -Ordered bedside Influenza A&B, negative Rx: -0-pam-wwoscl of IV Levaquin 750 mg qD [03/14-03/20] -4-ohz-ohmoyu of IV Flagyl 500 mg q8HR [03/14-03/20] #Lactic acidosis (resolved) Admission LA 3.5, then down-trended to 1.8 on same day On 03/16, lactate ordered after 2nd rapid response was elevated at 4.2 but then down-trended to 1.5 Possibly 2/2 hypoperfusion from sepsis or seizure activity Rx: -Continue to monitor #Hypothyroidism Per prior documentation, patient has a history of hypothyroidism and takes levothyroxine at home Dx: -Ordered TSH, WNL 3.66 -Ordered Free T4, results pending Rx: -Continue home medication: GT levothyroxine dosed by pharmacy #Intertriginous dermatitis On physical exam, patient was noted to have erythema and scaling of intertriginous folds of the abdomen and groin Rx: -Topical nystatin BID #Chronic PEG tube Rx: -Continue tube feeds -Continue home Reglan for increased gut motility and better toleration of tube feeds -Consulted registered dietitian Hospital Management: Disposition: admitted to [facility] for the work-up and management of acute encephalopathy in the setting of possible sepsis, currently addressing issue regarding patient's chronic cholelithiasis (requiring input from Dr. Marie) Diet: Tube Feeds GI Prophylaxis: GT Pepcid 20 mg qD Bowel Prophylaxis: GT Senna 1 tablet qD DVT Prophylaxis: SC Heparin 5K q12HR CODE STATUS: Full Code I have examined the patient and conferred with my attending, Dr. Lawrence, and my senior resident, Dr. Lilly, regarding them. Sai Mora DO Internal Medicine, PGY-1 Attending Provider Attestation/Addendum I have discussed and was present for the essential components of the history, physical examination, diagnosis, and treatment plan with the resident. I agree with the patient's care as documented by the resident and amended herein by me. Seth Lawrence DO. Although this document has been carefully reviewed, there may still be some phonetic and other typographical errors. These errors are purely grammatical due to imperfections in the software program and should not be construed in any way to compromise the substance of the patient's medical care during this visit.
--- NOTE | 2025-03-19 14:18 | PC.SS ---
SS follow up note; Advancing diet. Patient will discharge back to the [facility] possibly tomorrow.
[2025-03-19] MEDS: KETOROLAC INJ 30 MG/ML VIAL 15 MG IVP (15:50)
--- NOTE | 2025-03-19 19:39 | ESPR_ITS ---
Documentation for date of: 03/19/25 Subjective Subjective Interval history: LFTs remain normal No need for any ERCP at this point in time Exam Vital Signs Temp Pulse Resp BP Pulse Ox O2 Del Method O2 Flow Rate 97.2 F 98 20 106/67 97 Oxy Mask 2 03/19/25 15:46 03/19/25 16:00 03/19/25 15:46 03/19/25 15:46 03/19/25 15:46 03/19/25 15:46 03/19/25 15:46 Objective Labs 03/19/25 04:50 03/19/25 04:50 Labs: Laboratory Results - last 24 hr 03/19/25 04:50 WBC 11.1 H RBC 3.92 L Hgb 12.2 Hct 37.3 MCV 95 MCH 31.1 MCHC 32.7 RDW Std Deviation 42.8 Plt Count 216 Neut % (Auto) 61 Lymph % (Auto) 20 [place] % (Auto) 18 H Eos % (Auto) 0 Baso % (Auto) 0 Neut # (Auto) 6.8 Lymph # (Auto) 2.2 [place] # (Auto) 2.0 H Eos # (Auto) 0.0 Baso # (Auto) 0.0 Immature Gran # (Auto) 0.08 H Absolute Nucleated RBC 0.00 Immature Gran % 1 H Nucleated RBC % 0 Sodium 137 Potassium 3.4 Chloride 94 L Carbon Dioxide 31.7 H Anion Gap 11 BUN 8 L Creatinine 0.6 Estim Creat Clear Calc 66.8 eGFR > 60 BUN/Creatinine Ratio 13 Glucose 80 Calculated Osmolality 271 L Calcium 9.1 Corrected Calcium 9.2 Total Bilirubin 0.3 AST 24 ALT 11 Alkaline Phosphatase 57 Total Protein 6.4 Albumin 3.9 Globulin 2.5 Albumin/Globulin Ratio 1.6 Impressions Impression: 2 mm stone supposedly on MRCP in the common hepatic duct without any LFT abnormalities No need for any ERCP at this point in time Continue to monitor LFTs ABG Interpretation ABG results: 03/15/25 12:20 ABG pH 7.50 H ABG pCO2 30 L ABG pO2 183 H ABG HCO3 24 ABG O2 Saturation 99 H ABG Base Excess 1 Assessment & Plan A&P Narrative # Abnormal MRCP showing a 2 mm stone in the common hepatic duct without major dilatation and normal LFTs and asymptomatic patient No further intervention necessary No need for an ERCP # Asymptomatic cholelithiasis # Fatty liver with hepatomegaly Recommend dietary consultation for the custodial people where he stays to get the patient on a low-fat diet Get a lipid panel and appropriately manage the lipid profile with aggressive management Other medical problems include Pneumonia Epilepsy Developmentally challenged and delayed Baseline nonverbal Hypothyroidism Status post PEG placement Thank you very much for the opportunity to participate in care of this patient Time Spent With Patient Time: Total time spent is greater than 50% in coordination of care (as documented) at patient's floor/unit and/or counseling patient:
[2025-03-20] VITALS (8 sets, daily range): BP systolic 111–153; BP diastolic 57–96; PULSE 71–102; RESP 17–92; TEMP 36.1–36.9; O2SAT 92–97
[2025-03-20] MEDS: VALPROATE SOD INJ 250 MG in SODIUM CHLORIDE 0.9% 50 ML 50 MG IV ×4 (00:08→18:22)
[2025-03-20] MEDS: metroNIDAZOLE/NS 500 MG IVPB 500 MG/100 ML BAG 200 MG IV ×3 (05:34→21:19)
[2025-03-20] MEDS: LEVOTHYROXINE SODIUM 25 MCG TABLET 75 MCG GT (05:34)
[2025-03-20] MEDS: ACETAMINOPHEN 325 MG TABLET 650 MG NG ×2 (05:35→21:20)
[2025-03-20] MEDS: SIMETHICONE 80 MG CHEW GT ×3 (05:35→21:19)
[2025-03-20 05:58] LABS: Basophils # (Auto) 0.0 Thou/mm3 (0.0-0.2); Basophils % (Auto) 0 % (0-2.5); Eosinophils # (Auto) 0.0 Thou/mm3 (0.0-0.5); Eosinophils % (Auto) 0 % (0-10); Hematocrit 38.7 % (36.0-46.0); Hemoglobin 12.7 g/dL (12.0-16.0); Immature Granulocytes Auto 0.18 Thou/mm3 (0.00-0.00); Lymphocytes # (Auto) 2.6 Thou/mm3 (1.0-4.8); Lymphocytes % (Auto) 20 % (10-50); Mean Corpuscular HGB Conc 32.8 g/dl (31.0-37.0); Mean Corpuscular Hemoglobin 31.8 pg (25.0-35.0); Mean Corpuscular Volume 97 fL (80-100); Monocytes # (Auto) 2.0 Thou/mm3 (0.0-0.8); Monocytes % (Auto) 16 % (0-12); Neutrophils # (Auto) 8.0 Thou/mm3 (1.8-7.7); Neutrophils % (Auto) 63 % (37-80); Nucleated Red Blood Cell # 0.00 Thou/mm3 (0.00-0.00); Nucleated Red Blood Cell % 0 /100 WBC (0); Platelet Count 264 Thou/mm3 (140-440); RDW Standard Deviation 44.9 fL (36.4-46.3); Red Blood Count 3.99 Miln/mm3 (4.00-5.20); White Blood Count 12.8 Thou/mm3 (3.6-11.0)
[2025-03-20 06:31] LABS: Alanine Aminotransferase 10 U/L (10-49); Albumin, Serum 4.2 gm/dL (3.5-5.0); Albumin/Globulin Ratio 1.9 (1.2-2.2); Alkaline Phosphatase 61 U/L (46-116); Anion Gap 10 (7-16); Aspartate Amino Transferase 21 U/L (0-34); BUN/Creatinine Ratio 14 Ratio (12-20); Bilirubin,Total 0.3 mg/dL (0.3-1.2); Blood Urea Nitrogen 7 mg/dL (9-23); Calcium 9.1 mg/dL (8.3-10.6); Calcium (Corrected) 9.1 mg/dL (8.5-10.1); Carbon Dioxide 31.5 mMol/L (20.0-31.0); Chloride 96 mMol/L (98-107); Creatinine (Component) 0.5 mg/dL (0.6-1.3); Estimated Creatinine Clearance 80.2 mL/min (>60); Globulin 2.2 gm/dL (2.3-3.5); Glucose 107 mg/dL (74-106); Osmolality,Calculated 271 (275-295); Potassium 3.6 mMol/L (3.4-5.1); Sodium 137 mMol/L (136-145); Total Protein 6.4 gm/dL (5.7-8.2); eGFR > 60 See Note
[2025-03-20] MEDS: NYSTATIN PWD 15 GM BTL TOP ×2 (08:51→21:21)
[2025-03-20] MEDS: METOCLOPRAMIDE INJ 5 MG/ML VIAL 2 ML 10 MG IVP ×2 (08:52→20:44)
[2025-03-20] MEDS: HEPARIN SOD INJ 5000 UNIT/ML VIAL SC ×2 (08:52→20:44)
[2025-03-20] MEDS: LEVOFLOXACIN/D5W 750MG IVPB 750 MG/150 ML BAG 100 MG IV (08:53)
--- NOTE | 2025-03-20 09:00 | PD.RESDS ---
Planned Discharge Date 03/20/25 DS: Providers Provider Date of admission: 03/14/25 15:42 Primary care physician: Jewel Cleaning MD Admitting Provider: Lee Christianson MD Attending Provider on Admission: Keyur Lawrence DO Consults: 03/14/25 15:54 Referral Registered Dietitian Stat Comment: patient uses PEG tube (on Jevity) 03/15/25 05:08 Referral Wound Care Routine Comment: 03/18/25 17:14 Consult to Gastroenterology Routine Comment: 2mm Hepatic Duct stone Consulting Provider: Marianna Chacko Attending Provider on DC: Keyur Lawrence DO Discharging Provider: Sai Mora DO DS: Diagnosis Problem List Completed Was Problem List Reviewed/Reconciled?: Yes Hospital Course Hospital Course Hospital course: ---ADDENDUM--- Patient failed to be discharged on 03/20/25 due to placement issues. Summary: Deyanira Pérez is a 54-year-old female with a PMH of cerebral palsy, epilepsy on valproic acid, developmental delay (nonverbal at baseline), scoliosis, cholelithiasis, hypothyroidism, GERD, and chronic PEG tube who was BIBA to the ED on 03/14/25 after her adolescent medicine specialist noted that she was not acting like herself during a shower earlier today. ER: Vitals showed: BP 142/88 HR 119 RR 22 Temp 100.9 SpO2 98% on 2 L NC CBC showed WBC 23.4, Hgb 16.7, and plt# 65. CMP showed sodium 131, chloride 91, calculated osmolality 260, lactic acid 3.5, corrected calcium 10.2, lipase WNL, and procalcitonin WNL. UA showed basic pH 8.0, 2+ glucose, 2+ blood, and 14 uRBCs. Serology studies negative for influenza A/B. 03/14 CXR showed poor inspiratory effort but was negative for lobar pneumonia or pulmonary edema 03/14 EKG showed sinus tachycardia with HR 117, short KS interval 112, nonspecific ST and T-wave abnormality, and normal QTc 293 03/14 CT CAP showed right upper lobe pneumonia, cholelithiasis, and abundant air and stool throughout the colon In the ED, patient was given 1 L NS bolus and IV levofloxacin 500 mg x 1. Patient was admitted for the work-up and management of acute encephalopathy in the setting of possible sepsis likely 2/2 aspiration pneumonia. Hospital: During patient's hospital course, she was treated with a [id number] of IV Levaquin and IV Flagyl as well as 3 days of IV vancomycin (discontinued once MRSA negative) for sepsis thought to be 2/2 aspiration pneumonia. She was also restarted on her home valproic acid for her past medical history of epilepsy and had an EEG ordered. Patient had a rapid response on 03/15 and 2 rapid responses on 03/16 in which patient appeared to be in acute distress. Due to concerns for ileus and stool burden, patient was given treatments to facilitate a bowel movement including magnesium citrate, p.o. lactulose, and eventually a fleet enema. KUB showed moderate air and stool throughout the colon and an MRCP was eventually ordered after the 3rd rapid (where lactate was found to be elevated) which showed a dilated hepatic duct with 2 mm non-obstructing stone. GI (Dr. Chacko) was consulted and decided that an ERCP was not indicated at the time. Patient was then started on ursodiol for treatment of her symptomatic chronic cholelithiasis. By 03/20/25 patient was deemed clinically stabilized and discharged to SNF. Patient is safe to discharge to home. Further discharge instructions below. ? You have been started on a medication ursodiol for your gallstone. Take as directed below. ? Continue a good bowel regimen to avoid constipation. ? You can take naproxen or ibuprofen as needed for pain relief by acetaminophen. - Follow up with your primary care physician within 1 week of discharge. If you do not have a primary care physician, please follow up with the [facility] clinic ([phone]) ? If you experience any new, worsening or persistent symptoms either call your primary doctor, or dial 911 or present to the emergency department. #Acute encephalopathy likely secondary to pneumonia #Sepsis rule out, given altered mental status #likely 2/2 aspiration pneumonia #Leukocytosis #Lactic acidosis (resolved) #PMH of epilepsy on valproic acid #Abdominal distention #Cholelithiasis #c/f acute calculous cholecystitis and / or possible acute cholangitis 2/2 cholelithiasis #Hypothyroidism #Intertriginous dermatitis #Chronic PEG tube Status at Discharge Cognitive/Behavioral Status at Discharge: stable Functional Status at Discharge: bedbound Overall Status at Discharge: patient is back to baseline Patient's care plan was discussed with my attending, Dr. Lawrence, and senior resident, Dr. Pemberton. Sai Mora DO Internal Medicine, PGY-1 - The patient's plan was discussed with attending Dr. Howard Pemberton MD PGY2 Internal Medicine Time Spent with Patient Time attestation: Total time spent providing and/or coordinating discharge services: Time spent: Greater than 30 minutes Exam Vital Signs Temp Pulse Resp BP Pulse Ox O2 Del Method O2 Flow Rate 98.4 F 98 22 H 137/96 H 97 Oxy Mask 2 03/20/25 08:00 03/20/25 08:00 03/20/25 08:00 03/20/25 08:00 03/20/25 08:00 03/20/25 08:00 03/20/25 08:00 Narrative Exam General: A/O x0 (nonverbal at baseline) and in no acute distress. Head: Normocephalic, atraumatic. Eyes: Anicteric, vision grossly intact. Mouth/Throat: Oral mucosa moist. No obvious lesions in oropharynx. Cardiovascular: Normal rate and normal rhythm, no murmur, no JVD or carotid bruits. +S1/S2. Respiratory: Slight expiratory rhonchi and some inspiratory wheezing noted on auscultation of bilateral lung elise. No crackles or rales appreciated. No accessory muscle use. Gastrointestinal: Soft, nontender, slightly distended. PEG tube in place at LUQ. No palpable masses or rebound tenderness. Extremities: Muscular atrophy of BLE. Bilateral clubfoot deformity. No edema, no cyanosis, no clubbing. Pedal pulses palpable bilaterally. Skin: Erythema and scaling of intertriginous folds of abdomen and groin. Discharge Plan Plan Patient Disposition: Xfer Skilled g Fac (SNF) Patient condition on transfer: Stable Care Plan Goals: Instructions: ? You have been started on a medication ursodiol for your gallstone. Take as directed below. ? Continue a good bowel regimen to avoid constipation. -Follow up with gastroenterology ? You can take naproxen or ibuprofen as needed for pain relief by acetaminophen. - Follow up with your primary care physician within 1 week of discharge. If you do not have a primary care physician, please follow up with the [facility] clinic ([phone]) ? If you experience any new, worsening or persistent symptoms either call your primary doctor, or dial 911 or present to the emergency department. Prescriptions/Referrals Prescriptions/Med Rec: New ursodiol 300 mg Capsule 300 mg G-tube QDAY 30 Days Qty: 30 2RF Continued levothyroxine 75 mcg tablet 75 mcg feeding tube USEASDIRECTD Rx Instructions: GIVE ON SATURDAY, SATURDAY, SATURDAY valproic acid (as sodium salt) 250 mg/5 mL Solution 400 mg feeding tube BID gabapentin 300 mg capsule 900 mg feeding tube BID glycopyrrolate 2 mg tablet 2 mg feeding tube BID simethicone 80 mg Tablet,Chewable 80 mg feeding tube TID calcium carbonate 500 mg/5 mL (1,250 mg/5 mL) suspension 625 mg feeding tube BID [id number] gluconate [Multi-Jg] 9 mg iron/15 mL liquid 5 ml feeding tube BID famotidine 20 mg Tablet 20 mg feeding tube QDAY loratadine 10 mg Tablet 10 mg feeding tube QDAY acetaminophen [Tylenol] 325 mg Tablet 650 mg feeding tube QID PRN (Reason: Pain) bisacodyl 10 mg suppository 10 mg KS QDAY PRN (Reason: constipation) Rx Instructions: ONE SUPPOSITORY, IF NO BM IN 2 DAYS. MAY REPEAT IN 8HR IF NO RESULTS. polyethylene glycol 3350 [ClearLax] 17 gram/dose powder 17 g feeding tube QDAY clindamycin phosphate 1 % gel 1 applic TOPICAL BID Rx Instructions: Apply to face BID metoclopramide HCl 10 mg tablet 10 mg feeding tube BID Referrals: Jewel Cleaning MD [Primary Care Provider, Family Practice] Patient/Caregiver Discharge Instructions Education Materials: Ursodiol Oral Capsule 300 mg, Treating Gallstones Print Language: Norwegian Stand Alone Forms: Ameena Award Info., Patient Portal Info Letter Quality Discharge Quality Measures VTE prophylaxis and sepsis Attestestation Attestation I have discussed and was present for the essential components of the discharge history, physical examination, diagnosis, and discharge treatment plan with the resident. I agree with the patient's discharge care as documented by the resident and amended herein by me. Seth Lawrence, . The patient understood all discharge instructions, all questions were answered satisfactorily. The patient was instructed to return to the Emergency Department is symptoms worsened or persisted. Patient significantly improved from time of admission, back to her baseline yesterday per caregiver who was at bedside. Patient was treated for a full 7 days for presumed aspiration pneumonia with Levaquin and Flagyl. Appeared early on to have abdominal pain, this may have been due to to constipation per imaging, after we placed a robust bowel regimen she had several bowel movements, the patient did appear to feel much better, vitals had normalized however imaging did suggest possible cholecystitis and a possible 2 mm stone in the hepatic duct. Despite the fact the patient's clinical symptoms had improved, we did obtain a GI consult as I was unsure if ERCP would be necessary in this case considering there was no confirmed stone it was just suspected and the patient's symptoms had seemingly resolved. GI agreed that no surgical intervention or ERCP was necessary at this time. The patient does have cholelithiasis however was not a surgical candidate in the past for cholecystectomy. We will discharge the patient on ursodiol to hopefully manage or reduce her stone formation however definitive therapy would be cholecystectomy if she could possibly get that in the future however per the conservator, no surgical intervention at this time. Patient was stable, afebrile and tolerating tube feeds well at time of discharge back to her facility. Although this document has been carefully reviewed, there may still be some phonetic and other typographical errors. These errors are purely grammatical due to imperfections in the software program and should not be construed in any way to compromise the substance of the patient's medical care during this visit. Time Spent on discharge:
[2025-03-20] MEDS: POTASSIUM CHLORIDE 10% 20 MEQ/15 ML UDC GT (09:16)
--- NOTE | 2025-03-20 14:48 | PC.SS ---
Prototype Engineer attempted to connect with [facility] to confirm patient can be recieved today. Unable to connect with [facility], a message was left requesting a return call. [facility] was contacted, she informed specifications writer they are short staffed and unable to accept patient. [facility] stated they can receive patient 03/21/25, preferably before 1800. Dr. Pemberton was informed.
--- NOTE | 2025-03-20 18:36 | PD.IMPROG ---
Documentation for date of: 03/20/25 Subjective Subjective Interval history: LFTs remain normal Agree with discharge planning No need for any ERCP Exam Vital Signs Temp Pulse Resp BP Pulse Ox O2 Del Method O2 Flow Rate 97.2 F 98 24 H 138/88 H 93 L Room Air 2 03/20/25 16:00 03/20/25 16:00 03/20/25 16:00 03/20/25 16:00 03/20/25 16:00 03/20/25 16:00 03/20/25 08:00 Objective Labs 03/20/25 04:52 03/20/25 04:52 Labs: Laboratory Results - last 24 hr 03/20/25 04:52 WBC 12.8 H RBC 3.99 L Hgb 12.7 Hct 38.7 MCV 97 MCH 31.8 MCHC 32.8 RDW Std Deviation 44.9 Plt Count 264 D Neut % (Auto) 63 Lymph % (Auto) 20 [place] % (Auto) 16 H Eos % (Auto) 0 Baso % (Auto) 0 Neut # (Auto) 8.0 H Lymph # (Auto) 2.6 [place] # (Auto) 2.0 H Eos # (Auto) 0.0 Baso # (Auto) 0.0 Immature Gran # (Auto) 0.18 H Absolute Nucleated RBC 0.00 Immature Gran % 1 H Nucleated RBC % 0 Sodium 137 Potassium 3.6 Chloride 96 L Carbon Dioxide 31.5 H Anion Gap 10 BUN 7 L Creatinine 0.5 L Estim Creat Clear Calc 80.2 eGFR > 60 BUN/Creatinine Ratio 14 Glucose 107 H Calculated Osmolality 271 L Calcium 9.1 Corrected Calcium 9.1 Total Bilirubin 0.3 AST 21 ALT 10 Alkaline Phosphatase 61 Total Protein 6.4 Albumin 4.2 Globulin 2.2 L Albumin/Globulin Ratio 1.9 Impressions Impression: Common hepatic duct stone 2 mm Normal LFTs No need for any invasive GI workup ABG Interpretation ABG results: 03/15/25 12:20 ABG pH 7.50 H ABG pCO2 30 L ABG pO2 183 H ABG HCO3 24 ABG O2 Saturation 99 H ABG Base Excess 1 Assessment & Plan A&P Narrative # Abnormal MRCP showing a 2 mm stone in the common hepatic duct without major dilatation and normal LFTs and asymptomatic patient No further intervention necessary No need for an ERCP # Asymptomatic cholelithiasis # Fatty liver with hepatomegaly Recommend dietary consultation for the skilled nursing people where he stays to get the patient on a low-fat diet Get a lipid panel and appropriately manage the lipid profile with aggressive management Other medical problems include Pneumonia Epilepsy Developmentally challenged and delayed Baseline nonverbal Hypothyroidism Status post PEG placement Thank you very much for the opportunity to participate in care of this patient Time Spent With Patient Time: Total time spent is greater than 50% in coordination of care (as documented) at patient's floor/unit and/or counseling patient:
[2025-03-21] VITALS (14 sets, daily range): BP systolic 103–165; BP diastolic 68–97; PULSE 89–108; RESP 15–92; TEMP 36.3–36.8; O2SAT 90–96
[2025-03-21] MEDS: VALPROATE SOD INJ 250 MG in SODIUM CHLORIDE 0.9% 50 ML 50 MG IV ×5 (00:17→23:28)
--- NOTE | 2025-03-21 00:35 | PC.NURSE ---
Pt has a tube feeding residual of 80 ml at his time and pt become wheezy, MD Mo made aware new order made to give breathing treatment x1.
[2025-03-21] MEDS: ALBUTEROL/IPRATROPIUM (Duoneb) RT SOL 3 ML NEBU INH (00:46)
[2025-03-21] MEDS: SIMETHICONE 80 MG CHEW GT ×3 (05:13→21:01)
[2025-03-21] MEDS: METOCLOPRAMIDE INJ 5 MG/ML VIAL 2 ML 10 MG IVP ×2 (08:42→20:34)
[2025-03-21] MEDS: NYSTATIN PWD 15 GM BTL TOP ×2 (08:43→20:43)
[2025-03-21] MEDS: HEPARIN SOD INJ 5000 UNIT/ML VIAL SC ×2 (08:44→20:34)
--- NOTE | 2025-03-21 09:10 | XR_ITS ---
EXAMINATION: AP chest single view TECHNIQUE: AP portable semiupright chest single view COMPARISON: March 15, 2025 INDICATIONS: Shortness of breath today FINDINGS: Diffuse right lung pneumonia with layered right pleural fluid Enlarged cardiac contour with mild vascular congestion. Elevation left hemidiaphragm Prominent osteopenia IMPRESSION: Diffuse significant right lung pneumonia with probable significant layered right pleural fluid
[2025-03-21 09:54] LABS: Basophils # (Auto) 0.1 Thou/mm3 (0.0-0.2); Basophils % (Auto) 1 % (0-2.5); Eosinophils # (Auto) 0.0 Thou/mm3 (0.0-0.5); Eosinophils % (Auto) 0 % (0-10); Hematocrit 39.0 % (36.0-46.0); Hemoglobin 13.0 g/dL (12.0-16.0); Immature Granulocytes Auto 0.65 Thou/mm3 (0.00-0.00); Lymphocytes # (Auto) 3.5 Thou/mm3 (1.0-4.8); Lymphocytes % (Auto) 20 % (10-50); Mean Corpuscular HGB Conc 33.3 g/dl (31.0-37.0); Mean Corpuscular Hemoglobin 31.4 pg (25.0-35.0); Mean Corpuscular Volume 94 fL (80-100); Monocytes # (Auto) 3.1 Thou/mm3 (0.0-0.8); Monocytes % (Auto) 17 % (0-12); Neutrophils # (Auto) 10.3 Thou/mm3 (1.8-7.7); Neutrophils % (Auto) 58 % (37-80); Nucleated Red Blood Cell # 0.00 Thou/mm3 (0.00-0.00); Nucleated Red Blood Cell % 0 /100 WBC (0); Platelet Count 299 Thou/mm3 (140-440); RDW Standard Deviation 44.3 fL (36.4-46.3); Red Blood Count 4.14 Miln/mm3 (4.00-5.20); White Blood Count 17.6 Thou/mm3 (3.6-11.0)
--- NOTE | 2025-03-21 11:12 | ESPR_ITS ---
<Statement entered by Robert Lilly MD - 03/21/25 13:25> I saw and examined patient personally and supervised PGY 1 resident, Dr. Mora with formulating a management plan. I agree with the documentation with the exceptions as listed below. Patient was initially admitted for aspiration pneumonia and treated for total of 7 days with levofloxacin and metronidazole IV. Patient was possibly discharged to her half-way yesterday, however it was unsuccessful due to her facility not having enough nursing staff. This morning she desaturated in the 80s and was placed on 3L O2 via oxy mask. Repeat chest x-ray was ordered which showed 0.33 effort and possible layering right pleural effusion. Lasix 40 mg IV x 1 was ordered for diuresis along with restarting levofloxacin 750 mg p.o. daily for 3 more days. A total of 10 days of antibiotics for aspiration pneumonia will be completed. Discharge was held. Plan of care discussed with Attending Dr. Howard Lilly MD PGY 2 Disclaimer: This note was dictated by speech recognition. Minor errors in offset duplicating machine operator may be present due to voice recognition software. Documentation for date of: 03/21/25 Subjective Subjective Interval history: Patient was planned to be discharged yesterday on 03/20 but failed SNF placement. However, today, she was noted to be saturating in the high 80s on room air which seems worsened from prior day (later she was placed on 3 L Oxygen Mask). On physical exam, some mild expiratory wheezing or rhonchi was appreciated of anterior lung elise. Repeat CXR showed 0.33 effort with possible right pleural effusion. Patient was initially admitted for aspiration pneumonia and has received a total of 7 days of IV Levaquin and IV Flagyl. Current plan is to give her IV Lasix 40 mg x 1 and have patient complete 3 more days of PO Levaquin 750 mg for a 74-xxq-bpuort of antibiotic treatment for aspiration pneumonia. Discharge has been held for now. Exam Vital Signs Temp Pulse Resp BP Pulse Ox O2 Del Method O2 Flow Rate 97.4 F 96 15 154/77 H 95 Room Air 2 03/21/25 08:00 03/21/25 08:00 03/21/25 08:00 03/21/25 08:00 03/21/25 08:00 03/21/25 08:00 03/21/25 00:50 Narrative Exam General: A/O x0 (nonverbal at baseline) and in no acute distress. Head: Normocephalic, atraumatic. Eyes: Anicteric, vision grossly intact. Mouth/Throat: Oral mucosa moist. No obvious lesions in oropharynx. Cardiovascular: Normal rate and normal rhythm, no murmur, no JVD or carotid bruits. +S1/S2. Respiratory: Slight expiratory rhonchi and some inspiratory wheezing noted on auscultation of bilateral lung elise. No crackles or rales appreciated. No accessory muscle use. Gastrointestinal: Soft, nontender, slightly distended. PEG tube in place at LUQ. No palpable masses or rebound tenderness. Extremities: Muscular atrophy of BLE. Bilateral clubfoot deformity. No edema, no cyanosis, no clubbing. Pedal pulses palpable bilaterally. Skin: Erythema and scaling of intertriginous folds of abdomen and groin. Objective Labs 03/21/25 09:30 03/20/25 04:52 Labs: Laboratory Results - last 24 hr 03/21/25 09:30 WBC 17.6 H RBC 4.14 Hgb 13.0 Hct 39.0 MCV 94 MCH 31.4 MCHC 33.3 RDW Std Deviation 44.3 Plt Count 299 D Neut % (Auto) 58 Lymph % (Auto) 20 [place] % (Auto) 17 H Eos % (Auto) 0 Baso % (Auto) 1 Neut # (Auto) 10.3 H Lymph # (Auto) 3.5 [place] # (Auto) 3.1 H Eos # (Auto) 0.0 Baso # (Auto) 0.1 Immature Gran # (Auto) 0.65 H Absolute Nucleated RBC 0.00 Immature Gran % 4 H Nucleated RBC % 0 ABG Interpretation ABG results: 03/15/25 12:20 ABG pH 7.50 H ABG pCO2 30 L ABG pO2 183 H ABG HCO3 24 ABG O2 Saturation 99 H ABG Base Excess 1 Quality Measures Quality Measures VTE prophylaxis and sepsis Current suspected stage: ruled out Possible source: pulmonary Blood cultures ordered: yes Antibiotic ordered: Yes Assessment & Plan Assessment Current Active Medications: Generic Name Dose Route Start Last Admin Trade Name Freq PRN Reason Stop Dose Admin Acetaminophen 650 mg 03/14/25 15:42 03/20/25 21:20 Acetaminophen 325 Mg Tablet NG 04/13/25 15:41 650 mg Q6H PRN Administration Fever >100.4 and Pain 1-3 Bisacodyl 10 mg 03/15/25 20:03 03/16/25 03:58 Bisacodyl 10 Mg Supp [place] 04/14/25 20:02 10 mg QDAY PRN Administration CONSTIPATION Protocol Heparin Sodium (Porcine) 5,000 unit 03/14/25 21:00 03/21/25 08:44 Heparin Sod Inj 5000 Unit/Ml Vial SC 03/28/25 20:59 5,000 unit Q12HR CAMILA Administration Valproic Acid 250 mg/ Sodium 52.5 mls @ 50 mls/hr 03/15/25 18:00 03/21/25 05:14 Chloride IV 04/14/25 17:59 50 mls/hr Q6HR CAMILA Administration Ketorolac Tromethamine 15 mg 03/16/25 19:08 03/19/25 15:50 Ketorolac Inj 30 Mg/Ml Vial IVP 03/21/25 14:48 15 mg Q6HR PRN Administration Pain 4-6 Labetalol HCl 10 mg 03/14/25 16:47 Labetalol Inj 5 Mg/Ml Vial 20 Ml IVP 04/13/25 16:46 Q6HR PRN Hypertension Levofloxacin 500 mg 03/21/25 11:00 Levofloxacin 250 Mg Tablet PO 03/28/25 10:59 QDAY CAMILA Levothyroxine Sodium 75 mcg 03/15/25 06:00 03/20/25 05:34 Levothyroxine Sodium 25 Mcg Tablet GT 04/14/25 05:59 75 mcg [id number]@0600 CAMILA Administration Levothyroxine Sodium 50 mcg 03/16/25 06:00 03/19/25 05:25 Levothyroxine Sodium 25 Mcg Tablet GT 04/15/25 05:59 50 mcg [id number]@0600 CAMILA Administration Lorazepam 1 mg 03/18/25 08:10 03/18/25 10:21 Lorazepam 2 Mg/Ml Vial IVP 03/23/25 08:09 1 mg X1 PRN Administration AGITATION Metoclopramide HCl 10 mg 03/17/25 21:00 03/21/25 08:42 Metoclopramide Inj 5 Mg/Ml Vial 2 Ml IVP 04/16/25 20:59 10 mg BID CAMILA Administration Protocol Nystatin 0 gm 03/14/25 21:00 03/21/25 08:43 Nystatin Pwd 15 Gm Btl TOP 04/13/25 20:59 1 applicatio BID CAMILA Administration Ondansetron HCl 4 mg 03/14/25 15:42 Ondansetron Inj 2 Mg/Ml Inj 2 Ml IVP 04/13/25 15:41 Q6H PRN NAUSEA OR VOMITING Protocol Pantoprazole Sodium 40 mg 03/17/25 16:30 03/21/25 08:43 Pantoprazole Inj 40 Mg Vial IVP 04/16/25 16:29 40 mg QDAY CAMILA Administration Sennosides 1 tab 03/14/25 16:00 03/21/25 08:43 Senna Tablet GT 04/13/25 15:59 1 tab QDAY CAMILA Administration Protocol Simethicone 80 mg 03/16/25 22:00 03/21/25 05:13 Simethicone 80 Mg Chew GT 04/15/25 21:59 80 mg TID CAMILA Administration Ursodiol 300 mg 03/19/25 09:00 03/21/25 08:43 Ursodiol 300 Mg Capsule GT 04/18/25 08:59 300 mg QDAY CAMILA Administration Plan Deyanira Pérez is a 54-year-old female with a PMH of cerebral palsy, epilepsy on valproic acid, developmental delay (nonverbal at baseline), scoliosis, cholelithiasis, hypothyroidism, GERD, and chronic PEG tube who was BIBA to the ED on 03/14/25 after her complaint analyst noted that she was not acting like herself during a shower earlier today. Patient was admitted for the work-up and management of acute encephalopathy in the setting of possible sepsis likely 2/2 aspiration pneumonia. #Hypoxia, new #??Right pleural effusion On 03/21, patient was noted to be saturating in the high 80s on room air which seems worsened from prior day On physical exam, some mild expiratory wheezing or rhonchi was appreciated of anterior lung elise Dx: -03/21 repeat CXR ordered, showed 0.33 effort with possible right pleural effusion Rx: -IV Lasix 40 mg x 1 for diuresis -PO Levaquin 750 mg for 3 more days to complete a 33-pgm-llnegt of antibiotic treatment for aspiration pneumonia -Supplemental oxygen as needed (patient may benefit from home oxygen) #Abdominal distention #c/f acute calculous cholecystitis and/or possible acute cholangitis 2/2 cholelithiasis On 03/15, RR was called and patient was noted to have more distention of the abdomen On 03/16, 2 RRs were called and in the latter RR patient was noted to have abdominal guarding and distention without any significant BM's being made On 03/17, patient was finally able to have a large BM after fleet enema administration Dx: -03/15 KUB showed nonobstructive gas pattern -03/16 KUB showed moderate air and stool throughout the colon -Ordered 03/16 CTAP, showed gastritis and active peptic disease of the duodenum, colonic ileus, small bowel ileus, and suspicion for acute calculous cholecystitis -Ordered 03/16 lactate, came back elevated at 4.2 (later down-trended back to 1.5) -MRCP showed dilated hepatic duct with 2 mm non-obstructing stone, Dr. Chacko has been consulted regarding possible ERCP and he has recommended that ERCP is not currently indicated at this time Rx: -Continue GT ursodiol 300 mg daily -Follow-up with patient's conservator, Dr. Marie, to discuss his recommendations for long-term management of her gallstones -Continue PO lactulose 20 mg TID -Continue GT simethicone 80 mg TID -IV Toradol 15 mg q6HR prn for moderate pain 4-6 #Acute encephalopathy likely secondary to pneumonia or acute cholecystitis #PMH of epilepsy on valproic acid Patient presented with reported confusion not present at baseline PMH of cerebral palsy, epilepsy on valproic acid, developmental delay (nonverbal at baseline) DDx: 2/2 acute infection (sepsis or pneumonia or acute cholecystitis), seizure- induced post-ictal state Dx: -Ordered EEG awake and drowsy, results pending Rx: -Continue home medication: GT valproic acid syrup 250 mg BID -Seizure precautions -Aspiration precautions -HOB elevation 30 degrees -Surveillance monitoring (miscellaneous nursing order) #Sepsis rule out #likely 2/2 aspiration pneumonia #Leukocytosis Patient meets 4/4 SIRS criteria by the following: Temperature above 100.4 or below 98.6 (100.9), HR>90 (119), RR>20 or PaCO2<32 (RR 22), WBC above 12 or below 4 (23.4) + source of infection (aspiration pneumonia) Evidence for source of infection is finding of right upper lobe pneumonia on 03/14 CT CAP qSOFA rating predicting high-risk mortality if 2 or more of the following criteria met: SBP 100 or less (not met), RR 22 or more (met), GCS less than 15 (met) On physical exam, mottling observed of right elbow and bilateral feet In the context of fluid resuscitation, patient is s/p 1 L of IV fluid Of note, patient is reported to be allergic to penicillins and cephalexin s/p administration of IV levofloxacin 500 mg x 1 in the ED s/p IV vancomycin [03/14-03/16] Dx: -Ordered BCx, [id number] -Ordered MRSA nares, negative -Ordered bedside Influenza A&B, negative Rx: -2-tix-ncjyrl of IV Levaquin 750 mg qD [03/14-03/20] -4-zye-nbkhdr of IV Flagyl 500 mg q8HR [03/14-03/20] #Lactic acidosis (resolved) Admission LA 3.5, then down-trended to 1.8 on same day On 03/16, lactate ordered after 2nd rapid response was elevated at 4.2 but then down-trended to 1.5 Possibly 2/2 hypoperfusion from sepsis or seizure activity Rx: -Continue to monitor #Hypothyroidism Per prior documentation, patient has a history of hypothyroidism and takes levothyroxine at home Dx: -Ordered TSH, WNL 3.66 -Ordered Free T4, results pending Rx: -Continue home medication: GT levothyroxine dosed by pharmacy #Intertriginous dermatitis On physical exam, patient was noted to have erythema and scaling of intertriginous folds of the abdomen and groin Rx: -Topical nystatin BID #Chronic PEG tube Rx: -Continue tube feeds -Continue home Reglan for increased gut motility and better toleration of tube feeds -Consulted registered dietitian Hospital Management: Disposition: admitted to [facility] for the work-up and management of acute encephalopathy in the setting of possible sepsis, currently addressing issue regarding patient's new hypoxia Diet: Tube Feeds GI Prophylaxis: GT Pepcid 20 mg qD Bowel Prophylaxis: GT Senna 1 tablet qD DVT Prophylaxis: SC Heparin 5K q12HR CODE STATUS: Full Code I have examined the patient and conferred with my attending, Dr. Lawrence, and my senior resident, Dr. Lilly, regarding them. Sai Mora, DO Internal Medicine, PGY-1 Attending Provider Attestation/Addendum I have discussed and was present for the essential components of the history, physical examination, diagnosis, and treatment plan with the resident. I agree with the patient's care as documented by the resident and amended herein by me. Seth Lawrence DO. Although this document has been carefully reviewed, there may still be some phonetic and other typographical errors. These errors are purely grammatical due to imperfections in the software program and should not be construed in any way to compromise the substance of the patient's medical care during this visit. Patient seen and evaluated this AM. Clinically the patient looks great, much improved from when I saw her earlier in the week. O2 sat was a little low this morning at 87 on room air, reported to be in the mid 90s overnight, we will try to replace the O2 sensor to see if it is a problem there, I am going to get a repeat chest x-ray however we will continue 3 more days of Levaquin for aspiration pneumonia continue on the ursodiol for her gallbladder stones and monitor closely, possible discharge later today or tomorrow if she remains improved.
[2025-03-21] MEDS: LEVOFLOXACIN 250 MG TABLET 500 MG PO (11:56)
[2025-03-21] MEDS: FUROSEMIDE INJ 10 MG/ML 4ML VIAL 40 MG IVP (11:56)
[2025-03-21] MEDS: ACETAMINOPHEN 325 MG TABLET 650 MG NG (17:39)
--- NOTE | 2025-03-21 18:39 | PD.IMPROG ---
Documentation for date of: 03/21/25 Subjective Subjective Interval history: Patient evaluated LFTs remain normal Exam Vital Signs Temp Pulse Resp BP Pulse Ox O2 Del Method O2 Flow Rate 98.2 F 102 H 22 H 132/78 H 91 L Room Air 2 03/21/25 15:50 03/21/25 17:53 03/21/25 17:53 03/21/25 15:50 03/21/25 15:50 03/21/25 15:50 03/21/25 17:53 Objective Labs 03/21/25 09:30 03/20/25 04:52 Labs: Laboratory Results - last 24 hr 03/21/25 09:30 WBC 17.6 H RBC 4.14 Hgb 13.0 Hct 39.0 MCV 94 MCH 31.4 MCHC 33.3 RDW Std Deviation 44.3 Plt Count 299 D Neut % (Auto) 58 Lymph % (Auto) 20 [place] % (Auto) 17 H Eos % (Auto) 0 Baso % (Auto) 1 Neut # (Auto) 10.3 H Lymph # (Auto) 3.5 [place] # (Auto) 3.1 H Eos # (Auto) 0.0 Baso # (Auto) 0.1 Immature Gran # (Auto) 0.65 H Absolute Nucleated RBC 0.00 Immature Gran % 4 H Nucleated RBC % 0 Impressions Impression: Common hepatic duct stone small No LFTs abnormalities Continue to monitor LFTs No EUS or ERCP necessary ABG Interpretation ABG results: 03/15/25 12:20 ABG pH 7.50 H ABG pCO2 30 L ABG pO2 183 H ABG HCO3 24 ABG O2 Saturation 99 H ABG Base Excess 1 Assessment & Plan A&P Narrative # Abnormal MRCP showing a 2 mm stone in the common hepatic duct without major dilatation and normal LFTs and asymptomatic patient No further intervention necessary No need for an ERCP # Asymptomatic cholelithiasis # Fatty liver with hepatomegaly Recommend dietary consultation for the prison people where he stays to get the patient on a low-fat diet Get a lipid panel and appropriately manage the lipid profile with aggressive management Other medical problems include Pneumonia Epilepsy Developmentally challenged and delayed Baseline nonverbal Hypothyroidism Status post PEG placement Thank you very much for the opportunity to participate in care of this patient Time Spent With Patient Time: Total time spent is greater than 50% in coordination of care (as documented) at patient's floor/unit and/or counseling patient:
[2025-03-22] VITALS: BP 142/78; PULSE 82; PULSE 96; RESP 20; TEMP 36.6; O2SAT 94
[2025-03-22] MEDS: ACETAMINOPHEN 325 MG TABLET 650 MG NG (02:04)
[2025-03-22 04:00] VITALS: BP 142/78; PULSE 96; PULSE 99; RESP 20; TEMP 36.6; O2SAT 94
[2025-03-22] MEDS: LEVOTHYROXINE SODIUM 25 MCG TABLET 75 MCG GT (05:09)
[2025-03-22] MEDS: VALPROATE SOD INJ 250 MG in SODIUM CHLORIDE 0.9% 50 ML 50 MG IV (05:09)
[2025-03-22] MEDS: SIMETHICONE 80 MG CHEW GT (05:09)
[2025-03-22 06:46] LABS: Basophils # (Auto) 0.1 Thou/mm3 (0.0-0.2); Basophils % (Auto) 1 % (0-2.5); Eosinophils # (Auto) 0.0 Thou/mm3 (0.0-0.5); Eosinophils % (Auto) 0 % (0-10); Hematocrit 38.0 % (36.0-46.0); Hemoglobin 12.5 g/dL (12.0-16.0); Immature Granulocytes Auto 0.67 Thou/mm3 (0.00-0.00); Lymphocytes # (Auto) 3.6 Thou/mm3 (1.0-4.8); Lymphocytes % (Auto) 24 % (10-50); Mean Corpuscular HGB Conc 32.9 g/dl (31.0-37.0); Mean Corpuscular Hemoglobin 31.5 pg (25.0-35.0); Mean Corpuscular Volume 96 fL (80-100); Monocytes # (Auto) 3.0 Thou/mm3 (0.0-0.8); Monocytes % (Auto) 20 % (0-12); Neutrophils # (Auto) 7.8 Thou/mm3 (1.8-7.7); Neutrophils % (Auto) 51 % (37-80); Nucleated Red Blood Cell # 0.00 Thou/mm3 (0.00-0.00); Nucleated Red Blood Cell % 0 /100 WBC (0); Platelet Count 308 Thou/mm3 (140-440); RDW Standard Deviation 45.5 fL (36.4-46.3); Red Blood Count 3.97 Miln/mm3 (4.00-5.20); White Blood Count 15.2 Thou/mm3 (3.6-11.0)
[2025-03-22 07:07] LABS: Alanine Aminotransferase 8 U/L (10-49); Albumin, Serum 3.9 gm/dL (3.5-5.0); Albumin/Globulin Ratio 1.6 (1.2-2.2); Alkaline Phosphatase 55 U/L (46-116); Anion Gap 10 (7-16); Aspartate Amino Transferase 15 U/L (0-34); BUN/Creatinine Ratio 16 Ratio (12-20); Bilirubin,Total 0.3 mg/dL (0.3-1.2); Blood Urea Nitrogen 8 mg/dL (9-23); Calcium 9.4 mg/dL (8.3-10.6); Calcium (Corrected) 9.5 mg/dL (8.5-10.1); Carbon Dioxide 34.0 mMol/L (20.0-31.0); Chloride 93 mMol/L (98-107); Creatinine (Component) 0.5 mg/dL (0.6-1.3); Estimated Creatinine Clearance 94.3 mL/min (>60); Globulin 2.5 gm/dL (2.3-3.5); Glucose 97 mg/dL (74-106); Magnesium 2.1 mg/dL (1.6-2.6); Osmolality,Calculated 272 (275-295); Phosphorous 3.3 mg/dL (2.4-5.1); Potassium 3.8 mMol/L (3.4-5.1); Sodium 137 mMol/L (136-145); Total Protein 6.4 gm/dL (5.7-8.2); eGFR > 60 See Note
[2025-03-22 08:00] VITALS: BP 116/77; PULSE 89; PULSE 93; RESP 18; TEMP 36.3; O2SAT 93
[2025-03-22 08:58] VITALS: BP 116/77; PULSE 93
[2025-03-22] MEDS: FUROSEMIDE INJ 10 MG/ML 4ML VIAL 40 MG IVP (08:58)
[2025-03-22] MEDS: METOCLOPRAMIDE INJ 5 MG/ML VIAL 2 ML 10 MG IVP (08:58)
[2025-03-22] MEDS: NYSTATIN PWD 15 GM BTL TOP (08:59)
[2025-03-22] MEDS: LEVOFLOXACIN 250 MG TABLET 500 MG PO (08:59)
[2025-03-22] MEDS: HEPARIN SOD INJ 5000 UNIT/ML VIAL SC (08:59)
--- NOTE | 2025-03-22 09:58 | XR_ITS ---
EXAMINATION: AP chest portable single view March 22, 2025, 10:29 a.m., comparison March 21, 2025 INDICATIONS: Shortness of breath today. FINDINGS: Significant right lung pneumonia Moderate elevation left hemidiaphragm Prominent osteopenia IMPRESSION: Significant right lung pneumonia Suspicious for moderate right pleural fluid, consider ultrasound right hemithorax follow-up
--- NOTE | 2025-03-22 09:58 | PC.SS ---
SS follow up note; SS followed up with [facility] and spoke to housekeeper caregiver Kaelyn to inform her that patient was discharging today, however she reported that nursing staff informed her that patient had fluid in her lungs and would like to update and contact center manager, Kimberlyn. SS contacted Dr. Pemberton and updated her.
[2025-03-22 12:00] VITALS: PULSE 93
--- NOTE | 2025-03-22 14:15 | ESDS_ITS ---
<Statement entered by Robert Lilly MD - 03/22/25 17:04> I saw and examined patient personally and supervised PGY 1 resident, Dr. Mora with formulating a management plan. I agree with the documentation with the exceptions as listed below. Patient was admitted for aspiration pneumonia and treated with levofloxacin and metronidazole IV for total of 7 days. She was also treated for an additional 2 days with levofloxacin 750 mg p.o. daily and discharged with an additional day. During hospitalization patient had abdominal pain and MRCP which did not show a 2 mm nonobstructing stone in the common hepatic duct. Gastroenterology was consulted who recommended no urgent need for ERCP. Patient was started on ursodiol 300 mg p.o. daily. All patient's labs are now returning to baseline. Patient is now clinically stable to discharge to senior care. Plan of care discussed with Attending Dr. Howard Lilly MD PGY 2 Disclaimer: This note was dictated by speech recognition. Minor errors in ore puncher may be present due to voice recognition software. Planned Discharge Date 03/22/25 DS: Providers Provider Date of admission: 03/14/25 15:42 Primary care physician: Jewel Cleaning MD Admitting Provider: Lee Christianson MD Attending Provider on Admission: Keyur Lawrence DO Consults: 03/14/25 15:54 Referral Registered Dietitian Stat Comment: patient uses PEG tube (on Jevity) 03/15/25 05:08 Referral Wound Care Routine Comment: 03/18/25 17:14 Consult to Gastroenterology Routine Comment: 2mm Hepatic Duct stone Consulting Provider: Marianna Chacko Attending Provider on DC: Keyur Lawrence DO Discharging Provider: Sai Mora DO DS: Diagnosis Problem List Completed Was Problem List Reviewed/Reconciled?: Yes Hospital Course Hospital Course Hospital course: Summary: Patient is a 54-year-old female with a past medical history of cerebral palsy, developmental delay, history of seizures on valproic acid, hypothyroidism, scoliosis, cholelithiasis, history of GERD and on PEG tube feeding who present with changes in behavior per senior care but not altered as patient at baseline has developmental delay and nonverbal. ER: In the ED, vitals showed: BP 142/88 HR 119 RR 22 Temp 100.9 SpO2 98% on 2 L NC CBC showed WBC 23.4, Hgb 16.7, and plt# 65. CMP showed sodium 131, chloride 91, calculated osmolality 260, lactic acid 3.5, corrected calcium 10.2, lipase WNL, and procalcitonin WNL. UA showed basic pH 8.0, 2+ glucose, 2+ blood, and 14 uRBCs. Serology studies negative for influenza A/B. 03/14 CXR showed poor inspiratory effort but was negative for lobar pneumonia or pulmonary edema 03/14 EKG showed sinus tachycardia with HR 117, short MN interval 112, nonspecific ST and T-wave abnormality, and normal QTc 293 03/14 CT CAP showed right upper lobe pneumonia, cholelithiasis, and abundant air and stool throughout the colon In the ED, patient was given 1 L NS bolus and IV levofloxacin 500 mg x 1. Hospital: During patient's hospital course, she was treated with a 6-fuz-[id number] of IV Levaquin and IV Flagyl as well as 3 days of IV vancomycin (discontinued once MRSA negative) for sepsis thought to be 2/2 aspiration pneumonia. She was also restarted on her home valproic acid for her past medical history of epilepsy and had an EEG ordered. Patient had a rapid response on 03/15 and 2 rapid responses on 03/16 in which patient appeared to be in acute distress. Due to concerns for ileus and stool burden, patient was given treatments to facilitate a bowel movement including magnesium citrate, p.o. lactulose, and eventually a fleet enema. KUB showed moderate air and stool throughout the colon and an MRCP was eventually ordered after the 3rd rapid (where lactate was found to be elevated) which showed a dilated hepatic duct with 2 mm non-obstructing stone. GI (Dr. Chacko) was consulted and decided that an ERCP was not indicated at the time. Patient was then started on ursodiol for treatment of her symptomatic chronic cholelithiasis. On 03/20/25 patient was deemed clinically stabilized and an attempt to discharge her was made which failed due to SNF placement issues. On 03/21/25, patient was noted to be saturating in the high 80s on room air which was worsened from the prior day and repeat CXR showed right pleural effusion. As a result, the decision was made to give her 3 more days of PO Levaquin as well as IV Lasix x1. Finally, on 03/22 patient's respiratory status improved and she was deemed clinically stabilized once again for discharge to SNF. Patient is safe to discharge to home. Further discharge instructions below. Instructions: -One more day of antibiotics on 03/23/2025 to complete antibiotic course. ? You have been started on a medication ursodiol for your gallstone. Take as directed below. ? Continue a good bowel regimen to avoid constipation. - Follow up with gastroenterology ? You can take naproxen or ibuprofen as needed for pain relief by acetaminophen. - Follow up with your primary care physician within 1 week of discharge. If you do not have a primary care physician, please follow up with the [facility] ([phone]) ? If you experience any new, worsening or persistent symptoms either call your primary doctor, or dial 911 or present to the emergency department. #Acute encephalopathy likely secondary to pneumonia #Sepsis rule out, given altered mental status #likely 2/2 aspiration pneumonia #Leukocytosis #Lactic acidosis (resolved) #PMH of epilepsy on valproic acid #Abdominal distention #Cholelithiasis #c/f acute calculous cholecystitis and / or possible acute cholangitis 2/2 cholelithiasis #Hypoxia #Right pleural effusion #Hypothyroidism #Intertriginous dermatitis #Chronic PEG tube Status at Discharge Cognitive/Behavioral Status at Discharge: stable Functional Status at Discharge: bedbound Overall Status at Discharge: patient is back to baseline Patient's care plan was discussed with my attending, Dr. Lawrence, and senior resident, Dr. Lilly. Sai Mora, DO Internal Medicine, PGY-1 Time Spent with Patient Time attestation: Total time spent providing and/or coordinating discharge services: Time spent: Greater than 30 minutes Exam Vital Signs Temp Pulse Resp BP Pulse Ox O2 Del Method O2 Flow Rate 97.3 F 93 18 116/77 93 L Room Air 2 03/22/25 08:00 03/22/25 12:00 03/22/25 08:00 03/22/25 08:58 03/22/25 08:00 03/22/25 08:00 03/22/25 04:00 Narrative Exam General: A/O x0 (nonverbal at baseline) and in no acute distress. Head: Normocephalic, atraumatic. Eyes: Anicteric, vision grossly intact. Mouth/Throat: Oral mucosa moist. No obvious lesions in oropharynx. Cardiovascular: Normal rate and normal rhythm, no murmur, no JVD or carotid bruits. +S1/S2. Respiratory: Slight expiratory rhonchi and some inspiratory wheezing noted on auscultation of bilateral lung elise. No crackles or rales appreciated. No accessory muscle use. Gastrointestinal: Soft, nontender, slightly distended. PEG tube in place at LUQ. No palpable masses or rebound tenderness. Extremities: Muscular atrophy of BLE. Bilateral clubfoot deformity. No edema, no cyanosis, no clubbing. Pedal pulses palpable bilaterally. Skin: Erythema and scaling of intertriginous folds of abdomen and groin. Discharge Plan Plan Patient Disposition: Xfer Skilled Nsg Fac (SNF) Patient condition on transfer: Stable Care Plan Goals: Instructions: -One more day of antibiotics on 03/23/2025 to complete antibiotic course. ? You have been started on a medication ursodiol for your gallstone. Take as directed below. ? Continue a good bowel regimen to avoid constipation. - Follow up with gastroenterology ? You can take naproxen or ibuprofen as needed for pain relief by acetaminophen. - Follow up with your primary care physician within 1 week of discharge. If you do not have a primary care physician, please follow up with the [facility] ([phone]) ? If you experience any new, worsening or persistent symptoms either call your primary doctor, or dial 911 or present to the emergency department. Prescriptions/Referrals Prescriptions/Med Rec: New ursodiol 300 mg Capsule 300 mg G-tube QDAY 30 Days Qty: 30 2RF Continued levothyroxine 75 mcg tablet 75 mcg feeding tube USEASDIRECTD Rx Instructions: GIVE ON SATURDAY, SATURDAY, SATURDAY valproic acid (as sodium salt) 250 mg/5 mL Solution 400 mg feeding tube BID gabapentin 300 mg capsule 900 mg feeding tube BID glycopyrrolate 2 mg tablet 2 mg feeding tube BID simethicone 80 mg Tablet,Chewable 80 mg feeding tube TID calcium carbonate 500 mg/5 mL (1,250 mg/5 mL) suspension 625 mg feeding tube BID [id number]-[id number] gluconate [Multi-Jg] 9 mg iron/15 mL liquid 5 ml feeding tube BID famotidine 20 mg Tablet 20 mg feeding tube QDAY loratadine 10 mg Tablet 10 mg feeding tube QDAY acetaminophen [Tylenol] 325 mg Tablet 650 mg feeding tube QID PRN (Reason: Pain) bisacodyl 10 mg suppository 10 mg MN QDAY PRN (Reason: constipation) Rx Instructions: ONE SUPPOSITORY, IF NO BM IN 2 DAYS. MAY REPEAT IN 8HR IF NO RESULTS. polyethylene glycol 3350 [ClearLax] 17 gram/dose powder 17 g feeding tube QDAY clindamycin phosphate 1 % gel 1 applic TOPICAL BID Rx Instructions: Apply to face BID metoclopramide HCl 10 mg tablet 10 mg feeding tube BID Referrals: Jewel Cleaning MD [Primary Care Provider, Family Practice] Patient/Caregiver Discharge Instructions Education Materials: Ursodiol Oral Capsule 300 mg, Treating Gallstones Print Language: Lithuanian Stand Alone Forms: [employer]meena Award Info., Patient Portal Info Letter Discharge Order Discharge Orders: Discharge (Routine); Ordered 03/22/25 Ordered By: Gini Pemberton Quality Discharge Quality Measures VTE prophylaxis and sepsis Attestestation MD Attestation I have discussed and was present for the essential components of the discharge history, physical examination, diagnosis, and discharge treatment plan with the resident. I agree with the patient's discharge care as documented by the resident and amended herein by me. Seth Lawrence, DO. The patient should return to the Emergency Department is symptoms worsened or persisted. Patient significantly improved from time of admission, per facility caregiver, back to baseline. Patient will be treated for a full 10 days for presumed aspiration pneumonia with Levaquin and Flagyl, 7 days of Levaquin and fat Flagyl in the final 3 days for Levaquin which she will continue back at the facility. During this admission, the patient appeared early on to have abdominal pain, this may have been due to to constipation per imaging, after we placed a robust bowel regimen she had several bowel movements and appeared to be much more comfortable with her vital signs normalizing, particularly the tachycardia, she also did not grimace and appear to be in pain as she was prior. As such however, imaging did suggest possible cholecystitis and a possible 2 mm stone in the hepatic duct. Despite the fact the patient's clinical symptoms had improved, we did obtain a GI consult as I was unsure if ERCP would be necessary in this case considering there was no confirmed stone it was just suspected and the patient's symptoms had seemingly resolved. GI agreed that no surgical intervention or ERCP was necessary at this time. The patient does have cholelithiasis however was not a surgical candidate in the past for cholecystectomy. We will discharge the patient on ursodiol to hopefully manage or reduce her stone formation however definitive therapy would be cholecystectomy if she could possibly get that in the future however per the conservator, no surgical intervention at this time. Patient was stable, afebrile and tolerating tube feeds well at time of discharge back to her facility. I did reach out to Dr. Marie and explain her hospital course and treatment. Although this document has been carefully reviewed, there may still be some phonetic and other typographical errors. These errors are purely grammatical due to imperfections in the software program and should not be construed in any way to compromise the substance of the patient's medical care during this visit.
== END 2025-03-22 12:18 | disposition skilled nursing facility (03) | DRG 137 ==
LOC: SERX 10:05 → SERHOLD 16:33 → S3NX 17:23
PROVIDERS: Admitting Provider Student in an Organized Health Care Education/Training Program; Emergency Provider Emergency Medicine; PCP Family Medicine; Visit Provider Student in an Organized Health Care Education/Training Program
DX: J69.0 Pneumonitis due to inhalation of food and vomit (principal); G93.41 Metabolic encephalopathy; K21.9 Gastro-esophageal reflux disease without esophagitis; G40.909 Epilepsy, unspecified, not intractable, without status epilepticus; Z93.1 Gastrostomy status; G80.9 Cerebral palsy, unspecified; E03.9 Hypothyroidism, unspecified; I10 Essential (primary) hypertension; L30.4 Erythema intertrigo; E87.20 Acidosis, unspecified; K29.70 Gastritis, unspecified, without bleeding; K56.7 Ileus, unspecified; K76.0 Fatty (change of) liver, not elsewhere classified; K80.00 Calculus of gallbladder with acute cholecystitis without obstruction; R09.02 Hypoxemia; Z79.890 Hormone replacement therapy; Z88.1 Allergy status to other antibiotic agents; Z88.0 Allergy status to penicillin; Z88.8 Allergy status to other drugs, medicaments and biological substances
CPT/HCPCS: 36415; 36600; 71045; 71260; 74018; 74177; 74181; 76705; 80053; 80061; 80069; 80202; 81001; 82550; 82803; 83605; 83615; 83690; 83735; 84100; 84145; 84443; 85025; 87040; 87077; 87081; 87086; 87186; 87205; 87502; 87811; 93005; 93225; 94640; 95816; 96361; 96365; 96372; 99284; A4649; A9270; J0131; J1644; J1885; J1938; J1956; J2060; J2270; J2470; J2765; J3370; J3373; J3480; J3490; J7030; J7120; J7999; Q9967; J1836